=== PATIENT | male | born 1995 | race Caucasian/White ===

== ENCOUNTER 2024-06-25 15:51 | Emergency (ER) | payer BC, SELFPAY ==
--- NOTE | 2024-06-25 15:55 | ECG_ITS ---
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 Measurements Intervals Linch Rate: 115 P: 77 [place]: 118 QRS: 72 QRSD: 95 T: 80 QT: 309 QTc: 428 Interpretive Statements SINUS TACHYCARDIA WITH SHORT [place] INTERVAL POSSIBLE RIGHT ATRIAL ENLARGEMENT [0.25mV P-WAVE] INCOMPLETE RIGHT BUNDLE BRANCH BLOCK [90+ ms QRS DURATION, TERMINAL R IN V1/V2, 40+ ms S IN I/aVL/V4/V5/V6] NONSPECIFIC T-WAVE ABNORMALITY ABNORMAL RHYTHM ECG No previous ECG available for comparison Electronically Signed On 06-25-2024 22:31:20 CDT by Lyric Chaidez M.D. [email or web address]
[2024-06-25 15:58] VITALS: BP 139/92; PULSE 110; RESP 18; TEMP 36.7; O2SAT 99; BMI 23.1
--- NOTE | 2024-06-25 16:18 | ED.C_ITS ---
HPI - Psych 2 General: Chief Complaint: Psychiatric Symptoms Stated Complaint: SI Time Seen by Provider: 06/25/24 15:53 History of Present Illness: 28-year-old male presents the emergency department by EMS. EMS reports that family called due to intoxication and suicidal thoughts. Patient is slurring his words and has nystagmus on arrival. He admits to drinking heavily all week. He reports he drinks whiskey. EMS reports that family noted that the patient has a history of testicular cancer. He was told he was in remission of his testicular cancer. He had refrained from drinking alcohol during his treatment. Now that he is in remission, he decided to start drinking again. Evidently he used to abuse alcohol. He has scars up and down his wrists on both sides from self cutting. Patient reports I like the color red . He says he cuts with stress. He says he is suicidal every single day and has been for a very long time. He does not think he is any more suicidal today than any other day. He does have a girlfriend. He denies any medical problems other than anxiety, depression, self cutting, alcohol abuse, and the testicular cancer in remission. Patient tells me that he does not have any access to weapons. Patient is going to be placed on a hold for suicidal ideation with clinical intoxication. Associated symptoms: Deny delusions Related Data Previous Rx's Medication Instructions Recorded buspirone 10 mg tablet 10 mg PO BID PRN anxiety #30 tabs 06/25/24 hydroxyzine HCl 25 mg tablet 25 mg PO Q6H PRN anxiety #30 tabs 06/25/24 Review of Systems 2 Narrative: Review of systems is limited due to the patient's intoxication. However, he says he has no medical concerns. He does endorse being chronically suicidal. He denies HI. Physical Exam 2 Narrative: EXAM NARRATIVE: Slurred speech, nystagmus, delayed responses. Injected conjunctiva. Tachycardia. 2+ radial pulse. Dry mucous membranes. No respiratory distress. Normal work of breathing. He has some grass stains on his pant legs. Patient has healing scars on both of his wrists and forearms. 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 There are no acute lacerations. Const: COMMON NORMALS: well nourished HENMT: COMMON NORMALS: normocephalic, atraumatic and external ears normal H EAD & SCALP: normocephalic and atraumatic EXTERNAL EAR: Yes external ears normal MOUTH: no muffled voice Eye: COMMON NORMALS: conjunctivae normal and no scleral icterus C ONJUNCTIVA: Yes conjunctivae normal Neck/C-Spine: GENERAL: Yes normal visual inspection and Yes trachea midline Resp: COMMON NORMALS: normal respiratory effort, No use of accessory muscles and clear to auscultation bilaterally AUSCULTATION: clear to auscultation bilaterally Cardio: COMMON NORMALS: regular rhythm RHYTHM: regular rhythm Neuro: COMMON NORMALS: moves all extremities, no focal motor deficits and no sensory deficits noted Psych: APPEARANCE: Yes grossly normal ATTITUDE: Yes calm ACTIVITY/MOTOR BEHAVIOR: Yes psychomotor slowing SPEECH: Yes slow and Yes slurred MOOD & AFFECT: Yes apathetic and Yes Flat affect present THOUGHT PROCESS: I mpoverished thought process present THOUGHT CONTENT: Yes Suicidality present (Reports chronically feeling suicidal, today is no different than any other,), No Homicidality present, No delusions, No Hallucination(s) present, No Ideas of reference present (thought content), No Derealization present, No Depersonalization present, No rumination(s), No Compulsions present (thought content) and No Obsession(s) present ATTENTION/CONCENTRATION: Yes attention grossly intact MEMORY/COGNITION: Yes memory grossly impaired (Seems to have impaired memory for recent events) INSIGHT: Fair insight present (Psych) J UDGEMENT: questionable Course 2 ED course: Patient has been reassessed. He has no recollection of what happened earlier. He is awake, alert, no longer having any nystagmus and he is ambulatory throughout the room. He says that he suffers from anxiety and that usually why he drinks alcohol. In the past he has been managed with either hydroxyzine, BuSpar, gabapentin or combination of these. Patient reports he has no thoughts of hurting himself or anyone else. He does not remember having any suicidal thoughts. I can revoke his hold at this point. As long as the patient has a sober ride he may be discharged. Will go ahead and start him on BuSpar and hydroxyzine as needed for anxiety. Many give him a dose of clonazepam and gabapentin to help him come down off of his alcohol binge. Vital Signs: Vital signs: Vital Signs Temperature 98.1 F 06/25/24 15:58 Pulse Rate 110 H 06/25/24 15:58 Respiratory Rate 18 06/25/24 15:58 Blood Pressure 139/92 06/25/24 15:58 Pulse Oximetry 99 06/25/24 15:58 MDM - Psych Medical Decision Making The patient has clinical signs and symptoms of intoxication. He endorses chronic suicidal ideation on a daily basis. Because of his clinical intoxication, will place him on a temporary 96-hour hold. Once the patient is clinically sober, we can reevaluate his thought content and mood. We will perform a medical screening examination including labs and urine as well as EKG. Lab Data 06/25/24 16:20 06/25/24 16:20 Laboratory Results WBC 7.29 10^3/uL (3.29-11.43) 06/25/24 16:20 RBC 5.45 10^6/uL (3.85-5.65) 06/25/24 16:20 Hgb 15.60 g/dL (11.27-16.99) 06/25/24 16:20 Hct 46.5 % (37-53) 06/25/24 16:20 MCV 85.3 fl (82-101) 06/25/24 16:20 MCH 28.6 pg (27-33) 06/25/24 16:20 MCHC 33.5 g/dL (30-55) 06/25/24 16:20 RDW 12.9 % (12.1-15.1) 06/25/24 16:20 Plt Count 346 10^3/cmm (157-399) 06/25/24 16:20 MPV 9.7 fL (7.4-10.4) 06/25/24 16:20 Neut % (Auto) 67.4 % 06/25/24 16:20 Lymph % (Auto) 24.3 % 06/25/24 16:20 [place] % (Auto) 7.1 % 06/25/24 16:20 Eos % (Auto) 0.1 % 06/25/24 16:20 Baso % (Auto) 0.7 % 06/25/24 16:20 Neut # (Auto) 4.91 10^3/uL (1.8-7.7) 06/25/24 16:20 Lymph # (Auto) 1.8 10^3/uL (0.8-4.8) 06/25/24 16:20 [place] # (Auto) 0.5 10^3/uL (0.2-0.9) 06/25/24 16:20 Eos # (Auto) 0.0 10^3/uL (0.0-0.8) 06/25/24 16:20 Baso # (Auto) 0.1 10^3/uL (0.0-0.1) 06/25/24 16:20 Nucleated RBC % (auto) 0 % 06/25/24 16:20 Nucleated RBCs # 0.0 /100WBC 06/25/24 16:20 Sodium 145 mmol/L (136-145) 06/25/24 16:20 Potassium 3.9 mmol/L (3.5-5.1) 06/25/24 16:20 Chloride 103 mmol/L (98-107) 06/25/24 16:20 Carbon Dioxide 22 mmol/L (22-29) 06/25/24 16:20 Anion Gap 23.9 (5-19) H 06/25/24 16:20 BUN 7 mg/dL (6-20) 06/25/24 16:20 Creatinine 0.8 mg/dL (0.7-1.2) 06/25/24 16:20 GFR Calculation 116.0 mL/min (90-130) 06/25/24 16:20 Glucose 81 mg/dL (65-115) 06/25/24 16:20 Calculated Osmolality 297 mOsm/kg (285-295) H 06/25/24 16:20 Calcium 8.6 mg/dL (8.5-10.5) 06/25/24 16:20 Total Bilirubin 0.4 mg/dL (0.15-1.2) 06/25/24 16:20 AST 28 U/L (0-40) 06/25/24 16:20 ALT 15 U/L (0-41) 06/25/24 16:20 Alkaline Phosphatase 116 U/L (40-130) 06/25/24 16:20 Total Protein 7.0 g/dL (6.6-8.7) 06/25/24 16:20 Albumin 4.3 g/dL (3.5-5.2) 06/25/24 16:20 Globulin 2.7 g/dL (1.3-4.6) 06/25/24 16:20 TSH 0.40 uIU/mL (0.27-4.20) 06/25/24 16:20 Urine Color Yellow (Yellow) 06/25/24 18:05 Urine Appearance Clear (CLEAR) 06/25/24 18:05 Urine pH 6.0 (5-7) 06/25/24 18:05 Ur Specific [place] 1.007 (1.005-1.030) 06/25/24 18:05 Urine Protein Negative (Negative) 06/25/24 18:05 Urine Glucose (UA) Negative (Normal) 06/25/24 18:05 Urine Ketones Negative (Negative) 06/25/24 18:05 Urine Blood Negative (Negative) 06/25/24 18:05 Urine Nitrate Negative (Negative) 06/25/24 18:05 Urine Bilirubin Negative (Negative) 06/25/24 18:05 Urine Urobilinogen 1.0 mg/dL (Negative) 06/25/24 18:05 Ur Leukocyte Esterase Negative (Negative) 06/25/24 18:05 Urine RBC 0-2 /hpf (0-2) 06/25/24 18:05 Urine WBC 0-5 /hpf (0-5) 06/25/24 18:05 Ur Squamous Epith Cells 0-5 /hpf (0-5) 06/25/24 18:05 Amorphous Sediment Not Reportable 06/25/24 18:05 Urine Bacteria None seen /hpf (NONE) 06/25/24 18:05 Hyaline Casts 0-4 /lpf H 06/25/24 18:05 Salicylates < 0.3 mg/dL (3-10) L 06/25/24 16:20 Urine Opiates Screen Negative ng/mL (Negative) 06/25/24 18:05 Acetaminophen < 5.0 ug/mL (10-30) L 06/25/24 16:20 Ur Barbiturates Screen Negative ng/mL (Negative) 06/25/24 18:05 Ur Phencyclidine Scrn Negative ng/mL (Negative) 06/25/24 18:05 Ur Amphetamines Screen Negative ng/mL (Negative) 06/25/24 18:05 U Benzodiazepines Scrn Negative ng/mL (Negative) 06/25/24 18:05 Urine Cocaine Screen Negative ng/mL (Negative) 06/25/24 18:05 U Marijuana (THC) Screen Negative ng/mL (Negative) 06/25/24 18:05 Ethyl Alcohol 392 mg/dL (0-10) H* 06/25/24 16:20 No radiology studies performed this visit Discharge Plan Discharge Patient Disposition: Home Clinical Impression: Alcohol intoxication Qualifiers: Complication of substance-induced condition: with unspecified complication Q ualified Code(s): F10.929 - Alcohol use, unspecified with intoxication, unspecified Condition: Stable Prescriptions: New hydroxyzine HCl 25 mg tablet 25 mg PO Q6H PRN (Reason: anxiety) Qty: 30 0RF buspirone 10 mg tablet 10 mg PO BID PRN (Reason: anxiety) Qty: 30 0RF Discharge Orders: Discharge ED (Routine); Ordered 06/25/24 Ordered By: Leo Bañuelos Referrals: Eh Morelos, [Primary Care Provider] - 4-7 days (F/u alcohol abuse/anxiety) Patient Instructions: Abuse of Alcohol (ED), Suicide Prevention (ED), Suicidal Ideation Coding Level of Care Code ED [employer] Manager for Wilfredo Doherty
[2024-06-25 16:36] LABS: Basophils # 0.1 10^3/uL (0.0-0.1); Basophils % 0.7 %; Eosinophils % 0.1 %; Hematocrit 46.5 % (37-53); Lymphocytes # 1.8 10^3/uL (0.8-4.8); Lymphocytes % 24.3 %; Mean Corpuscular HGB Conc 33.5 g/dL (30-55); Mean Corpuscular Hemoglobin 28.6 pg (27-33); Mean Corpuscular Volume 85.3 fl (82-101); Mean Platelet Volume 9.7 fL (7.4-10.4); Monocytes # 0.5 10^3/uL (0.2-0.9); Monocytes % 7.1 %; Neutrophils # 4.91 10^3/uL (1.8-7.7); Neutrophils % 67.4 %; Nucleated Red Blood Cells % 0 %; Platelet Count 346 10^3/cmm (157-399); Red Blood Count 5.45 10^6/uL (3.85-5.65); Red Cell Distribution Width 12.9 % (12.1-15.1); White Blood Count 7.29 10^3/uL (3.29-11.43)
[2024-06-25 17:08] LABS: Acetaminophen < 5.0 ug/mL (10-30); Alanine Aminotransferase 15 U/L (0-41); Albumin Level 4.3 g/dL (3.5-5.2); Alkaline Phosphatase 116 U/L (40-130); Anion Gap 23.9 (5-19); Aspartate Amino Transferase 28 U/L (0-40); Blood Urea Nitrogen 7 mg/dL (6-20); Calcium 8.6 mg/dL (8.5-10.5); Carbon Dioxide 22 mmol/L (22-29); Chloride 103 mmol/L (98-107); Creatinine Clr Calc Pharmacy 156.3394; Globulin 2.7 g/dL (1.3-4.6); Glucose 81 mg/dL (65-115); Osmolality Calculated 297 mOsm/kg (285-295); Potassium 3.9 mmol/L (3.5-5.1); Salicylate < 0.3 mg/dL (3-10); Sodium 145 mmol/L (136-145); Total Bilirubin 0.4 mg/dL (0.15-1.2)
[2024-06-25 17:09] LABS: Alcohol Level 392 mg/dL (0-10)
--- NOTE | 2024-06-25 17:35 | PC.NURSE ---
96 hour hold rights read to patient. Patient verbalized understandings. Copy of rights given to patient.
[2024-06-25 18:20] LABS: Bilirubin Urine Negative (Negative); Blood Urine Negative (Negative); Glucose Urine UA Negative (Normal); Ketones Urine Negative (Negative); Leukocyte Esterase Urine Negative (Negative); Nitrate Urine Negative (Negative); Protein Urine Negative (Negative); Specific Gravity, Urine 1.007 (1.005-1.030); Urine Appearance Clear (CLEAR); Urine Color Yellow (Yellow)
[2024-06-25 18:23] LABS: Add Urine Microscopic? YES; Bacteria Urine None Seen /hpf; Hyaline Casts Urine 0-4 /lpf; RBC Urine 0-2 /hpf (0-2); Squamous Epithelial Cell Urine 0-5 /hpf (0-5); WBC Urine 0-5 /hpf (0-5)
[2024-06-25 18:24] LABS: Amphetamines Screen Urine Negative (Negative); Barbiturates Screen Urine Negative (Negative); Benzodiazepines Screen Urine Negative (Negative); Cocaine Screen Urine Negative (Negative); Opiate Screen Urine Negative (Negative); PCP Screen Urine Negative (Negative); THC Screen Urine Negative (Negative)
[2024-06-25] MEDS: CLONazepam 0.5 mg Tablet PO (19:43)
[2024-06-25] MEDS: gabapentin 100 mg Capsule 200 MG PO (19:43)
[2024-06-25 19:47] VITALS: BP 128/67; PULSE 80; O2SAT 99
== END 2024-06-25 19:49 | disposition home or self-care (01) ==
PROVIDERS: Emergency Provider Emergency Medicine; PCP Family Medicine
DX: F10.929 Alcohol use, unspecified with intoxication, unspecified (principal); Y90.8 Blood alcohol level of 240 mg/100 ml or more; Z85.47 Personal history of malignant neoplasm of testis
CPT/HCPCS: 80053; 80306; 80307; 81001; 84443; 85025; 93005; 99284

== ENCOUNTER 2024-08-24 22:56 | Inpatient (IN) | payer SELFPAY ==
[2024-08-24 23:04] VITALS: BP 150/93; PULSE 104; RESP 18; TEMP 36.8; O2SAT 98; BMI 25.0
--- NOTE | 2024-08-24 23:23 | PC.NURSE ---
pts belongings were inventoried by this nurse and security and placed in a locker at this time
--- NOTE | 2024-08-24 23:55 | W.ED.PSYCHS ---
HPI - Psych General: Chief Complaint: Psychiatric Symptoms Stated Complaint: SI Time Seen by Provider: 08/24/24 23:49 History of Present Illness: Presents to the ER with suicidal ideation. Plan on hanging himself tonight. He is brought in by his mother. He has been drinking. He did fall down and strike the right side of his face to be a superficial abrasions to that area but he says it does not hurt. Patient says he does not want help. Patient does admit to being cutter. He does see a psychiatrist at [facility] in [place] has not seen him since March. Related Data Home Medications Medication Instructions Recorded Confirmed acamprosate 333 mg tablet,delayed 333 mg PO BID 07/17/24 07/17/24 release fluoxetine 10 mg capsule 10 mg PO DAILY 07/17/24 07/17/24 gabapentin 800 mg tablet 800 mg PO TID 07/17/24 07/17/24 lamotrigine 150 mg tablet 150 mg PO BID 07/17/24 07/17/24 (Lamictal) olanzapine 5 mg tablet 5 mg PO DAILY 07/17/24 07/17/24 Allergies Allergy/AdvReac Type Severity Reaction Status Date / Time No Known Allergies Allergy Verified 08/24/24 23:09 Review of Systems General: Reports: 10 or more systems reviewed and unremarkable except in HPI and below PFSH ED PFSH: Social History Smoking and tobacco/nicotine status: unknown if used tobacco/nicotine Physical Exam Const: COMMON NORMALS: no acute distress, average body habitus, patient oriented x3, no limitations, healthy appearing, alert and well nourished HENMT: COMMON NORMALS: normocephalic, hearing grossly normal bilaterally, external ears normal, Normal external nose present and moist oral mucous membranes; head/scalp not atraumatic (Abrasion to right side of face) HEAD & SCALP: normocephalic; not atraumatic (Abrasion to right side of face) NOSE: Normal external nose present EXTERNAL EAR: Yes external ears normal Eye: COMMON NORMALS: Equal, round and reactive pupils present, EOMs intact bilaterally, conjunctivae normal and no scleral icterus CONJUNCTIVA: Yes conjunctivae normal PUPIL: Yes Equal, round and reactive pupils present Neck/C-Spine: COMMON NORMALS: full ROM, no lymphadenopathy, supple, no meningeal signs, no JVD and Thyroid normal THYROID: Thyroid normal Chest: COMMONS NORMALS: normal inspection of the chest and normal palpation of entire chest wall Resp: COMMON NORMALS: normal respiratory effort, No retractions, No use of accessory muscles and clear to auscultation bilaterally AUSCULTATION: clear to auscultation bilaterally Cardio: COMMON NORMALS: no JVD, regular rate, regular rhythm, S1 normal heart sound present, S2 normal heart sound present, No gallops present (Cardio), No clicks present (Cardio), No murmurs present (Cardio) and No rub (Cardio) RATE: regular rate RHYTHM: regular rhythm HEART SOUNDS: S1 normal heart sound present and S2 normal heart sound present GI: COMMON NORMALS: Normal to inspection, nondistended, normoactive bowel sounds present, Soft to palpation, non-tender, No hepatosplenomegaly present and no masses PALPATION: Yes Soft to palpation and Yes No hepatosplenomegaly present Neuro: COMMON NORMALS: patient oriented x3 SENSORIUM/ORIENTATION: Yes alert MENINGEAL SIGNS: Yes no meningeal signs Course Vital Signs: Vital signs: Vital Signs Temperature 98.3 F 08/24/24 23:04 Pulse Rate 104 H 08/24/24 23:04 Respiratory Rate 18 08/24/24 23:04 Blood Pressure 150/93 08/24/24 23:04 Pulse Oximetry 98 08/24/24 23:04 [facility] - Psych Medical Decision Making Patient resents to ER with suicidal ideation and plan. Patient was cleared medically with labs. Patient alcohol was 348 but he is alert oriented coherent and can hold conversation. Patient was placed on 96-hour hold. Dr. Rosenbaum was consulted who agreed to take the patient in the [facility] for further evaluation and treatment. Medical Records I reviewed the patient's medical records. Lab Data I reviewed the patient's lab results. 08/24/24 23:49 08/24/24 23:49 Laboratory Results WBC 6.27 10^3/uL (3.29-11.43) 08/24/24 23:49 RBC 4.82 10^6/uL (3.85-5.65) 08/24/24 23:49 Hgb 13.30 g/dL (11.27-16.99) 08/24/24 23:49 Hct 41.1 % (37-53) 08/24/24 23:49 MCV 85.3 fl (82-101) 08/24/24 23:49 MCH 27.6 pg (27-33) 08/24/24 23:49 MCHC 32.4 g/dL (30-55) 08/24/24 23:49 RDW 13.8 % (12.1-15.1) 08/24/24 23:49 Plt Count 362 10^3/cmm (157-399) 08/24/24 23:49 MPV 9.7 fL (7.4-10.4) 08/24/24 23:49 Neut % (Auto) 74.7 % 08/24/24 23:49 Lymph % (Auto) 16.9 % 08/24/24 23:49 [place] % (Auto) 6.4 % 08/24/24 23:49 Eos % (Auto) 0.6 % 08/24/24 23:49 Baso % (Auto) 1.1 % 08/24/24 23:49 Neut # (Auto) 4.68 10^3/uL (1.8-7.7) 08/24/24 23:49 Lymph # (Auto) 1.1 10^3/uL (0.8-4.8) 08/24/24 23:49 [place] # (Auto) 0.4 10^3/uL (0.2-0.9) 08/24/24 23:49 Eos # (Auto) 0.0 10^3/uL (0.0-0.8) 08/24/24 23:49 Baso # (Auto) 0.1 10^3/uL (0.0-0.1) 08/24/24 23:49 Nucleated RBC % (auto) 0 % 08/24/24 23:49 Nucleated RBCs # 0.0 /100WBC 08/24/24 23:49 Sodium 142 mmol/L (136-145) 08/24/24 23:49 Potassium 4.1 mmol/L (3.5-5.1) 08/24/24 23:49 Chloride 104 mmol/L (98-107) 08/24/24 23:49 Carbon Dioxide 22 mmol/L (22-29) 08/24/24 23:49 Anion Gap 20.1 (5-19) H 08/24/24 23:49 BUN 5 mg/dL (6-20) L 08/24/24 23:49 Creatinine 0.9 mg/dL (0.7-1.2) 08/24/24 23:49 GFR Calculation 100.5 mL/min (90-130) 08/24/24 23:49 Glucose 116 mg/dL (65-115) H 08/24/24 23:49 Calculated Osmolality 292 mOsm/kg (285-295) 08/24/24 23:49 Calcium 9.2 mg/dL (8.5-10.5) 08/24/24 23:49 Total Bilirubin 0.2 mg/dL (0.15-1.2) 08/24/24 23:49 AST 17 U/L (0-40) 08/24/24 23:49 ALT 11 U/L (0-41) 08/24/24 23:49 Alkaline Phosphatase 146 U/L (40-130) H 08/24/24 23:49 Total Protein 7.7 g/dL (6.6-8.7) 08/24/24 23:49 Albumin 4.6 g/dL (3.5-5.2) 08/24/24 23:49 Globulin 3.1 g/dL (1.3-4.6) 08/24/24 23:49 Salicylates < 0.3 mg/dL (3-10) L 08/24/24 23:49 Acetaminophen < 5.0 ug/mL (10-30) L 08/24/24 23:49 Ethyl Alcohol 348 mg/dL (0-10) H* 08/24/24 23:49 No radiology studies performed this visit Discharge Plan Discharge Patient Disposition: Admitted As Inpatient Clinical Impression: Suicidal ideation Alcohol intoxication Qualifiers: Complication of substance-induced condition: uncomplicated Qualified Code(s): F10.920 - Alcohol use, unspecified with intoxication, uncomplicated Condition: Stable Coding Level of Care Code ED [employer]ating Machine Operator for Wilfredo Doherty
[2024-08-24 23:58] LABS: Basophils # 0.1 10^3/uL (0.0-0.1); Basophils % 1.1 %; Eosinophils % 0.6 %; Hematocrit 41.1 % (37-53); Lymphocytes # 1.1 10^3/uL (0.8-4.8); Lymphocytes % 16.9 %; Mean Corpuscular HGB Conc 32.4 g/dL (30-55); Mean Corpuscular Hemoglobin 27.6 pg (27-33); Mean Corpuscular Volume 85.3 fl (82-101); Mean Platelet Volume 9.7 fL (7.4-10.4); Monocytes # 0.4 10^3/uL (0.2-0.9); Monocytes % 6.4 %; Neutrophils # 4.68 10^3/uL (1.8-7.7); Neutrophils % 74.7 %; Nucleated Red Blood Cells % 0 %; Platelet Count 362 10^3/cmm (157-399); Red Blood Count 4.82 10^6/uL (3.85-5.65); Red Cell Distribution Width 13.8 % (12.1-15.1); White Blood Count 6.27 10^3/uL (3.29-11.43)
[2024-08-25] VITALS (8 sets, daily range): BP systolic 113–149; BP diastolic 70–99; PULSE 71–107; RESP 16–20; TEMP 36.5–36.9; O2SAT 97–100
[2024-08-25 00:14] LABS: Alanine Aminotransferase 11 U/L (0-41); Albumin Level 4.6 g/dL (3.5-5.2); Alkaline Phosphatase 146 U/L (40-130); Anion Gap 20.1 (5-19); Aspartate Amino Transferase 17 U/L (0-40); Blood Urea Nitrogen 5 mg/dL (6-20); Calcium 9.2 mg/dL (8.5-10.5); Carbon Dioxide 22 mmol/L (22-29); Chloride 104 mmol/L (98-107); Creatinine Clr Calc Pharmacy 150.3482; Globulin 3.1 g/dL (1.3-4.6); Glomerular Filtration Rate 100.5 mL/min (90-130); Glucose 116 mg/dL (65-115); Osmolality Calculated 292 mOsm/kg (285-295); Potassium 4.1 mmol/L (3.5-5.1); Sodium 142 mmol/L (136-145); Total Bilirubin 0.2 mg/dL (0.15-1.2); Total Protein 7.7 g/dL (6.6-8.7)
[2024-08-25 00:16] LABS: Acetaminophen < 5.0 ug/mL (10-30); Alcohol Level 348 mg/dL (0-10); Salicylate < 0.3 mg/dL (3-10)
--- NOTE | 2024-08-25 01:31 | PC.NURSE ---
96 HH Pt served with copy of 96 HH by this RN and security. Pt is slurring words, swaying back and forth, appearing intoxicated. Pt is pleasant at this time. Oriented to name, time and place. Questions over 96 HH answered. Pt presents with multiple healed lacerations to right [place] and left wrist. Pt states that he placed the 5 ysabel into lacerations on his [place] approximately 1 month ago. Healed wounds show no signs of infection, ysabel in the raised scars at this point. 6 sutures in left wrist also present, lacerations are healed and scarred over. 5 ysabel removed from right [place] 6 sutures removed from left wrist
[2024-08-25 03:03] LABS: Alcohol Level 295 mg/dL (0-10)
[2024-08-25] MEDS: nicotine 4 mg lozenge MUCOUS MEM ×5 (06:27→20:54)
[2024-08-25 07:24] LABS: Bilirubin Urine Negative (Negative); Blood Urine Negative (Negative); Glucose Urine UA Negative (Normal); Ketones Urine Negative (Negative); Leukocyte Esterase Urine Negative (Negative); Nitrate Urine Negative (Negative); Protein Urine Negative (Negative); Specific Gravity, Urine 1.006 (1.005-1.030); Urine Appearance Clear (CLEAR); Urine Color Yellow (Yellow); Urobilinogen Urine 0.2 mg/dL (Negative); pH Urine 5.5 (5-7)
[2024-08-25 07:30] LABS: Add Urine Microscopic? YES; Bacteria Urine None Seen /hpf; Hyaline Casts Urine 0-4 /lpf; RBC Urine 0-2 /hpf (0-2); Squamous Epithelial Cell Urine 0-5 /hpf (0-5); WBC Urine 0-5 /hpf (0-5)
[2024-08-25 07:37] LABS: Amphetamines Screen Urine Negative (Negative); Barbiturates Screen Urine Negative (Negative); Benzodiazepines Screen Urine Negative (Negative); Cocaine Screen Urine Negative (Negative); Opiate Screen Urine Negative (Negative); PCP Screen Urine Negative (Negative); THC Screen Urine Positive (Negative)
[2024-08-25] MEDS: lamoTRIgine 100 mg Tablet 150 MG PO ×2 (08:14→20:53)
[2024-08-25] MEDS: thiamine 100 mg Tablet PO (08:14)
[2024-08-25] MEDS: gabapentin 400 mg Capsule 800 MG PO ×3 (08:14→20:54)
[2024-08-25] MEDS: multivitamin therapeutic Tablet 1 TAB PO (08:14)
[2024-08-25] MEDS: fluoxetine 10 mg Capsule PO (08:14)
[2024-08-25] MEDS: OLANZapine 5 mg TABLET PO ×2 (08:14→20:54)
[2024-08-25] MEDS: folic acid 1 mg Tablet PO (08:14)
[2024-08-25] MEDS: flu vacc pf 24-25 (6 mos+) SYRINGE 45 MCG IM (08:15)
--- NOTE | 2024-08-25 09:05 | P.NPUHP_ITS ---
Providers/Chief Complaint 2 Admitting Physician: Frantz Rosenbaum MD Chief Complaint: SI HPI NPU History of Present Illness Darell Devlin is a 29 year old male who presented to the emergency department with the following report: Chief Complaint: Psychiatric Symptoms Stated Complaint: SI Time Seen by Provider: 08/24/24 23:49 History of Present Illness: Presents to the ER with suicidal ideation. Plan on hanging himself tonight. He is brought in by his mother. He has been drinking. He did fall down and strike the right side of his face to be a superficial abrasions to that area but he says it does not hurt. Patient says he does not want help. Patient does admit to being cutter. He does see a psychiatrist at [facility] has not seen him since March. Chief complaint Suicidal ideation following alcohol relapse. History of the present complaint The patient, born on October 30, 1994, reports currently taking psychiatric medications including olanzapine (Zyprexa) and is in the process of weaning off gabapentin. They have been taking Prozac and Zyprexa for about six weeks and have been on lamotrigine for a longer period. The patient was admitted to the hospital due to drinking and having thoughts of self-harm. They express a desire to stop drinking, acknowledging a relapse after being sober for five to six months. The patient has a history of psychiatric hospitalizations, with this being their third admission. Previous admissions occurred when they were 21 years old and earlier in June 2023 at [facility]. The patient has been receiving outpatient care at [facility], attending appointments approximately once a month. They have a history of vaping since 2015 and report excessive alcohol consumption starting in 2015, which worsened in 2022. The last drink was consumed the night before the consultation. The patient occasionally uses marijuana and reported using cocaine about two months ago. 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 The patient has a history of legal issues related to possession but avoided correction time by cooperating as a confidential informant. The patient began experiencing depression and anxiety symptoms around 2013 or 2014 while in high school, which have progressively worsened. They report feelings of helplessness, hopelessness, worthlessness, low mood, and sleep problems. The patient describes having a passive wish, with thoughts of not caring if they do not wake up. They have experienced suicidal thoughts but have been too scared to act on them. The patient attempted suicide the night before the consultation by trying to hang themselves. They have a history of self-injurious behavior, starting in 2014, with the most recent incident occurring three days prior to the consultation. Anxiety symptoms include overwhelming worry and a sense of impending doom, even without specific triggers. The patient reports a family history of mental health issues, with both parents having struggled with alcoholism. The patient's mother has a history of depression and has been hospitalized for it. The patient's brother attempted suicide in 2019. 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 They also had a stroke in 2018, attributed to cocaine use and Xanax withdrawal. The patient identifies as homosexual and has been in a complicated relationship for six years. They have never been or had biological children. The patient attempted to join the [employer] but was discharged due to self-harm history. 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 Currently, they live with their mother and have several pets. The patient has spent nights in correction on three occasions but has not served time for any felony charges. Mental health history Diagnosed with depression and anxiety around [id number] during high school, with symptoms progressively worsening. History of passive wishes and suicidal thoughts without a plan, but attempted suicide on 08/24/2024 by attempting to hang self. History of self-injurious behavior (cutting) since 2014, with the most recent episode occurring three days prior to the encounter (08/22/2024). Reports feelings of helplessness, hopelessness, worthlessness, low mood, and sleep disturbances. Experiences anxiety with physical symptoms such as heart racing and feelings of doom, even without specific triggers. No history of paranoia or hallucinations. Admitted to a psychiatric hospital three times: at age 21 (2015), in June 2024 at [facility] in [place], and currently. Currently taking Prozac (20 mg), Zyprexa (5 mg), and lamotrigine, and weaning off gabapentin. Prozac and Zyprexa were initiated approximately six weeks ago (late June 2024). Previous outpatient psychiatric care at [facility] in [place], attending monthly appointments. Family history of depression (mother) and suicide attempt (brother in 2019). Social history Lives with mother and has recently moved back home after a relapse. Previously lived in [place]. Has five cats, four dogs, and a Chihuahua. Vapes since 2016 and has been drinking since 2015, with increased consumption in 2022. Last drink was the night before the encounter. Previously sober for five to six months before relapsing. Occasional cannabis use and used cocaine two months ago. Was addicted to methamphetamine in 9334-1562. No history of foster care or longterm living. 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, but was fired. Identifies as heterosexual. Longest relationship lasted six years, currently complicated. No biological children. Attempted to join the [employer] but was discharged due to self-harm history. Describes self as Voodoo. Meds NPU Home Medications Medication Instructions Recorded Confirmed Last Taken Type acamprosate 333 mg tablet,delayed 333 mg PO BID 07/17/24 08/25/24 Unknown History release fluoxetine 10 mg capsule 10 mg PO DAILY 07/17/24 08/25/24 Unknown History gabapentin 800 mg tablet 800 mg PO TID 07/17/24 08/25/24 Unknown History (Neurontin) lamotrigine 150 mg tablet 150 mg PO BID 07/17/24 08/25/24 Unknown History (Lamictal) olanzapine 5 mg tablet 5 mg PO DAILY 07/17/24 08/25/24 Unknown History Allergies Allergy/AdvReac Type Severity Reaction Status Date / Time No Known Allergies Allergy Verified 08/24/24 23:09 PFS NPU 2 PFSH: Social History Smoking and tobacco/nicotine status: unknown if used tobacco/nicotine Mental Status Exam 2 MSE Comments: This is a well-nourished well-developed white male in hospital scrubs with limited grooming and eye contact. No abnormal movements except for psychomotor retardation. Mostly cooperative with exam in moderate distress. Speech was decreased rate and volume. Mood described as down, affect congruent. Thought process linear/organized. Thought contact: patient denies suicidal or homicidal ideation, there were no delusions reported or noted. He denied auditory or visual hallucinations. Reports long-standing depression since , with worsening symptoms, including feelings of helplessness, hopelessness, worthlessness, and low mood. Significant anxiety with feelings of doom, dread, and heart racing, often feeling overwhelmed. Denied thoughts of violence or aggression against others, visual hallucinations, and paranoia. Reported suicidal ideation with a suicide attempt the previous night by attempting to hang self. History of passive wishes and self-injurious behavior, with the most recent self-harm episode occurring three days ago. Sleep disturbances noted, including sweating during sleep. Stressors include relapse into alcohol use, history of substance abuse, and ongoing mental health challenges. Mood described as low. Attention and concentration appeared intact and memory appeared unreliable but none were formally tested. Patient is alert and oriented times person and place. Insight, judgment and impulse control are all impaired. Vitals/I&O/Wt Last Vital Signs Temp 97.9 F 08/25/24 08:00 Pulse 81 08/25/24 08:00 Resp 18 08/25/24 08:00 BP 146/97 08/25/24 08:00 Pulse Ox 100 08/25/24 08:00 O2 Del Method Room Air 08/25/24 04:00 08/24/24 08/25/24 08/25/24 22:59 06:59 14:59 Intake Total 0 / 0 Balance 0 / 0 Weight last 48 hrs Weight 90.718 kg Data NPU 08/24/24 23:49 08/24/24 23:49 A&P Assessment and plan (1) Suicidal ideation: (2) Alcohol intoxication: Qualifiers: Complication of substance-induced condition: uncomplicated Qualified Code(s): F10.920 - Alcohol use, unspecified with intoxication, uncomplicated (3) PTSD (post-traumatic stress disorder): (4) Major depressive disorder, recurrent: (5) Alcohol use disorder: (6) Generalized anxiety disorder: Plan This is a 29-year-old white male unknown to [facility] from previous services. The patient presents with a history of major depressive disorder and generalized anxiety disorder, both of which have progressively worsened since their onset in . The patient reports a recent suicide attempt on August 24, 2024, involving an attempt to hang themselves, as well as ongoing self-injurious behavior, with the most recent episode occurring three days prior to the encounter. There is a history of substance use disorder, including methamphetamine addiction in 2661-4546, recent cocaine use two months ago, and alcohol relapse in late 2023 after a period of five to six months of sobriety. The patient also reports passive wishes, persistent feelings of hopelessness, and severe anxiety episodes characterized by physical symptoms such as a racing heart and a sense of impending doom. The patient has a history of cleft palate repair, testicular cancer with right testicle removal in June 2023, and a stroke in 2017 attributed to substance use. There is a family history of depression and addiction on both maternal and paternal sides, as well as a sibling with a suicide attempt in 2018. The patient?s current presentation is consistent with severe major depressive disorder, generalized anxiety disorder, and substance use disorder, with acute exacerbation of depressive symptoms and suicidal ideation. 1.? Encouraged individual, group and milieu therapy. 2. ?We will attempt to gather collateral information. 3. ?TO-15 minute checks on the unit. 4. ?Recommend sober living treatment at the highest level of care to which the patient is willing to commit. 5. Continue current medications. Except will increase Prozac to 30 mg p.o. daily and Zyprexa to 15 mg p.o. daily and possibly divided doses. Start propranolol (Inderal) 20 mg three times a day as needed. Involuntary Hold Information 2 96 Hour Hold: 96 Hour Involuntary Admission: Yes 96 Hour Hold Ending Date: 08/31/24 96 Hour Hold Ending Time: 00:25 Attestations NPU 2 Medical Necessity Statement*: Inpatient hospitalization is medically necessary and be clinically appropriate intervention at this time. We will monitor/initiate medications and make changes as indicated. Will be in the hospital for over 2 midnights. Likely length of stay 5 to 7 days. Coding Level of Care Code Acute Code for [facility] Fwd Diagnoses Suicidal ideation R45.851 Alcohol intoxication F10.920 Complication of substance-induced condition: uncomplicated PTSD (post-traumatic stress disorder) F43.10 Major depressive disorder, recurrent F33.9 Alcohol use disorder F10.90 Generalized anxiety disorder F41.1
[2024-08-25] MEDS: fluoxetine 20 mg Capsule PO (20:54)
[2024-08-25] MEDS: trazodone 50 mg Tablet PO (20:54)
[2024-08-25] MEDS: propranolol 20 mg Tablet PO (21:51)
[2024-08-26 04:00] VITALS: BP 135/71; PULSE 80; RESP 15; TEMP 36.6; O2SAT 98
[2024-08-26 08:00] VITALS: BP 126/71; PULSE 70; RESP 18; TEMP 36.5; O2SAT 98
[2024-08-26] MEDS: lamoTRIgine 100 mg Tablet 150 MG PO ×2 (08:23→21:12)
[2024-08-26] MEDS: thiamine 100 mg Tablet PO (08:23)
[2024-08-26] MEDS: gabapentin 400 mg Capsule 800 MG PO ×3 (08:23→21:11)
[2024-08-26] MEDS: multivitamin therapeutic Tablet 1 TAB PO (08:23)
[2024-08-26] MEDS: folic acid 1 mg Tablet PO (08:24)
[2024-08-26] MEDS: propranolol 20 mg Tablet PO ×3 (08:24→21:13)
[2024-08-26] MEDS: fluoxetine 10 mg Capsule 30 MG PO (08:24)
[2024-08-26] MEDS: OLANZapine 5 mg TABLET PO ×2 (08:24→21:13)
[2024-08-26] MEDS: nicotine 4 mg lozenge MUCOUS MEM ×3 (08:24→21:13)
[2024-08-26 12:00] VITALS: BP 112/75; PULSE 77; RESP 18; TEMP 36.6; O2SAT 98
[2024-08-26] MEDS: hyDROXYzine 25 mg Capsule 50 MG PO (14:36)
--- NOTE | 2024-08-26 14:36 | P.NPUPN_ITS ---
Subjective NPU 2 Subjective: Patient presented today reporting that he is doing okay. He denied any issues with the increase that has begun with his Prozac and Zyprexa. We discussed the fact that this is something that would need time to manifest. He endorsed being optimistic about being here though having anxiety. He was encouraged to use the as needed propranolol. He denied any side effects to the medication. Mental Status Exam 2 MSE Comments: This is a well-nourished well-developed white male in hospital scrubs with limited grooming and eye contact. No abnormal movements except for psychomotor retardation. Mostly cooperative with exam in moderate distress. Speech was decreased rate and volume. Mood described as down, affect congruent. Thought process linear/organized. Thought contact: patient denies suicidal or homicidal ideation, there were no delusions reported or noted. He denied auditory or visual hallucinations. Reports long-standing depression since 4236-2316, with worsening symptoms, including feelings of helplessness, hopelessness, worthlessness, and low mood. Significant anxiety with feelings of doom, dread, and heart racing, often feeling overwhelmed. Denied thoughts of violence or aggression against others, visual hallucinations, and paranoia. Reported suicidal ideation with a suicide attempt the previous night by attempting to hang self. History of passive wishes and self-injurious behavior, with the most recent self-harm episode occurring three days ago. Sleep disturbances noted, including sweating during sleep. Stressors include relapse into alcohol use, history of substance abuse, and ongoing mental health challenges. Mood described as low. Attention and concentration appeared intact and memory appeared unreliable but none were formally tested. Patient is alert and oriented times person and place. Insight, judgment and impulse control are all impaired. Vitals/I&O/Wt Last Vital Signs Temp 98 F 08/26/24 12:00 Pulse 77 08/26/24 12:00 Resp 18 08/26/24 12:00 BP 112/75 08/26/24 12:00 Pulse Ox 98 08/26/24 12:00 O2 Del Method Room Air 08/26/24 04:00 Weight last 48 hrs Weight 90.718 kg Data NPU 08/24/24 23:49 08/24/24 23:49 A&P Assessment and plan (1) Suicidal ideation: (2) Alcohol intoxication: Qualifiers: Complication of substance-induced condition: uncomplicated Qualified Code(s): F10.920 - Alcohol use, unspecified with intoxication, uncomplicated (3) PTSD (post-traumatic stress disorder): (4) Major depressive disorder, recurrent: (5) Alcohol use disorder: (6) Generalized anxiety disorder: Plan This is a 29-year-old white male unknown to [facility] from previous services. The patient presents with a history of major depressive disorder and generalized anxiety disorder, both of which have progressively worsened since their onset in 8387-7259. The patient reports a recent suicide attempt on August 24, 2024, involving an attempt to hang themselves, as well as ongoing self-injurious behavior, with the most recent episode occurring three days prior to the encounter. There is a history of substance use disorder, including methamphetamine addiction in 8857-4402, recent cocaine use two months ago, and alcohol relapse in late 2023 after a period of five to six months of sobriety. The patient also reports passive wishes, persistent feelings of hopelessness, and severe anxiety episodes characterized by physical symptoms such as a racing heart and a sense of impending doom. The patient has a history of cleft palate repair, testicular cancer with right testicle removal in June 2023, and a stroke in 2018 attributed to substance use. There is a family history of depression and addiction on both maternal and paternal sides, as well as a sibling with a suicide attempt in 2019. The patient?s current presentation is consistent with severe major depressive disorder, generalized anxiety disorder, and substance use disorder, with acute exacerbation of depressive symptoms and suicidal ideation. 1.? Encouraged individual, group and milieu therapy. 2. ?We will attempt to gather collateral information. 3. ?TO-15 minute checks on the unit. 4. ?Recommend sober living treatment at the highest level of care to which the patient is willing to commit. 5. Continue current medications. Except increased Prozac to 30 mg p.o. daily and Zyprexa to 5 mg p.o. twice daily with likely increased to 5 mg in the morning and 10 mg at night. Started propranolol (Inderal) 20 mg three times a day as needed. Involuntary Hold Information 2 96 Hour Hold: 96 Hour Involuntary Admission: Yes 96 Hour Hold Ending Date: 08/31/24 96 Hour Hold Ending Time: 00:25 Other Hold: Hold End Date: 08/31/24 Attestations NPU 2 Medical Necessity Statement*: Inpatient hospitalization is medically necessary and be clinically appropriate intervention at this time. We will monitor/initiate medications and make changes as indicated. Likely length of stay 4-6 days. Coding Level of Care Code Acute Code for g Fwd Diagnoses Suicidal ideation R45.851 Alcohol intoxication F10.920 Complication of substance-induced condition: uncomplicated PTSD (post-traumatic stress disorder) F43.10 Major depressive disorder, recurrent F33.9 Alcohol use disorder F10.90 Generalized anxiety disorder F41.1
[2024-08-26 15:53] VITALS: BP 117/70; PULSE 72; RESP 18; TEMP 36.3; O2SAT 99
[2024-08-26 20:00] VITALS: BP 134/88; PULSE 87; RESP 18; TEMP 37.1; O2SAT 100
[2024-08-26] MEDS: LORazepam 2 mg Tablet PO (21:11)
[2024-08-26] MEDS: trazodone 50 mg Tablet PO (21:13)
[2024-08-27] VITALS (7 sets, daily range): BP systolic 102–135; BP diastolic 60–87; PULSE 64–81; RESP 15–18; TEMP 36.3–36.9; O2SAT 97–100
[2024-08-27] MEDS: nicotine 4 mg lozenge MUCOUS MEM ×5 (03:04→21:08)
[2024-08-27] MEDS: folic acid 1 mg Tablet PO (09:14)
[2024-08-27] MEDS: OLANZapine 5 mg TABLET PO ×2 (09:14→21:07)
[2024-08-27] MEDS: lamoTRIgine 100 mg Tablet 150 MG PO ×2 (09:15→21:08)
[2024-08-27] MEDS: multivitamin therapeutic Tablet 1 TAB PO (09:15)
[2024-08-27] MEDS: gabapentin 400 mg Capsule 800 MG PO ×3 (09:15→21:06)
[2024-08-27] MEDS: fluoxetine 10 mg Capsule 30 MG PO (09:15)
[2024-08-27] MEDS: thiamine 100 mg Tablet PO (09:15)
[2024-08-27] MEDS: propranolol 20 mg Tablet PO ×3 (09:15→21:07)
--- NOTE | 2024-08-27 09:59 | P.NPUPN_ITS ---
Subjective NPU 2 Subjective: Patient presented today reporting that he is feeling okay in general. He reports he still having depression and anxiety and he is not sure that the propranolol is helping very much. We discussed the fact that in the past he has had benzodiazepines at times that have helped his situation overall. We discussed the fact that outside of some rescue doses occasionally here that we try to avoid benzodiazepines as long-term solutions for anxiety. There is no clinical evidence or research evidence of long-term efficacy utilized in a way that would be considered safe. Otherwise we discussed taking it a day at a time and not having unfair expectations. He denied any side effects to the medication. Mental Status Exam 2 MSE Comments: This is a well-nourished well-developed white male in hospital scrubs with limited grooming and eye contact. No abnormal movements except for psychomotor retardation. Mostly cooperative with exam in moderate distress. Speech was decreased rate and volume. Mood described as down, affect congruent. Thought process linear/organized. Thought contact: patient denies suicidal or homicidal ideation, there were no delusions reported or noted. He denied auditory or visual hallucinations. Reports long-standing depression since 6838-8113, with worsening symptoms, including feelings of helplessness, hopelessness, worthlessness, and low mood. Significant anxiety with feelings of doom, dread, and heart racing, often feeling overwhelmed. Denied thoughts of violence or aggression against others, visual hallucinations, and paranoia. Reported suicidal ideation with a suicide attempt the previous night by attempting to hang self. History of passive wishes and self-injurious behavior, with the most recent self-harm episode occurring three days ago. Sleep disturbances noted, including sweating during sleep. Stressors include relapse into alcohol use, history of substance abuse, and ongoing mental health challenges. Mood described as low. Attention and concentration appeared intact and memory appeared unreliable but none were formally tested. Patient is alert and oriented times person and place. Insight, judgment and impulse control are all impaired. Vitals/I&O/Wt Last Vital Signs Temp 97.4 F L 08/27/24 08:00 Pulse 64 08/27/24 08:00 Resp 18 08/27/24 08:00 BP 102/60 08/27/24 08:00 Pulse Ox 97 08/27/24 08:00 O2 Del Method Room Air 08/27/24 04:00 08/26/24 08/27/24 08/27/24 22:59 06:59 14:59 Intake Total 0 / 0 Balance 0 / 0 Data NPU 08/24/24 23:49 08/24/24 23:49 A&P Assessment and plan (1) Suicidal ideation: (2) Alcohol intoxication: Qualifiers: Complication of substance-induced condition: uncomplicated Qualified Code(s): F10.920 - Alcohol use, unspecified with intoxication, uncomplicated (3) PTSD (post-traumatic stress disorder): (4) Major depressive disorder, recurrent: (5) Alcohol use disorder: (6) Generalized anxiety disorder: Plan This is a 29-year-old white male unknown to [facility] from previous services. The patient presents with a history of major depressive disorder and generalized anxiety disorder, both of which have progressively worsened since their onset in 0851-4469. The patient reports a recent suicide attempt on August 24, 2024, involving an attempt to hang themselves, as well as ongoing self-injurious behavior, with the most recent episode occurring three days prior to the encounter. There is a history of substance use disorder, including methamphetamine addiction in 1090-7924, recent cocaine use two months ago, and alcohol relapse in late 2023 after a period of five to six months of sobriety. The patient also reports passive wishes, persistent feelings of hopelessness, and severe anxiety episodes characterized by physical symptoms such as a racing heart and a sense of impending doom. The patient has a history of cleft palate repair, testicular cancer with right testicle removal in June 2023, and a stroke in 2017 attributed to substance use. There is a family history of depression and addiction on both maternal and paternal sides, as well as a sibling with a suicide attempt in 2018. The patient?s current presentation is consistent with severe major depressive disorder, generalized anxiety disorder, and substance use disorder, with acute exacerbation of depressive symptoms and suicidal ideation. 1.? Encouraged individual, group and milieu therapy. 2. ?We will attempt to gather collateral information. 3. ?TO-15 minute checks on the unit. 4. ?Recommend sober living treatment at the highest level of care to which the patient is willing to commit. 5. Continue current medications. Except increased Prozac to 30 mg p.o. daily and Zyprexa to 5 mg p.o. twice daily with likely increased to 5 mg in the morning and 10 mg at night. Started propranolol (Inderal) 20 mg three times a day as needed. Involuntary Hold Information 2 96 Hour Hold: 96 Hour Involuntary Admission: Yes 96 Hour Hold Ending Date: 08/31/24 96 Hour Hold Ending Time: 00:25 Other Hold: Hold End Date: 08/31/24 Attestations NPU 2 Medical Necessity Statement*: Inpatient hospitalization is medically necessary and be clinically appropriate intervention at this time. We will monitor/initiate medications and make changes as indicated. Likely length of stay 3-5 days. Coding Level of Care Code Acute Code for g Fwd Diagnoses Suicidal ideation R45.851 Alcohol intoxication F10.920 Complication of substance-induced condition: uncomplicated PTSD (post-traumatic stress disorder) F43.10 Major depressive disorder, recurrent F33.9 Alcohol use disorder F10.90 Generalized anxiety disorder F41.1
[2024-08-27] MEDS: hyDROXYzine 25 mg Capsule 50 MG PO (21:06)
[2024-08-27] MEDS: trazodone 50 mg Tablet PO (21:07)
[2024-08-28] MEDS: hyDROXYzine 25 mg Capsule 50 MG PO ×2 (04:18→21:01)
[2024-08-28 06:00] VITALS: BP 112/66; PULSE 76; RESP 18; TEMP 36.4; O2SAT 99
[2024-08-28] MEDS: fluoxetine 10 mg Capsule 30 MG PO (08:06)
[2024-08-28] MEDS: OLANZapine 5 mg TABLET PO ×2 (08:06→21:01)
[2024-08-28] MEDS: thiamine 100 mg Tablet PO (08:06)
[2024-08-28] MEDS: gabapentin 400 mg Capsule 800 MG PO ×3 (08:06→21:01)
[2024-08-28] MEDS: multivitamin therapeutic Tablet 1 TAB PO (08:06)
[2024-08-28] MEDS: lamoTRIgine 100 mg Tablet 150 MG PO ×2 (08:06→21:01)
[2024-08-28] MEDS: folic acid 1 mg Tablet PO (08:06)
[2024-08-28] MEDS: nicotine 4 mg lozenge MUCOUS MEM ×4 (08:07→21:02)
--- NOTE | 2024-08-28 09:51 | P.NPUPN_ITS ---
Subjective NPU 2 Subjective: Patient presented today reporting that he is feeling alright. He reports he still having depression and anxiety, but slept better last night. Otherwise we discussed taking it a day at a time and not having unfair expectations. He was feeling more optimistic about treatment. We discussed Dr. Lyles coming tomorrow. He denied any side effects to the medication. Mental Status Exam 2 MSE Comments: This is a well-nourished well-developed white male in hospital scrubs with limited grooming and eye contact. No abnormal movements except for psychomotor retardation. Mostly cooperative with exam in moderate distress. Speech was decreased rate and volume. Mood described as down, affect congruent. Thought process linear/organized. Thought contact: patient denies suicidal or homicidal ideation, there were no delusions reported or noted. He denied auditory or visual hallucinations. Reports long-standing depression since 4451-6056, with worsening symptoms, including feelings of helplessness, hopelessness, worthlessness, and low mood. Significant anxiety with feelings of doom, dread, and heart racing, often feeling overwhelmed. Denied thoughts of violence or aggression against others, visual hallucinations, and paranoia. Reported suicidal ideation with a suicide attempt the previous night by attempting to hang self. History of passive wishes and self-injurious behavior, with the most recent self-harm episode occurring three days ago. Sleep disturbances noted, including sweating during sleep. Stressors include relapse into alcohol use, history of substance abuse, and ongoing mental health challenges. Mood described as low. Attention and concentration appeared intact and memory appeared unreliable but none were formally tested. Patient is alert and oriented times person and place. Insight, judgment and impulse control are all impaired. Vitals/I&O/Wt Last Vital Signs Temp 97.6 F 08/28/24 06:00 Pulse 76 08/28/24 06:00 Resp 18 08/28/24 06:00 BP 112/66 08/28/24 06:00 Pulse Ox 99 08/28/24 06:00 O2 Del Method Room Air 08/27/24 04:00 Data NPU 08/24/24 23:49 08/24/24 23:49 A&P Assessment and plan (1) Suicidal ideation: (2) Alcohol intoxication: Qualifiers: Complication of substance-induced condition: uncomplicated Qualified Code(s): F10.920 - Alcohol use, unspecified with intoxication, uncomplicated (3) PTSD (post-traumatic stress disorder): (4) Major depressive disorder, recurrent: (5) Alcohol use disorder: (6) Generalized anxiety disorder: Plan This is a 29-year-old white male unknown to [facility] from previous services. The patient presents with a history of major depressive disorder and generalized anxiety disorder, both of which have progressively worsened since their onset in 2087-5991. The patient reports a recent suicide attempt on August 24, 2024, involving an attempt to hang themselves, as well as ongoing self-injurious behavior, with the most recent episode occurring three days prior to the encounter. There is a history of substance use disorder, including methamphetamine addiction in 9856-7494, recent cocaine use two months ago, and alcohol relapse in late 2023 after a period of five to six months of sobriety. The patient also reports passive wishes, persistent feelings of hopelessness, and severe anxiety episodes characterized by physical symptoms such as a racing heart and a sense of impending doom. The patient has a history of cleft palate repair, testicular cancer with right testicle removal in June 2023, and a stroke in 2017 attributed to substance use. There is a family history of depression and addiction on both maternal and paternal sides, as well as a sibling with a suicide attempt in 2019. The patient?s current presentation is consistent with severe major depressive disorder, generalized anxiety disorder, and substance use disorder, with acute exacerbation of depressive symptoms and suicidal ideation. 1.? Encouraged individual, group and milieu therapy. 2. ?We will attempt to gather collateral information. 3. ?TO-15 minute checks on the unit. 4. ?Recommend sober living treatment at the highest level of care to which the patient is willing to commit. 5. Continue current medications. Except increased Prozac to 30 mg p.o. daily and Zyprexa to 5 mg p.o. twice daily with likely increased to 5 mg in the morning and 10 mg at night. Started propranolol (Inderal) 20 mg three times a day as needed. Involuntary Hold Information 2 96 Hour Hold: 96 Hour Involuntary Admission: Yes 96 Hour Hold Ending Date: 08/31/24 96 Hour Hold Ending Time: 00:25 Other Hold: Hold End Date: 08/31/24 Attestations NPU 2 Medical Necessity Statement*: Inpatient hospitalization is medically necessary and be clinically appropriate intervention at this time. We will monitor/initiate medications and make changes as indicated. Likely length of stay 3-5 days. Coding Level of Care Code Acute Code for Chg Fwd Diagnoses Suicidal ideation R45.851 Alcohol intoxication F10.920 Complication of substance-induced condition: uncomplicated PTSD (post-traumatic stress disorder) F43.10 Major depressive disorder, recurrent F33.9 Alcohol use disorder F10.90 Generalized anxiety disorder F41.1
[2024-08-28] MEDS: propranolol 20 mg Tablet PO ×2 (11:45→18:52)
[2024-08-28 14:00] VITALS: BP 105/68; PULSE 83; RESP 18; TEMP 36.6; O2SAT 98
[2024-08-28 19:42] VITALS: BP 127/90; PULSE 81; RESP 18; TEMP 36.7; O2SAT 100
[2024-08-28] MEDS: trazodone 50 mg Tablet PO (21:01)
[2024-08-29] MEDS: nicotine 4 mg lozenge MUCOUS MEM ×7 (00:18→20:10)
--- NOTE | 2024-08-29 04:33 | PC.NURSE ---
pt has been up all shift either in day room or walking the halls pt stated i cant sleep i dont feel bad just cant sleep.
[2024-08-29 06:15] VITALS: BP 112/65; PULSE 68; RESP 18; TEMP 36.4; O2SAT 99
[2024-08-29] MEDS: gabapentin 400 mg Capsule 800 MG PO ×3 (08:10→20:10)
[2024-08-29] MEDS: folic acid 1 mg Tablet PO (08:11)
[2024-08-29] MEDS: multivitamin therapeutic Tablet 1 TAB PO (08:11)
[2024-08-29] MEDS: OLANZapine 5 mg TABLET PO ×2 (08:11→20:10)
[2024-08-29] MEDS: fluoxetine 10 mg Capsule 30 MG PO (08:11)
[2024-08-29] MEDS: thiamine 100 mg Tablet PO (08:11)
[2024-08-29] MEDS: propranolol 20 mg Tablet PO ×3 (08:12→20:10)
[2024-08-29] MEDS: lamoTRIgine 100 mg Tablet 150 MG PO ×2 (08:12→20:10)
[2024-08-29 14:00] VITALS: BP 106/68; PULSE 75; RESP 14; TEMP 36.6; O2SAT 99
--- NOTE | 2024-08-29 14:22 | PC.NURSE ---
PRN INDERAL 20 MG GIVEN PO PER PT C/O STATED ANXIETY
--- NOTE | 2024-08-29 18:11 | P.NPUPN_ITS ---
Subjective NPU 2 Subjective: 29-year-old male with a history of alcoh ol dependence along with history of depression. Patient had reported significant problems with managing his anxiety. He had reported continued alcohol abuse in the past history of blackouts. He had reported no prior history of substance abuse inpatient treatment. He had reported no clear history of sandra but had reported having been placed on medicines for bipolar depression including Latuda without success. Patient had reported that he was awaiting Medicaid but would be agreeable to medications to target cravings for alcohol as he had reported only modest improvement with alcohol consumption with the use of Campral on a daily basis for several months. Mental Status Exam 2 MSE Comments: This is a well-nourished well-developed white male in hospital scrubs with limited grooming and eye contact. No abnormal movements except for psychomotor retardation. Mostly cooperative with exam in moderate distress. Speech was decreased in rate and volume. Mood described as anxious. His affect was mood congruent. Thought process linear/organized. Thought contact: patient denies suicidal or homicidal ideation, there were no delusions reported or noted. He denied auditory or visual hallucinations. Reports long-standing depression since 2445-4379, with worsening symptoms, including feelings of helplessness, hopelessness, worthlessness, and low mood. Significant anxiety with feelings of doom, dread, and heart racing, often feeling overwhelmed. Denied thoughts of violence or aggression against others, visual hallucinations, and paranoia. Reported suicidal ideation with a suicide attempt the previous night by attempting to hang self. History of passive wishes and self-injurious behavior, with the most recent self-harm episode occurring three days ago. Sleep disturbances noted, including sweating during sleep. Stressors include relapse into alcohol use, history of substance abuse, and ongoing mental health challenges. Attention and concentration appeared intact and memory appeared unreliable but none were formally tested. Patient is alert and oriented times person and place. Insight, judgment and impulse control are all impaired. Vitals/I&O/Wt Last Vital Signs Temp 97.8 F 08/29/24 14:00 Pulse 75 08/29/24 14:00 Resp 14 08/29/24 14:00 BP 106/68 08/29/24 14:00 Pulse Ox 99 08/29/24 14:00 O2 Del Method Room Air 08/29/24 14:00 08/29/24 08/29/24 08/29/24 06:59 14:59 22:59 Intake Total 0 / 0 0 / 0 Balance 0 / 0 0 / 0 Weight last 48 hrs Weight 78.698 kg Data NPU 08/24/24 23:49 08/24/24 23:49 A&P Assessment and plan (1) Suicidal ideation: (2) Alcohol intoxication: Qualifiers: Complication of substance-induced condition: uncomplicated Qualified Code(s): F10.920 - Alcohol use, unspecified with intoxication, uncomplicated (3) PTSD (post-traumatic stress disorder): (4) Major depressive disorder, recurrent: (5) Alcohol use disorder: (6) Generalized anxiety disorder: Plan This is a 29-year-old white male unknown to [facility] from previous services. The patient presents with a history of major depressive disorder and generalized anxiety disorder, both of which have progressively worsened since their onset in 7911-1574. The patient reports a recent suicide attempt on August 24, 2024, involving an attempt to hang themselves, as well as ongoing self-injurious behavior, with the most recent episode occurring three days prior to the encounter. There is a history of substance use disorder, including methamphetamine addiction in 2993-5746, recent cocaine use two months ago, and alcohol relapse in late 2023 after a period of five to six months of sobriety. The patient also reports passive wishes, persistent feelings of hopelessness, and severe anxiety episodes characterized by physical symptoms such as a racing heart and a sense of impending doom. The patient has a history of cleft palate repair, testicular cancer with right testicle removal in June 2023, and a stroke in 2017 attributed to substance use. There is a family history of depression and addiction on both maternal and paternal sides, as well as a sibling with a suicide attempt in 2019. The patient?s current presentation is consistent with severe major depressive disorder, generalized anxiety disorder, and substance use disorder, with acute exacerbation of depressive symptoms and suicidal ideation. 1.? Encouraged individual, group and milieu therapy. 2. ?We will attempt to gather collateral information. 3. ?TO-15 minute checks on the unit. 4. ?Recommend sober living treatment at the highest level of care to which the patient is willing to commit. 5. Continue propranolol 20mg tid, increase Prozac to 40 mg daily, continue Lamictal 150 mg twice a day, continue gabapentin 800 mg 3 times a day. Trial of naltrexone oral with plan for patient to began intramuscular monthly naltrexone on an outpatient basis. Involuntary Hold Information 2 96 Hour Hold: 96 Hour Involuntary Admission: Yes 96 Hour Hold Ending Date: 08/31/24 96 Hour Hold Ending Time: 00:25 Other Hold: Hold End Date: 08/31/24 Attestations NPU 2 Medical Necessity Statement*: Inpatient hospitalization is medically necessary and be clinically appropriate intervention at this time. We will monitor/initiate medications and make changes as indicated. Likely length of stay 3-5 days. Coding Level of Care Code Acute Code for Chg Fwd Diagnoses Suicidal ideation R45.851 Alcohol intoxication F10.920 Complication of substance-induced condition: uncomplicated PTSD (post-traumatic stress disorder) F43.10 Major depressive disorder, recurrent F33.9 Alcohol use disorder F10.90 Generalized anxiety disorder F41.1
[2024-08-29 19:57] VITALS: BP 124/79; PULSE 110; RESP 16; TEMP 36.7; O2SAT 96
[2024-08-29] MEDS: trazodone 50 mg Tablet PO (20:10)
[2024-08-29] MEDS: hyDROXYzine 25 mg Capsule 50 MG PO (20:10)
[2024-08-30] MEDS: nicotine 4 mg lozenge MUCOUS MEM ×5 (01:58→22:02)
[2024-08-30 06:00] VITALS: BP 105/70; PULSE 100; RESP 18; TEMP 36.6; O2SAT 99
[2024-08-30] MEDS: lamoTRIgine 100 mg Tablet 150 MG PO ×2 (08:32→21:04)
[2024-08-30] MEDS: multivitamin therapeutic Tablet 1 TAB PO (08:33)
[2024-08-30] MEDS: gabapentin 400 mg Capsule 800 MG PO ×3 (08:33→21:03)
[2024-08-30] MEDS: thiamine 100 mg Tablet PO (08:33)
[2024-08-30] MEDS: folic acid 1 mg Tablet PO (08:33)
[2024-08-30] MEDS: OLANZapine 5 mg TABLET PO (08:33)
[2024-08-30] MEDS: fluoxetine 10 mg Capsule 40 MG PO (08:33)
[2024-08-30] MEDS: naltrexone hcl 50 mg Tablet PO (08:33)
[2024-08-30] MEDS: propranolol 20 mg Tablet PO ×3 (08:33→21:04)
[2024-08-30 14:00] VITALS: BP 105/66; PULSE 89; RESP 18; TEMP 36.4; O2SAT 98
--- NOTE | 2024-08-30 17:24 | P.NPUPN_ITS ---
Subjective NPU 2 Subjective: 29-year-old male with a history of alcoh ol dependence along with history of depression. Patient acknowledged a significant history of self-injurious behavior. He had reported no side effects from his medication. He had stated that Seroquel had been helpful for anxiety and depression. He had endorsed some PTSD related symptoms as well. He continued to endorse having chronic problems with managing his anxiety. He had remained somewhat isolative on the milieu. Mental Status Exam 2 MSE Comments: This is a well-nourished well-developed white male in hospital scrubs with limited grooming and eye contact. No abnormal movements except for psychomotor retardation. He was cooperative with exam in moderate distress. Speech was decreased in rate and volume. Mood described as okay. His affect was mood incongruent and anxious. Thought process linear/organized. Thought contact: patient denies suicidal or homicidal ideation, there were no delusions reported or noted. He denied auditory or visual hallucinations. Reports long-standing depression since 2591-7603, with worsening symptoms, including feelings of helplessness, hopelessness, worthlessness, and low mood. Significant anxiety with feelings of doom, dread, and heart racing, often feeling overwhelmed. Denied thoughts of violence or aggression against others, visual hallucinations, and paranoia. He did not appear to be responding internal stimuli. There was no clear evidence of delusional thinking. His recent and remote memory appear grossly intact. His insight was limited. His judgment was poor. His impulse control remained guarded. Vitals/I&O/Wt Last Vital Signs Temp 97.6 F 08/30/24 14:00 Pulse 89 08/30/24 14:00 Resp 18 08/30/24 14:00 BP 105/66 08/30/24 14:00 Pulse Ox 98 08/30/24 14:00 O2 Del Method Room Air 08/30/24 06:00 Weight last 48 hrs Weight 78.698 kg Data NPU 08/24/24 23:49 08/24/24 23:49 A&P Assessment and plan (1) Suicidal ideation: (2) Alcohol intoxication: Qualifiers: Complication of substance-induced condition: uncomplicated Qualified Code(s): F10.920 - Alcohol use, unspecified with intoxication, uncomplicated (3) PTSD (post-traumatic stress disorder): (4) Major depressive disorder, recurrent: (5) Alcohol use disorder: (6) Generalized anxiety disorder: Plan This is a 29-year-old white male unknown to [facility] from previous services. The patient presents with a history of major depressive disorder and generalized anxiety disorder, both of which have progressively worsened since their onset in 3094-7090. The patient reports a recent suicide attempt on August 24, 2024, involving an attempt to hang themselves, as well as ongoing self-injurious behavior, with the most recent episode occurring three days prior to the encounter. There is a history of substance use disorder, including methamphetamine addiction in 1322-3492, recent cocaine use two months ago, and alcohol relapse in late 2023 after a period of five to six months of sobriety. The patient also reports passive wishes, persistent feelings of hopelessness, and severe anxiety episodes characterized by physical symptoms such as a racing heart and a sense of impending doom. The patient has a history of cleft palate repair, testicular cancer with right testicle removal in June 2023, and a stroke in 2017 attributed to substance use. There is a family history of depression and addiction on both maternal and paternal sides, as well as a sibling with a suicide attempt in 2018. The patient?s current presentation is consistent with severe major depressive disorder, generalized anxiety disorder, and substance use disorder, with acute exacerbation of depressive symptoms and suicidal ideation. 1.? Encouraged individual, group and milieu therapy. 2. ?We will attempt to gather collateral information. 3. ?TO-15 minute checks on the unit. 4. ?Recommend sober living treatment at the highest level of care to which the patient is willing to commit. 5. Continue propranolol 20mg tid, continue Prozac to 40 mg daily, continue Lamictal 150 mg twice a day, continue gabapentin 800 mg 3 times a day. D/C zypexa and begin seroquel 100mg at night. Involuntary Hold Information 2 96 Hour Hold: 96 Hour Involuntary Admission: Yes 96 Hour Hold Ending Date: 08/31/24 96 Hour Hold Ending Time: 00:25 Other Hold: Hold End Date: 08/31/24 Attestations NPU 2 Medical Necessity Statement*: Inpatient hospitalization is medically necessary and be clinically appropriate intervention at this time. We will monitor/initiate medications and make changes as indicated. The patient's likely length of stay is 3-5 days. Coding Level of Care Code Acute Code for g Fwd Diagnoses Suicidal ideation R45.851 Alcohol intoxication F10.920 Complication of substance-induced condition: uncomplicated PTSD (post-traumatic stress disorder) F43.10 Major depressive disorder, recurrent F33.9 Alcohol use disorder F10.90 Generalized anxiety disorder F41.1
[2024-08-30 19:42] VITALS: BP 131/79; PULSE 79; RESP 16; TEMP 36.7; O2SAT 99
[2024-08-30] MEDS: quetiapine 100 mg Tablet PO (21:04)
[2024-08-31] MEDS: nicotine 4 mg lozenge MUCOUS MEM ×3 (01:52→12:31)
[2024-08-31 06:00] VITALS: BP 112/73; PULSE 67; RESP 18; TEMP 36.6; O2SAT 98
[2024-08-31] MEDS: gabapentin 400 mg Capsule 800 MG PO ×2 (09:04→14:31)
[2024-08-31] MEDS: thiamine 100 mg Tablet PO (09:04)
[2024-08-31] MEDS: lamoTRIgine 100 mg Tablet 150 MG PO (09:04)
[2024-08-31] MEDS: multivitamin therapeutic Tablet 1 TAB PO (09:05)
[2024-08-31] MEDS: propranolol 20 mg Tablet PO ×2 (09:05→14:31)
[2024-08-31] MEDS: naltrexone hcl 50 mg Tablet PO (09:05)
[2024-08-31] MEDS: folic acid 1 mg Tablet PO (09:05)
[2024-08-31] MEDS: fluoxetine 10 mg Capsule 40 MG PO (09:05)
[2024-08-31 14:00] VITALS: BP 110/68; PULSE 90; RESP 18; TEMP 36.6; O2SAT 94
--- NOTE | 2024-08-31 14:07 | W.PM.NPUDCS ---
Diagnoses at Discharge Discharge Diagnosis (1) Suicidal ideation: Status: Acute (2) Alcohol intoxication: Status: Acute Qualifiers: Complication of substance-induced condition: uncomplicated Qualified Code(s): F10.920 - Alcohol use, unspecified with intoxication, uncomplicated (3) PTSD (post-traumatic stress disorder): Status: Acute (4) Major depressive disorder, recurrent: Status: Acute (5) Alcohol use disorder: Status: Acute (6) Generalized anxiety disorder: Status: Acute Reason for Visit Reason for Visit: SI Brief History: History of Present Illness Darell Devlin is a 29 year old male who presented to the emergency department with the following report: Chief Complaint: Psychiatric Symptoms Stated Complaint: SI Time Seen by Provider: 08/24/24 23:49 History of Present Illness: Presents to the ER with suicidal ideation. Plan on hanging himself tonight. He is brought in by his mother. He has been drinking. He did fall down and strike the right side of his face to be a superficial abrasions to that area but he says it does not hurt. Patient says he does not want help. Patient does admit to being cutter. He does see a psychiatrist at [facility] has not seen him since March. Chief complaint Suicidal ideation following alcohol relapse. History of the present complaint The patient, born on October 30, 1994, reports currently taking psychiatric medications including olanzapine (Zyprexa) and is in the process of weaning off gabapentin. They have been taking Prozac and Zyprexa for about six weeks and have been on lamotrigine for a longer period. The patient was admitted to the hospital due to drinking and having thoughts of self-harm. They express a desire to stop drinking, acknowledging a relapse after being sober for five to six months. The patient has a history of psychiatric hospitalizations, with this being their third admission. Previous admissions occurred when they were 21 years old and earlier in June 2023 at [facility]. The patient has been receiving outpatient care at [facility], attending appointments approximately once a month. They have a history of vaping since 2015 and report excessive alcohol consumption starting in 2015, which worsened in 2022. The last drink was consumed the night before the consultation. The patient occasionally uses marijuana and reported using cocaine about two months ago. 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 The patient has a history of legal issues related to possession but avoided nursing home time by cooperating as a confidential informant. The patient began experiencing depression and anxiety symptoms around 2013 or 2014 while in high school, which have progressively worsened. They report feelings of helplessness, hopelessness, worthlessness, low mood, and sleep problems. The patient describes having a passive wish, with thoughts of not caring if they do not wake up. They have experienced suicidal thoughts but have been too scared to act on them. The patient attempted suicide the night before the consultation by trying to hang themselves. They have a history of self-injurious behavior, starting in 2014, with the most recent incident occurring three days prior to the consultation. Anxiety symptoms include overwhelming worry and a sense of impending doom, even without specific triggers. The patient reports a family history of mental health issues, with both parents having struggled with alcoholism. The patient's mother has a history of depression and has been hospitalized for it. The patient's brother attempted suicide in 2018. 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 They also had a stroke in 2018, attributed to cocaine use and Xanax withdrawal. The patient identifies as homosexual and has been in a complicated relationship for six years. They have never been or had biological children. The patient attempted to join the [employer] but was discharged due to self-harm history. 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 Currently, they live with their mother and have several pets. The patient has spent nights in nursing home on three occasions but has not served time for any felony charges. Mental health history Diagnosed with depression and anxiety around [id number] during high school, with symptoms progressively worsening. History of passive wishes and suicidal thoughts without a plan, but attempted suicide on 08/24/2024 by attempting to hang self. History of self-injurious behavior (cutting) since 2014, with the most recent episode occurring three days prior to the encounter (08/22/2024). Reports feelings of helplessness, hopelessness, worthlessness, low mood, and sleep disturbances. Experiences anxiety with physical symptoms such as heart racing and feelings of doom, even without specific triggers. No history of paranoia or hallucinations. Admitted to a psychiatric hospital three times: at age 21 (2015), in June 2024 at [facility], and currently. Currently taking Prozac (20 mg), Zyprexa (5 mg), and lamotrigine, and weaning off gabapentin. Prozac and Zyprexa were initiated approximately six weeks ago (late June 2024). Previous outpatient psychiatric care at [facility], attending monthly appointments. Family history of depression (mother) and suicide attempt (brother in 2019). Social history Lives with mother and has recently moved back home after a relapse. Previously lived in [place]. Has five cats, four dogs, and a Chihuahua. Vapes since 2016 and has been drinking since 2015, with increased consumption in 2022. Last drink was the night before the encounter. Previously sober for five to six months before relapsing. Occasional cannabis use and used cocaine two months ago. Was addicted to methamphetamine in [id number]. No history of foster care or halfway living. Longest job held was as a iron assorter for three years at [employer], but was fired. Identifies as heterosexual. Longest relationship lasted six years, currently complicated. No biological children. Attempted to join the [employer] but was discharged due to self-harm history. Describes self as Jainism. Hospital Course Hospital Course During the hospitalization, the patient had routine laboratory studies which were within normal limits except for a few outliers.? Additionally, there was a general medical evaluation which was also within normal limits and revealed no new acute processes.? At the time of discharge, lethality was denied. Mood and anxiety were well managed.? The patient endorsed a plan to avoid all drugs of abuse and follow up with the aftercare recommendations of the treatment team.? The patient was evaluated and deemed to be absent credible lethality and had achieved the maximum benefit from an inpatient hospitalization, and so was discharged. ?The patient was started on Prozac and titrated up to a dose of 40 mg daily to target anxiety and depression. The patient's Lamictal was decreased from 300 mg a day to 200 mg a day. The patient was started on naltrexone oral to target alcohol cravings with the plan for the patient to begin Vivitrol on a monthly basis once the patient was given Medicaid. Zyprexa was discontinued and Seroquel was given in its place to target depression adjunctively. Patient was strongly urged to continue with outpatient psychotherapy. He had reported interest in helping with chronic self-injurious behavior and information regarding DBT was given. Involuntary Hold Information 96 Hour Hold: 96 Hour Involuntary Admission: Yes 96 Hour Hold Ending Date: 08/31/24 96 Hour Hold Ending Time: 00:25 Other Hold: Hold End Date: 08/31/24 Mental Status Exam MSE Comments: This is a well-nourished well-developed white male in hospital scrubs with limited grooming and eye contact. No abnormal movements except for psychomotor retardation. He was cooperative with exam in moderate distress. Speech was normal in rate and volume. Mood described as good. His affect was mood congruent and brighter. Thought process linear/organized. Thought contact: patient denies suicidal or homicidal ideation, there were no delusions reported or noted. He denied auditory or visual hallucinations. . He did not appear to be responding internal stimuli. There was no clear evidence of delusional thinking. His recent and remote memory appear grossly intact. His insight was improved. His judgment was fair. His impulse control was improved. Discharge Data Studies Completed and Pending: Laboratory Results WBC 6.27 10^3/uL (3.2 9-11.43) 08/24/24 23:49 RBC 4.82 10^6/uL (3.8 5-5.65) 08/24/24 23:49 Hgb 13.30 g/dL (11.27 -16.99) 08/24/24 23:49 Hct 41.1 % (37-53) 08/24/24 23:49 MCV 85.3 fl (82-101) 08/24/24 23:49 MCH 27.6 pg (27-33) 08/24/24 23:49 MCHC 32.4 g/dL (30-55) 08/24/24 23:49 RDW 13.8 % (12.1-15.1 ) 08/24/24 23:49 Plt Count 362 10^3/cmm (157 -399) 08/24/24 23:49 MPV 9.7 fL (7.4-10.4) 08/24/24 23:49 Neut % (Auto) 74.7 % 08/24/24 23:49 Lymph % (Auto) 16.9 % 08/24/24 23:49 [place] % (Auto) 6.4 % 08/24/24 23:49 Eos % (Auto) 0.6 % 08/24/24 23:49 Baso % (Auto) 1.1 % 08/24/24 23:49 Neut # (Auto) 4.68 10^3/uL (1.8 -7.7) 08/24/24 23:49 Lymph # (Auto) 1.1 10^3/uL (0.8- 4.8) 08/24/24 23:49 [place] # (Auto) 0.4 10^3/uL (0.2- 0.9) 08/24/24 23:49 Eos # (Auto) 0.0 10^3/uL (0.0- 0.8) 08/24/24 23:49 Baso # (Auto) 0.1 10^3/uL (0.0- 0.1) 08/24/24 23:49 Nucleated RBC % (a uto) 0 % 08/24/24 23:49 Nucleated RBCs # 0.0 /100WBC 08/24/24 23:49 Sodium 142 mmol/L (136-1 45) 08/24/24 23:49 Potassium 4.1 mmol/L (3.5-5 .1) 08/24/24 23:49 Chloride 104 mmol/L (98-10 7) 08/24/24 23:49 Carbon Dioxide 22 mmol/L (22-29) 08/24/24 23:49 Anion Gap 20.1 (5-19) H 08/24/24 23:49 BUN 5 mg/dL (6-20) L 08/24/24 23:49 Creatinine 0.9 mg/dL (0.7-1. 2) 08/24/24 23:49 GFR Calculation 100.5 mL/min (90- 130) 08/24/24 23:49 Glucose 116 mg/dL (65-115 ) H 08/24/24 23:49 Calculated Osmolal ity 292 mOsm/kg (285- 295) 08/24/24 23:49 Calcium 9.2 mg/dL (8.5-10 .5) 08/24/24 23:49 Total Bilirubin 0.2 mg/dL (0.15-1 .2) 08/24/24 23:49 AST 17 U/L (0-40) 08/24/24 23:49 ALT 11 U/L (0-41) 08/24/24 23:49 Alkaline Phosphata se 146 U/L (40-130) H 08/24/24 23:49 Total Protein 7.7 g/dL (6.6-8.7 ) 08/24/24 23:49 Albumin 4.6 g/dL (3.5-5.2 ) 08/24/24 23:49 Globulin 3.1 g/dL (1.3-4.6 ) 08/24/24 23:49 Urine Color Yellow (Yellow) 08/24/24 07:12 Urine Appearance Clear (CLEAR) 08/24/24 07:12 Urine pH 5.5 (5-7) 08/24/24 07:12 Ur Specific Gravit y 1.006 (1.005-1.0 30) 08/24/24 07:12 Urine Protein Negative (Negati ve) 08/24/24 07:12 Urine Glucose (UA) Negative (Normal ) 08/24/24 07:12 Urine Ketones Negative (Negati ve) 08/24/24 07:12 Urine Blood Negative (Negati ve) 08/24/24 07:12 Urine Nitrate Negative (Negati ve) 08/24/24 07:12 Urine Bilirubin Negative (Negati ve) 08/24/24 07:12 Urine Urobilinogen 0.2 mg/dL (Negati ve) 08/24/24 07:12 Ur Leukocyte Corinna ase Negative (Negati ve) 08/24/24 07:12 Urine RBC 0-2 /hpf (0-2) 08/24/24 07:12 Urine WBC 0-5 /hpf (0-5) 08/24/24 07:12 Ur Squamous Epith Cells 0-5 /hpf (0-5) 08/24/24 07:12 Amorphous Sediment Not Reportable 08/24/24 07:12 Urine Bacteria None seen /hpf (N ONE) 08/24/24 07:12 Hyaline Casts 0-4 /lpf H 08/24/24 07:12 Salicylates < 0.3 mg/dL (3-10 ) L 08/24/24 23:49 Urine Opiates Scre en Negative ng/mL (N egative) 08/24/24 07:12 Acetaminophen < 5.0 ug/mL (10-3 0) L 08/24/24 23:49 Ur Barbiturates Sc reen Negative ng/mL (N egative) 08/24/24 07:12 Ur Phencyclidine S crn Negative ng/mL (N egative) 08/24/24 07:12 Ur Amphetamines Sc reen Negative ng/mL (N egative) 08/24/24 07:12 U Benzodiazepines Scrn Negative ng/mL (N egative) 08/24/24 07:12 Urine Cocaine Scre en Negative ng/mL (N egative) 08/24/24 07:12 U Marijuana (THC) Screen Positive ng/mL (N egative) H 08/24/24 07:12 Ethyl Alcohol 295 mg/dL (0-10) H 08/25/24 02:12 Vitals: Last Vital Signs Temp 97.8 F 08/31/24 06:00 Pulse 67 08/31/24 06:00 Resp 18 08/31/24 06:00 BP 112/73 08/31/24 06:00 Pulse Ox 98 08/31/24 06:00 O2 Del Method Room Air 08/31/24 06:00 Discharge Plan Discharge Patient Disposition: Home Condition: Stable Prescriptions: New lamotrigine 100 mg Tablet 100 mg PO 0900,2100 30 Days Qty: 60 1RF fluoxetine 40 mg capsule 40 mg PO DAILY 30 Days Qty: 30 1RF folic acid 1 mg Tablet 1 mg PO DAILY 30 Days Qty: 30 1RF naltrexone 50 mg Tablet 50 mg PO DAILY 30 Days Qty: 30 1RF propranolol 20 mg Tablet 20 mg PO TID 30 Days Qty: 90 1RF quetiapine 150 mg tablet 150 mg PO BEDTIME 30 Days Qty: 30 1RF thiamine mononitrate (vit B1) [Vitamin B-1 (mononitrate)] 100 mg Tablet 100 mg PO DAILY 30 Days Qty: 30 1RF Continued gabapentin [Neurontin] 800 mg tablet 800 mg PO TID 30 Days Qty: 0 0RF Discontinued fluoxetine 10 mg capsule 10 mg PO DAILY olanzapine 5 mg tablet 5 mg PO DAILY lamotrigine [Lamictal] 150 mg tablet 150 mg PO BID acamprosate 333 mg tablet,delayed release (DR/EC) 333 mg PO BID Rx Instructions: administer with mid-day and evening meals Discharge Orders: Discharge Order (Routine); Ordered 08/31/24 Ordered By: Otf Lyles Referrals: Dominique Lanier, PAINTER ASSISTANT-PMHNP [Other] - 10/25/24 9:40 am [facility] [Other] (Therapist Pepe Ba for sliding scale cost) [facility] [Other] [facility] [Outside] - 09/09/24 12:30 pm (Initial appointment.) Discharge Diet: Usual diet Discharge Activity: Resume usual activity Patient Instructions: Fluoxetine (By mouth) (Fluoxetine HCl, Gaboxetine, Prozac, Prozac Weekly), Depression (DC), Help Prevent Suicide (DC), Opioid Safety Discharge Attestations NPU Time Spent in Discharge Care*: less than 30 min Coding Level of Care Code Acute Code for [facility] Fwd Diagnoses Suicidal ideation R45.851 Alcohol intoxication F10.920 Complication of substance-induced condition: uncomplicated PTSD (post-traumatic stress disorder) F43.10 Major depressive disorder, recurrent F33.9 Alcohol use disorder F10.90 Generalized anxiety disorder F41.1
[2024-08-31 14:13] VITALS: BP 110/68; PULSE 90; RESP 18; TEMP 36.6; O2SAT 98
== END 2024-08-31 15:28 | disposition home or self-care (01) | DRG 885 ==
LOC: ER 08-25 01:09 → NP 08-25 01:35
PROVIDERS: Admitting Provider Psychiatry & Neurology Psychiatry; Emergency Provider Emergency Medicine; Visit Provider Psychiatry & Neurology Psychiatry
DX: F33.9 Major depressive disorder, recurrent, unspecified (principal); R45.851 Suicidal ideations; F10.129 Alcohol abuse with intoxication, unspecified; Y90.8 Blood alcohol level of 240 mg/100 ml or more; S00.81XA Abrasion of other part of head, initial encounter; W18.30XA Fall on same level, unspecified, initial encounter; F17.290 Nicotine dependence, other tobacco product, uncomplicated; F43.10 Post-traumatic stress disorder, unspecified; F41.1 Generalized anxiety disorder; Z85.47 Personal history of malignant neoplasm of testis; Z90.79 Acquired absence of other genital organ(s); Z86.73 Personal history of transient ischemic attack (TIA), and cerebral infarction without residual deficits
CPT/HCPCS: 36415; 80053; 80306; 80307; 81001; 85025; 90471; 90686; 97150; 97165; 99285

== ENCOUNTER 2024-10-14 20:21 | Inpatient (IN) | payer SELFPAY ==
[2024-10-14 20:26] VITALS: BP 139/78; PULSE 82; RESP 18; TEMP 36.9; O2SAT 98; BMI 24.3
--- NOTE | 2024-10-14 20:27 | ECG_ITS ---
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 Measurements Intervals [place] Rate: 79 P: 65 MT: 141 QRS: 57 QRSD: 101 T: 44 QT: 379 QTc: 435 Interpretive Statements SINUS RHYTHM Compared to ECG 06/25/2024 16:22:27 Sinus tachycardia no longer present Short MT interval no longer present Incomplete right bundle-branch block no longer present T-wave abnormality no longer present Electronically Signed On 10-16-2024 13:20:30 DREDGE ENGINEER by Pernell Dan M.D. [id number]
--- NOTE | 2024-10-14 20:28 | ED.C_ITS ---
HPI - Psych 2 General: Chief Complaint: Psychiatric Symptoms Stated Complaint: ETOH, SI, Poss 96 Time Seen by Provider: 10/14/24 20:27 History of Present Illness: 29-year-old man with a history of depres chuyita, suicidal ideations, alcohol abuse who presents emergency room after a traffic stop or he was found to be intoxicated. Report of a blood alcohol level over 300. He does appear intoxicated but is able to walk and talk. Police report that he hit his head on the back of the car seat and had told them multiple times that he was suicidal. He has superficial cuts/self-mutilation's on his arms. He is currently denying that he said any of this, however he is intoxicated and the police have reported otherwise. Related Data Previous Rx's Medication Instructions Recorded fluoxetine 40 mg capsule 40 mg PO DAILY 30 days #30 caps 08/31/24 folic acid 1 mg tablet 1 mg PO DAILY 30 days #30 tabs 08/31/24 gabapentin 800 mg tablet 800 mg PO TID 30 days #0 tabs 08/31/24 (Neurontin) lamotrigine 100 mg tablet 100 mg PO 0900,2100 30 days #60 08/31/24 tabs naltrexone 50 mg tablet 50 mg PO DAILY 30 days #30 tabs 08/31/24 propranolol 20 mg tablet 20 mg PO TID 30 days #90 tabs 08/31/24 quetiapine 150 mg tablet 150 mg PO BEDTIME 30 days #30 tabs 08/31/24 thiamine mononitrate (vit B1) 100 100 mg PO DAILY 30 days #30 tabs 08/31/24 mg tablet (Vitamin B-1 (mononitrate)) Allergies Allergy/AdvReac Type Severity Reaction Status Date / Time No Known Allergies Allergy Verified 08/24/24 23:09 Review of Systems 2 Narrative: Constitutional symptoms: Negative except as documented in HPI. Skin symptoms: Negative except as documented in HPI. Eye symptoms: Negative except as documented in HPI. ENMT symptoms: Negative except as documented in HPI. Respiratory symptoms: Negative except as documented in HPI. Cardiovascular symptoms: Negative except as documented in HPI. Gastrointestinal symptoms: Negative except as documented in HPI. Genitourinary symptoms: Negative except as documented in HPI. Musculoskeletal symptoms: Negative except as documented in HPI. Neurologic symptoms: Negative except as documented in HPI. Psychiatric symptoms: Negative except as documented in HPI. Endocrine symptoms: Negative except as documented in HPI. PFSH ED 2 PFSH: Medical History (Updated 09/09/24 @ 15:38 by Loren Chan) Psychiatric care Social History Smoking and tobacco/nicotine status: unknown if used tobacco/nicotine Physical Exam 2 Narrative: EXAM NARRATIVE: General: Alert, no acute distress. Skin: Warm, dry. Head: Normocephalic, atraumatic. Neck: Supple, trachea midline. Eye: Extraocular movements are intact. Ears, nose, mouth and throat: mucosa moist. Cardiovascular: Regular, Normal peripheral perfusion. Respiratory: Lungs are clear to auscultation, respirations are non-labored, breath sounds are equal, Symmetrical chest wall expansion. Gastrointestinal: Soft, Nontender, Non distended Musculoskeletal: Normal ROM, no deformity. Neurological: Alert and oriented, No focal neurological deficit observed. Psychiatric: Patient appears intoxicated. Currently denies suicidal ideation. Course 2 Vital Signs: Vital signs: Vital Signs Temperature 98.4 F 10/14/24 20:26 Pulse Rate 97 10/15/24 07:00 Respiratory Rate 18 10/14/24 20:26 Blood Pressure 135/80 10/15/24 07:00 Pulse Oximetry 98 10/15/24 07:00 [facility] - Psych Medical Decision Making Patient care transitioned to Dr. Chong at shift change. Likely will need psychiatric admission but first we will have to sober up. There are no beds here. Patient still here today. Now is admitted to psychiatric floor. Medically cleared. Alcohol level is back down. Lab Data 10/14/24 21:09 10/14/24 21:09 Laboratory Results WBC 9.95 10^3/uL (3.29-11.43) 10/14/24 21:09 RBC 5.00 10^6/uL (3.85-5.65) 10/14/24 21:09 Hgb 13.40 g/dL (11.27-16.99) 10/14/24 21:09 Hct 41.3 % (37-53) 10/14/24 21:09 MCV 82.6 fl (82-101) 10/14/24 21:09 MCH 26.8 pg (27-33) L 10/14/24 21:09 MCHC 32.4 g/dL (30-55) 10/14/24 21:09 RDW 15.3 % (12.1-15.1) H 10/14/24 21:09 Plt Count 279 10^3/cmm (157-399) 10/14/24 21:09 MPV 9.4 fL (7.4-10.4) 10/14/24 21:09 Neut % (Auto) 78.6 % 10/14/24 21:09 Lymph % (Auto) 14.3 % 10/14/24 21:09 [place] % (Auto) 6.2 % 10/14/24 21:09 Eos % (Auto) 0.2 % 10/14/24 21:09 Baso % (Auto) 0.4 % 10/14/24 21:09 Neut # (Auto) 7.82 10^3/uL (1.8-7.7) H 10/14/24 21:09 Lymph # (Auto) 1.4 10^3/uL (0.8-4.8) 10/14/24 21:09 [place] # (Auto) 0.6 10^3/uL (0.2-0.9) 10/14/24 21:09 Eos # (Auto) 0.0 10^3/uL (0.0-0.8) 10/14/24 21:09 Baso # (Auto) 0.0 10^3/uL (0.0-0.1) 10/14/24 21:09 Nucleated RBC % (auto) 0 % 10/14/24 21:09 Nucleated RBCs # 0.0 /100WBC 10/14/24 21:09 Sodium 139 mmol/L (136-145) 10/14/24 21:09 Potassium 3.7 mmol/L (3.5-5.1) 10/14/24 21:09 Chloride 99 mmol/L (98-107) 10/14/24 21:09 Carbon Dioxide 22 mmol/L (22-29) 10/14/24 21:09 Anion Gap 21.7 (5-19) H 10/14/24 21:09 BUN 8 mg/dL (6-20) 10/14/24 21:09 Creatinine 0.9 mg/dL (0.7-1.2) 10/14/24 21:09 GFR Calculation 100.5 mL/min (90-130) 10/14/24 21:09 Glucose 171 mg/dL (65-115) H 10/14/24 21:09 Calculated Osmolality 290 mOsm/kg (285-295) 10/14/24 21:09 Calcium 8.4 mg/dL (8.5-10.5) L 10/14/24 21:09 Total Bilirubin 0.4 mg/dL (0.15-1.2) 10/14/24 21:09 AST 48 U/L (0-40) H 10/14/24 21:09 ALT 26 U/L (0-41) 10/14/24 21:09 Alkaline Phosphatase 142 U/L (40-130) H 10/14/24 21:09 Total Protein 6.8 g/dL (6.6-8.7) 10/14/24 21:09 Albumin 4.4 g/dL (3.5-5.2) 10/14/24 21: Globulin 2.4 g/dL (1.3-4.6) 10/14/24 21:09 TSH 0.19 uIU/mL (0.27-4.20) L 10/14/24 21:09 Urine Color Yellow (Yellow) 10/14/24 20:35 Urine Appearance Clear (CLEAR) 10/14/24 20: Urine pH 6.0 (5-7) 10/14/24 20:35 Ur Specific [place] 1.008 (1.005-1.030) 10/14/24 20:35 Urine Protein Trace (Negative) A 10/14/24 20:35 Urine Glucose (UA) Negative (Normal) 10/14/24 20:35 Urine Ketones Negative (Negative) 10/14/24 20:35 Urine Blood Negative (Negative) 10/14/24 20:35 Urine Nitrate Negative (Negative) 10/14/24 20:35 Urine Bilirubin Negative (Negative) 10/14/24 20:35 Urine Urobilinogen 1.0 mg/dL (Negative) 10/14/24 20:35 Ur Leukocyte Esterase Negative (Negative) 10/14/24 20:35 Urine RBC 0-2 /hpf (0-2) 10/14/24 20:35 Urine WBC 0-5 /hpf (0-5) 10/14/24 20:35 Ur Squamous Epith Cells 0-5 /hpf (0-5) 10/14/24 20:35 Amorphous Sediment Not Reportable 10/14/24 20:35 Urine Bacteria None seen /hpf (NONE) 10/14/24 20:35 Hyaline Casts 1.65 /lpf 10/14/24 20:35 Salicylates < 0.3 mg/dL (3-10) L 10/14/24 21:09 Urine Opiates Screen Negative ng/mL (Negative) 10/14/24 20:35 Acetaminophen < 5.0 ug/mL (10-30) L 10/14/24 21:09 Ur Barbiturates Screen Negative ng/mL (Negative) 10/14/24 20:35 Ur Phencyclidine Scrn Negative ng/mL (Negative) 10/14/24 20:35 Ur Amphetamines Screen Negative ng/mL (Negative) 10/14/24 20:35 U Benzodiazepines Scrn Negative ng/mL (Negative) 10/14/24 20:35 Urine Cocaine Screen Negative ng/mL (Negative) 10/14/24 20:35 U Marijuana (THC) Screen Negative ng/mL (Negative) 10/14/24 20:35 Ethyl Alcohol 131 mg/dL (0-10) H 10/15/24 05:25 No radiology studies performed this visit Discharge Plan Discharge Condition: Stable Prescriptions: No Action lamotrigine 100 mg Tablet 100 mg PO 0900,2100 30 Days Qty: 60 1RF fluoxetine 40 mg capsule 40 mg PO DAILY 30 Days Qty: 30 1RF folic acid 1 mg Tablet 1 mg PO DAILY 30 Days Qty: 30 1RF naltrexone 50 mg Tablet 50 mg PO DAILY 30 Days Qty: 30 1RF propranolol 20 mg Tablet 20 mg PO TID 30 Days Qty: 90 1RF quetiapine 150 mg tablet 150 mg PO BEDTIME 30 Days Qty: 30 1RF thiamine mononitrate (vit B1) [Vitamin B-1 (mononitrate)] 100 mg Tablet 100 mg PO DAILY 30 Days Qty: 30 1RF gabapentin [Neurontin] 800 mg tablet 800 mg PO TID 30 Days Qty: 0 0RF Coding Level of Care Code ED Airdrop Systems Technician for Chg Bessy
--- NOTE | 2024-10-14 20:42 | PC.NURSE ---
96 Hour Involuntary Hold Patient Rights have been reviewed with the patient and a copy of the same has been given to him. Wholesale Account Manager Porfirio and WP RUIZ were at chairside at the time of presentation of Rights.
[2024-10-14 20:49] LABS: Bilirubin Urine Negative (Negative); Blood Urine Negative (Negative); Glucose Urine UA Negative (Normal); Ketones Urine Negative (Negative); Leukocyte Esterase Urine Negative (Negative); Nitrate Urine Negative (Negative); Protein Urine Trace (Negative); Specific Gravity, Urine 1.008 (1.005-1.030); Urine Appearance Clear (CLEAR); Urine Color Yellow (Yellow)
[2024-10-14 20:54] LABS: Bacteria Urine None Seen /hpf; Hyaline Casts Urine 1.65 /lpf; RBC Urine 0-2 /hpf (0-2); Squamous Epithelial Cell Urine 0-5 /hpf (0-5); WBC Urine 0-5 /hpf (0-5)
[2024-10-14 20:57] LABS: Amphetamines Screen Urine Negative (Negative); Barbiturates Screen Urine Negative (Negative); Benzodiazepines Screen Urine Negative (Negative); Cocaine Screen Urine Negative (Negative); Opiate Screen Urine Negative (Negative); PCP Screen Urine Negative (Negative); THC Screen Urine Negative (Negative)
[2024-10-14 21:17] LABS: Basophils % 0.4 %; Eosinophils % 0.2 %; Hematocrit 41.3 % (37-53); Lymphocytes # 1.4 10^3/uL (0.8-4.8); Lymphocytes % 14.3 %; Mean Corpuscular HGB Conc 32.4 g/dL (30-55); Mean Corpuscular Hemoglobin 26.8 pg (27-33); Mean Corpuscular Volume 82.6 fl (82-101); Mean Platelet Volume 9.4 fL (7.4-10.4); Monocytes # 0.6 10^3/uL (0.2-0.9); Monocytes % 6.2 %; Neutrophils # 7.82 10^3/uL (1.8-7.7); Neutrophils % 78.6 %; Nucleated Red Blood Cells % 0 %; Platelet Count 279 10^3/cmm (157-399); Red Cell Distribution Width 15.3 % (12.1-15.1); White Blood Count 9.95 10^3/uL (3.29-11.43)
[2024-10-14 21:50] LABS: Alanine Aminotransferase 26 U/L (0-41); Albumin Level 4.4 g/dL (3.5-5.2); Alkaline Phosphatase 142 U/L (40-130); Anion Gap 21.7 (5-19); Aspartate Amino Transferase 48 U/L (0-40); Blood Urea Nitrogen 8 mg/dL (6-20); Calcium 8.4 mg/dL (8.5-10.5); Carbon Dioxide 22 mmol/L (22-29); Chloride 99 mmol/L (98-107); Creatinine Clr Calc Pharmacy 148.7809; Globulin 2.4 g/dL (1.3-4.6); Glomerular Filtration Rate 100.5 mL/min (90-130); Glucose 171 mg/dL (65-115); Osmolality Calculated 290 mOsm/kg (285-295); Potassium 3.7 mmol/L (3.5-5.1); Sodium 139 mmol/L (136-145); Thyroid Stimulating Hormone 0.19 uIU/mL (0.27-4.20); Total Bilirubin 0.4 mg/dL (0.15-1.2); Total Protein 6.8 g/dL (6.6-8.7)
[2024-10-14 21:51] LABS: Acetaminophen < 5.0 ug/mL (10-30); Alcohol Level 314 mg/dL (0-10); Salicylate < 0.3 mg/dL (3-10)
[2024-10-15 05:49] LABS: Alcohol Level 131 mg/dL (0-10)
[2024-10-15 07:00] VITALS: BP 135/80; PULSE 97; O2SAT 98
[2024-10-15 16:22] VITALS: BP 135/80; PULSE 97; O2SAT 98
[2024-10-15 16:30] VITALS: BP 151/75; PULSE 81; RESP 16; TEMP 36.9; O2SAT 99
[2024-10-15] MEDS: nicotine 2 mg Gum BUCCAL (17:21)
[2024-10-15] MEDS: folic acid 1 mg Tablet PO (17:21)
[2024-10-15] MEDS: multivitamin therapeutic Tablet 1 TAB PO (17:21)
[2024-10-15] MEDS: thiamine 100 mg Tablet PO (17:22)
[2024-10-15 21:29] VITALS: BP 127/81; PULSE 87; RESP 17; TEMP 36.7; O2SAT 99
[2024-10-16] VITALS (7 sets, daily range): BP systolic 102–136; BP diastolic 65–90; PULSE 75–98; RESP 16–18; TEMP 36.4–37.2; O2SAT 96–100
[2024-10-16] MEDS: hyDROXYzine 25 mg Capsule 50 MG PO ×2 (03:41→08:24)
[2024-10-16] MEDS: lamoTRIgine 100 mg Tablet PO ×2 (08:20→21:27)
[2024-10-16] MEDS: naltrexone hcl 50 mg Tablet PO (08:20)
[2024-10-16] MEDS: thiamine 100 mg Tablet PO (08:20)
[2024-10-16] MEDS: fluoxetine 20 mg Capsule 40 MG PO (08:20)
[2024-10-16] MEDS: propranolol 20 mg Tablet PO ×3 (08:20→21:27)
[2024-10-16] MEDS: folic acid 1 mg Tablet PO (08:20)
[2024-10-16] MEDS: gabapentin 400 mg Capsule 800 MG PO ×3 (08:20→21:26)
[2024-10-16] MEDS: multivitamin therapeutic Tablet 1 TAB PO (08:20)
[2024-10-16] MEDS: nicotine 4 mg lozenge MUCOUS MEM ×2 (14:23→19:50)
--- NOTE | 2024-10-16 15:35 | W.PM.NPUH&PS ---
Providers/Chief Complaint Admitting Physician: Frantz Rosenbaum MD Chief Complaint: ETOH, SI, Poss 96 HPI NPU History of Present Illness Darell Devlin is a 29 year old male who presented to the emergency department with the following report: Chief Complaint: Psychiatric Symptoms Stated Complaint: ETOH, SI, Poss 96 Time Seen by Provider: 10/14/24 20:27 History of Present Illness: 29-year-old man with a history of depression, suicidal ideations, alcohol abuse who presents emergency room after a traffic stop or he was found to be intoxicated. Report of a blood alcohol level over 300. He does appear intoxicated but is able to walk and talk. Police report that he hit his head on the back of the car seat and had told them multiple times that he was suicidal. He has superficial cuts/self-mutilation's on his arms. He is currently denying that he said any of this, however he is intoxicated and the police have reported otherwise. He was admitted to the neuropsychiatric unit for definitive treatment of those issues. He is known to the [facility] psychiatric community through inpatient psychiatric services. An excerpt of his discharge from August of last year is included below for context and the fact that there have been no substantive changes. He presents today with a BAL of 314 and a negative UDS reporting that when he left the hospital in August things went well for a few weeks and he was sober but then he started to drink again which started slow but then he reports that he is gotten to the poin that he was not drinking most days of the week. He reports that a couple nights ago before he came in here he was pulled over and given a DUI. He reports that during the situation/traffic stop he was resistant and ultimately went and got booked but they brought him here afterwards. He reports that he was just frustrated because he wanted to not have his mom have her car impounded and they would not let him call her to have her come pick her car up versus and pounding it. He reports that he does not recall doing or saying anything that would make them bring him here. However in the affidavit he reports that he did say that he wanted to kill himself after they let him go. He reports that he had been taking his medication before they ran out a few days ago and we discussed the risks, benefits and alternatives of restarting these medications/continuing them and he understood and agreed to proceed as is documented in this note. He reports that due to this he is already lost a job that he has been working hard to get. 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 Per his 08/31/2024 [facility] inpatient psychiatric discharge summary: Discharge Diagnosis (1) Suicidal ideation: Status: Acute (2) Alcohol intoxication: Status: Acute Qualifiers: Complication of substance-induced condition: uncomplicated Qualified Code(s): F10.920 - Alcohol use, unspecified with intoxication, uncomplicated (3) PTSD (post-traumatic stress disorder): Status: Acute (4) Major depressive disorder, recurrent: Status: Acute (5) Alcohol use disorder: Status: Acute (6) Generalized anxiety disorder: Status: Acute Reason for Visit Reason for Visit: SI Brief History: History of Present Illness Darell Devlin is a 29 year old male who presented to the emergency department with the following report: Chief Complaint: Psychiatric Symptoms Stated Complaint: SI Time Seen by Provider: 08/24/24 23:49 History of Present Illness: Presents to the ER with suicidal ideation. Plan on hanging himself tonight. He is brought in by his mother. He has been drinking. He did fall down and strike the right side of his face to be a superficial abrasions to that area but he says it does not hurt. Patient says he does not want help. Patient does admit to being cutter. He does see a psychiatrist at [facility] has not seen him since March. Chief complaint Suicidal ideation following alcohol relapse. History of the present complaint The patient, born on October 30, 1994, reports currently taking psychiatric medications including olanzapine (Zyprexa) and is in the process of weaning off gabapentin. They have been taking Prozac and Zyprexa for about six weeks and have been on lamotrigine for a longer period. The patient was admitted to the hospital due to drinking and having thoughts of self-harm. They express a desire to stop drinking, acknowledging a relapse after being sober for five to six months. The patient has a history of psychiatric hospitalizations, with this being their third admission. Previous admissions occurred when they were 21 years old and earlier in June 2023 at [facility]. The patient has been receiving outpatient care at [facility], attending appointments approximately once a month. They have a history of vaping since 2016 and report excessive alcohol consumption starting in 2015, which worsened in 2022. The last drink was consumed the night before the consultation. The patient occasionally uses marijuana and reported using cocaine about two months ago. 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 The patient has a history of legal issues related to possession but avoided longterm time by cooperating as a confidential informant. The patient began experiencing depression and anxiety symptoms around 2013 or 2014 while in high school, which have progressively worsened. They report feelings of helplessness, hopelessness, worthlessness, low mood, and sleep problems. The patient describes having a passive wish, with thoughts of not caring if they do not wake up. They have experienced suicidal thoughts but have been too scared to act on them. The patient attempted suicide the night before the consultation by trying to hang themselves. They have a history of self-injurious behavior, starting in 2014, with the most recent incident occurring three days prior to the consultation. Anxiety symptoms include overwhelming worry and a sense of impending doom, even without specific triggers. The patient reports a family history of mental health issues, with both parents having struggled with alcoholism. The patient's mother has a history of depression and has been hospitalized for it. The patient's brother attempted suicide in 2019. 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 They also had a stroke in 2018, attributed to cocaine use and Xanax withdrawal. The patient identifies as homosexual and has been in a complicated relationship for six years. They have never been or had biological children. The patient attempted to join the [employer] but was discharged due to self-harm history. 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 Currently, they live with their mother and have several pets. The patient has spent nights in longterm on three occasions but has not served time for any felony charges. Mental health history Diagnosed with depression and anxiety around 2098-4103 during high school, with symptoms progressively worsening. History of passive wishes and suicidal thoughts without a plan, but attempted suicide on 08/24/2024 by attempting to hang self. History of self-injurious behavior (cutting) since 2014, with the most recent episode occurring three days prior to the encounter (08/22/2024). Reports feelings of helplessness, hopelessness, worthlessness, low mood, and sleep disturbances. Experiences anxiety with physical symptoms such as heart racing and feelings of doom, even without specific triggers. No history of paranoia or hallucinations. Admitted to a psychiatric hospital three times: at age 21 (2015), in June 2024 at [facility] in [place], and currently. Currently taking Prozac (20 mg), Zyprexa (5 mg), and lamotrigine, and weaning off gabapentin. Prozac and Zyprexa were initiated approximately six weeks ago (late June 2024). Previous outpatient psychiatric care at [facility], attending monthly appointments. Family history of depression (mother) and suicide attempt (brother in 2019). Social history Lives with mother and has recently moved back home after a relapse. Previously lived in [place]. Has five cats, four dogs, and a Chihuahua. Vapes since 2016 and has been drinking since 2015, with increased consumption in 2022. Last drink was the night before the encounter. Previously sober for five to six months before relapsing. Occasional cannabis use and used cocaine two months ago. Was addicted to methamphetamine in 5272-4403. No history of foster care or halfway living. 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 Identifies as heterosexual. Longest relationship lasted six years, currently complicated. No biological children. Attempted to join the [employer] but was discharged due to self-harm history. Describes self as Christianity. Hospital Course During the hospitalization, the patient had routine laboratory studies which were within normal limits except for a few outliers. Additionally, there was a general medical evaluation which was also within normal limits and revealed no new acute processes. At the time of discharge, lethality was denied. Mood and anxiety were well managed. The patient endorsed a plan to avoid all drugs of abuse and follow up with the aftercare recommendations of the treatment team. The patient was evaluated and deemed to be absent credible lethality and had achieved the maximum benefit from an inpatient hospitalization, and so was discharged. The patient was started on Prozac and titrated up to a dose of 40 mg daily to target anxiety and depression. The patient's Lamictal was decreased from 300 mg a day to 200 mg a day. The patient was started on naltrexone oral to target alcohol cravings with the plan for the patient to begin Vivitrol on a monthly basis once the patient was given Medicaid. Zyprexa was discontinued and Seroquel was given in its place to target depression adjunctively. Patient was strongly urged to continue with outpatient psychotherapy. He had reported interest in helping with chronic self-injurious behavior and information regarding DBT was given. Meds NPU Home Medications Medication Instructions Recorded Confirmed Last Taken Type fluoxetine 40 mg capsule 40 mg PO DAILY 30 days #30 caps 08/31/24 10/15/24 Unknown Rx folic acid 1 mg tablet 1 mg PO DAILY 30 days #30 tabs 08/31/24 10/15/24 Unknown Rx gabapentin 800 mg tablet 800 mg PO TID 30 days #0 tabs 08/31/24 10/15/24 Unknown Rx (Neurontin) lamotrigine 100 mg tablet 100 mg PO 0900,2100 30 days #60 08/31/24 10/15/24 Unknown Rx tabs naltrexone 50 mg tablet 50 mg PO DAILY 30 days #30 tabs 08/31/24 10/15/24 Unknown Rx propranolol 20 mg tablet 20 mg PO TID 30 days #90 tabs 08/31/24 10/15/24 Unknown Rx quetiapine 150 mg tablet 150 mg PO BEDTIME 30 days #30 tabs 08/31/24 10/15/24 Unknown Rx thiamine mononitrate (vit B1) 100 100 mg PO DAILY 30 days #30 tabs 08/31/24 10/15/24 Unknown Rx mg tablet (Vitamin B-1 (mononitrate)) Allergies Allergy/AdvReac Type Severity Reaction Status Date / Time No Known Allergies Allergy Verified 08/24/24 23:09 [facility] NPU PFS: Medical History (Updated 10/16/24 @ 16:22 by Frantz Rosenbaum MD) Psychiatric care Social History Smoking and tobacco/nicotine status: unknown if used tobacco/nicotine Mental Status Exam MSE Comments: This is a well-nourished well-developed white male in hospital scrubs with limited grooming and eye contact. No abnormal movements except for psychomotor retardation. Mostly cooperative with exam in moderate distress. Speech was decreased rate and volume. Mood described as down, affect congruent. Thought process linear/organized. Thought contact: patient denies suicidal or homicidal ideation, there were no delusions reported or noted. He denied auditory or visual hallucinations. Reports long-standing depression since 4128-4187, but endorsed that has been better since he started the medication at last admission. Attention and concentration appeared intact and memory appeared unreliable but none were formally tested. Patient is alert and oriented times person and place. Insight, judgment and impulse control are all impaired. Vitals/I&O/Wt Last Vital Signs Temp 98.9 F 10/16/24 12:00 Pulse 82 10/16/24 12:00 Resp 18 10/16/24 12:00 BP 135/73 10/16/24 12:00 Pulse Ox 99 10/16/24 12:00 O2 Del Method Room Air 10/16/24 04:00 Weight last 48 hrs Weight 88.451 kg Data NPU 10/14/24 21:09 10/14/24 21:09 A&P Assessment and plan (1) Suicidal ideation: (2) Alcohol intoxication: Qualifiers: Complication of substance-induced condition: uncomplicated Qualified Code(s): F10.920 - Alcohol use, unspecified with intoxication, uncomplicated (3) PTSD (post-traumatic stress disorder): (4) Major depressive disorder, recurrent: (5) Alcohol use disorder: (6) Generalized anxiety disorder: (7) Adjustment disorder with mixed disturbance of emotions and conduct: Plan This is a 29-year-old white male only known to [facility] psychiatry from his past inpatient services in August of last year. At that time he presented with a history of major depressive disorder and generalized anxiety disorder, both of which have progressively worsened since their onset in . The patient reports a recent suicide attempt on August 24, 2024, involving an attempt to hang themselves, as well as ongoing self-injurious behavior. There is a history of substance use disorder, including methamphetamine addiction in 2920-3476, recent cocaine use months ago, and alcohol relapse in late 2023 after a period of five to six months of sobriety. The patient was pulled over for a DUI the other day which is why he reports he was being resistant because he wanted him to release his vehicle to his mother. The patient has a history of cleft palate repair, testicular cancer with right testicle removal in June 2023, and a stroke in 2018 attributed to substance use. There is a family history of depression and addiction on both maternal and paternal sides, as well as a sibling with a suicide attempt in 2019. The patient?s current presentation is consistent adjustment disorder as a response to getting the DUI. We will gain collateral information and identify whether he has credible risk. 1.? Encouraged individual, group and milieu therapy. 2. ?We will attempt to gather collateral information. 3. ?TO-15 minute checks on the unit. 4. ?Recommend sober living treatment at the highest level of care to which the patient is willing to commit. 5. We will restart current medications and monitor for any need for changes. 6. Start CIWA protocol. Involuntary Hold Information 96 Hour Hold: 96 Hour Involuntary Admission: Yes 96 Hour Hold Ending Date: 10/20/24 96 Hour Hold Ending Time: 20:30 Other Hold: Hold End Date: 10/20/24 Attestations NPU Medical Necessity Statement*: Inpatient hospitalization is medically necessary and the clinically appropriate intervention at this time. We will monitor/initiate medications and make changes as indicated. Will be in the hospital for over 2 midnights. Likely length of stay 3-5 days. Coding Level of Care Code Acute Code for [facility] Fwd Diagnoses Suicidal ideation R45.851 Alcohol intoxication F10.920 Complication of substance-induced condition: uncomplicated PTSD (post-traumatic stress disorder) F43.10 Major depressive disorder, recurrent F33.9 Alcohol use disorder F10.90 Generalized anxiety disorder F41.1 Adjustment disorder with mixed disturbance of emotions and conduct F43.25
[2024-10-16] MEDS: quetiapine 100 mg Tablet 150 MG PO (21:27)
[2024-10-17 03:50] VITALS: BP 111/72; PULSE 74; RESP 18; TEMP 36.6; O2SAT 100
[2024-10-17 06:00] VITALS: BMI 24.7
[2024-10-17 08:00] VITALS: BP 167/81; PULSE 70; RESP 16; TEMP 37.3; O2SAT 99
[2024-10-17] MEDS: folic acid 1 mg Tablet PO (08:42)
[2024-10-17] MEDS: propranolol 20 mg Tablet PO ×3 (08:42→21:53)
[2024-10-17] MEDS: gabapentin 400 mg Capsule 800 MG PO ×3 (08:42→21:53)
[2024-10-17] MEDS: lamoTRIgine 100 mg Tablet PO ×2 (08:42→21:54)
[2024-10-17] MEDS: fluoxetine 20 mg Capsule 40 MG PO (08:42)
[2024-10-17] MEDS: naltrexone hcl 50 mg Tablet PO (08:42)
[2024-10-17] MEDS: multivitamin therapeutic Tablet 1 TAB PO (08:42)
[2024-10-17] MEDS: nicotine 4 mg lozenge MUCOUS MEM ×2 (08:43→18:41)
[2024-10-17] MEDS: thiamine 100 mg Tablet PO (08:43)
--- NOTE | 2024-10-17 09:08 | P.NPUPN_ITS ---
Subjective NPU 2 Subjective: Patient presented today reporting that things are fine. We were discussing how he plans to move forward with his addiction treatment and he continues to seem somewhat ambivalent about active treatment. We discussed whether or not his employment was in fact terminated and he seemed to be less clear about that. We did discuss the fact that his job had no rights to his medical records and that he was within his rights to share as little as possible about being hospitalized. That he could talk to them about him following the direction of his inpatient team to ensure that he had improvement, wellness and did not have a repeat of these events. We did discuss however that the incident with the police is public record so lying to them would put him at risk if they were to find the information. Mental Status Exam 2 MSE Comments: This is a well-nourished well-developed white male in hospital scrubs with adequategrooming and eye contact. No abnormal movements. Mostly cooperative with exam in moderate distress. Speech was decreased rate and volume. Mood described as down, affect congruent. Thought process linear/organized. Thought contact: patient denies suicidal or homicidal ideation, there were no delusions reported or noted. He denied auditory or visual hallucinations. Reports long- standing depression since 2097-5177, but endorsed that has been better since he started the medication at last admission. Attention and concentration appeared intact and memory appeared more reliable but none were formally tested. Patient is alert and oriented times person and place. Insight, judgment and impulse control are all impaired. Vitals/I&O/Wt Last Vital Signs Temp 99.2 F 10/17/24 08:00 Pulse 70 10/17/24 08:00 Resp 16 10/17/24 08:00 BP 167/81 10/17/24 08:00 Pulse Ox 99 10/17/24 08:00 O2 Del Method Room Air 10/17/24 08:00 10/16/24 10/17/24 10/17/24 22:59 06:59 14:59 Intake Total 0 / 0 Balance 0 / 0 Weight last 48 hrs Weight 89.981 kg Data NPU 10/14/24 21:09 10/14/24 21:09 A&P Assessment and plan (1) Suicidal ideation: (2) Alcohol intoxication: Qualifiers: Complication of substance-induced condition: uncomplicated Qualified Code(s): F10.920 - Alcohol use, unspecified with intoxication, uncomplicated (3) PTSD (post-traumatic stress disorder): (4) Major depressive disorder, recurrent: (5) Alcohol use disorder: (6) Generalized anxiety disorder: (7) Adjustment disorder with mixed disturbance of emotions and conduct: Plan This is a 29-year-old white male only known to [facility] psychiatry from his past inpatient services in August of last year. At that time he presented with a history of major depressive disorder and generalized anxiety disorder, both of which have progressively worsened since their onset in 7967-3710. The patient reports a recent suicide attempt on August 24, 2024, involving an attempt to hang themselves, as well as ongoing self-injurious behavior. There is a history of substance use disorder, including methamphetamine addiction in 0523-1086, recent cocaine use months ago, and alcohol relapse in late 2023 after a period of five to six months of sobriety. The patient was pulled over for a DUI the other day which is why he reports he was being resistant because he wanted him to release his vehicle to his mother. The patient has a history of cleft palate repair, testicular cancer with right testicle removal in June 2023, and a stroke in 2018 attributed to substance use. There is a family history of depression and addiction on both maternal and paternal sides, as well as a sibling with a suicide attempt in 2019. The patient?s current presentation is consistent adjustment disorder as a response to getting the DUI. We will gain collateral information and identify whether he has credible risk. 1.? Encouraged individual, group and milieu therapy. 2. ?We will attempt to gather collateral information. 3. ?TO-15 minute checks on the unit. 4. ?Recommend sober living treatment at the highest level of care to which the patient is willing to commit. 5. We will restart current medications and monitor for any need for changes. 6. Start CIWA protocol. Involuntary Hold Information 2 96 Hour Hold: 96 Hour Involuntary Admission: Yes 96 Hour Hold Ending Date: 10/20/24 96 Hour Hold Ending Time: 20:30 Other Hold: Hold End Date: 10/20/24 Attestations NPU 2 Medical Necessity Statement*: Inpatient hospitalization is medically necessary and the clinically appropriate intervention at this time. We will monitor/initiate medications and make changes as indicated. Likely length of stay 2-4 days. Coding Level of Care Code Acute Code for [facility] Fwd Diagnoses Suicidal ideation R45.851 Alcohol intoxication F10.920 Complication of substance-induced condition: uncomplicated PTSD (post-traumatic stress disorder) F43.10 Major depressive disorder, recurrent F33.9 Alcohol use disorder F10.90 Generalized anxiety disorder F41.1 Adjustment disorder with mixed disturbance of emotions and conduct F43.25
[2024-10-17 11:42] VITALS: BP 129/76; PULSE 64; RESP 16; O2SAT 98
[2024-10-17 16:00] VITALS: BP 121/79; PULSE 73; RESP 16; O2SAT 100
[2024-10-17 20:00] VITALS: BP 138/90; PULSE 75; RESP 18; TEMP 36.8; O2SAT 97
[2024-10-17] MEDS: quetiapine 100 mg Tablet 150 MG PO (21:52)
[2024-10-18] VITALS: BP 150/66; PULSE 85; RESP 18; TEMP 36.6; O2SAT 99
[2024-10-18 04:00] VITALS: BP 106/67; PULSE 65; RESP 18; TEMP 36.7; O2SAT 99
[2024-10-18 08:00] VITALS: BP 127/87; PULSE 67; RESP 17; TEMP 36.6; O2SAT 100
[2024-10-18] MEDS: nicotine 4 mg lozenge MUCOUS MEM ×4 (08:10→21:07)
[2024-10-18] MEDS: propranolol 20 mg Tablet PO ×3 (08:10→21:07)
[2024-10-18] MEDS: multivitamin therapeutic Tablet 1 TAB PO (08:10)
[2024-10-18] MEDS: folic acid 1 mg Tablet PO (08:10)
[2024-10-18] MEDS: lamoTRIgine 100 mg Tablet PO ×2 (08:10→21:06)
[2024-10-18] MEDS: fluoxetine 20 mg Capsule 40 MG PO (08:10)
[2024-10-18] MEDS: gabapentin 400 mg Capsule 800 MG PO ×3 (08:10→21:05)
[2024-10-18] MEDS: thiamine 100 mg Tablet PO (08:10)
[2024-10-18] MEDS: hyDROXYzine 25 mg Capsule 50 MG PO (08:10)
[2024-10-18] MEDS: naltrexone hcl 50 mg Tablet PO (08:11)
--- NOTE | 2024-10-18 08:16 | PC.NURSE ---
CIWA DISCONTINUED DUE TO NOT SCORING SINCE 10/15/2024 AND LAST DOSE OF ATIVAN GIVEN ON 10/15/24. ORDERS DISCONTINUED FOR ALL CIWA PROTOCOL.
[2024-10-18 12:00] VITALS: RESP 17
[2024-10-18 14:00] VITALS: BP 120/56; PULSE 90; RESP 17; TEMP 37.6; O2SAT 98
--- NOTE | 2024-10-18 15:54 | P.NPUPN_ITS ---
Subjective NPU 2 Subjective: Patient presented today reporting that things are going okay. He endorsed a plan to do some outpatient services and try to get his job back. We discussed the Vivitrol injection which she was open to. We discussed concerns that he is not more willing to do more intense sober living treatment given this pattern that he has. He denied any side effects of medications. Mental Status Exam 2 MSE Comments: This is a well-nourished well-developed white male in hospital scrubs with adequate grooming and eye contact. No abnormal movements. Mostly cooperative with exam in mild distress. Speech was more normal rate and volume. Mood described as feeling better and possibly more optimistic, affect congruent. Thought process linear/organized. Thought contact: patient denies suicidal or homicidal ideation, there were no delusions reported or noted. He denied auditory or visual hallucinations. Reports long-standing depression since 2013- 2014, but endorsed that has been better since he started the medication at last admission. Attention and concentration appeared intact and memory appeared more reliable but none were formally tested. Patient is alert and oriented times person and place. Insight and judgment are limited and impulse control is impaired but improving. Vitals/I&O/Wt Last Vital Signs Temp 99.7 F H 10/18/24 14:00 Pulse 90 10/18/24 14:00 Resp 17 10/18/24 14:00 BP 120/56 10/18/24 14:00 Pulse Ox 98 10/18/24 14:00 O2 Del Method Room Air 10/18/24 14:00 Weight last 48 hrs Weight 89.981 kg Data NPU 10/14/24 21:09 10/14/24 21:09 A&P Assessment and plan (1) Suicidal ideation: (2) Alcohol intoxication: Qualifiers: Complication of substance-induced condition: uncomplicated Qualified Code(s): F10.920 - Alcohol use, unspecified with intoxication, uncomplicated (3) PTSD (post-traumatic stress disorder): (4) Major depressive disorder, recurrent: (5) Alcohol use disorder: (6) Generalized anxiety disorder: (7) Adjustment disorder with mixed disturbance of emotions and conduct: Plan This is a 29-year-old white male only known to [facility] psychiatry from his past inpatient services in August of last year. At that time he presented with a history of major depressive disorder and generalized anxiety disorder, both of which have progressively worsened since their onset in 5240-1795. The patient reports a recent suicide attempt on August 24, 2024, involving an attempt to hang themselves, as well as ongoing self-injurious behavior. There is a history of substance use disorder, including methamphetamine addiction in 8964-7690, recent cocaine use months ago, and alcohol relapse in late 2023 after a period of five to six months of sobriety. The patient was pulled over for a DUI the other day which is why he reports he was being resistant because he wanted him to release his vehicle to his mother. The patient has a history of cleft palate repair, testicular cancer with right testicle removal in June 2023, and a stroke in 2017 attributed to substance use. There is a family history of depression and addiction on both maternal and paternal sides, as well as a sibling with a suicide attempt in 2018. The patient?s current presentation is consistent adjustment disorder as a response to getting the DUI. We will gain collateral information and identify whether he has credible risk. 1.? Encouraged individual, group and milieu therapy. 2. ?We will attempt to gather collateral information. 3. ?TO-15 minute checks on the unit. 4. ?Recommend sober living treatment at the highest level of care to which the patient is willing to commit. 5. We started medication. Will look to see if he has access to Vivitrol prior to discharge. 6. Start CIWA protocol. Involuntary Hold Information 2 96 Hour Hold: 96 Hour Involuntary Admission: Yes 96 Hour Hold Ending Date: 10/20/24 96 Hour Hold Ending Time: 20:30 Other Hold: Hold End Date: 10/20/24 Attestations NPU 2 Medical Necessity Statement*: Inpatient hospitalization is medically necessary and the clinically appropriate intervention at this time. We will monitor/initiate medications and make changes as indicated. Likely length of stay 1-3 days. Coding Level of Care Code Acute Code for [facility] Fwd Diagnoses Suicidal ideation R45.851 Alcohol intoxication F10.920 Complication of substance-induced condition: uncomplicated PTSD (post-traumatic stress disorder) F43.10 Major depressive disorder, recurrent F33.9 Alcohol use disorder F10.90 Generalized anxiety disorder F41.1 Adjustment disorder with mixed disturbance of emotions and conduct F43.25
[2024-10-18] MEDS: quetiapine 100 mg Tablet 150 MG PO (21:06)
[2024-10-18] MEDS: trazodone 50 mg Tablet PO (21:06)
[2024-10-18 22:00] VITALS: BP 131/89; PULSE 89; RESP 18; TEMP 37.4; O2SAT 99
[2024-10-19 06:00] VITALS: BP 112/72; PULSE 83; RESP 16; TEMP 36.5; O2SAT 97
[2024-10-19] MEDS: lamoTRIgine 100 mg Tablet PO (08:32)
[2024-10-19] MEDS: fluoxetine 20 mg Capsule 40 MG PO (08:32)
[2024-10-19] MEDS: gabapentin 400 mg Capsule 800 MG PO (08:32)
[2024-10-19] MEDS: naltrexone hcl 50 mg Tablet PO (08:32)
[2024-10-19] MEDS: thiamine 100 mg Tablet PO (08:32)
[2024-10-19] MEDS: folic acid 1 mg Tablet PO (08:32)
[2024-10-19] MEDS: propranolol 20 mg Tablet PO (08:32)
[2024-10-19] MEDS: multivitamin therapeutic Tablet 1 TAB PO (08:32)
[2024-10-19] MEDS: nicotine 4 mg lozenge MUCOUS MEM ×2 (08:34→11:51)
--- NOTE | 2024-10-19 10:45 | W.PM.NPUDCS ---
Diagnoses at Discharge Discharge Diagnosis (1) Suicidal ideation: Status: Resolved (2) Alcohol intoxication: Status: Resolved Qualifiers: Complication of substance-induced condition: uncomplicated Qualified Code(s): F10.920 - Alcohol use, unspecified with intoxication, uncomplicated (3) PTSD (post-traumatic stress disorder): Status: Acute (4) Major depressive disorder, recurrent: Status: Acute (5) Alcohol use disorder: Status: Acute (6) Generalized anxiety disorder: Status: Acute (7) Adjustment disorder with mixed disturbance of emotions and conduct: Status: Acute Reason for Visit Reason for Visit: ETOH, SI, Poss 96 Brief History: History of Present Illness Darell Devlin is a 29 year old male who presented to the emergency department with the following report: Chief Complaint: Psychiatric Symptoms Stated Complaint: ETOH, SI, Poss 96 Time Seen by Provider: 10/14/24 20:27 History of Present Illness: 29-year-old man with a history of depression, suicidal ideations, alcohol abuse who presents emergency room after a traffic stop or he was found to be intoxicated. Report of a blood alcohol level over 300. He does appear intoxicated but is able to walk and talk. Police report that he hit his head on the back of the car seat and had told them multiple times that he was suicidal. He has superficial cuts/self-mutilation's on his arms. He is currently denying that he said any of this, however he is intoxicated and the police have reported otherwise. He was admitted to the neuropsychiatric unit for definitive treatment of those issues. He is known to the [facility] psychiatric community through inpatient psychiatric services. An excerpt of his discharge from August of last year is included below for context and the fact that there have been no substantive changes. He presents today with a BAL of 314 and a negative UDS reporting that when he left the hospital in August things went well for a few weeks and he was sober but then he started to drink again which started slow but then he reports that he is gotten to the poin that he was not drinking most days of the week. He reports that a couple nights ago before he came in here he was pulled over and given a DUI. He reports that during the situation/traffic stop he was resistant and ultimately went and got booked but they brought him here afterwards. He reports that he was just frustrated because he wanted to not have his mom have her car impounded and they would not let him call her to have her come pick her car up versus and pounding it. He reports that he does not recall doing or saying anything that would make them bring him here. However in the affidavit he reports that he did say that he wanted to kill himself after they let him go. He reports that he had been taking his medication before they ran out a few days ago and we discussed the risks, benefits and alternatives of restarting these medications/continuing them and he understood and agreed to proceed as is documented in this note. He reports that due to this he is already lost a job that he has been working hard to get. 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 Per his 08/31/2024 [facility] inpatient psychiatric discharge summary: Discharge Diagnosis (1) Suicidal ideation: Status: Acute (2) Alcohol intoxication: Status: Acute Qualifiers: Complication of substance-induced condition: uncomplicated Qualified Code(s): F10.920 - Alcohol use, unspecified with intoxication, uncomplicated (3) PTSD (post-traumatic stress disorder): Status: Acute (4) Major depressive disorder, recurrent: Status: Acute (5) Alcohol use disorder: Status: Acute (6) Generalized anxiety disorder: Status: Acute Reason for Visit Reason for Visit: SI Brief History: History of Present Illness Darell Devlin is a 29 year old male who presented to the emergency department with the following report: Chief Complaint: Psychiatric Symptoms Stated Complaint: SI Time Seen by Provider: 08/24/24 23:49 History of Present Illness: Presents to the ER with suicidal ideation. Plan on hanging himself tonight. He is brought in by his mother. He has been drinking. He did fall down and strike the right side of his face to be a superficial abrasions to that area but he says it does not hurt. Patient says he does not want help. Patient does admit to being cutter. He does see a psychiatrist at [facility] in [place] has not seen him since March. Chief complaint Suicidal ideation following alcohol relapse. History of the present complaint The patient, born on October 30, 1994, reports currently taking psychiatric medications including olanzapine (Zyprexa) and is in the process of weaning off gabapentin. They have been taking Prozac and Zyprexa for about six weeks and have been on lamotrigine for a longer period. The patient was admitted to the hospital due to drinking and having thoughts of self-harm. They express a desire to stop drinking, acknowledging a relapse after being sober for five to six months. The patient has a history of psychiatric hospitalizations, with this being their third admission. Previous admissions occurred when they were 21 years old and earlier in June 2023 at [facility]. The patient has been receiving outpatient care at [facility], attending appointments approximately once a month. They have a history of vaping since 2015 and report excessive alcohol consumption starting in 2015, which worsened in 2022. The last drink was consumed the night before the consultation. The patient occasionally uses marijuana and reported using cocaine about two months ago. 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 The patient has a history of legal issues related to possession but avoided alf time by cooperating as a confidential informant. The patient began experiencing depression and anxiety symptoms around 2013 or 2014 while in high school, which have progressively worsened. They report feelings of helplessness, hopelessness, worthlessness, low mood, and sleep problems. The patient describes having a passive wish, with thoughts of not caring if they do not wake up. They have experienced suicidal thoughts but have been too scared to act on them. The patient attempted suicide the night before the consultation by trying to hang themselves. They have a history of self-injurious behavior, starting in 2014, with the most recent incident occurring three days prior to the consultation. Anxiety symptoms include overwhelming worry and a sense of impending doom, even without specific triggers. The patient reports a family history of mental health issues, with both parents having struggled with alcoholism. The patient's mother has a history of depression and has been hospitalized for it. The patient's brother attempted suicide in 2019. 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 They also had a stroke in 2018, attributed to cocaine use and Xanax withdrawal. The patient identifies as homosexual and has been in a complicated relationship for six years. They have never been or had biological children. The patient attempted to join the [employer] but was discharged due to self-harm history. 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 Currently, they live with their mother and have several pets. The patient has spent nights in alf on three occasions but has not served time for any felony charges. Mental health history Diagnosed with depression and anxiety around 1236-2147 during high school, with symptoms progressively worsening. History of passive wishes and suicidal thoughts without a plan, but attempted suicide on 08/24/2024 by attempting to hang self. History of self-injurious behavior (cutting) since 2014, with the most recent episode occurring three days prior to the encounter (08/22/2024). Reports feelings of helplessness, hopelessness, worthlessness, low mood, and sleep disturbances. Experiences anxiety with physical symptoms such as heart racing and feelings of doom, even without specific triggers. No history of paranoia or hallucinations. Admitted to a psychiatric hospital three times: at age 21 (2015), in June 2024 at [facility] in [place], and currently. Currently taking Prozac (20 mg), Zyprexa (5 mg), and lamotrigine, and weaning off gabapentin. Prozac and Zyprexa were initiated approximately six weeks ago (late June 2024). Previous outpatient psychiatric care at [facility], attending monthly appointments. Family history of depression (mother) and suicide attempt (brother in 2019). Social history Lives with mother and has recently moved back home after a relapse. Previously lived in [place]. Has five cats, four dogs, and a Chihuahua. Vapes since 2016 and has been drinking since 2016, with increased consumption in 2022. Last drink was the night before the encounter. Previously sober for five to six months before relapsing. Occasional cannabis use and used cocaine two months ago. Was addicted to methamphetamine in 3422-3845. No history of foster care or care home living. 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 Identifies as heterosexual. Longest relationship lasted six years, currently complicated. No biological children. Attempted to join the [employer] but was discharged due to self-harm history. Describes self as Sabianism. Hospital Course Hospital Course During the hospitalization, the patient had routine laboratory studies which were within normal limits except for a few outliers. Additionally, there was a general medical evaluation which was also within normal limits and revealed no new acute processes. At the time of discharge, lethality was denied. Mood and anxiety were well managed. The patient endorsed a plan to avoid all drugs of abuse and follow up with the aftercare recommendations of the treatment team. The patient was evaluated and deemed to be absent credible lethality and had achieved the maximum benefit from an inpatient hospitalization, and so was discharged. The patient was started on Prozac and titrated up to a dose of 40 mg daily to target anxiety and depression. The patient's Lamictal was decreased from 300 mg a day to 200 mg a day. The patient was started on naltrexone oral to target alcohol cravings with the plan for the patient to begin Vivitrol on a monthly basis once the patient was given Medicaid. Zyprexa was discontinued and Seroquel was given in its place to target depression adjunctively. Patient was strongly urged to continue with outpatient psychotherapy. He had reported interest in helping with chronic self-injurious behavior and information regarding DBT was given. Involuntary Hold Information 96 Hour Hold: 96 Hour Involuntary Admission: Yes 96 Hour Hold Ending Date: 10/20/24 96 Hour Hold Ending Time: 20:30 Other Hold: Hold End Date: 10/20/24 Mental Status Exam MSE Comments: This is a well-nourished well-developed white male in hospital scrubs with adequate grooming and eye contact. No abnormal movements. Mostly cooperative with exam in mild distress. Speech was more normal rate and volume. Mood described as feeling better and possibly more optimistic, affect congruent. Thought process linear/organized. Thought contact: patient denies suicidal or homicidal ideation, there were no delusions reported or noted. He denied auditory or visual hallucinations. Reports long-standing depression since 1414-6911, but endorsed that has been better since he started the medication at last admission. Attention and concentration appeared intact and memory appeared more reliable but none were formally tested. Patient is alert and oriented times person and place. Insight and judgment are limited and impulse control is impaired but improving. Discharge Data Studies Completed and Pending: Laboratory Results WBC 9.95 10^3/uL (3.2 9-11.43) 10/14/24 21:09 RBC 5.00 10^6/uL (3.8 5-5.65) 10/14/24 21:09 Hgb 13.40 g/dL (11.27 -16.99) 10/14/24 21:09 Hct 41.3 % (37-53) 10/14/24 21:09 MCV 82.6 fl (82-101) 10/14/24 21:09 MCH 26.8 pg (27-33) L 10/14/24 21:09 MCHC 32.4 g/dL (30-55) 10/14/24 21:09 RDW 15.3 % (12.1-15.1 ) H 10/14/24 21:09 Plt Count 279 10^3/cmm (157 -399) 10/14/24 21:09 MPV 9.4 fL (7.4-10.4) 10/14/24 21:09 Neut % (Auto) 78.6 % 10/14/24 21:09 Lymph % (Auto) 14.3 % 10/14/24 21:09 Arthur % (Auto) 6.2 % 10/14/24 21:09 Eos % (Auto) 0.2 % 10/14/24 21:09 Baso % (Auto) 0.4 % 10/14/24 21:09 Neut # (Auto) 7.82 10^3/uL (1.8 -7.7) H 10/14/24 21:09 Lymph # (Auto) 1.4 10^3/uL (0.8- 4.8) 10/14/24 21:09 Arthur # (Auto) 0.6 10^3/uL (0.2- 0.9) 10/14/24 21:09 Eos # (Auto) 0.0 10^3/uL (0.0- 0.8) 10/14/24 21:09 Baso # (Auto) 0.0 10^3/uL (0.0- 0.1) 10/14/24 21:09 Nucleated RBC % (a uto) 0 % 10/14/24 21:09 Nucleated RBCs # 0.0 /100WBC 10/14/24 21:09 Sodium 139 mmol/L (136-1 45) 10/14/24 21:09 Potassium 3.7 mmol/L (3.5-5 .1) 10/14/24 21:09 Chloride 99 mmol/L (98-107 ) 10/14/24 21:09 Carbon Dioxide 22 mmol/L (22-29) 10/14/24 21:09 Anion Gap 21.7 (5-19) H 10/14/24 21:09 BUN 8 mg/dL (6-20) 10/14/24 21:09 Creatinine 0.9 mg/dL (0.7-1. 2) 10/14/24 21:09 GFR Calculation 100.5 mL/min (90- 130) 10/14/24 21:09 Glucose 171 mg/dL (65-115 ) H 10/14/24 21:09 Calculated Osmolal ity 290 mOsm/kg (285- 295) 10/14/24 21:09 Calcium 8.4 mg/dL (8.5-10 .5) L 10/14/24 21:09 Total Bilirubin 0.4 mg/dL (0.15-1 .2) 10/14/24 21:09 AST 48 U/L (0-40) H 10/14/24 21:09 ALT 26 U/L (0-41) 10/14/24 21:09 Alkaline Phosphata se 142 U/L (40-130) H 10/14/24 21:09 Total Protein 6.8 g/dL (6.6-8.7 ) 10/14/24 21:09 Albumin 4.4 g/dL (3.5-5.2 ) 10/14/24 21:09 Globulin 2.4 g/dL (1.3-4.6 ) 10/14/24 21:09 TSH 0.19 uIU/mL (0.27 -4.20) L 10/14/24 21:09 Urine Color Yellow (Yellow) 10/14/24 20:35 Urine Appearance Clear (CLEAR) 10/14/24 20:35 Urine pH 6.0 (5-7) 10/14/24 20:35 Ur Specific Gravit y 1.008 (1.005-1.0 30) 10/14/24 20:35 Urine Protein Trace (Negative) A 10/14/24 20:35 Urine Glucose (UA) Negative (Normal ) 10/14/24 20:35 Urine Ketones Negative (Negati ve) 10/14/24 20:35 Urine Blood Negative (Negati ve) 10/14/24 20:35 Urine Nitrate Negative (Negati ve) 10/14/24 20:35 Urine Bilirubin Negative (Negati ve) 10/14/24 20:35 Urine Urobilinogen 1.0 mg/dL (Negati ve) 10/14/24 20:35 Ur Leukocyte Corinna ase Negative (Negati ve) 10/14/24 20:35 Urine RBC 0-2 /hpf (0-2) 10/14/24 20:35 Urine WBC 0-5 /hpf (0-5) 10/14/24 20:35 Ur Squamous Epith Cells 0-5 /hpf (0-5) 10/14/24 20:35 Amorphous Sediment Not Reportable 10/14/24 20:35 Urine Bacteria None seen /hpf (N ONE) 10/14/24 20:35 Hyaline Casts 1.65 /lpf 10/14/24 20:35 Salicylates < 0.3 mg/dL (3-10 ) L 10/14/24 21:09 Urine Opiates Scre en Negative ng/mL (N egative) 10/14/24 20:35 Acetaminophen < 5.0 ug/mL (10-3 0) L 10/14/24 21:09 Ur Barbiturates Sc reen Negative ng/mL (N egative) 10/14/24 20:35 Ur Phencyclidine S crn Negative ng/mL (N egative) 10/14/24 20:35 Ur Amphetamines Sc reen Negative ng/mL (N egative) 10/14/24 20:35 U Benzodiazepines Scrn Negative ng/mL (N egative) 10/14/24 20:35 Urine Cocaine Scre en Negative ng/mL (N egative) 10/14/24 20:35 U Marijuana (THC) Screen Negative ng/mL (N egative) 10/14/24 20:35 Ethyl Alcohol 131 mg/dL (0-10) H 10/15/24 05:25 Vitals: Last Vital Signs Temp 97.7 F 10/19/24 06:00 Pulse 83 10/19/24 06:00 Resp 16 10/19/24 06:00 BP 112/72 10/19/24 06:00 Pulse Ox 97 10/19/24 06:00 O2 Del Method Room Air 10/19/24 06:00 Discharge Plan Discharge Patient Disposition: Home Condition: Stable Prescriptions: Continued fluoxetine 40 mg capsule 40 mg PO DAILY 30 Days Qty: 30 1RF naltrexone 50 mg Tablet 50 mg PO DAILY 30 Days Qty: 30 1RF gabapentin [Neurontin] 800 mg tablet 800 mg PO TID 30 Days Qty: 90 1RF folic acid 1 mg Tablet 1 mg PO DAILY 30 Days Qty: 30 1RF propranolol 20 mg Tablet 20 mg PO TID 30 Days Qty: 90 1RF lamotrigine 100 mg Tablet 100 mg PO 0900,2100 30 Days Qty: 60 1RF thiamine mononitrate (vit B1) [Vitamin B-1 (mononitrate)] 100 mg Tablet 100 mg PO DAILY 30 Days Qty: 30 1RF quetiapine 150 mg tablet 150 mg PO BEDTIME 30 Days Qty: 30 1RF Discharge Orders: Discharge Order (Routine); Ordered 10/19/24 Ordered By: Frantz Rosenbaum Referrals: [facility] [Outside] Discharge Diet: Regular Discharge Activity: Resume usual activity Patient Instructions: Opioid Safety Discharge Attestations NPU Time Spent in Discharge Care*: less than 30 min Specific Discharge Activities: Specific discharge activities: educating patient, discussing with watch caser/social workers/dc planners, documenting/other paperwork and evaluating patient/reviewing data Coding Level of Care Code Acute Code for [facility] Fwd Diagnoses Suicidal ideation R45.851 Alcohol intoxication F10.920 Complication of substance-induced condition: uncomplicated PTSD (post-traumatic stress disorder) F43.10 Major depressive disorder, recurrent F33.9 Alcohol use disorder F10.90 Generalized anxiety disorder F41.1 Adjustment disorder with mixed disturbance of emotions and conduct F43.25
[2024-10-19 11:05] VITALS: BP 112/72; PULSE 83; RESP 16; TEMP 36.5; O2SAT 97
== END 2024-10-19 14:32 | disposition home or self-care (01) | DRG 897 ==
LOC: ER 10-15 05:45 → NP 10-15 15:43
PROVIDERS: Admitting Provider Psychiatry & Neurology Psychiatry; Emergency Provider Emergency Medicine; Visit Provider Psychiatry & Neurology Psychiatry
DX: F10.129 Alcohol abuse with intoxication, unspecified (principal); F33.9 Major depressive disorder, recurrent, unspecified; R45.851 Suicidal ideations; Y90.8 Blood alcohol level of 240 mg/100 ml or more; F43.10 Post-traumatic stress disorder, unspecified; F41.1 Generalized anxiety disorder; F43.25 Adjustment disorder with mixed disturbance of emotions and conduct
CPT/HCPCS: 36415; 80053; 80306; 80307; 81001; 84443; 85025; 93005; 97150; 97165; 99285

== ENCOUNTER → 2024-11-10 10:39 | Outpatient (BNVA) | payer OTHER, SELFPAY | PROVIDERS: Visit Provider Nurse Practitioner Psychiatric/Mental Health | DX: F41.1 Generalized anxiety disorder (principal); F33.9 Major depressive disorder, recurrent, unspecified; Z79.899 Other long term (current) drug therapy | CPT/HCPCS: 80061; 83036 ==

== ENCOUNTER → 2024-11-29 16:00 | Outpatient (BNVA) | payer OTHER, SELFPAY ==
[2024-11-19 10:42] VITALS: BP 129/93; BMI 24.8
== END ==
PROVIDERS: Visit Provider Nurse Practitioner Psychiatric/Mental Health
DX: Z79.899 Other long term (current) drug therapy (principal)
CPT/HCPCS: 80053; 84443

== ENCOUNTER → 2024-11-30 15:05 | Outpatient (BNVA) | payer OTHER, SELFPAY ==
[2024-11-19 10:42] VITALS: BP 129/93; BMI 24.8
== END ==
PROVIDERS: Visit Provider Nurse Practitioner Psychiatric/Mental Health
DX: Z79.899 Other long term (current) drug therapy (principal)
CPT/HCPCS: 80307

== ENCOUNTER 2024-12-28 10:02 | Emergency (ER) | payer MEDICAID, SELFPAY ==
[2024-11-19 10:42] VITALS: BP 129/93; BMI 24.8
[2024-12-28 10:03] VITALS: BP 131/84; PULSE 102; RESP 20; TEMP 36.6; O2SAT 99; BMI 23.7
--- NOTE | 2024-12-28 10:13 | CT_ITS ---
WS: [id number] CT FACIAL BONES HISTORY: trauma TECHNIQUE: Images obtained from the supraorbital location through the mandible. Soft tissue and bone windows are reviewed. Coronal and sagittal reformats have also been submitted. DLP: 1973.[address] scans at [facility] use at least one of these dose optimization techniques: automated exposure control; mA and/or kV adjustment per patient size (includes targeted exams where dose is matched to clinical indication); or iterative reconstruction. COMPARISON: None available. No acute fractures are identified. Zygomatic arches and orbits are intact. No definite nasal bone fracture is identified. No displacement. No air-fluid levels within the sinus cavities. Mandibular condyles are normally positioned. Soft tissue contusion over the RIGHT lateral orbit. There is a large amount of soft tissue edema surrounding the nasal bones. No displaced fracture is identified. On the lateral projection there is very slight buckling of the anterior RIGHT nasal bone. Nasal septum is intact. Orbits and globes are intact. Upper cervical spine is negative. CT/CT facial bones wo con* [id number] IMPRESSION: 1. No zygomatic arch fracture. 2. Large amount of edema and contusion surrounding the nasal bones. 3. Although subtle there is very slight buckling of the anterior RIGHT nasal b one suspicious for fracture. No displaced fractures. 4. Soft tissue contusion lateral to the RIGHT orbit.
--- NOTE | 2024-12-28 10:13 | CT_ITS ---
WS: [id number] CT CERVICAL SPINE HISTORY: trauma TECHNIQUE: Contiguous 2.0 mm axial imaging performed through the entire cervical spine. Sagittal and coronal reformats also performed. All CT scans at [facility] use at least one of these dose optimization techniques: automated exposure control; mA and/or kV adjustment per patient size (includes targeted exams where dose is matched to clinical indication); or iterative reconstruction. DLP: 1973.33 mGy.cm COMPARISON: None available. Normal cervical alignment. Craniocervical junction, atlantodental interval and C1-C2 alignment is normal. There is small age-indeterminate avulsion fractures along the anterior superior and inferior endplates of C6. The remaining vertebral bodies are normal. No loss of height. Facet joints are normally aligned. C2-C3: Normal. C3-C4: Normal. C4-C5: Normal. C5-C6: Central disc protrusion. No significant stenosis. C6-C7: Minimal disc bulging and a central disc protrusion. C7-T1: Normal. Lung apices are clear. Negative thyroid. Small cervical chain lymph nodes. CT/CT cervical spin wo con* [id number] IMPRESSION: 1. Age-indeterminate corner avulsion fractures from the C6 vertebral body invo lving both the superior and inferior endplates. Due to the age of the patient c onsidered these may be from trauma. These do appear well-circumscribed and may be remote. If patient is having neck pain consider follow-up with orthopedics a nd MRI evaluation of the anterior longitudinal ligament. 2. Central disc protrusions at C5-6 and at C6-7.
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
[2024-12-28 11:52] VITALS: BP 95/58; PULSE 83; O2SAT 95
[2024-12-28 12:30] VITALS: BP 109/63; PULSE 73; O2SAT 97
[2024-12-28 13:00] VITALS: BP 108/79; PULSE 95; O2SAT 100
[2024-12-28 13:30] VITALS: BP 105/68; PULSE 75; O2SAT 100
[2024-12-28 13:43] VITALS: BP 114/88; PULSE 101; O2SAT 96
--- NOTE | 2024-12-30 13:18 | DCPLANNER ---
faxed referral packet to ent (liana)
== END 2024-12-28 13:43 | disposition home or self-care (01) ==
PROVIDERS: Emergency Provider Physician Assistant
DX: S12.501A Unspecified nondisplaced fracture of sixth cervical vertebra, initial encounter for closed fracture (principal); S02.2XXA Fracture of nasal bones, initial encounter for closed fracture; F10.920 Alcohol use, unspecified with intoxication, uncomplicated; Y04.2XXA Assault by strike against or bumped into by another person, initial encounter; S01.111A Laceration without foreign body of right eyelid and periocular area, initial encounter
CPT/HCPCS: 12011; 70450; 70486; 72125; 99284

== ENCOUNTER 2025-04-10 02:01 | Inpatient (IN) | payer MEDICAID, SELFPAY ==
--- OUTSIDE RECORDS SUMMARY | 2024-03-15 05:00 | XMS_ITS | Continuity of Care Document ---
Author Organization [facility] Address [address] [id number][place] [address] Phone Care Team Providers Care Welt Drawer Name Role Phone Coordinator, Care Unavailable Unavailable Allergies, Adverse Reactions, Alerts Substance Reaction Status Criticality No Known Allergies Active No Inform ation Medications Medication Instructions Dosage Effective Dates (start - stop) Status Comments Lamictal 100 mg tablet take 1.5 tablet by oral route at bedtime for two weeks then increase to 2 tablets at bed time - Active clonidine HCl 0.1 mg tablet take 1-2 tablet by oral route at bedtime as needed - Active gabapentin 400 mg capsule take 1 capsule by oral route 3 times every day. may take additional dose daily as needed for severe alcohol cravings. - Active Latuda 40 mg tablet take 1.5 tablet by oral route at dinner with food (at least 350 calories) - Active benztropine 0.5 mg tablet take 1 tablet by oral route 2 times every day 0.5 MG - Active amoxicillin 875 mg-potassium clavulanate 125 mg tablet take 1 tablet by oral route every 12 hours 1.00 tablet - Active cetirizine 10 mg tablet take 1 tablet by oral route every day 10 MG - Active Procedures Procedure Date Community Health Worker Patient Face To Face Finalize Template Workaround OFFICE/OUTPATIENT VISIT, EST SBIRT - AUDIT/DAST, 15-30 MIN 4 OFFICE/OUTPATIENT VISIT, EST Finalize Template Workaround OFFICE/OUTPATIENT VISIT, EST SBIRT - AUDIT/DAST, 15-30 MIN 4 Finalize Template Workaround OFFICE/OUTPATIENT VISIT, EST Community Health Worker Patient Face To Face SBIRT - AUDIT/DAST, 15-30 MIN 4 OFFICE/OUTPATIENT VISIT EST COMPLETE CBC W/AUTO DIFF WBC COMPREHEN METABOLIC PANEL LIPID PANEL ROUTINE VENIPUNCTURE URINALYSIS AUTO W/O SCOPE Community Health Worker Patient Face To Face SBIRT - AUDIT/DAST, 15-30 MIN 4 Finalize Template Workaround OFFICE/OUTPATIENT VISIT, EST SBIRT - AUDIT/DAST, 15-30 MIN 4 Finalize Template Workaround PSYCH DIAG EVAL W/MED SRVCS SBIRT - AUDIT/DAST, 15-30 MIN 4 X-RAY EXAM CHEST 2 VIEWS OFFICE/OUTPATIENT VISIT EST COMPLETE CBC W/AUTO DIFF WBC COMPREHEN METABOLIC PANEL ROUTINE VENIPUNCTURE SBIRT - AUDIT/DAST, 15-30 MIN 3 IMMUNIZATION ADMIN TDAP VACCINE >7 IM X-ray Fingers - PA, Oblique, and Lateral , 3 Views OFFICE/OUTPATIENT VISIT EST SBIRT - AUDIT/DAST, 15-30 MIN 3 Finalize Template Workaround OFFICE/OUTPATIENT VISIT, EST SBIRT - AUDIT/DAST, 15-30 MIN 3 SBIRT - AUDIT/DAST, 15-30 MIN 3 Finalize Template Workaround OFFICE/OUTPATIENT VISIT, EST NO CHARGE OFFICE/OUTPATIENT VISIT, EST SBIRT - AUDIT/DAST, 15-30 MIN 3 SBIRT - AUDIT/DAST, 15-30 MIN 3 Finalize Template Workaround SBIRT - AUDIT/DAST, 15-30 MIN 3 Finalize Template Workaround OFFICE/OUTPATIENT VISIT, EST OFFICE/OUTPATIENT VISIT, EST Community Health Worker Patient Face To Face SBIRT - AUDIT/DAST, 15-30 MIN 3 Finalize Template Workaround PSYCH DIAG EVAL W/MED SRVCS X-RAY EXAM OF HAND, min of 3 views b No Charge SBIRT - AUDIT/DAST, 15-30 MIN 3 X-RAY EXAM OF HAND, min of 3 views b OFFICE/OUTPATIENT VISIT EST Finalize Template Workaround Behavioral Health Consult URINALYSIS AUTO W/O SCOPE DRUG SCREEN OFFICE/OUTPATIENT VISIT EST Finalize Template Workaround Behavioral Health Consult OFFICE/OUTPATIENT VISIT EST COMPLETE CBC W/AUTO DIFF WBC COMPREHEN METABOLIC PANEL LIPID PANEL ROUTINE VENIPUNCTURE OFFICE/OUTPATIENT VISIT EST OFFICE/OUTPATIENT VISIT, EST OFFICE/OUTPATIENT VISIT, EST Finalize Template Workaround Behavioral Health Consult OFFICE/OUTPATIENT VISIT EST PSYTX PT&/FAMILY 30 MINUTES Finalize Template Workaround OFFICE/OUTPATIENT VISIT, EST (1371) NO CHARGE Patient Left / No Show Finalize Template Workaround PSYCH DIAG EVAL W/MED SRVCS (94) 2018 Finalize Template Workaround Behavioral Health Consult OFFICE/OUTPATIENT VISIT, NEW Finalize Template Workaround Behavioral Health Consult Community Health Worker Patient Face To Face PSYCH DIAGNOSTIC EVALUATION Advance Directives Directive Yes / No Effective Date File Name No Information Encounters Encounter Description Practice Location Reason(s) For Visit Diagnoses Date Provider Providers Copied on Encounter [facility], [id number], [address], [place] tel:[phone] Family Medicine F1 No Information 4 [facility]. [address], [place], [address], [place]. tel:[phone] Referring Provider: Shai chua, [address] [place], [address] . tel:[phone] [facility], [id number] 5066706LAIrving, [place], [address], [place] tel:[phone] Behavioral Medicine F2 Med management (chief complaint) Other alf (current) drug therapyGAD (generalized anxiety disorder)Hist ory of substance abuseMajor depressive disorder, recurrent, moderate 4 Martínez Stock. [address] [place], [address], [place]. tel:[phone] Referring Provider: Montrell Soliz, [address] [place], [address]. tel:[phone] OFFICE/OUTPA TIENT VISIT, EST [facility], [address] 7278461KX- [place], [place], [address], [place] tel:[phone] [facility] Sinus infection* (chief complaint) Upper respiratory infection 4 Jamin Cantu. [address], [place], [address], [place]. tel:[phone] Referring Provider: Pepe Neville, [address] [place], [address] . tel:[phone] [facility], [id number], [place], [address], [place] tel:[phone] Behavioral Medicine F2 Med management (chief complaint) Other alf (current) drug therapyBipola r 2 disorder, major depressive episodeGAD (generalized anxiety disorder) 4 Matrínez Stock. [address] [place], [address], [place]. tel:[phone] Referring Provider: Montrell Soliz, [address] [place], [address]. tel:[phone] [facility], [id number] 66740[address]HDBryan, [place], [address], [place] tel:[phone] Family Medicine F1 No Information 4 Salina Smith. [address], [place], [address], [place]. tel:[phone] SBIRT - AUDIT/DAST, 15-30 MIN [facility], [address]bd[address] [id number], [place], [address], [place] tel:[phone] Behavioral Medicine F2 Med management (chief complaint) Other termite exterminator helper (current) drug therapyBipola r 2 disorder, major depressive episodeGAD (generalized anxiety disorder) 4 Martínez Stock. [address] [place], [address], [place]. tel:[phone] Referring Provider: Montrell Soliz, [address] [place], [address]. tel:[phone] [facility], [address] Bwcic[address]O8 4694324TI- [place], [address], [place] tel:[phone] Family Medicine F1 Low Income Nov- 4 Coordinator Care. [address], [place], [address], [place]. tel:[phone] Referring Provider: Shai chua, [address] [place], [address] . tel:[phone] OFFICE/OUTPA TIENT VISIT EST [facility], [id number] 5205946BDBryan, [place], [address], [place] tel:[phone] Family Medicine F1 Discuss Test Results. (chief complaint) Neoplasm of testisChronic rhinitisLong term use of drugElevated liver enzymes Nov- 4 Salina Smith. [address], [place], [address], [place]. tel:[phone] Referring Provider: Sarah Downing, [address] [place], [address] . tel:[phone] [facility], [address] Ihzrq[address]D1 9147846QN- [place], [address], [place] tel:[phone] Family Medicine F1 No Information 4 Coordinator Care. [address], [place], [address], [place]. tel:[phone] Referring Provider: Shai chua, [address] [place], [address] . tel:[phone] SBIRT - AUDIT/DAST, 15-30 MIN [facility], [address] [id number] [id number]- [place], [address], [place] tel:[phone] Behavioral Medicine F2 Med management (chief complaint) Other alf (current) drug therapyBipola r 2 disorder, major depressive episodeGAD (generalized anxiety disorder) 4 Martínez Stock. [address] [place], [address], [place]. tel:[phone] Referring Provider: Montrell Soliz, [address] [place], [address]. tel:[phone] SBIRT - AUDIT/DAST, 15-30 MIN [facility], [address]krp[address]T3 5011819LE- [place], [place], [address], [place] tel:[phone] Behavioral Medicine F2 NEW PATIENT PSYCH EVAL (chief complaint) BRUCE (generalized anxiety disorder)Bipo lar 2 disorder, major depressive episodeOther alf (current) drug therapy 4 Martínez Stock. [address] [place], [address], [place]. tel:[phone] Referring Provider: Montrell Soliz, [address] [place], [address]. tel:[phone] OFFICE/OUTPA TIENT VISIT EST [facility], [id number], [place], [address], [place] tel:[phone] Family Medicine F1 Lung Concerns (chief complaint) Chronic coughShortnes s of breathTesticu lar massOther termite exterminator helper (current) drug therapyNeopla sm of testisTobacco use 4 Salina Smith. [address], [place], [address], [place]. tel:[phone] Referring Provider: Sarah Downing, [address] [place], [address] . tel:[phone] [facility], [address] Nyqlt718Y8 1707312NS- [place], [address], [place] tel:[phone] [facility] Behavioral Health Bipolar 2 disorder, major depressive episodeHistor y of methamphetami ne abuseGAD (generalized anxiety disorder) 3 Sp Baltazar. [address], [place], [address], [place]. tel:[phone] OFFICE/OUTPA TIENT VISIT EST [facility], [address] Odtwv347S6 7186039YZ- [place], [place], [address], [place] tel:[phone] Family Medicine F1 Testicular Concerns (chief complaint)D og bite (chief complaint) Animal biteLaceratio n of right middle finger without foreign body with damage to nail, initial encounterInju ry of right middle finger, initial encounterOthe r termite exterminator helper (current) drug therapyTestic ular mass 3 Salina Smith. [address], [place], [address], [place]. tel:[phone] Referring Provider: Sarah Downing, [address] [place], [address] . tel:[phone] SBIRT - AUDIT/DAST, 15-30 MIN [facility], [address] [id number] 1787140FT- [place], [place], [address], [place] tel:[phone] Behavioral Medicine F2 MDD (chief complaint)S UD (chief complaint)m ed management (chief complaint) Bipolar 2 disorder, major depressive episodeHistor y of methamphetami ne abuseGAD (generalized anxiety disorder) 3 Martínez Stock. [address] [place], [address], [place]. tel:[phone] Referring Provider: Montrell Soliz, [address] [place], [address]. tel:[phone] SBIRT - AUDIT/DAST, 15-30 MIN [facility], [address] Sugbt[address]F2 [id number]- [place], [place], [address], [place] tel:[phone] Behavioral Medicine F2 medication management (chief complaint) Bipolar 2 disorder, major depressive episodeGAD (generalized anxiety disorder)Othe r alf (current) drug therapyMajor depressv disorder, recurrent, severe w psych symptoms Nov-3 0 3 Martínez Stock. [address] [place], [address], [place]. tel:[phone] Referring Provider: Montrell Soliz, [address] [place], [address]. tel:[phone] [facility], [address]piwq885C5 2903907AXBryan, [place], [address], [place] tel:[phone] [facility] Integration Bipolar 2 disorder, major depressive episodeMajor depressive disorder, recurrent, moderateOther termite exterminator helper (current) drug therapyMajor depressv disorder, recurrent, severe w psych symptoms Nov-2 3 No Information SBIRT - AUDIT/DAST, 15-30 MIN [facility], [address] Vhhew[address]E4 3493821SCBryan, [place], [address], [place] tel:[phone] Behavioral Medicine F2 medication management (chief complaint) Bipolar 2 disorder, major depressive episodeMajor depressive disorder, recurrent, moderateOther alf (current) drug therapyMajor depressv disorder, recurrent, severe w psych symptoms Nov-2 3 Martínez Stock. [address] [place], [address], [place]. tel:[phone] Referring Provider: Montrell Soliz, [address] [place], [address]. tel:[phone] [facility], [address] Iwpou[address]18A1 8350507ZKBryan, [place], [address], [place] tel:[phone] [facility] Bipolar 2 disorder, major depressive episodeOther termite exterminator helper (current) drug therapyMajor depressv disorder, recurrent, severe w psych symptoms Fe- 3 No Information [facility], [address]ef[address]P4 [id number]- [place], [place], [address], [place] tel:[phone] Behavioral Medicine F2 No Information [address] [facility]. [address], [place], [address], [place]. tel:[phone] Referring Provider: Replaced By [facility], [address] [place], [address] . tel:[phone] SBIRT - AUDIT/DAST, 15-30 MIN [facility], [address] Pagkg531P6 0973779PY- [place], [place], [address], [place] tel:[phone] Behavioral Medicine F2 NEW PATIENT PSYCH EVAL (chief complaint) Bipolar 2 disorder, major depressive episodeOther alf (current) drug therapyMajor depressv disorder, recurrent, severe w psych symptoms 3 Martínez Stock. [address] [place], [address], [place]. tel:[phone] Referring Provider: Montrell Soliz, [address] [place], [address]. tel:[phone] [facility], [address] Fecpa819U5 [id number]- [place], [address], [place] tel:[phone] Behavioral [facility] Integration Other specified counseling b0 3 No Information [facility], [address] Egfdb045Y2 1308627VC- [place], [place], [address], [place] tel:[phone] Family Medicine F1 No Information b0 3 Earline Fraser. [address], [place], [address], [place]. tel:[phone] Referring Provider: Evelio Patten, [address] [place], [address] . tel:[phone] [facility], [address] Subnb898H1 1761329CO- [place], [place], [address], [place] tel:[phone] Family Medicine F1 No Information 3 Salina Smith. [address], [place], [address], [place]. tel:[phone] Referring Provider: Sarah Downing, [address] [place], [address] . tel:[phone] OFFICE/OUTPA TIENT VISIT EST [facility], [address]R4 4928093GHIrving, [place], [address], [place] tel:[phone] Adult Medicine LL Follow Up of depression (chief complaint)P ain/swellin g in right hand (chief complaint) Right hand painMajor depressive disorder, recurrent, moderate 3 Salina Smith. [address], [place], [address], [place]. tel:[phone] Referring Provider: Sarah Downing, [address] [place], [address] . tel:[phone] [facility], [address] Anmmd509J4 9292345IR- [place], [address], [place] tel:[phone] [facility] Integration Other specified counseling 2 No Information OFFICE/OUTPA TIENT VISIT EST [facility], [address]fblw173J5 3878515ZFIrving, [place], [address], [place] tel:[phone] Adult Medicine LL depression (chief complaint) Major depressive disorder, recurrent, moderate 2 Salina Smith. [address], [place], [address], [place]. tel:[phone] Referring Provider: Sarah Downing, [address] [place], [address] . tel:[phone] [facility], [address] Ztjmx817W1 8676231MWBryan, [place], [address], [place] tel:[phone] Behavior[facility] Integration Other specified counseling 2 Sheryl Fontenot. [address], [place], [address], [place]. tel:[phone] Referring Provider: Corie Saucedo, [address] [place], [address] . tel:[phone] [facility], [address]bawe[address]G7 2726709JDBryan, [place], [address], [place] tel:[phone] [facility] Integration Other specified counseling 2 No Information OFFICE/OUTPA TIENT VISIT EST [facility], [address] Akcfl[address]Y0 4568664VABryan, [place], [address], [place] tel:[phone] Adult Medicine LL establish care (chief complaint)d epression (chief complaint) History of methamphetami ne abuseHistory of substance abuseScreenin g for cardiovascula r conditionMajo r depressive disorder, recurrent, moderateEngag es in vapingEncounm psychiatric center er to establish care 2 Salina Smith. [address], [place], [address], [place]. tel:[phone] Referring Provider: Sarah Downing, [address] [place], [address] . tel:[phone] [facility], [address] Afhyw584K3 8761035JABryan, [place], [address], [place] tel:[phone] Behavior[facility] Integration Other specified counseling 2 Sp Baltazar. [address], [place], [address], [place]. tel:[phone] OFFICE/OUTPA TIENT VISIT EST [facility], [address] Unnqd[address]I5 04039[address]FBBryan, [place], [address], [place] tel:[phone] [facility] Fell off long board last night and scraped R leg (chief complaint) Multiple abrasions May- 2 Tone Baltazar. [address], [place], [address], [place]. tel:[phone] Referring Provider: Delaney Wayne, [address] [place], [address] . tel:[phone] [facility], [address] Moomz402B1 8295354HP- [place], [address], [place] tel:[phone] [facility] Integration Other specified counseling 2 No Information OFFICE/OUTPA TIENT VISIT, [facility], [address] Rslnd583X4 5374707LZIrving, [place], [address], [place] tel:[phone] Adult Medicine LL depression (chief complaint) Major depressive disorder, recurrent, moderate 2 No Information [facility], [address] Tcpqw433E4 2064820PS- [place], [place], [address], [place] tel:[phone] [facility] Integration Other specified counseling 2 No Information OFFICE/OUTPA TIENT VISIT, [facility], [address] Drywj125M4 5453240MZIrving, [place], [address], [place] tel:[phone] Adult Medicine LL depression (chief complaint) Major depressive disorder, recurrent, moderate 2 No Information [facility], [address] Bhhwq247C2 2133586ZBBryan, [place], [address], [place] tel:[phone] [facility] Integration Other specified counseling 0 Christie Lopez. [address], [place], [address], [place]. tel:[phone] Referring Provider: Jessica Soriano, [address] [place], [address] . tel:[phone] OFFICE/OUTPA TIENT VISIT EST [facility], [address] Xpqsc540Q2 8460930ZZ- [place], [place], [address], [place] tel:[phone] Family Medicine LL Anxiety (chief complaint)a ddiction (chief complaint)s eizure hx (chief complaint) BRUCE (generalized anxiety disorder)Mode rate episode of recurrent major depressive disorderHisto ry of seizure 0 No Information PSYTX PT&/FAMILY 30 MINUTES [facility], [address] Wcqbn360E3 2271703XC- [place], [place], [address], [place] tel:[phone] [facility] 9 No Information [facility], [address] Ggojw950E6 7087891HKIrving, [place], [address], [place] tel:[phone] [facility] opioid dependence (chief complaint)m eth use (chief complaint)m edication management (chief complaint) Aniceto James. [address], [place], [address], [place]. tel:[phone] Referring Provider: Erika Moreland [address] [place], [address] . tel:[phone] [facility], [address] Hgaac521B5 6702254HR- [place], [place], [address], [place] tel:[phone] [facility] No Information No Information [facility], [address] Tpyck543U3 2233410CSIrving, [place], [address], [place] tel:[phone] [facility] No Information 9 Aniceto James. [address], [place], [address], [place]. tel:[phone] Referring Provider: [place], [address] . tel:[phone] [facility], [address] Yiskp563Z0 2407524RVBryan, [place], [address], [place] tel:[phone] [facility] initial visit (chief complaint) Sep-2 9 Aniceto James. [address], [place], [address], [place]. tel:[phone] Referring Provider: Erika Moreland, [address] [place], [address] . tel:[phone] [facility], [address]rnsx665C5 5642353OSBryan, [place], [address], [place] tel:[phone] [facility] Other specified counseling Sep-2 No Information OFFICE/OUTPA TIENT VISIT, [facility], [address] Tpdxx[address]K9 4997885BBBryan, [place], [address], [place] tel:[phone] Family Medicine F1 est care (chief complaint)A nxiety (chief complaint)m edication management (chief complaint)B H referral (chief complaint) BRUCE (generalized anxiety disorder)Hx of intracranial hemorrhage Sep-2 No Information [facility], [address] Ostjy549C2 1798791NIBryan, [place], [address], [place] tel:[phone] Behavior[facility] Integration Other specified counseling Sep-1 9 Sp Baltazar. [address], [place], [address], [place]. tel:[phone] Referring Provider: Delaney Snowden, [address] [place], [address] . tel:[phone] [facility], [address]jawy540B0 1763827WABryan, [place], [address], [place] tel:[phone] Family Medicine F1 Other problem related to economic circumstanceL ack of adequate food [facility]. [address], [place], [address], [place]. tel:[phone] Referring Provider: Replaced By [facility], [address] [facility], [place], [address] . tel:[phone] [facility], [address] Bkbik324R9 7456887BJ- [place], [place], [address], [place] tel:[phone] [facility] No Information PSYCH DIAGNOSTIC EVALUATION [facility], [address] Eqzom355R1 1221293YB- [place], [place], [address], [place] tel:[phone] [facility] No Information As per patient privacy policy some of the clinical information may not be visible. Family History Family Member Type Diagnosis Age At Onset No Information Immunizations Vaccine Date Status Comments Tdap (7 yrs and older) administered [facility] e: New Immunization Record Payers Payer name Insurance type Covered alliance party ID Authoriza tion(s) No Information Social History Type Description Quantity Date Captured Comments Sex Male Smoking Status No Information Sexual Orientation Heterosexual Gender Identity Male Chief Complaint And Reason For Visit No Information Reason For Referral Reason For Referral No Information Plan Of Treatment Date Type Action Status Goal Dietary manageme nt education, guidance, and counseling ordered Goal Tobacco cessation counseling completed Goal Dietary manageme nt education, guidance, and counseling ordered Goal Tobacco cessation counseling completed Goal Tobacco cessation counseling completed Goal Tobacco cessation counseling completed Goal Tobacco cessation counseling completed Goal Tobacco cessation counseling completed Goal Dietary manageme nt education, guidance, and counseling completed Goal Dietary manageme nt education, guidance, and counseling completed Goal Dietary manageme nt education, guidance, and counseling completed Goal Tobacco cessation counseling completed Goal Dietary manageme nt education, guidance, and counseling completed Goal Tobacco cessation counseling completed Goal Tobacco cessation counseling completed Goal Tobacco cessation counseling completed Goal Tobacco cessation counseling completed Goal Dietary manageme nt education, guidance, and counseling ordered Goal Dietary manageme nt education, guidance, and counseling ordered Referral Ordered: Referrals: [facility]. Location: [facility]. Evaluate and treat ordered Referral Ordered: Referrals: Location: [facility] ordered Referral Ordered: Referrals: Referrals: Location: [facility] Location: [facility] ordered Future Order: Lab Order CBC With Differential/Platelet ([id number]), Sent on: Sent Future Order: Lab Order CMP ([id number]), Sen t on: Sent Future Order: Lab Order Lipid Pr ofile ([id number]), Sent on: Sent Future Order: Lab Order UA, Macr o ONLY ([id number]), Sent on: Sent History Of Present Illness Encounter Date Complaint History Of Prese nt Illness Med management Patient presents for regular follow up. pt is here for regular follow up, has been using latuda, feels less depressed more motivation at this time still dealing with depression, is having some anxiety feels restless at times, concerned it is a side effect of his medication but feels the medication has helped so much be is hesitant to decrease or stop latuda, would like to trial benztropine 0.5mg and trial an increase discussed he can take 1.5 tablet for 60mg dose total. pt agreed to this understands risks. pt is interested in increasing Lamictal therapy for anxiety and depression as well as some mood shifts that have improved since starting Lamictal. will increase slowly to 200mg total. discussed risk for Fermin Finn he verbalized understanding. has not been using alcohol since we last spoke no self harm naltrexone has helped. considered using acamprosate for alcohol use will stick with naltrexone for now. can increase gabapentin for anxiety and alcohol use. Mood has been depressed, anxious, fewer intrusive thoughts Denies suicidal/homicidal ideation. Denies auditory/visual hallucinations.Sleep has been good, well rested and no difficulty falling or staying asleep Denies any medication side effects. Sinus infection* The symptoms be jt 2 weeks ago. The client states the symptoms are acute and are of new onset. Pt has cough, sinus pressure, headaches, fatigue, nausea, loss appetite, and bad smell in his nose. FEVER- no COUGH- both non productive and productive. Green mucus.PSL-ETV-ybqwy nose and congestion. No sneezing. TINOCO- right side of head and pressure behind right eye. SORE THROAT- little bit, no increase pain while swallowingFATIGUE- moderate. MEDICATIONS TRIED- DayQuil and Nyquil EXPOSED TO ILLNESS-no Med management Patient presents for regular follow up. pt is here for regular follow up visit reports he has not been drinking but did relapse recently on opiates feels his depression is consistently bad". pt endorses he is still working his job at [employer] and likes what he does but feels little happiness with anything in his life at this time is not suicidal and has no plans for self harm. he endorses having a sinus infection at this time and does have ordor when speaking today i referred him to walk in care. i suggested we switch him to acamprosate from disulfiram as the glutamatergic activity may do more to support his mood and sustained alcohol and opiate abuse. he has significant cravings for alcohol and recently relapsed on opiates a few times . will increase gabapentin for anxiety and carvings. we are waiting for his Lamictal be become therapeutic before adjusting the dose. Mood has continued to be depressed and anxious Denies suicidal/homicidal ideation. Denies auditory/visual hallucinations.Sleep has been good, well rested and no difficulty falling or staying asleep Denies any medication side effects. Med management This note was cr eated using voice recognition software and may contain typographical errors inherent in voice recognition software documents. Please verify information with author of note if needed. Discuss Test Results. Mr. Devlin presents as a follow-up to discuss recent lab results. Recall patient's last labs performed on 10/03/23 revealed elevated LFTs. Patient reports that he was drinking close to a whole bottle of whiskey daily at the time that his last labs were drawn. Patient reports that he started Disulfiram treatment per Montrell Soliz NP. He reports that it has been two weeks since his last alcoholic drink. Med management This note was cr eated using voice recognition software and may contain typographical errors inherent in voice recognition software documents. Please verify information with author of note if needed. NEW PATIENT PSYCH EVAL Patient p resents for initial psychiatric evaluation.COMPLAINT: i need help Pt is a 28 year old heterosexual male here for new psych evaluation. he was a previous patient of mine however had a significant lapse in time since last seen and here to reestablish. pt verbalized that he has continued to redding significant depression endorses i just feel like ending it all sometimes i don't have a plan but i don't want to be here i thinking about what if i wasn't a lot of times . pt endorses continuing to struggle with feelings of depression and anxiety. he feels overwhelmed currently its like i just cant get this cloud off of me, it just hangs on . pt denied feeling much pleasure at this time, i am mostly down i mean i know i like my hobbies and stuff its just hard to enjoy them right now, i have a good girlfriend too but cant seem to feel anything much right now . pt had shown me his right arm which had multiple superficial cuts on it he reported the cutting made hm feel something its better than the nothing i was feeling . Pt verbalized he was having significant anxiety and trouble even showing up to work at one of his jobs, i just had hardly any energy, it is difficult for me to get out of bed, so i am just working at [employer] in [employer] now, its a good job i like it . pt is currently living in an apartment with his girlfriend endorses having good access to food and senior care at this time. he is somewhat disheveled today but making good eye contact he verbalized he sometimes will go a few days without taking a shower just don't have motivation to do it . pt advised me that he never has periods of time that he feels full of energy or has decreased need for sleep. i will just not feel as depressed those days so i may do laundry or dishes but not do anything super wild, seems to come and go in cycles though on my mood . his sleep is currently excessive and will still not feel as though he has enough, i can sleep for 12 hours no problem . pt advised me of a significant history of substance use that included alcohol, illicit substances, marajuana. he verbalized he is only using marajuana at this time. Mood: labile, depressed and anxious cycling Psychosis: (AH, VH) noneSleep: excessive Eating: only eating dinner right now due to decreased appetite + Psych inpatient/outpatient Hx: none, saw me last year + Past Dx/medications: bup, for opiate use, gabapentin for anxiety did well. Wellbutrin did well for depression buspirone for anxiety didn't help much Abilify helped a lot for mood. + TBI Hx: none MEDICAL HISTORY: left orchiectomy due to testicular cancer last year TRAUMA HISTORYThe patient was asked about any history of trauma, including Physical, Verbal, Sexual, Elder abuse/neglect, as well as, Immigration trauma.SUBSTANCE USE HISTORYThe following substances and behaviors were discussed: Illegal/Prescription/Iwci-qop-ebtgibc drugs, Gambling, Alcohol, and Tobacco/Vaping.Alcohol: history Cigarettes: deniesVaping: deniesIllicit: history THC: current user Opioid: history of use Gambling: deniesLEGAL HISTORY: none . SOCIAL HISTORYSocial Supports discussed: Judaism, Family/Friendships, Therapy, and Cultural/Ethnic/Community supports. girlfriend + //Single -_0__ # times __0__ # times + # Children: __0___+ service: Denies FAMILY HISTORYNo adoption history. Discussed family history of medical, mental health, and substance use.Mother: Denies Hx of substance abuse, psychiatric Hx or any major physical health issues.Father: Denies Hx of substance abuse, psychiatric Hx or any major physical health issues.Maternal grandmother: Denies Hx of substance abuse, psychiatric Hx or any major physical health issues.Maternal grandfather: Denies Hx of substance abuse, psychiatric Hx or any major physical health issues.Paternal grandmother: Denies Hx of substance abuse, psychiatric Hx or any major physical health issues.Paternal grandfather: Denies Hx of substance abuse, psychiatric Hx or any major physical health issues.Siblings: . . RISK ASSESSMENT+ Current suicidal/homicidal ideation/plan/attempt: has passive SI + Past suicide/homicide attempts: Denies past suicidal or homicidal attempts. FUNCTIONAL STRENGTHS+ Developmental history: Hit all developmental milestones. + Education: hs diploma some college + Employment: working at [employer] . . MENTAL STATUS EXAM:Patient is alert, cooperative, and oriented x3. Speech is regular rate and rhythm. Patient denies any current suicidal or homicidal ideation. Thought is linear and goal directed; no looseness of association or flight of ideas is noted. Patient denies thought insertion, thought broadcast, or ideas of reference. Patient denies hallucinations in all five senses. Intelligence is average per fund of knowledge and vocabulary. Judgment and insight are intact. Mood is depressive. Affect is congruent. Attention and concentration appear within normal limits. Immediate memory is intact; able to repeat three words. Recent memory is intact; able to recall those three words in five minutes. Remote memory is intact; able to recall last birthday. Language is intact; patient is able to name objects. Lung Concerns Mr. Devlin prespaty ts today with a chief complaint of chronic cough for the past 1.5 months. He reports that his cough has been productive with white saliva. Patient denies fevers and denies recent known illness. He reports that his cough has increased in intensity to the point that he vomits white saliva.Patient denies shortness of breath, wheezing, or chest pain. He does report dyspnea when laying flat. Patient reports that he is currently smoking 4 cigarettes daily. Dog bite Pt was bit by a dog 5 days ago on his right middle finger. Pt has not seen a DrSilvia for this. Pt states he changes the gauze every two days and it is always blood soaked. BBPatient presents to my office today with a chief complaint of dog to his right middle finger. Patient reports that he broke up a dog fight at which time he was bit on the right middle finger. Patient reports that it was his mother's dog who bit him. Patient's mother states that the dog is fully vaccinated. Testicular Concerns Pt has seen urology at [facility] and had surgery to remove right testicle. BBMr. Devlin presents to the office today as a follow-up for testicular mass. Patient reports that he has been followed by [facility] at which time he underwent removal of his right testicle on 06/18/23. Patient reports that he was diagnosed with testicular cancer and that he is still awaiting pathology of biopsies. Patient reports that he does have upcoming CT scans. MDD EVIN med management Patient presents for 1mo follow up. pt reports the Suboxone therapy is going well and he hasn't been using kratom since taking it. pt verbalized he has been really tired and feels it may be his hydroxyzine making him sleepy. pt is reporting increased depression, is feeling like the situation he is in currently with his girlfriend is not helping things. i discussed increasing his Wellbutrin to help with depression, motivation and focus. risks and benefits were discussed including sandra pt verbalized understanding. pt is with depressive affect today, has a slight attention deficit and is reporting i just dont feel super great . i encouraged pt to take hydroxyzine as needed and see if limiting usage helps decrease sedation pt verbalized understanding. pt is otherwise stable today Mood depressive suicidal/homicidal ideation denied auditory/visual hallucinations denied Sleep no issuesmedication side effects. medication management Patient pr esents for 1 week follow up. pt is here for one week follow up reports that the buprenorphine has helped him significantly. pt reports he has not experienced adverse effects or withdrawal issues. pt has noticed he has a kanker sore in his mouth and is concerned that maybe he is having a reaction to the tablet of buprenorphine. i suggested we trial Suboxone with film and make sure he rinses his mouth out after he uses the strip pt verbalized understanding. pt is reporting he has been cutting more, my legs are cut right now, they are staying superficial . pt reported that he and his girlfriend had an argument and it has been pretty stressful for him. i am not suicidal, just been stressed . i discussed coping mechanisms with him he verbalized understanding and agreed. i discussed increasing Abilify to 15mg, increasing gabapentin, starting Wellbutrin for depression, he agreed and vernalized he will reach out or go to the hospital if he is worse. Denies suicidal/homicidal ideation. Denies auditory/visual hallucinations.Sleep has been fairDenies any medication side effects. medication management Patient pr esents for 4 week follow up. pt reports that the Abilify has helped him significant with depression but seems as though it is weaning off. he is endorsing more feelings of depression and anxiety but also reports a lot of that may be due to his financial hardships and lack of insurance he currently has. pt reports he has been drinking fairly heavily several shots and cocktails a night. pt is endorsing he is also using kratom 20g a day, i advised him to stop using kratom and we can substitute his kratom for buprenorphine 8mg TID and then transition to Suboxone in 1 week he agreed to this and verbalized he has had Suboxone in the past and did well. Mood has been anxious and depressed. Denies suicidal/homicidal ideation. Denies auditory/visual hallucinations.Sleep has been good.Denies any medication side effects. NEW PATIENT PSYCH EVAL Patient p resents for initial psychiatric evaluation. my initial evaluation was deleted this is a shortened versionCOMPLAINT: [id number] year old male here for new psych evaluation for previous history of SI, EVIN, and severe depression . pt began using illicit substances once his dad passed from alcholism in 2019. drugs of choice was meth, heroin, and acid. pt reports he had an SI attempt several years ago when he OD'd on fentanyl. pt reports he has battled depression since age 18 and was raised in a dysfunctional home. he is still close with his mother and lives with his girlfriend of 5 years currently. reports he and his girlfriend used to use drugs together and since he is so depressed has struggled to find pleasure in things. he reports racing paranoid thoughts, typically only gets 3-4 hours of sleep and will cycle for days on the decreases sleep, increased energy, pt reprots he is not having any thoughts of SI but has been self harming with superficial cuts on his leg, i observed small superficial lacerations that are healing now. pt is wanting to feel things and therefore cuts. he is reporting severe anxiety and depression. he is endorsing some visual hallucinations. endorses he struggles in public settings and is struggling with task completion. pt mood cycles at least weekly between periods of elevated energy and task ortinted behaviors to svere depressive episodes where he can barely get out of bed. 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 verbal abuse SUBSTANCE USE HISTORYThe following substances and behaviors were discussed: Illegal/Prescription/Kqiu-yus-enxweth drugs, Gambling, Alcohol, and Tobacco/Vaping.extensive EVIN use of all illicit substances currently just uses alcohol and vapes Alcohol: deniesCigarettes: deniesVaping: deniesIllicit: deniesTHC: deniesOpioid: deniesGambling: deniesLEGAL HISTORY: 2x arrested drug and alcohol related . SOCIAL HISTORYSocial Supports discussed: Judaism, Family/Friendships, Therapy, and Cultural/Ethnic/Community supports. mom + //Single -___0_ # times __0__ # times + # Children: ___0__+ service: Denies FAMILY HISTORYNo adoption history. Discussed family history of medical, mental health, and substance use.Mother: Denies Hx of substance abuse, psychiatric Hx or any major physical health issues. alcholism anxiety depression Father: Denies Hx of substance abuse, psychiatric Hx or any major physical health issues. alchollism Maternal grandmother: Denies Hx of substance abuse, psychiatric Hx or any major physical health issues.Maternal grandfather: Denies Hx of substance abuse, psychiatric Hx or any major physical health issues.Paternal grandmother: Denies Hx of substance abuse, psychiatric Hx or any major physical health issues.Paternal grandfather: Denies Hx of substance abuse, psychiatric Hx or any major physical health issues.Siblings: 2. . RISK ASSESSMENT+ Current suicidal/homicidal ideation/plan/attempt: Denies any current suicidal or homicidal ideations, plan or attempts. + Past suicide/homicide attempts: past suicide attempt FUNCTIONAL STRENGTHS+ Developmental history: Hit all developmental milestones. + Education: some colelge + Employment:works at the [employer] in [place] [facility] . . MENTAL STATUS EXAM:Patient is alert, cooperative, and oriented x3. Speech is regular rate and rhythm. Patient denies any current suicidal or homicidal ideation. Thought is linear and goal directed; no looseness of association or flight of ideas is noted. Patient denies thought insertion, thought broadcast, or ideas of reference. Patient denies hallucinations in all five senses. Intelligence is average per fund of knowledge and vocabulary. Judgment and insight are intact. Mood is depressive withdrawn. Affect is congruent. Attention and concentration appear within normal limits. Immediate memory is intact; able to repeat three words. Recent memory is intact; able to recall those three words in five minutes. Remote memory is intact; able to recall last birthday. Language is intact; patient is able to name objects. Comments: Mr. Cabrera faustin is a 27 year old male who presents to the clinic today as a follow-up for depression. Recall patient was last seen in office for this complaint on 08/31/23 at which time I placed a referral to psychiatry. Recall patient reports history of chronic depression and anxiety. He reports that he was diagnosed with depression in 2017. He describes his symptoms as fatigued, anxiousness, fearful thoughts. Recall patient is currently taking Sertraline 150mg PO daily in addition to Hydroxyzine 50mg PO four times daily as needed for anxiety. Patient reports that he has not noticed any improvement in his depression symptoms on current Sertraline dose. He does report that his anxiety symptoms have improved with use of Hydroxyzine therapy and states that he is taking this as prescribed. Patient does have upcoming appointment scheduled with Montrell Soliz NP with psychiatry on 10/31/22. Recall patient reports history of self harm and reports episodes of cutting with last occurrence approximately 6-7 months ago. Patient denies current thoughts, intents, and/or plans of self-harm. Follow Up of depression The janine nt reports functioning as very difficult. The client does not present with anxious/fearful thoughts or fatigue. The client denies any headache, nausea and vomiting. Additional information: PHQ: 23. Patient denies SI plan/intention; reports just having SI thoughts. -km. Pain/swelling in right hand The symptoms began 2 days ago. Patient reports hitting right hand on fridge approx 2-3weeks ago, but did not have any symptoms until 2 days ago. Patient c/o pain when touched, swelling, redness, sensitive to heat, and warm to touch. -kmPatient also presents today with a chief complaint of right hand pain for the past 2-3 weeks. Patient reports that this pain occurred following an injury which occurred initially at work when patient states he hit his hand against a fridge. Patient reports that a few days following this injury, his hand experienced swelling and discomfort. Patient reports that he has taken OTC pain reliever for pain. He reports that he has able to move his fingers and denies loss of sensation to his right hand or fingers. depression The client repor ts functioning as somewhat difficult. The client does not present with anxious/fearful thoughts or fatigue. The client denies any headache, nausea and vomiting. Additional information: pt states needs hydroxyzine refill, doesn't feel much different with the Zoloft. PHQ 22, BRUCE 16 FRITZ. Comments: Arturo dash presents to the clinic today with a chief complaint of chronic depression. He reports that he was diagnosed with depression in 2017. He describes his symptoms as fatigued, anxiousness, fearful thoughts. Recall patient has been taking PO Zoloft 100mg PO daily which he reports has been beneficial in the past, however, he feels that this dose has been insufficient as of late with his worsening symptoms. Patient reports history of self harm and reports episodes of cutting with last occurrence approximately 6-7 months ago. Patient denies current thoughts, intents, and/or plans of self-harm.Patient states, I don't feel any difference' since last appointment on 09/10/22 at which time his Sertraline therapy was increased to 150mg PO one time daily. Comments: Arturo dash presents to the clinic today with a chief complaint of depression. He reports that he was diagnosed with depression in 2017. He describes his symptoms as fatigued, anxiousness, fearful thoughts Recall patient has been taking PO Zoloft 100mg PO daily which he reports has been beneficial in the past, however, he feels that this dose has been insufficient as of late with his worsening symptoms. Patient reports history of self harm and reports episodes of cutting with last occurrence approximately 6-7 months ago. Patient denies current thoughts, intents, and/or plans of self-harm. establish care Mr. Devlin is a [age] year old male who presents to the clinic today to establish care. He also presents to the clinic today with symptoms of worsening depression. Previous PCP: Dr. Eh Hilario Past Medical History: Depression, Anxiety Past Surgical History: Endoscopy Allergies: NKDAPrescription Medications: Zoloft, Hydroxyzine OTC Medications/Herbals: Tobacco Use/Vaping: Vaping daily. Marijuana Use: CBD Gummies and reports that he sometimes smokes marijuana. depression The client repor ts functioning as somewhat difficult. The client presents with depressed mood, difficulty falling asleep and excessive worry but denies anxious/fearful thoughts or fatigue. The client denies any headache, nausea and vomiting. Additional information: PHQ 17 BRUCE 16 pt is requesting a change in depression medication or an increase in dosage of current medication. FRITZ. Fell off long board last night and scraped R leg This 26 year old male presents with abrasions of the right lower extremity that occurred yesterday when had fell off of his skateboard and scraped the leg on the concrete. Is able to bear weight without pain and walk. Has cleansed the wounds and applied Neosporin and bandages. Last tetanus booster was about 5 years ago per patient. Denies hitting his head or any other injuries. Comments: Discus sed Medications -Counselling -Coping skills - depression The client prese nts with anxious/fearful thoughts, depressed mood, racing thoughts and restlessness but denies difficulty falling asleep, difficulty staying asleep or thoughts of or suicide. Additional information: Patient requesting an increase in sertraline dose. Feels it helps some but not enough. Coping- talking more openly with girlfriend. No exercise. When anxious - some breathing techniques, hydroxyzine helps. Not interested in counselling. depression (comments) Comments: Discussed Medications - hydroxyzine as needed for anxiety, this worked but needed once or twice per day. Has taken escitalopram in past - didn't think it worked, and Seroquel in past for sleep helped but did make him a bit groggy. Currently drinking alcohol to help sleep (2 shots at night sometime). Does stay asleep. Counselling - none. Has done in past and has helped but not interested currently. Coping skills - hard for patient to identify any, hangs out with girlfriend but does not discuss feelings, trying to develop some hobbies but feels overwhelmed at times and not know what to start, hard to get motivated. depression The client prese nts with anxious/fearful thoughts, depressed mood, difficulty concentrating, difficulty falling asleep, diminished interest or pleasure, excessive worry and racing thoughts but denies difficulty staying asleep or thoughts of or suicide. Additional information: Patient reports has been out of hydroxyzine for approx 6 months and would like to discuss antidepressants. -km Takes some Kratom to help wake up in the morning. addiction says has been st aying clean - says he kind of grew out of it - a lot happening, got a job, Father in Jul, dog . Has some cravings but the thought of it bores me"does not want to risk another overdosefinances were difficultweaned himself off - used Ritalin to taper down- now clean since Oct.Girlfriend is a good support.Not on buprenorphine anymore either.reminded pt can still get into substance clinic any time. Anxiety The patient pres ents with anxious/fearful thoughts, depressed mood, difficulty concentrating, difficulty falling asleep, racing thoughts, restlessness and thoughts of or suicide. The patient's risk factors include of a friend or loved one, family history of depression, family history of anxiety and history of depression. Additional information: need medication refill Hydroxyzine, pt states have been out of all medications for at least a week. Not sure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
[2024-11-19 10:42] VITALS: BP 129/93; BMI 24.8
[2025-04-10] VITALS (17 sets, daily range): BP systolic 92–160; BP diastolic 64–98; PULSE 11–129; RESP 12–18; TEMP 36.6–37.2; O2SAT 92–100; BMI 23.0
--- NOTE | 2025-04-10 02:13 | ECG_ITS ---
App[employer] Test Date: 2025-04-10 Pat Name: Darell Devlin Department: Room: Gender: Male Coordinator Of Genetic Services: : 1995 Requested By: Ronnie Hedrick Order Number: [id number] Pizarro MD: Dylan Rivera M.D. Measurements Intervals [place] Rate: 129 P: 68 MT: 139 QRS: 59 QRSD: 90 T: 47 QT: 290 QTc: 425 Interpretive Statements SINUS TACHYCARDIA POSSIBLE RIGHT VENTRICULAR CONDUCTION DELAY [RSR (QR) IN V1/V2] ABNORMAL RHYTHM ECG Compared to ECG 10/15/2024 09:39:04 Heart rate has increased Electronically Signed On 04-10-2025 15:47:07 CDT by Miguel [email or web address]
[2025-04-10] MEDS: water for injection-sterile 10 ML (02:22)
[2025-04-10] MEDS: LORazepam 1 MG/0.5 ML injection 2 MG IM (02:26)
--- OUTSIDE RECORDS SUMMARY | 2025-04-10 02:26 | XMS_ITS | Clinical Summary ---
Author Organization [facility] Address [address] Attn: Epic Prelude ADT BYRON REINOSO [address] Care Team Providers Care Account Development Executive Name Role Phone Eh Hilario MD Primary Care Provider [phone] Allergies No known active allergies Medications naltrexone microspheres (VIVITROL) 380 mg Suspension,Sust. Release Recon Inject 380 mg by intramuscular injection every 30 days. Active DULoxetine (CYMBALTA) 60 mg Capsule, Delayed Release(E.C.) Take 1 Capsule (60 mg) by mouth 2 times daily. 60 Capsule 02/24/20 25 Active gabapentin (NEURONTIN) 300 mg capsule Take 1 Capsule (300 mg) by mouth 3 times daily. 90 Capsule 02/24/20 25 Active QUEtiapine (SEROquel) 200 mg tablet Take 1 Tablet (200 mg) by mouth daily at bedtime. 30 Tablet 02/24/20 25 Active Neomycin-Bacitra betsey Zn-Polymyxin (NEOSPORIN) 3.5-400-5,000 xv-ntjo-hyea Ointment in Packet Apply to affected area daily. 02/25/20 25 Active multivitamin tx with iron and folic acid tablet 18-400 mg-mcg Tablet Take 1 Tablet by mouth daily. 02/25/20 25 Active busPIRone (BUSPAR) 10 mg tablet Take 2 Tablets (20 mg) by mouth 2 times daily. 120 Tablet 02/24/20 25 025 Active Problems Problem Noted Date Diagnosed Date Borderline personality disorder 02/19/2025 History of seizures 02/18/2025 Other specified anemias 02/18/2025 Elevated BP without diagnosis of hypertension Medical clearance for psychiatric admission 10/2024 Unspecified mood (affective) disorder 07/14/2024 Alcohol abuse 07/14/2024 Hepatic steatosis 11/28/2023 Bipolar II disorder, most recent episode major d epressive 07/14/2023 Multiple wounds 07/14/2023 Encounter for other general examination 07/14/20 23 Engages in vaping 07/14/2023 Hand pain 07/14/2023 History of drug abuse 07/14/2023 Laceration of right middle finger 07/14/2023 Other long term care social worker (current) drug therapy Tobacco user 07/14/2023 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 06/07/2018 06/24/2018 Encounters Date Type Department Care Team Description 04/05/2025 External Device Data STL ABSTRACTION Provider, Abstract 04/05/2025 External Device Data STL ABSTRACTION Provider, Abstract 03/08/2025 3:05 AM CDT - 03/08/2025 11:59 PM CDT Hospital Encounter [facility] Services [place] [address] [place] [address] Ambulance, [facility] Discharge Disposition: Short term [facility] 03/08/2025 External Device Data STL ABSTRACTION Provider, Abstract 03/06/2025 10:15 PM CDT - 03/06/2025 10:19 PM CDT Emergency [facility] Emergency Department [address] [place] [address] Discharge Disposition: Left without being seen 03/06/2025 12:15 AM CDT - 03/06/2025 11:59 PM CDT Hospital Encounter [facility] [address] [place] [address] Ambulance, [facility] Discharge Disposition: [facility] 03/06/2025 Travel 02/16/2025 11:25 PM CDT - 02/23/2025 10:14 AM CDT Hospital Encounter [facility] [address] [place] [address] Mei Cui MD Hinkle, MD Sunni Hastings, IgnaciaMD Kade Arce, MD Odilia Cordova, MD Perez Joseph, MD Paulette Ortiz, DO Elan Amanda Malik I, MD Kuich, Shaan Lewis MD Bipolar II disorder, most recent episode major depressive ([facility]) Discharge Disposition: Home or Self Care 02/16/2025 12:50 PM CDT - 02/16/2025 11:59 PM CDT Hospital Encounter [facility] [address] [place] [address] Ambulance, [facility] Discharge Disposition: [facility] 02/16/2025 Travel 02/03/2025 External Device Data STL ABSTRACTION Provider, Abstract 02/02/2025 External Device Data STL ABSTRACTION Provider, Abstract 01/22/2025 1:18 AM CDT - 01/22/2025 2:31 AM CDT Emergency [facility] Emergency Department [address] [place] [address] Bridger Rivas, Laceration of lower extremity, unspecified laterality, initial encounter (Primary Dx); ETOH abuse Discharge Disposition: Home or Self Care 01/18/2025 External Device Data STL ABSTRACTION Provider, Abstract 01/18/2025 External Device Data STL ABSTRACTION Provider, Abstract 01/18/2025 External Device Data STL ABSTRACTION Provider, Abstract 01/14/2025 2:09 AM CDT - 01/19/2025 3:48 PM CDT Hospital Encounter [facility] [address] [place] [address] April Mccullough MD Hinkle, Amy M, MD Catania, Sara R, DO [place]o, [place], MD Bipolar II disorder, most recent episode major depressive (CMS/HCC) Discharge Disposition: Home or Self Care 01/14/2025 Travel from Last 3 Months Immunizations Immunization Administration Dates Next Due (ADACEL/BOOSTRIX)(10 YR UP) TDAP VACCINE, 0.5ML, IM 01/14/2025,07/13/2024 Hepatitis B Vaccine, Unspeci fied Formulation 02/16/1997,1996,1996 Influenza Seasonal Unspecifi ed Formulation IM 06/01/2020 Family History Medical History Relation Name Comments Healthy Brother 1 Healthy Brother 2 Other Father syncope Anxiety Mother Relation Name Status Comments Brother 1 Alive Brother 2 Alive Father Alive Mother Alive Social History Tobacco Use Types Packs/Day Years Used Date Smoking Tobacco: Every Day Cigarettes 0.3 7 Smokeless Tobacco: Never Tobacco Cessation:Ready to Q uit: Not Asked; Counseling Given: Not Answered Alcohol Use Standard Drinks/Week Comments Yes 7 (1 standard drink = 0.6 oz pur e alcohol) Sex and Gender Information Value Date Recorded Sex Assigned at Not on file 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 Gender Identity Not on file Sexual Orientation Not on file Last Filed Vital Signs Vital Sign Reading Time Taken Comments Blood Pressure 113/75 03/06/2025 10:07 PM CDT Pulse 101 03/06/2025 10:07 PM CDT Temperature 36.7 C (98 F) 03/06/2025 10:07 PM CDT Respiratory Rate 18 03/06/2025 10:07 PM CDT Oxygen Saturation 99% 03/06/2025 10:07 PM CDT Inhaled Oxygen Concentration - - Weight 86.2 kg (190 lb) 03/06/2025 10:07 PM CDT Height 182.9 cm (6') 03/06/2025 10:07 PM CDT Body Mass Index 25.77 03/06/2025 10:07 PM CDT Plan of Treatment Health Maintenance Due Date Last Done Comments HPV VACCINES (1 - Male 3-dose series) 2011 Preventative Visit-Managed Medicaid 2015 COVID-19 Vaccine (3 - season) 05/16/202402/2021, 09/14/2020 INFLUENZA VACCINE (#1) 2025 06/01/2020 DTAP/TDAP/TD VACCINES (4 - T d or Tdap) 01/14/2035 01/14/2025, 07/13/2024, 06/23/2023 HEPATITIS B VACCINES Completed 02/16/1997, 1996, 1996 Medical Devices Implanted Type Area Access Rn Device Identifier Shelf Expiration Date Model / Serial / Lot Clip Endo Resolution 360 235cm [id number] - [id number] Implanted:Qty: 1 on 02/28/2020 by Odilon Chacon MD Clip N/A: Esophagus [employer] 10/09/2022 [id number] / / [id number] Clip Endo Resolution 360 235cm [id number] - [id number] Implanted:Qty: 1 on 02/28/2020 by Odilon Chacon MD Clip N/A: Esophagus [employer] 09/15/2022 [id number] / / [id number] Procedures Procedure Name Priority Date/Time Associated Diagnosis Comments HEMOGLOBIN AND HEMATOCRIT Routine 02/19/2025 4:06 PM CDT DRUG SCREEN, URINE Stat 02/17/2025 2 :55 AM CDT LACERATION REPAIR Routine 02/17/2025 12: 56 AM CDT ETHANOL LEVEL Stat 02/17/2025 12:11 AM CDT COMPREHENSIVE METABOLIC PANEL Stat 02/17/2025 12:11 AM CDT CBC WITH DIFFERENTIAL Stat 02/17/2025 12:11 AM CDT LACERATION REPAIR Routine 01/22/2025 1:3 8 AM CDT LACERATION REPAIR Routine 01/22/2025 1:3 3 AM CDT CBC WITH DIFFERENTIAL Routine 01/15/2025 4:19 AM CDT EXTRA TUBE (URINE JAFFE) Stat 01/14/2025 4:30 AM CDT DRUG SCREEN, URINE Stat 01/14/2025 4: 30 AM CDT URINALYSIS W/REFLEX MICROSCOPIC Stat 01/14/2025 4:30 AM CDT LACERATION REPAIR Routine 01/14/2025 3:0 7 AM CDT SALICYLATE LEVEL Stat 01/14/2025 2:40 AM CDT ACETAMINOPHEN LEVEL Stat 01/14/2025 2 :40 AM CDT ETHANOL LEVEL Stat 01/14/2025 2:40 AM CDT TSH REFLEXIVE Stat 01/14/2025 2:40 AM CDT C-REACTIVE PROTEIN Stat 01/14/2025 2: 40 AM CDT SEDIMENTATION RATE Stat 01/14/2025 2: 40 AM CDT COMPREHENSIVE METABOLIC PANEL Stat 01/14/2025 2:40 AM CDT CBC WITH DIFFERENTIAL Stat 01/14/2025 2:40 AM CDT from Last 3 Months Results * (ABNORMAL) HEMOGLOBIN AND HEMATOCRIT (02/19/2025 4:06 PM CDT) HEMOGLOBIN 12.1(L) 14.0 - 18.0 g/dL 02/19/2025 4:45 PM CDT [facility] HEMATOCRIT 38.9(L) 41.0 - 53.0 % 02/19/2025 4:45 PM CDT [facility] Blood Venipuncture / Unknown 02/19/2025 4:06 PM CDT 02/19/2025 4:31 PM CDT us Rosanne Wang NP HEMATOLOGY ORDERABLES Final Resu lt [facility] CLIA # [id number] [facility] [address] [place] [address] * (ABNORMAL) DRUG SCREEN, URINE (02/17/2025 2:55 AM CDT) Only the most recent of2 resultswithin the time period is included. [facility] AMPHETAMINE QUAL, URINE Negative Negative 02/17/2025 3:54 AM CDT [facility] BARBITURATE QUAL, URINE Negative Negative 02/17/2025 3:54 AM CDT [facility] BENZODIAZEPINE QUAL, URINE Negative Negative 02/17/2025 3:54 AM CDT [facility] COCAINE QUAL URINE Negative Negative 02/17/2025 3:54 AM CDT [facility] OPIATE QUAL, URINE Negative Negative 02/17/2025 3:54 AM CDT [facility] CANNABINOIDS QUAL, URINE Negative Negative 02/17/2025 3:54 AM CDT [facility] OXYCODONE QUAL, URINE Negative Negative 02/17/2025 3:54 AM CDT [facility] METHADONE QUAL, URINE Negative Negative 02/17/2025 3:54 AM CDT [facility] FENTANYL QUAL, URINE Negative Negative 02/17/2025 3:54 AM CDT [facility] CREATININE, URINE 28.5(L) 40.0 - 278.0 mg/dL 02/17/2025 3:54 AM T [facility] Comment:Reference Range vari es with fluid intake and diet. Urine URINE SPECIMEN OBTAINED BY CLEAN CATCH PROCEDURE / Unknown Collection / Unknown 02/17/2025 2:55 AM CDT 02/17/2025 3:02 AM CDT Narrative [facility] - 02/17/2025 3:54 AM CDT This test is a qualitative screen. The presumptive positive results should not be used for legal purposes. If confirmation of results is desired, the lab must be contacted without delay. Drug Ref. Range Screening Threshold Amphetamines Negative 500 ng/mL Barbiturates Negative 200 ng/mL Benzodiazepines Negative 100 ng/mL Cannabinoids Negative 50 ng/mL Cocaine Metabolite Negative 300 ng/mL Opiate Negative 300 ng/mL Oxycodone Negative 100 ng/mL Methadone Negative 300 ng/mL Fentanyl Negative 5 ng/mL us Mei Cui MD URINE ORDERABLES F inal Result [facility] # [id number] [address] [place] [address] * Laceration Repair (02/17/2025 12:56 AM CDT) Narrative Mei Cui MD - 02/17/2025 12:56 AM CDT Mei Cui MD 02/17/2025 4:13 AM Laceration Repair Date/Time: 02/17/2025 12:56 AM Performed by: Mei Cui MD Authorized by: Mei Cui MD Consent: Consent obtained: Verbal Consent given by: Patient Risks, benefits, and alternatives were discussed: yes Risks discussed: Need for additional repair, pain, infection, poor cosmetic result and poor wound healing Alternatives discussed: No treatment and delayed treatment Columbia protocol: Procedure explained and questions answered to patient or proxy's satisfaction: yes Relevant documents present and verified: yes Test results available: yes Imaging studies available: yes Required blood products, implants, devices, and special equipment available: yes Site/side marked: yes Immediately prior to procedure, a time out was called: yes Patient identity confirmed: Verbally with patient and arm band Anesthesia: Anesthesia method: Local infiltration Local anesthetic: Lidocaine 1% WITH epi Laceration details: Location: Shoulder/arm Shoulder/arm location: R lower arm Length (cm): 10 Depth (mm): 2 Pre-procedure details: Preparation: Patient was prepped and draped in usual sterile fashion Exploration: Limited defect created (wound extended): no Hemostasis achieved with: Epinephrine Wound exploration: wound explored through full range of motion and entire depth of wound visualized Wound extent: vascular damage Wound extent: no areolar tissue violation noted, no fascia violation noted, no foreign bodies/material noted, no muscle damage noted, no nerve damage noted, no tendon damage noted and no underlying fracture noted Contaminated: no Treatment: Area cleansed with: Saline Amount of cleaning: Standard Debridement: None Undermining: None Scar revision: no Skin repair: Repair method: Sutures Suture size: 4-0 Suture material: Nylon Suture technique: Simple interrupted Number of sutures: 30 Approximation: Approximation: Close Repair type: Repair type: Simple Post-procedure details: Dressing: Open (no dressing) Procedure completion: Tolerated well, no immediate complications Mei Cui MD PROCEDURE/MINOR WONG RGICAL ORDERABLES Final Result * (ABNORMAL) CBC WITH DIFFERENTIAL (02/17/2025 12:11 AM CDT) Only the most recent of3 resultswithin the time period is included. WBC 5.6 4.5 - 11.0 K/uL 02/17/2025 12:26 [facility] RBC 4.02(L) 4.60 - 6.20 M/uL 02/17/2025 12:26 AM [facility] HEMOGLOBIN 11.8(L) 14.0 - 18.0 g/dL 02/17/2025 12:26 AM [facility] HEMATOCRIT 37.1(L) 41.0 - 53.0 % 02/17/2025 12:26 AM [facility] MCV 92.3 84.0 - 103.0 fL 02/17/2025 12:26 AM [facility] MCH 29.4 27.0 - 34.0 pg 02/17/2025 12:26 AM [facility] MCHC 31.8 30.0 - 35.0 g/dL 02/17/2025 12:26 AM [facility] PLATELETS 442(H) 140 - 440 K/uL 02/17/2025 12:26 AM [facility] MPV 9.4 8.9 - 12.8 fL 02/17/2025 12:26 AM [facility] RDW 13.1 11.0 - 14.5 % 02/17/2025 12:26 AM [facility] RDW-STDEV 44.5 37.0 - 54.0 fL 02/17/2025 12:26 AM [facility] NEUTROPHILS 59 42 - 75 % 02/17/2025 12:26 AM [facility] LYMPHOCYTES 29 24 - 44 % 02/17/2025 12:26 AM [facility] MONOCYTES 10 2 - 10 % 02/17/2025 12:26 AM [facility] EOSINOPHILS 1 0 - 7 % 02/17/2025 12:26 AM [facility] BASOPHILS 1 0 - 1 % 02/17/2025 12:26 AM [facility] IMMATURE GRANULOCYTES 0 0 - 2 % 02/17/2025 12:26 AM [facility] NEUTROPHIL ABSOLUTE 3.31 2.00 - 8.00 K/uL 02/17/2025 12:26 AM [facility] LYMPHOCYTE ABSOLUTE 1.60 1.20 - 4.00 K/uL 02/17/2025 12:26 AM [facility] MONOCYTE ABSOLUTE 0.57 0.10 - 0.60 K/uL 02/17/2025 12:26 AM [facility] EOSINOPHIL ABSOLUTE 0.06 0.00 - 0.70 K/uL 02/17/2025 12:26 AM [facility] BASOPHILS ABSOLUTE 0.06 0.00 - 0.20 K/uL 02/17/2025 12:26 AM [facility] IMMATURE GRANULOCYTES ABSOLUTE 0.01 0.00 - 0.10 K/uL 02/17/2025 12:26 AM CDT [facility] SMEAR REVIEWED: NA - Not Applicable 02/17/2025 12:26 AM CDT [facility] Blood Venipuncture / Unknown 02/17/2025 12:11 AM CDT 02/17/2025 12:21 AM CDT us Mei Cui MD HEMATOLOGY ORDERAB LES Final Result Performing Organization Address [facility] Co de Phone Number [facility] CLIA # [id number] [address] [address] * (ABNORMAL) ETHANOL LEVEL (02/17/2025 12:11 AM CDT) Only the most recent of2 resultswithin the time period is included. ETHANOL 201.57(H) <10.10 mg/dL 02/17/2025 12:52 AM CDT [facility] ETHANOL % 0.20(H) <=0.01 %w/v 02/17/2025 12:52 AM CDT [facility] Blood Venipuncture / Unknown 02/17/2025 12:11 AM CDT 02/17/2025 12:21 AM CDT us Mei Cui MD CHEMISTRY ORDERABL ES Final Result Performing Organization Address [facility] Co de Phone Number [facility] CLIA # [id number] [address] [address] * (ABNORMAL) COMPREHENSIVE METABOLIC PANEL (02/17/2025 12:11 AM CDT) Only the most recent of2 resultswithin the time period is included. SODIUM 143 136 - 145 mmol/L 02/17/2025 12:52 AM CDT [facility] POTASSIUM 3.9 3.5 - 5.1 mmol/L 02/17/2025 12:52 AM [facility] CHLORIDE 109(H) 98 - 107 mmol/L 02/17/2025 12:52 AM [facility] CO2 22 22 - 29 mmol/L 02/17/2025 12:52 AM [facility] CALCIUM 8.6 8.6 - 10.0 mg/dL 02/17/2025 12:52 AM [facility] BUN 3(L) 6 - 20 mg/dL 02/17/2025 12:52 AM [facility] CREATININE 0.92 0.67 - 1.17 mg/dL 02/17/2025 12:52 AM [facility] GLUCOSE 93 74 - 99 mg/dL 02/17/2025 12:52 AM [facility] TOTAL PROTEIN 6.6 6.4 - 8.3 g/dL 02/17/2025 12:52 AM [facility] ALBUMIN 3.8 3.5 - 5.2 g/dL 02/17/2025 12:52 AM [facility] BILIRUBIN TOTAL 0.2 0.0 - 1.0 mg/dL 02/17/2025 12:52 AM [facility] ALKALINE PHOSPHATASE 130(H) 40 - 129 U/L 02/17/2025 12:52 AM [facility] AST 24 10 - 50 U/L 02/17/2025 12:52 AM [facility] ALT 18 <=50 U/L 02/17/2025 12:52 AM [facility] GFR >60 >=60 mL/min/1.7 3 sq meter 02/17/2025 12:52 AM [facility] Comment:eGFR calculated with 2020 CKD-EPI equation. Vegetarian diet, extremely high or low muscle mass, and may affect results. Cystatin C with Glomerular Filtration Rate is a suitable alternative for these patients. ANION GAP 12 9 - 20 mmol/L 02/17/2025 12:52 AM [facility] Blood Venipuncture / Unknown 02/17/2025 12:11 AM CDT 02/17/2025 12:21 AM CDT Mei Cui MD CHEMISTRY ORDERABL ES Final Result [facility] PATI # [id number] [facility] [address] [address] [place] [address] * Laceration Repair (01/22/2025 1:38 AM CDT) Narrative Bridger Rivas DO - 01/22/2025 1:38 AM CDT Bridger Rivas DO 01/22/2025 2:23 AM Laceration Repair Date/Time: 01/22/2025 1:38 AM Performed by: Bridger Rivas DO Authorized by: Bridger Rivas DO Consent: Consent obtained: Emergent situation [place] protocol: Patient identity confirmed: Verbally with patient, arm band and provided demographic data Anesthesia: Anesthesia method: None Laceration details: Location: Leg Leg location: L lower leg Length (cm): 16 Exploration: Hemostasis achieved with: Cautery Treatment: Area cleansed with: Povidone-iodine, chlorhexidine and saline Amount of cleaning: Standard Skin repair: Repair method: Rogers Number of ysabel: 19 Approximation: Approximation: Close Repair type: Repair type: Complex Post-procedure details: Dressing: Antibiotic ointment Procedure completion: Tolerated well, no immediate complications Bridger Camacho DO PROCEDURE/MIN OR SURGICAL ORDERABLES Final Result * Laceration Repair (01/22/2025 1:33 AM CDT) Narrative Bridger Rivas DO - 01/22/2025 1:33 AM CDT Bridger Rivas DO 01/22/2025 2:23 AM Laceration Repair Date/Time: 01/22/2025 1:33 AM Performed by: Bridger Rivas DO Authorized by: Bridger Rivas DO Consent: Consent obtained: Emergent situation [place] protocol: Patient identity confirmed: Verbally with patient, arm band and provided demographic data Anesthesia: Anesthesia method: None Laceration details: Location: Leg Leg location: R lower leg Length (cm): 15 Exploration: Hemostasis achieved with: Direct pressure Treatment: Area cleansed with: Chlorhexidine, povidone-iodine and saline Amount of cleaning: Standard Skin repair: Repair method: Rogers Number of ysabel: 17 Approximation: Approximation: Close Repair type: Repair type: Intermediate Post-procedure details: Dressing: Antibiotic ointment and non-adherent dressing Procedure completion: Tolerated well, no immediate complications Bridger Camacho DO PROCEDURE/MIN OR SURGICAL ORDERABLES Final Result * EXTRA TUBE (URINE JAFFE) (01/14/2025 4:30 AM CDT) Urine URINE SPECIMEN OBTAINED BY CLEAN CATCH PROCEDURE / Unknown Collection / Unknown 01/14/2025 4:30 AM CDT 01/14/2025 4:37 AM CDT us April Mccullough MD URINE ORDERABLES Final Result [facility] CLIA # [id number] [address] [place] [id number] * (ABNORMAL) URINALYSIS WITH REFLEX MICROSCOPIC (01/14/2025 4:30 AM CDT) COLOR UA Colorless(A ) Pale to Dark Yellow 01/14/2025 4:44 AM CDT [facility] CLARITY UA Clear Clear 01/14/2025 4:44 AM CDT [facility] SPECIFIC GRAVITY UA 1.006 1.003 - 1.035 01/14/2025 4:44 AM T [facility] PH UA 6.5 5.0 - 8.0 01/14/2025 4:44 AM T [facility] LEUKOCYTE ESTERASE UA Negative Negative 01/14/2025 4:44 AM T [facility] NITRITE UA Negative Negative 01/14/2025 4:44 AM CDT [facility] PROTEIN UA Negative Negative 01/14/2025 4:44 AM CDT [facility] GLUCOSE UA Negative Negative 01/14/2025 4:44 AM CDT [facility] KETONES UA Negative Negative 01/14/2025 4:44 AM CDT [facility] UROBILINOGEN UA <2.0 <2.0 mg/dL 4:44 AM CDT [facility] BILIRUBIN UA Negative Negative 01/14/2025 4:44 AM CDT [facility] BLOOD UA Negative Negative 01/14/2025 4:44 AM T [facility] Urine URINE SPECIMEN OBTAINED BY CLEAN CATCH PROCEDURE / Unknown Collection / Unknown 01/14/2025 4:30 AM CDT 01/14/2025 4:37 AM CDT April Mccullough MD URINE ORDERABLES Final Result [facility] CLIA # [id number] [address] [place] [address] * Laceration Repair (01/14/2025 3:07 AM CDT) Narrative April Mccullough MD - 01/14/2025 3:07 AM CDT April Mccullough MD 01/14/2025 4:44 AM Laceration Repair Date/Time: 01/14/2025 3:07 AM Performed by: April Mccullough MD Authorized by: April Mccullough MD Consent: Consent obtained: Verbal Consent given by: Patient [place] protocol: Patient identity confirmed: Verbally with patient Anesthesia: Anesthesia method: Local infiltration Local anesthetic: Lidocaine 1% WITH epi Laceration details: Location: Leg (right upper arm and right lower leg) Wound length (cm): 14 cm (total between the 3 lacerations) Treatment: Irrigation solution: Sterile saline Skin repair: Repair method: Sutures Suture size: 4-0 Suture material: Nylon Suture technique: Running Number of sutures: 3 Approximation: Approximation: Close Repair type: Repair type: Simple Post-procedure details: Dressing: Antibiotic ointment Procedure completion: Tolerated well, no immediate complications us April Mccullough MD PROCEDURE/MINOR SURGICAL ORDER ARGENIS Final Result * TSH REFLEXIVE (01/14/2025 2:40 AM CDT) TSH 0.87 0.27 - 4.20 uIU/mL 01/14/2025 3:23 AM CDT [facility] Blood Venipuncture / Unknown 01/14/2025 2:40 AM CDT 01/14/2025 2:45 AM CDT us April Mccullough MD CHEMISTRY ORDERABLES Final Res ult Performing Organization Address [facility] Co de Phone Number [facility] CLIA # [id number] [facility] [address] * SEDIMENTATION RATE (01/14/2025 2:40 AM CDT) [facility] ESR (SEDIMENTATION RATE) 10 0 - 10 mm/Hr 01/14/2025 3:16 AM CDT [facility] Blood Venipuncture / Unknown 01/14/2025 2:40 AM CDT 01/14/2025 2:46 AM CDT us April Mccullough MD HEMATOLOGY ORDERABLES Final Re sult Performing Organization Address [facility] [facility] Co de Phone Number [facility] CLIA # [id number] [address] [place] [address] * C-REACTIVE PROTEIN (01/14/2025 2:40 AM CDT) Pathologist [facility] CRP <3.0 0.0 - 5.0 mg/L 01/14/2025 3:18 AM CDT [facility] Blood Venipuncture / Unknown 01/14/2025 2:40 AM CDT 01/14/2025 2:46 AM CDT April Mccullough MD CHEMISTRY ORDERABLES Final Res ult Performing Organization Address [facility] de Phone Number [facility] CLIA # [id number] [address] [place] [address] * ACETAMINOPHEN LEVEL (01/14/2025 2:40 AM CDT) ACETAMINOPHEN LEVEL <5 0 - 30 ug/mL 01/14/2025 3:31 AM CDT [facility] Blood Venipuncture / Unknown 01/14/2025 2:40 AM CDT 01/14/2025 2:46 AM CDT Narrative [facility] - 01/14/2025 3:31 AM CDT Therapeutic Range: 10-30 ug/mL The following Acetaminophen levels are associated with possible toxicity: 4 hours after dose >200 ug/mL 8 hours after dose >100 ug/mL 12 hours after dose >50 ug/mL April Mccullough MD CHEMISTRY ORDERABLES Final Res ult Performing Organization Address [facility] de Phone Number [facility] CLIA # [id number] [address] [facility] [place] [address] * SALICYLATE LEVEL (01/14/2025 2:40 AM CDT) SALICYLATE LEVEL <0.3 0.0 - 10.0 mg/dL 01/14/2025 3:31 AM CDT [facility] Blood Venipuncture / Unknown 01/14/2025 2:40 AM CDT 01/14/2025 2:46 AM CDT Narrative [facility] - 01/14/2025 3:31 AM CDT Negative <3.0 mg/dL Therapeutic 3.0 - 10 mg/dL Toxicity >30 mg/dl Lethal >60 mg/dL us April Mccullough MD CHEMISTRY ORDERABLES Final Res ult [facility] CLIA # [id number] [id number] [place] [address] from Last 3 Months Insurance MEDICAID * Guarantor: GRIS DEVLIN Account Type Relation to Patient Date of Phone Billing Address Personal/Family [address] [place] [id number] RX [employer] (INTERNAL) [facility] Internal Plans MEDICAID Advance Directives For more information, please contact: [phone] * Full Code (Latest Code Status on File) Date Activated Date Inactivated Comments 02/18/2025 11:37 AM 02/23/2025 12:19 PM * Full Code Date Activated Date Inactivated Comments 01/14/2025 6:37 AM 01/19/2025 5:52 PM * Default Full Code - Needs Discussion Date Activated Date Inactivated Comments 07/14/2024 6:47 AM 07/15/2024 4:24 PM * Full Code Date Activated Date Inactivated Comments 07/04/2023 11:33 AM 07/04/2023 2:35 PM Care Teams Account Development Executive Relationship Specialty Start Date End Date Eh Hilario MD [address] [place] [address] PCP - General Family Practice 02/27/20
--- OUTSIDE RECORDS SUMMARY | 2025-04-10 02:27 | XMS_ITS | Clinical Summary ---
Author Organization [facility] Address [address] [place] [address] Phone Care Team Providers Care Crepe Sole Scourer Name Role Phone Eh Hilario MD Primary Care Provider Allergies No known active allergies Medications hydrOXYzine HCl (ATARAX) 25 mg tablet Take 1 Tablet (25 mg) by mouth every 6 hours as needed for Anxiety or Nausea/Emesis. 20 Tablet 9 Active Additional Information Patient taking differently: 50 mgOral EVERY 6 HOURS PRN, Anxiety, Nausea/Emesis, Reported on 02/28/2020 busPIRone (BUSPAR) 7.5 mg Tablet Take 7.5 mg by mouth 2 times daily. Active levETIRAcetam (Keppra) 500 mg tablet Take 1 Tablet (500 mg) by mouth 2 times daily. 120 Tablet 2 0 Active Iron Polysacch Winqtrf-R83-KB (FERREX 150 FORTE) 150-25-1 mg-mcg-mg Capsule Take 1 Capsule by mouth daily. 60 Capsule 1 0 Active thiamine mononitrate, vit B1, (THIAMINE) 100 mg tablet Take 1 Tablet (100 mg) by mouth daily. 60 Tablet 1 0 Active omeprazole (PriLOSEC) 40 mg Capsule, Delayed Release(E.C.) Take 1 capsule by mouth twice daily for 2 weeks then once daily. 60 Capsule 1 0 Active Active Problems Problem Noted Date Diagnosed Date GI bleed 02/28/2020 Adjustment disorder with depressed mood 03/17/20 19 Methamphetamine use disorder, severe 03/17/2019 Cocaine use disorder, moderate, dependence 03/17 Heroin use disorder, moderate 03/17/2019 Moderate benzodiazepine use disorder 03/17/2019 BRUCE (generalized anxiety disorder) 12/21/2018 History of cerebral hemorrha ge, in right inferior quardrant. 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 06/07/2018 06/24/2018 Family History Medical History Relation Name Comments Healthy Brother 1 Healthy Brother 2 Other Father syncope Anxiety Mother Relation Name Status Comments Brother 1 Alive Brother 2 Alive Father Alive Mother Alive Social History Tobacco Use Types Packs/Day Years Used Date Smoking Tobacco: Some Days Cigarettes Last attempted to quit: 05/08/2018 Smokeless Tobacco: Never Tobacco Cessation:Counseling Given: No Alcohol Use Standard Drinks/Week Comments Yes 7 (1 standard drink = 0.6 oz pur e alcohol) 1 drink per night Sex and Gender Information Value Date Recorded Sex Assigned at Not on file 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 Gender Identity Not on file Sexual Orientation Not on file Last Filed Vital Signs Vital Sign Reading Time Taken Comments Blood Pressure 129/57 03/07/2020 10:32 AM CDT Pulse 81 03/07/2020 10:32 AM CDT Temperature 36.3 C (97.4 F) 03/01/2020 8:10 AM CDT Respiratory Rate 16 03/01/2020 8:10 AM CDT Oxygen Saturation 100% 03/01/2020 8:10 AM CDT Inhaled Oxygen Concentration - - Weight 88 kg (194 lb) 03/07/2020 10:32 AM CDT Height 185.4 cm (6' 1 ) 03/07/2020 10:32 AM CDT Body Mass Index 25.6 03/07/2020 10:32 AM CDT Plan of Treatment Health Maintenance Due Date Last Done Comments HPV VACCINES (1 - Male 3-dose series) 2011 DTAP/TDAP/TD VACCINES (1 - Tdap) 2015 HEPATITIS B VACCINES (1 of 3 - 19+ 3-dose series) 06/15 INFLUENZA VACCINE (#1) 2025 Medical Devices Implanted Type Area [employer] Professor Device Identifier Shelf Expiration Date Model / Serial / Lot Clip Endo Resolution 360 235cm [id number] - [id number] Implanted:Qty: 1 on 02/28/2020 by Odilon Chacon MD at [facility] Clip N/A: Esophagus [employer] 10/09/2022 [id number] / / [id number] Clip Endo Resolution 360 235cm [id number] - [id number] Implanted:Qty: 1 on 02/28/2020 by Odilon Chacon MD at [facility] Clip N/A: Esophagus [employer] 09/15/2022 [id number] / / [id number] Insurance RX [employer] (INTERNAL) [facility] Internal Plans Advance Directives For more information, please contact: [phone] * Full Code (Latest Code Status on File) Date Activated Date Inactivated Comments 02/28/2020 3:20 AM 03/01/2020 1:16 PM * Full Code Date Activated Date Inactivated Comments 03/17/2019 7:22 AM 03/19/2019 3:21 PM * Full Code Date Activated Date Inactivated Comments 06/16/2018 10:29 PM 06/17/2018 2:18 PM * Full Code Date Activated Date Inactivated Comments 06/07/2018 9:34 PM 06/10/2018 1:11 AM Care Teams Crepe Sole Scourer Relationship Specialty Start Date End Date Eh Hilario MD [address] [place] [id number] PCP - General Family Practice 02/27/20
--- OUTSIDE RECORDS SUMMARY | 2025-04-10 02:27 | XMS_ITS | Encounter Summary ---
Author Organization [facility] Address [address] [place] [address] Care Team Providers Care Other Sales Support Worker Name Role Phone Eh Hilario MD Primary Care Provider [phone] Reason for Visit * Reason Onset Date Comments Medication Refill 10/17/2023 Encounter Details Date Type Department Care Team (Late st Contact Info) Description 10/17/2023 Telephone [facility] 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 DESIGN TEACHER documented in this encounter Plan of Treatment Not on file documented as of this encounter Visit Diagnoses Not on filedocumented in this encounter Care Teams Other Sales Support Worker Relationship Specialty Start Date End Date Eh Hilario MD [address] [place] [address] PCP - General Family Practice 02/27/20 documented as of this encounter
--- OUTSIDE RECORDS SUMMARY | 2025-04-10 02:27 | XMS_ITS | Encounter Summary ---
Author Organization [facility] Address [address] [place] [address] Care Team Providers Care Spa Technician Name Role Phone Eh Hilario MD Primary Care Provider [phone] Encounter Details Date Type Department Care Team (Late st Contact Info) Description 04/05/2025 External Device Data [place] ABSTRACTION Provider, Abstract NO ADDRESS ON FILE Social History Tobacco Use Types Packs/Day Years Used Date Smoking Tobacco: Every Day Cigarettes 0.3 7 Smokeless Tobacco: Never Alcohol Use Standard Drinks/Week Comments Yes 7 (1 standard drink = 0.6 oz pur e alcohol) Sex and Gender Information Value Date Recorded Sex Assigned at Not on file 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
--- OUTSIDE RECORDS SUMMARY | 2025-04-10 02:27 | XMS_ITS ---
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 Past Treatment and Therapy Plans No past plan information found. Lifetime Dose Tracking * Chemical Lifetime Dose Automatic Entry Manual Entr y Effective Dose 43.61 mSv 32.51 mSv 11.1 mSv Total DLP 5,485.64 DLP 1,939.64 DLP 3,546 DLP CTDIvol Max 264.82 mGy 23.92 mGy 240.9 mGy CTDIvol Min 128.69 mGy 19.69 mGy 109 mGy Resolved Problems Problem Noted Date Diagnosed Date Resolved Date Cerebral hemorrhage, acute - left occipital lobe. 06/07/2018 06/24/2018
--- OUTSIDE RECORDS SUMMARY | 2025-04-10 02:27 | XMS_ITS | Encounter Summary ---
Author Organization [facility] Address 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
--- NOTE | 2025-04-10 02:32 | XRR_ITS ---
PROCEDURE INFORMATION: Exam: XR Chest Exam date and time: 04/10/2025 2:33 AM Age: 29 years old Clinical indication: Vomiting while laying supine. TECHNIQUE: Imaging protocol: Radiologic exam of the chest. Views: 1 view. COMPARISON: CT cervical spin wo con* [id number] 12/28/2024 10:34 AM FINDINGS: Lungs: Unremarkable. No consolidation. Pleural spaces: Unremarkable. No pleural effusion. No pneumothorax. Heart/Mediastinum: Unremarkable. No cardiomegaly. Bones/joints: Unremarkable. XR/XR chest 1V portable [id number] IMPRESSION: No acute findings.
[2025-04-10 02:47] LABS: Hematocrit 37.9 % (37-53); Hemoglobin 12.30 g/dL (11.27-16.99); Mean Corpuscular HGB Conc 32.5 g/dL (30-55); Mean Corpuscular Hemoglobin 27.6 pg (27-33); Mean Corpuscular Volume 85.2 fl (82-101); Nucleated Red Blood Cells % 0 %; Platelet Count 377 10^3/cmm (157-399); Red Blood Count 4.45 10^6/uL (3.85-5.65); White Blood Count 7.04 10^3/uL (3.29-11.43)
[2025-04-10 03:12] LABS: Alanine Aminotransferase 14 U/L (0-41); Albumin Level 3.8 g/dL (3.5-5.2); Alkaline Phosphatase 148 U/L (40-130); Anion Gap 22.8 (5-19); Aspartate Amino Transferase 36 U/L (0-40); Blood Urea Nitrogen 4 mg/dL (6-20); Calcium 8.2 mg/dL (8.5-10.5); Carbon Dioxide 21 mmol/L (22-29); Chloride 101 mmol/L (98-107); Creatinine Clr Calc Pharmacy 150.5086; Globulin 2.9 g/dL (1.3-4.6); Glucose 90 mg/dL (65-115); Osmolality Calculated 288 mOsm/kg (285-295); Potassium 3.8 mmol/L (3.5-5.1); Sodium 141 mmol/L (136-145); Thyroid Stimulating Hormone 1.79 uIU/mL (0.27-4.20); Total Protein 6.7 g/dL (6.6-8.7)
[2025-04-10 03:14] LABS: Acetaminophen < 5.0 ug/mL (10-30); Alcohol Level 401 mg/dL (0-10); Salicylate < 0.3 mg/dL (3-10)
[2025-04-10 03:23] LABS: Respiratory Syncytial Virus Ce NEGATIVE (Negative); SARS-CoV-2 PCR NEGATIVE (Negative)
[2025-04-10] MEDS: thiamine 100 mg/mL 2mL SDV IVP (03:28)
[2025-04-10 04:21] LABS: Glucose Urine UA Negative (Normal); Nitrate Urine Negative (Negative); Specific Gravity, Urine 1.005 (1.005-1.030)
[2025-04-10 04:26] LABS: Add Urine Microscopic? YES
[2025-04-10 04:28] LABS: PCP Screen Urine Negative (Negative)
--- NOTE | 2025-04-10 04:36 | ED_ITS ---
Documented by User: Ronnie Keating DO 04/10/25 14:13 HPI - Wound/Laceration 2 General: Chief Complaint: Wound/Laceration Stated Complaint: SI ATTEMPT, BILATERAL WRIST LACS Time Seen by Provider: 04/10/25 02:21 History of Present Illness: 29-year-old male patient brought in by E MS. Reyna after an argument with significant other, he cut his own wrists bilaterally with a sharp object. He was combative on scene, and given intramuscular ketamine. No other history is available at this point, as the patient is mildly obtunded. Alcohol is obviously involved. The patient has had obvious suicidal attempts in the past. Related Data Home Medications ?Medication ?Instructions ?Recorded ?Confirmed quetiapine 200 mg tablet 200 mg PO BEDTIME 04/10/25 0 04/10/25 Previous Rx's ?Medication ?Instructions ?Recorded buspirone 10 mg tablet 20 mg (2 x 10 mg) PO BID #12 0 tabs 02/15/25 duloxetine 60 mg capsule,delayed 60 mg PO BID #60 caps 02/15/25 release gabapentin 800 mg tablet 800 mg PO TID 30 days #90 ta bs 02/15/25 naltrexone microspheres 380 mg 380 mg IM .q 30 days #1 ea 02/15/25 intramuscular suspension,extended release amoxicillin 875 mg-potassium 1 tab PO BID 10 days #20 tabs 04/04/25 clavulanate 125 mg tablet mupirocin 2 % topical ointment 1 applic topical BID #2 2 grams 04/04/25 (Centany) [id number] 3.5 1 drp ophthalmic (eye) Q8H #5 mL 04/04/25 mg/mL-10,000 unit/mL-0.1% eye drops (Maxitrol) Allergies Allergy/AdvReac Type Severity Reaction Status Date / Time No Known Allergies Allergy Verified 04/04/25 14:58 PFSH ED 2 PFSH: Medical History (Updated 04/10/25 @ 09:34 by Cyndi Phillip MD) History of methamphetamine abuse Alcohol use disorder Major depressive disorder, 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 Generalized anxiety disorder Major depressive disorder, recurrent PTSD (post-traumatic stress disorder) Tremors of nervous system Psychiatric care Surgical History History of repair of congenital cleft palate Social History Smoking and tobacco/nicotine status: current every day tobacco/nicotine user Quit status (tobacco/nicotine): not considering quitting Second hand smoke exposure: Yes Alcohol intake: current Alcohol intake frequency: few times a week Alcohol type: hard liquor Physical Exam 2 Const: GENERAL APPEARANCE: lethargic; not ill appearing NUTRITIONAL APPEARANCE: thin ORIENTATION/CONSCIOUSNESS: Yes lethargic HENMT: COMMON NORMALS: normocephalic and atraumatic HEAD & SCALP: normal to inspection, normocephalic and atraumatic Eye: COMMON NORMALS: Equal, round and reactive pupils present and EOMs intact bilaterally PUPIL: Yes Equal, round and reactive pupils present Chest: CHEST: Yes Symmetrical chest wall rise Resp: COMMON NORMALS: normal respiratory effort and clear to auscultation bilaterally AUSCULTATION: clear to auscultation bilaterally Cardio: COMMON NORMALS: regular rate and regular rhythm RATE: regular rate RHYTHM: regular rhythm GI: COMMON NORMALS: Normal to inspection, nondistended, normoactive bowel sounds present Extremity: NARRATIVE EXTREMITY EXAM: Right wrist shows multiple superficial lacerations. 1 laceration measuring 5 cm penetrates the volar flexor fascia. No tendon injury is noted. No arterial bleeding or active bleeding is noted. Examination of the left wrist reveals two superficial lacerations. No active bleeding present. No evidence of tendon or ligament injury. Neuro: SENSORIUM/ORIENTATION: Yes lethargic Skin: NARRATIVE SKIN EXAM: Multiple lacerations to the bilateral wrist as above. Procedures Laceration Laceration 1: Site: upper extremity Side (If applicable): right Size (cm): 7 Description: irregular Depth: simple, single layer Pre-repair: wound explored, irrigated extensively and deep structures intact Skin layer closed with: other ([place]) Number of sutures: 12 Technique: simple, interrupted Laceration 2: Side (If applicable): left Size (cm): 15 Description: irregular Depth: simple, single layer Pre-repair: wound explored, irrigated extensively and deep structures intact Skin layer closed with: other ([place]) Number of sutures: 16 Technique: simple, interrupted Course 2 Vital Signs: Vital signs: Vital Signs Temperature 98.0 F 04/10/25 11:20 Pulse Rate 108 H 04/10/25 11:20 Respiratory Rate 17 04/10/25 11:20 Blood Pressure 143/91 04/10/25 11:20 Pulse Oximetry 100 04/10/25 11:20 Oxygen Delivery Me thod Room Air 04/10/25 11:21 MDM - Wound/Laceration Medical Decision Making On the patient's arrival, bilateral tourniquets were in place given bleeding to the bilateral volar wrists. These were removed, without rebleeding. No arterial bleeding noted. No tendon injury noted. A total of 28 ysabel were placed in the bilateral wrist without complication. Reinspection of the wrist reveals no hematoma formation of the skin. He will be placed under 96-hour hold given his suicide attempt. His alcohol level is 401. He is positive for marijuana. His other laboratory is not remarkable. He is stable medically. As alcohol level decreases, we will attempt to place the patient. We had no beds available currently at our facility. Lab Data 04/10/25 02:45 04/10/25 02:45 Radiology Impressions Chest X-Ray 04/10/25 02:32 IMPRESSION: No acute findings. Laboratory Results WBC 7.04 10^3/uL (3.29-11.43) 04/10/25 02:45 RBC 4.45 10^6/uL (3.85-5.65) 04/10/25 02:45 Hgb 12.30 g/dL (11.27-16.99) 04/10/25 02:45 Hct 37.9 % (37-53) 04/10/25 02:45 MCV 85.2 fl (82-101) 04/10/25 02:45 MCH 27.6 pg (27-33) 04/10/25 02:45 MCHC 32.5 g/dL (30-55) 04/10/25 02:45 RDW 14.2 % (12.1-15.1) 04/10/25 02:45 Plt Count 377 10^3/cmm (157-399) 04/10/25 02:45 MPV 9.6 fL (7.4-10.4) 04/10/25 02:45 Neut % (Auto) 64.0 % 04/10/25 02:45 Lymph % (Auto) 22.0 % 04/10/25 02:45 [place] % (Auto) 9.5 % 04/10/25 02:45 Eos % (Auto) 3.3 % 04/10/25 02:45 Baso % (Auto) 1.1 % 04/10/25 02:45 Neut # (Auto) 4.50 10^3/uL (1.8-7.7) 04/10/25 02:45 Lymph # (Auto) 1.6 10^3/uL (0.8-4.8) 04/10/25 02:45 [place] # (Auto) 0.7 10^3/uL (0.2-0.9) 04/10/25 02:45 Eos # (Auto) 0.2 10^3/uL (0.0-0.8) 04/10/25 02:45 Baso # (Auto) 0.1 10^3/uL (0.0-0.1) 04/10/25 02:45 Nucleated RBC % (auto) 0 % 04/10/25 02:45 Nucleated RBCs # 0.0 /100WBC 04/10/25 02:45 Sodium 141 mmol/L (136-145) 04/10/25 02:45 Potassium 3.8 mmol/L (3.5-5.1) 04/10/25 02:45 Chloride 101 mmol/L (98-107) 04/10/25 02:45 Carbon Dioxide 21 mmol/L (22-29) L 04/10/25 02:45 Anion Gap 22.8 (5-19) H 04/10/25 02:45 BUN 4 mg/dL (6-20) L 04/10/25 02:45 Creatinine 0.8 mg/dL (0.7-1.2) 04/10/25 02:45 GFR Calculation 115.1 mL/min (90-130) 04/10/25 02:45 Glucose 90 mg/dL (65-115) 04/10/25 02:45 Calculated Osmolality 288 mOsm/kg (285-295) 04/10/25 02:45 Calcium 8.2 mg/dL (8.5-10.5) L 04/10/25 02:45 Total Bilirubin 0.3 mg/dL (0.15-1.2) 04/10/25 02:45 AST 36 U/L (0-40) 04/10/25 02:45 ALT 14 U/L (0-41) 04/10/25 02:45 Alkaline Phosphatase 148 U/L (40-130) H 04/10/25 02:45 Total Protein 6.7 g/dL (6.6-8.7) 04/10/25 02:45 Albumin 3.8 g/dL (3.5-5.2) 04/10/25 02:45 Globulin 2.9 g/dL (1.3-4.6) 04/10/25 02:45 TSH 1.79 uIU/mL (0.27-4.20) 04/10/25 02:45 Urine Color Yellow (Yellow) 04/10/25 02:40 Urine Appearance Clear (CLEAR) 04/10/25 02:40 Urine pH 5.5 (5-7) 04/10/25 02:40 Ur Specific [place] 1.005 (1.005-1.030) 04/10/25 02:40 Urine Protein Negative (Negative) 04/10/25 02:40 Urine Glucose (UA) Negative (Normal) 04/10/25 02:40 Urine Ketones Negative (Negative) 04/10/25 02:40 Urine Blood Negative (Negative) 04/10/25 02:40 Urine Nitrate Negative (Negative) 04/10/25 02:40 Urine Bilirubin Negative (Negative) 04/10/25 02:40 Urine Urobilinogen 0.2 mg/dL (Negative) 04/10/25 02:40 Ur Leukocyte Esterase Negative (Negative) 04/10/25 02:40 Urine RBC 0-2 /hpf (0-2) 04/10/25 02:40 Urine WBC 0-5 /hpf (0-5) 04/10/25 02:40 Ur Squamous Epith Cells 0-5 /hpf (0-5) 04/10/25 02:40 Amorphous Sediment Not Reportable 04/10/25 02:40 Urine Bacteria None seen /hpf (NONE) 04/10/25 02:40 Hyaline Casts 0-4 /lpf H 04/10/25 02:40 Salicylates < 0.3 mg/dL (3-10) L 04/10/25 02:45 Urine Opiates Screen Negative ng/mL (Negative) 04/10/25 02:40 Acetaminophen < 5.0 ug/mL (10-30) L 04/10/25 02:45 Ur Barbiturates Screen Negative ng/mL (Negative) 04/10/25 02:40 Ur Phencyclidine Scrn Negative ng/mL (Negative) 04/10/25 02:40 Ur Amphetamines Screen Negative ng/mL (Negative) 04/10/25 02:40 U Benzodiazepines Scrn Negative ng/mL (Negative) 04/10/25 02:40 Urine Cocaine Screen Negative ng/mL (Negative) 04/10/25 02:40 U Marijuana (THC) Screen Positive ng/mL (Negative) H 04/10/25 02:40 Ethyl Alcohol 280 mg/dL (0-10) H 04/10/25 08:15 Influenza A (PCR) Negative (Negative) 04/10/25 02:44 Influenza Type B (PCR) Negative (Negative) 04/10/25 02:44 RSV (PCR) Negative (Negative) 04/10/25 02:44 SARS-CoV-2 (PCR) Negative (Negative) 04/10/25 02:44 Discharge Plan Discharge Patient Disposition: Admitted As Inpatient Admit Provider: Frantz Rosenbaum Clinical Impression: Suicide attempt by cutting of wrist, Alcohol use disorder Condition: Stable Coding Level of Care Code ED Auditor/Quality for Chg Fwd Documented by User: Cyndi Phillip MD 04/10/25 09:34 HPI - Wound/Laceration 2 General: Chief Complaint: Wound/Laceration Stated Complaint: SI ATTEMPT, BILATERAL WRIST LACS Time Seen by Provider: 04/10/25 02:21 Related Data Home Medications ?Medication ?Instructions ?Recorded ?Confirmed quetiapine 200 mg tablet 200 mg PO BEDTIME 04/10/25 0 04/10/25 Previous Rx's ?Medication ?Instructions ?Recorded buspirone 10 mg tablet 20 mg (2 x 10 mg) PO BID #12 0 tabs 02/15/25 duloxetine 60 mg capsule,delayed 60 mg PO BID #60 caps 02/15/25 release gabapentin 800 mg tablet 800 mg PO TID 30 days #90 ta bs 02/15/25 naltrexone microspheres 380 mg 380 mg IM .q 30 days #1 ea 02/15/25 intramuscular suspension,extended release amoxicillin 875 mg-potassium 1 tab PO BID 10 days #20 tabs 04/04/25 clavulanate 125 mg tablet mupirocin 2 % topical ointment 1 applic topical BID #2 2 grams 04/04/25 (Centany) [id number] 3.5 1 drp ophthalmic (eye) Q8H #5 mL 04/04/25 mg/mL-10,000 unit/mL-0.1% eye drops (Maxitrol) Allergies Allergy/AdvReac Type Severity Reaction Status Date / Time No Known Allergies Allergy Verified 04/04/25 14:58 PFSH ED 2 PFSH: Medical History (Updated 04/10/25 @ 09:34 by Cyndi Phillip MD) History of methamphetamine abuse Alcohol use disorder Major depressive disorder, 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 Generalized anxiety disorder Major depressive disorder, recurrent PTSD (post-traumatic stress disorder) Tremors of nervous system Psychiatric care Surgical History History of repair of congenital cleft palate Social History Smoking and tobacco/nicotine status: current every day tobacco/nicotine user Quit status (tobacco/nicotine): not considering quitting Second hand smoke exposure: Yes Alcohol intake: current Alcohol intake frequency: few times a week Alcohol type: hard liquor Course 2 Vital Signs: Vital signs: Vital Signs Temperature 98.0 F 04/10/25 11:20 Pulse Rate 108 H 04/10/25 11:20 Respiratory Rate 17 04/10/25 11:20 Blood Pressure 143/91 04/10/25 11:20 Pulse Oximetry 100 04/10/25 11:20 Oxygen Delivery Me thod Room Air 04/10/25 11:21 MDM - Wound/Laceration Medical Decision Making On the patient's arrival, bilateral tourniquets were in place given bleeding to the bilateral volar wrists. These were removed, without rebleeding. No arterial bleeding noted. No tendon injury noted. A total of 28 ysabel were placed in the bilateral wrist without complication. Reinspection of the wrist reveals no hematoma formation of the skin. He will be placed under 96-hour hold given his suicide attempt. His alcohol level is 401. He is positive for marijuana. His other laboratory is not remarkable. He is stable medically. Have a bed available currently did speak to Dr. Rosenbaum will admit to our psych taylor. Lab Data 04/10/25 02:45 04/10/25 02:45 Radiology Impressions Chest X-Ray 04/10/25 02:32 IMPRESSION: No acute findings. Laboratory Results WBC 7.04 10^3/uL (3.29-11.43) 04/10/25 02:45 RBC 4.45 10^6/uL (3.85-5.65) 04/10/25 02:45 Hgb 12.30 g/dL (11.27-16.99) 04/10/25 02:45 Hct 37.9 % (37-53) 04/10/25 02:45 MCV 85.2 fl (82-101) 04/10/25 02:45 MCH 27.6 pg (27-33) 04/10/25 02:45 MCHC 32.5 g/dL (30-55) 04/10/25 02:45 RDW 14.2 % (12.1-15.1) 04/10/25 02:45 Plt Count 377 10^3/cmm (157-399) 04/10/25 02:45 MPV 9.6 fL (7.4-10.4) 04/10/25 02:45 Neut % (Auto) 64.0 % 04/10/25 02:45 Lymph % (Auto) 22.0 % 04/10/25 02:45 [place] % (Auto) 9.5 % 04/10/25 02:45 Eos % (Auto) 3.3 % 04/10/25 02:45 Baso % (Auto) 1.1 % 04/10/25 02:45 Neut # (Auto) 4.50 10^3/uL (1.8-7.7) 04/10/25 02:45 Lymph # (Auto) 1.6 10^3/uL (0.8-4.8) 04/10/25 02:45 [place] # (Auto) 0.7 10^3/uL (0.2-0.9) 04/10/25 02:45 Eos # (Auto) 0.2 10^3/uL (0.0-0.8) 04/10/25 02:45 Baso # (Auto) 0.1 10^3/uL (0.0-0.1) 04/10/25 02:45 Nucleated RBC % (auto) 0 % 04/10/25 02:45 Nucleated RBCs # 0.0 /100WBC 04/10/25 02:45 Sodium 141 mmol/L (136-145) 04/10/25 02:45 Potassium 3.8 mmol/L (3.5-5.1) 04/10/25 02:45 Chloride 101 mmol/L (98-107) 04/10/25 02:45 Carbon Dioxide 21 mmol/L (22-29) L 04/10/25 02:45 Anion Gap 22.8 (5-19) H 04/10/25 02:45 BUN 4 mg/dL (6-20) L 04/10/25 02:45 Creatinine 0.8 mg/dL (0.7-1.2) 04/10/25 02:45 GFR Calculation 115.1 mL/min (90-130) 04/10/25 02:45 Glucose 90 mg/dL (65-115) 04/10/25 02:45 Calculated Osmolality 288 mOsm/kg (285-295) 04/10/25 02:45 Calcium 8.2 mg/dL (8.5-10.5) L 04/10/25 02:45 Total Bilirubin 0.3 mg/dL (0.15-1.2) 04/10/25 02:45 AST 36 U/L (0-40) 04/10/25 02:45 ALT 14 U/L (0-41) 04/10/25 02:45 Alkaline Phosphatase 148 U/L (40-130) H 04/10/25 02:45 Total Protein 6.7 g/dL (6.6-8.7) 04/10/25 02:45 Albumin 3.8 g/dL (3.5-5.2) 04/10/25 02:45 Globulin 2.9 g/dL (1.3-4.6) 04/10/25 02:45 TSH 1.79 uIU/mL (0.27-4.20) 04/10/25 02:45 Urine Color Yellow (Yellow) 04/10/25 02:40 Urine Appearance Clear (CLEAR) 04/10/25 02:40 Urine pH 5.5 (5-7) 04/10/25 02:40 Ur Specific [place] 1.005 (1.005-1.030) 04/10/25 02:40 Urine Protein Negative (Negative) 04/10/25 02:40 Urine Glucose (UA) Negative (Normal) 04/10/25 02:40 Urine Ketones Negative (Negative) 04/10/25 02:40 Urine Blood Negative (Negative) 04/10/25 02:40 Urine Nitrate Negative (Negative) 04/10/25 02:40 Urine Bilirubin Negative (Negative) 04/10/25 02:40 Urine Urobilinogen 0.2 mg/dL (Negative) 04/10/25 02:40 Ur Leukocyte Esterase Negative (Negative) 04/10/25 02:40 Urine RBC 0-2 /hpf (0-2) 04/10/25 02:40 Urine WBC 0-5 /hpf (0-5) 04/10/25 02:40 Ur Squamous Epith Cells 0-5 /hpf (0-5) 04/10/25 02:40 Amorphous Sediment Not Reportable 04/10/25 02:40 Urine Bacteria None seen /hpf (NONE) 04/10/25 02:40 Hyaline Casts 0-4 /lpf H 04/10/25 02:40 Salicylates < 0.3 mg/dL (3-10) L 04/10/25 02:45 Urine Opiates Screen Negative ng/mL (Negative) 04/10/25 02:40 Acetaminophen < 5.0 ug/mL (10-30) L 04/10/25 02:45 Ur Barbiturates Screen Negative ng/mL (Negative) 04/10/25 02:40 Ur Phencyclidine Scrn Negative ng/mL (Negative) 04/10/25 02:40 Ur Amphetamines Screen Negative ng/mL (Negative) 04/10/25 02:40 U Benzodiazepines Scrn Negative ng/mL (Negative) 04/10/25 02:40 Urine Cocaine Screen Negative ng/mL (Negative) 04/10/25 02:40 U Marijuana (THC) Screen Positive ng/mL (Negative) H 04/10/25 02:40 Ethyl Alcohol 280 mg/dL (0-10) H 04/10/25 08:15 Influenza A (PCR) Negative (Negative) 04/10/25 02:44 Influenza Type B (PCR) Negative (Negative) 04/10/25 02:44 RSV (PCR) Negative (Negative) 04/10/25 02:44 SARS-CoV-2 (PCR) Negative (Negative) 04/10/25 02:44 No radiology studies performed this visit Discharge Plan Discharge Patient Disposition: Admitted As Inpatient Admit Provider: Frantz Rosenbaum Clinical Impression: Suicide attempt by cutting of wrist, Alcohol use disorder Condition: Stable Coding Level of Care Code ED Auditor/Quality for Wilfredo Doherty
--- NOTE | 2025-04-10 05:04 | PC.NURSE ---
96 Hour Involuntary Hold Patient Rights have been read to the patient and a copy of the same has been given to him. Beater Out Yoel Gallardo was present at bedside during the presentation of Rights.
[2025-04-10] MEDS: tetanus-dipt-pertussis 0.5 mL SDV IM (05:15)
[2025-04-10 08:35] LABS: Alcohol Level 280 mg/dL (0-10)
--- NOTE | 2025-04-10 08:56 | PC.PHAR ---
Unable to verify medications with patient (sedated) or pharmacy (closed on Sundays). Med rec completed with most current orders with last fill date and day supply.
--- NOTE | 2025-04-10 10:15 | PC.NURSE ---
PT BILAT WRIST DRESSINGS REMOVED AND REDRESSED PER VERBAL INSTRUCTION FROM DR. CLARK. PT TOLERATED DRESSING CHANGE WELL.
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
[2025-04-11] VITALS: BP 142/92; PULSE 116; RESP 18; TEMP 36.8; O2SAT 100
[2025-04-11 04:00] VITALS: BP 143/95; PULSE 110; RESP 18; TEMP 37.1; O2SAT 97
[2025-04-11 07:54] VITALS: BP 135/87; PULSE 92; RESP 18; TEMP 36.8; O2SAT 98
[2025-04-11] MEDS: multivitamin therapeutic Tablet 1 TAB PO (08:30)
[2025-04-11 12:00] VITALS: BP 128/83; PULSE 86; RESP 18; TEMP 36.6; O2SAT 98
[2025-04-11 15:41] VITALS: BP 142/91; PULSE 66; RESP 18; TEMP 36.6; O2SAT 98
--- NOTE | 2025-04-11 17:45 | W.PM.NPUH&PS ---
Providers/Chief Complaint Admitting Physician: Frantz Rosenbaum MD Chief Complaint: SI ATTEMPT, BILATERAL WRIST LACS HPI NPU History of Present Illness Darell Devlin is a 29 year old male with a history of alcohol dependence, borderline personality disorder and major depressive disorder who was admitted after being brought in by EMS having cut his wrists bilaterally with a sharp knife requiring several stitches. The patient in the emergency department had been increasingly agitated and had been given intramuscular ketamine. Patient on interview today reports that he had been more depressed over the past few weeks with complaints of anhedonia, low energy and, low motivation, increased tearfulness, and states that he had recently split up from his partner of 7 years and stated that he needed to see the blood as he reported that the presence of blood had alleviated some of his emotional distress. He has reported no history of psychosis. He denies any manic symptoms. He reports having difficulties with concentration and states that he was not feeling suicidal. Patient had a blood alcohol level of 401. He reports a history of significant consumption of alcohol and stated that he ran out of his naltrexone earlier last month but stated that it had been helpful for reducing his craving for alcohol. He reports daily alcohol use and reports a history of shakes and denied any history of delirium tremens. He denied any other drug use at this time. He reports having problems with maintaining control of his worry as he describes that he has been worrying excessively and states that his worry has been out of control. He had reported a recent change in Cymbalta to a maximum dose of 120 mg a few months ago without any improvement in mood. He had reported that he had been recently started on Seroquel but stated that 200 mg at night had been excessively sedating to him. The patient reported no recent treatment for any substance abuse. He had denied any illicit drug use but reports daily alcohol use. He had reported no significant changes since his last hospitalization 5 months ago. He reports no recent psychiatric hospitalizations since his last hospitalization in October 2024 here. He reports that he is currently now living in [facility] with his mother and his brother. Current medications: Gabapentin 800 mg 3 times a day, Cymbalta 120 mg a day, BuSpar 20 mg twice a day Augmentin 875/125 twice a day, Seroquel 100 mg at night Excerpt from Discharge Summary from 10/19/24 Discharge Diagnosis (1) Suicidal ideation: Status: Resolved (2) Alcohol intoxication: Status: Resolved Qualifiers: Complication of substance-induced condition: uncomplicated Qualified Code(s): F10.920 - Alcohol use, unspecified with intoxication, uncomplicated (3) PTSD (post-traumatic stress disorder): Status: Acute (4) Major depressive disorder, recurrent: Status: Acute (5) Alcohol use disorder: Status: Acute (6) Generalized anxiety disorder: Status: Acute (7) Adjustment disorder with mixed disturbance of emotions and conduct: Status: Acute Reason for Visit ETOH, SI, Poss 96 Brief History: History of Present Illness Darell Devlin is a 29 year old male who presented to the emergency department with the following report: Chief Complaint: Psychiatric Symptoms Stated Complaint: ETOH, SI, Poss 96 Time Seen by Provider: 10/14/24 20:27 History of Present Illness: 29-year-old man with a history of depression, suicidal ideations, alcohol abuse who presents emergency room after a traffic stop or he was found to be intoxicated. Report of a blood alcohol level over 300. He does appear intoxicated but is able to walk and talk. Police report that he hit his head on the back of the car seat and had told them multiple times that he was suicidal. He has superficial cuts/self-mutilation's on his arms. He is currently denying that he said any of this, however he is intoxicated and the police have reported otherwise. He was admitted to the neuropsychiatric unit for definitive treatment of those issues. He is known to the [facility] psychiatric community through inpatient psychiatric services. An excerpt of his discharge from August of last year is included below for context and the fact that there have been no substantive changes. He presents today with a BAL of 314 and a negative UDS reporting that when he left the hospital in August things went well for a few weeks and he was sober but then he started to drink again which started slow but then he reports that he is gotten to the poin that he was not drinking most days of the week. He reports that a couple nights ago before he came in here he was pulled over and given a DUI. He reports that during the situation/traffic stop he was resistant and ultimately went and got booked but they brought him here afterwards. He reports that he was just frustrated because he wanted to not have his mom have her car impounded and they would not let him call her to have her come pick her car up versus and pounding it. He reports that he does not recall doing or saying anything that would make them bring him here. However in the affidavit he reports that he did say that he wanted to kill himself after they let him go. He reports that he had been taking his medication before they ran out a few days ago and we discussed the risks, benefits and alternatives of restarting these medications/continuing them and he understood and agreed to proceed as is documented in this note. He reports that due to this he is already lost a job that he has been working hard to get. 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 Per his 08/31/2024 [facility] inpatient psychiatric discharge summary: Discharge Diagnosis (1) Suicidal ideation: Status: Acute (2) Alcohol intoxication: Status: Acute Qualifiers: Complication of substance-induced condition: uncomplicated Qualified Code(s): F10.920 - Alcohol use, unspecified with intoxication, uncomplicated (3) PTSD (post-traumatic stress disorder): Status: Acute (4) Major depressive disorder, recurrent: Status: Acute (5) Alcohol use disorder: Status: Acute (6) Generalized anxiety disorder: Status: Acute Reason for Visit Reason for Visit: SI Brief History: History of Present Illness Darell Devlin is a 29 year old male who presented to the emergency department with the following report: Chief Complaint: Psychiatric Symptoms Stated Complaint: SI Time Seen by Provider: 08/24/24 23:49 History of Present Illness: Presents to the ER with suicidal ideation. Plan on hanging himself tonight. He is brought in by his mother. He has been drinking. He did fall down and strike the right side of his face to be a superficial abrasions to that area but he says it does not hurt. Patient says he does not want help. Patient does admit to being cutter. He does see a psychiatrist at [facility] in [place] has not seen him since March. Chief complaint Suicidal ideation following alcohol relapse. History of the present complaint The patient, born on October 30, 1994, reports currently taking psychiatric medications including olanzapine (Zyprexa) and is in the process of weaning off gabapentin. They have been taking Prozac and Zyprexa for about six weeks and have been on lamotrigine for a longer period. The patient was admitted to the hospital due to drinking and having thoughts of self-harm. They express a desire to stop drinking, acknowledging a relapse after being sober for five to six months. The patient has a history of psychiatric hospitalizations, with this being their third admission. Previous admissions occurred when they were 21 years old and earlier in June 2023 at [facility]. The patient has been receiving outpatient care at [facility], attending appointments approximately once a month. They have a history of vaping since 2015 and report excessive alcohol consumption starting in 2015, which worsened in 2022. The last drink was consumed the night before the consultation. The patient occasionally uses marijuana and reported using cocaine about two months ago. 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 The patient has a history of legal issues related to possession but avoided correction time by cooperating as a confidential informant. The patient began experiencing depression and anxiety symptoms around 2013 or 2014 while in high school, which have progressively worsened. They report feelings of helplessness, hopelessness, worthlessness, low mood, and sleep problems. The patient describes having a passive wish, with thoughts of not caring if they do not wake up. They have experienced suicidal thoughts but have been too scared to act on them. The patient attempted suicide the night before the consultation by trying to hang themselves. They have a history of self-injurious behavior, starting in 2014, with the most recent incident occurring three days prior to the consultation. Anxiety symptoms include overwhelming worry and a sense of impending doom, even without specific triggers. The patient reports a family history of mental health issues, with both parents having struggled with alcoholism. The patient's mother has a history of depression and has been hospitalized for it. The patient's brother attempted suicide in 2019. 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 They also had a stroke in 2018, attributed to cocaine use and Xanax withdrawal. The patient identifies as homosexual and has been in a complicated relationship for six years. They have never been or had biological children. The patient attempted to join the [employer] but was discharged due to self-harm history. 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 Currently, they live with their mother and have several pets. The patient has spent nights in correction on three occasions but has not served time for any felony charges. Mental health history Diagnosed with depression and anxiety around [id number] during high school, with symptoms progressively worsening. History of passive wishes and suicidal thoughts without a plan, but attempted suicide on 08/24/2024 by attempting to hang self. History of self-injurious behavior (cutting) since 2014, with the most recent episode occurring three days prior to the encounter (08/22/2024). Reports feelings of helplessness, hopelessness, worthlessness, low mood, and sleep disturbances. Experiences anxiety with physical symptoms such as heart racing and feelings of doom, even without specific triggers. No history of paranoia or hallucinations. Admitted to a psychiatric hospital three times: at age 21 (2015), in June 2024 at [facility] in [place], and currently. Currently taking Prozac (20 mg), Zyprexa (5 mg), and lamotrigine, and weaning off gabapentin. Prozac and Zyprexa were initiated approximately six weeks ago (late June 2024). Previous outpatient psychiatric care at [facility], attending monthly appointments. Family history of depression (mother) and suicide attempt (brother in 2019). Social history Lives with mother and has recently moved back home after a relapse. Previously lived in [place]. Has five cats, four dogs, and a Chihuahua. Vapes since 2016 and has been drinking since 2015, with increased consumption in 2022. Last drink was the night before the encounter. Previously sober for five to six months before relapsing. Occasional cannabis use and used cocaine two months ago. Was addicted to methamphetamine in [id number]. No history of foster care or senior care living. 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 Identifies as heterosexual. Longest relationship lasted six years, currently complicated. No biological children. Attempted to join the [employer] but was discharged due to self-harm history. Describes self as [place]. Hospital Course Hospital Course He slowly acclimated to the individual, group and milieu therapies provided. He presented with significant issues related to the fact that he had a DUI the other day and made comments to police that they found concerning. Once here he identified that this was drunk frustration that they would not let him just get his mom car instead of him pounding it and costing her additional money. We restarted his medication and tried to work with him to get over his ambivalence about active treatment as he continues to feel he has less of a problem than appears to be. Fact that he was intoxicated and on his way to work soon when he was pulled over he did not ever seem to appreciate the significance of that behavior. He worked with the social work team to get outpatient appointments and other resources. He had significant improvement during the stay and he was able to contract for safety outside the hospital prior to discharge. During the hospitalization, patient had routine laboratory studies which were within normal limits except for few outliers. Additionally there was a general medical evaluation which was also within normal limits and revealed no new acute processes. Discharge Summary: At the time of discharge, he denied symptoms of psychosis or lethality. Mood and anxiety were well managed. Patient endorsed a plan to avoid all drugs of abuse and follow-up with the aftercare recommendations of the treatment team. Patient was evaluated and deemed to be absent credible lethality, and had achieved significant benefit from an inpatient hospitalization, so was discharged Meds NPU Home Medications ?Medication ?Instructions ?Recorded ?Confirmed ?Last Taken ?Type buspirone 10 mg tablet 20 mg (2 x 10 mg) PO BID #120 tabs 02/15/25 04/10/25 Unknown Rx duloxetine 60 mg capsule,delayed 60 mg PO BID #60 caps 02/15/25 04/10/25 Unknown Rx release gabapentin 800 mg tablet 800 mg PO TID 30 days #90 tabs 02/15/25 04/10/25 Unknown Rx naltrexone microspheres 380 mg 380 mg IM .q 30 days #1 ea 02/15/25 04/10/25 Unknown Rx intramuscular suspension,extended release amoxicillin 875 mg-potassium 1 tab PO BID 10 days #20 tabs 04/04/25 04/10/25 Unknown Rx clavulanate 125 mg tablet mupirocin 2 % topical ointment 1 applic topical BID #22 grams 04/04/25 04/10/25 Unknown Rx (Centany) fexzapmn-hnnxtxmeq-vsnsbwmy 3.5 1 drp ophthalmic (eye) Q8H #5 mL 04/04/25 04/10/25 Unknown Rx mg/mL-10,000 unit/mL-0.1% eye drops (Maxitrol) quetiapine 200 mg tablet 200 mg PO BEDTIME 04/10/25 04/10/25 Unknown History Allergies Allergy/AdvReac Type Severity Reaction Status Date / Time No Known Allergies Allergy Verified 04/04/25 14:58 PFSH NPU PFSH: Medical History (Updated 04/10/25 @ 09:34 by Cyndi Phillip MD) History of methamphetamine abuse Alcohol use disorder Major depressive disorder, 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 Generalized anxiety disorder Major depressive disorder, recurrent PTSD (post-traumatic stress disorder) Tremors of nervous system Psychiatric care Surgical History History of repair of congenital cleft palate Social History Smoking and tobacco/nicotine status: current every day tobacco/nicotine user Quit status (tobacco/nicotine): not considering quitting Second hand smoke exposure: Yes Alcohol intake: current Alcohol intake frequency: few times a week Alcohol type: hard liquor Mental Status Exam MSE Comments: Patient was friendly and cooperative on interview. He had blond hair and several areas on his arms that appeared to be healed cuts with 2 sutured cuts on his wrists on each hand that appeared quite large and irregular. There was significant psychomotor retardation. He was tearful at times on interview. His speech was normal in regards to rate, rhythm, and prosody. His mood was described as depressed. His affect was restricted and mood-congruent. His thought process was linear, logical, and goal-directed. His thought content revealed no suicidal or homicidal ideation. He had endorsed having thoughts of cutting. He did not appear to be responding internal stimuli. There was no evidence of delusional thinking. He was alert and oriented to person place time and situation. His recent and remote memory were grossly intact. His insight was limited. His judgment was poor. His impulse control appeared poor. Vitals/I&O/Wt Last Vital Signs Temp 97.9 F 04/11/25 15:41 Pulse 66 04/11/25 15:41 Resp 18 04/11/25 15:41 BP 142/91 04/11/25 15:41 Pulse Ox 98 04/11/25 15:41 O2 Del Method Room Air 04/11/25 04:00 Weight last 48 hrs Weight 77.111 kg Data NPU 04/10/25 02:45 04/10/25 02:45 A&P Assessment and plan 1. Suicidal ideation: 2. Alcohol intoxication: 3. Major depressive disorder, recurrent: 4. PTSD (post-traumatic stress disorder): 5. Alcohol use disorder: 6. Generalized anxiety disorder: Plan: This is a 29-year-old white male with multiple inpatient psychiatric hospitalizations now admitted after significant self injury requiring stitches in both arms reporting continued depression and anxiety. 1.? Encouraged individual, group and milieu therapy. 2. ?We will attempt to gather collateral information. 3. ?TO-15 minute checks on the unit. 4. ?Recommend sober living treatment at the highest level of care to which the patient is willing to commit. 5. Restart outpatient medications with increase in seroquel to 150mg daily. Restart vivitrol injection. 6. Start CIWA protocol. PDMP PDMP Reviewed: Not Reviewed Involuntary Hold Information Hold Status: Legal Status: 96 Hour Hold Date/Time Hold Expires: 04/15/2025 @ 0001 96 Hour Hold: 96 Hour Involuntary Admission: Yes Other Hold: Hold End Date: 10/20/24 Attestations NPU Medical Necessity Statement*: Inpatient hospitalization is medically necessary and the clinically appropriate intervention at this time. We will monitor/initiate medications and make changes as indicated. Will be in the hospital for over 2 midnights. Likely length of stay 5-7 days. Coding Level of Care Code Acute Code for [facility] Fwd Diagnoses Suicidal ideation R45.851 Alcohol intoxication F10.920 Complication of substance-induced condition: uncomplicated Major depressive disorder, recurrent F33.9 PTSD (post-traumatic stress disorder) F43.10 Alcohol use disorder F10.90 Generalized anxiety disorder F41.1
[2025-04-11] MEDS: quetiapine XR (24HR) 50 mg Tablet 150 MG PO (19:01)
[2025-04-11 19:15] VITALS: BP 146/80; PULSE 100; RESP 18; TEMP 36.8; O2SAT 98
[2025-04-12] VITALS: RESP 16
[2025-04-12 04:00] VITALS: BP 124/74; PULSE 90; RESP 16; O2SAT 98
[2025-04-12 07:45] VITALS: BP 120/75; PULSE 86; RESP 18; TEMP 36.6; O2SAT 98
[2025-04-12] MEDS: multivitamin therapeutic Tablet 1 TAB PO (08:59)
[2025-04-12 12:00] VITALS: BP 132/76; PULSE 87; RESP 18; TEMP 36.8; O2SAT 98
--- NOTE | 2025-04-12 15:08 | P.NPUPN_ITS ---
Subjective NPU 2 Subjective: 29-year-old male with depression, anxiet y, and alcohol abuse admitted with significant self injury. He continued to endorse depressed mood. He had reported no significant benefit from the buspirone. He had stated that he had felt that his naltrexone injection had helped with reducing consumption and overall use of alcohol. He had reported continued struggles with managing his anxiety and depression. He reported no side effects from the switch to Seroquel extended release yesterday. He had denied any feelings of hopelessness. He had reported some motivation to try to leave here so that he could pack up and move back home as he needed to pickler helper his previous furniture at his old apartment in [place] by Friday. He had remained somewhat isolative on the milieu but was able to attend therapy. He had minimized any PTSD symptoms reporting no triggers for his urge to cut as he had reported that he did not have daily thoughts of cutting but appeared to have them particularly during times where he was consuming an excess amount of alcohol. Mental Status Exam 2 MSE Comments: Patient was friendly and cooperative on interview. He had blond hair and several areas on his arms that appeared to be healed cuts with 2 sutured cuts on his wrists on each hand that appeared quite large and irregular. There was significant psychomotor retardation. He was less tearful on interview. His speech was normal in regards to rate, rhythm, and prosody. His mood was described as depressed. His affect was flat. His thought process was linear, logical, and goal-directed. His thought content revealed no suicidal or homicidal ideation. He denied having thoughts of cutting. He did not appear to be responding internal stimuli. There was no evidence of delusional thinking. He was alert and oriented to person, place, time, and situation. His recent and remote memory were grossly intact. His insight was limited. His judgment was poor. His impulse control appeared poor. Vitals/I&O/Wt Last Vital Signs Temp 98.2 F 04/12/25 12:00 Pulse 87 04/12/25 12:00 Resp 18 04/12/25 12:00 BP 132/76 04/12/25 12:00 Pulse Ox 98 04/12/25 12:00 O2 Del Method Room Air 04/12/25 04:00 Data NPU 04/10/25 02:45 04/10/25 02:45 A&P Assessment and plan 1. Suicidal ideation: 2. Alcohol intoxication: 3. Major depressive disorder, recurrent: 4. PTSD (post-traumatic stress disorder): 5. Alcohol use disorder: 6. Generalized anxiety disorder: Plan: This is a 29-year-old white male with multiple inpatient psychiatric hospitalizations now admitted after significant self injury requiring stitches in both arms reporting continued depression and anxiety. 1.? Encouraged individual, group and milieu therapy. 2. ?We will attempt to gather collateral information. 3. ?TO-15 minute checks on the unit. 4. ?Recommend sober living treatment at the highest level of care to which the patient is willing to commit. 5. Continue Cymbalta 120mg daily and continue Seroquel xr 150mg at 7PM. Ordered vivitrol injection to be hopefully given tommorow. 6. Continue CIWA protocol. PDMP PDMP Reviewed: Not Reviewed Involuntary Hold Information 2 Hold Status: Legal Status: 96 Hour Hold Date/Time Hold Expires: 04/15/2025 @ 0001 96 Hour Hold: 96 Hour Involuntary Admission: Yes Other Hold: Hold End Date: 10/20/24 Attestations NPU 2 Medical Necessity Statement*: Inpatient hospitalization is medically necessary and the clinically appropriate intervention at this time. We will monitor/initiate medications and make changes as indicated. THe patient's likely length of stay 3-4 days. Coding Level of Care Code Acute Code for [facility] Fwd Diagnoses Suicidal ideation R45.851 Alcohol intoxication F10.920 Complication of substance-induced condition: uncomplicated Major depressive disorder, recurrent F33.9 PTSD (post-traumatic stress disorder) F43.10 Alcohol use disorder F10.90 Generalized anxiety disorder F41.1
--- NOTE | 2025-04-12 15:41 | PC.NURSE ---
Per Dr. Lyles's verbal orders, Vivitrol 380mg IM was ordered for pt.
[2025-04-12 16:00] VITALS: BP 125/90; PULSE 117; RESP 18; TEMP 36.9; O2SAT 99
[2025-04-12] MEDS: VIVITROL 380 MG 380 EACH IM (17:39)
--- NOTE | 2025-04-12 18:47 | PC.NURSE ---
Administered Vivitrol 380mg to the right buttocks, pt tolerated well.
[2025-04-12 20:00] VITALS: BP 135/85; PULSE 101; RESP 18; TEMP 36.9; O2SAT 100
--- NOTE | 2025-04-12 20:08 | PC.NURSE ---
pt meds pt requested to take all of his meds in the 2100 hour
[2025-04-12] MEDS: quetiapine XR (24HR) 50 mg Tablet 150 MG PO (21:30)
[2025-04-12] MEDS: eucerin cream 113 gm Jar 1 APPLIC TOPICAL (21:50)
--- NOTE | 2025-04-13 06:16 | PC.NURSE ---
pt eczema pt has known eczema on arms and neck at this time. cream ordered, given per NOV and placed in med room.
[2025-04-13 06:19] VITALS: BP 106/65; PULSE 85; RESP 18; TEMP 36.5; O2SAT 97
[2025-04-13 08:00] VITALS: BP 124/74; PULSE 88; RESP 16; TEMP 37.1; O2SAT 98
[2025-04-13] MEDS: multivitamin therapeutic Tablet 1 TAB PO (09:39)
[2025-04-13 12:00] VITALS: BP 135/74; PULSE 74; RESP 16; TEMP 37; O2SAT 98
--- NOTE | 2025-04-13 14:09 | W.PM.NPUDCS ---
Diagnoses at Discharge Discharge Diagnosis 1. Suicidal ideation: 2. Alcohol intoxication: 3. Major depressive disorder, recurrent: 4. PTSD (post-traumatic stress disorder): 5. Alcohol use disorder: 6. Generalized anxiety disorder: Reason for Visit Reason for Visit: SI ATTEMPT, BILATERAL WRIST LACS Brief History: History of Present Illness Darell Devlin is a 29 year old male with a history of alcohol dependence, borderline personality disorder and major depressive disorder who was admitted after being brought in by EMS having cut his wrists bilaterally with a sharp knife requiring several stitches. The patient in the emergency department had been increasingly agitated and had been given intramuscular ketamine. Patient on interview today reports that he had been more depressed over the past few weeks with complaints of anhedonia, low energy and, low motivation, increased tearfulness, and states that he had recently split up from his partner of 7 years and stated that he needed to see the blood as he reported that the presence of blood had alleviated some of his emotional distress. He has reported no history of psychosis. He denies any manic symptoms. He reports having difficulties with concentration and states that he was not feeling suicidal. Patient had a blood alcohol level of 401. He reports a history of significant consumption of alcohol and stated that he ran out of his naltrexone earlier last month but stated that it had been helpful for reducing his craving for alcohol. He reports daily alcohol use and reports a history of shakes and denied any history of delirium tremens. He denied any other drug use at this time. He reports having problems with maintaining control of his worry as he describes that he has been worrying excessively and states that his worry has been out of control. He had reported a recent change in Cymbalta to a maximum dose of 120 mg a few months ago without any improvement in mood. He had reported that he had been recently started on Seroquel but stated that 200 mg at night had been excessively sedating to him. The patient reported no recent treatment for any substance abuse. He had denied any illicit drug use but reports daily alcohol use. He had reported no significant changes since his last hospitalization 5 months ago. He reports no recent psychiatric hospitalizations since his last hospitalization in October 2024 here. He reports that he is currently now living in [facility] with his mother and his brother. Current medications: Gabapentin 800 mg 3 times a day, Cymbalta 120 mg a day, BuSpar 20 mg twice a day Augmentin 875/125 twice a day, Seroquel 100 mg at night Excerpt from Discharge Summary from 10/19/24 Discharge Diagnosis (1) Suicidal ideation: Status: Resolved (2) Alcohol intoxication: Status: Resolved Qualifiers: Complication of substance-induced condition: uncomplicated Qualified Code(s): F10.920 - Alcohol use, unspecified with intoxication, uncomplicated (3) PTSD (post-traumatic stress disorder): Status: Acute (4) Major depressive disorder, recurrent: Status: Acute (5) Alcohol use disorder: Status: Acute (6) Generalized anxiety disorder: Status: Acute (7) Adjustment disorder with mixed disturbance of emotions and conduct: Status: Acute Reason for Visit ETOH, SI, Poss 96 Brief History: History of Present Illness Darell Devlin is a 29 year old male who presented to the emergency department with the following report: Chief Complaint: Psychiatric Symptoms Stated Complaint: ETOH, SI, Poss 96 Time Seen by Provider: 10/14/24 20:27 History of Present Illness: 29-year-old man with a history of depression, suicidal ideations, alcohol abuse who presents emergency room after a traffic stop or he was found to be intoxicated. Report of a blood alcohol level over 300. He does appear intoxicated but is able to walk and talk. Police report that he hit his head on the back of the car seat and had told them multiple times that he was suicidal. He has superficial cuts/self-mutilation's on his arms. He is currently denying that he said any of this, however he is intoxicated and the police have reported otherwise. He was admitted to the neuropsychiatric unit for definitive treatment of those issues. He is known to the [facility] psychiatric community through inpatient psychiatric services. An excerpt of his discharge from August of last year is included below for context and the fact that there have been no substantive changes. He presents today with a BAL of 314 and a negative UDS reporting that when he left the hospital in August things went well for a few weeks and he was sober but then he started to drink again which started slow but then he reports that he is gotten to the poin that he was not drinking most days of the week. He reports that a couple nights ago before he came in here he was pulled over and given a DUI. He reports that during the situation/traffic stop he was resistant and ultimately went and got booked but they brought him here afterwards. He reports that he was just frustrated because he wanted to not have his mom have her car impounded and they would not let him call her to have her come pick her car up versus and pounding it. He reports that he does not recall doing or saying anything that would make them bring him here. However in the affidavit he reports that he did say that he wanted to kill himself after they let him go. He reports that he had been taking his medication before they ran out a few days ago and we discussed the risks, benefits and alternatives of restarting these medications/continuing them and he understood and agreed to proceed as is documented in this note. He reports that due to this he is already lost a job that he has been working hard to get. 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 Per his 08/31/2024 [facility] inpatient psychiatric discharge summary: Discharge Diagnosis (1) Suicidal ideation: Status: Acute (2) Alcohol intoxication: Status: Acute Qualifiers: Complication of substance-induced condition: uncomplicated Qualified Code(s): F10.920 - Alcohol use, unspecified with intoxication, uncomplicated (3) PTSD (post-traumatic stress disorder): Status: Acute (4) Major depressive disorder, recurrent: Status: Acute (5) Alcohol use disorder: Status: Acute (6) Generalized anxiety disorder: Status: Acute Reason for Visit Reason for Visit: SI Brief History: History of Present Illness Darell Devlin is a 29 year old male who presented to the emergency department with the following report: Chief Complaint: Psychiatric Symptoms Stated Complaint: SI Time Seen by Provider: 08/24/24 23:49 History of Present Illness: Presents to the ER with suicidal ideation. Plan on hanging himself tonight. He is brought in by his mother. He has been drinking. He did fall down and strike the right side of his face to be a superficial abrasions to that area but he says it does not hurt. Patient says he does not want help. Patient does admit to being cutter. He does see a psychiatrist at [facility] in [place] has not seen him since March. Chief complaint Suicidal ideation following alcohol relapse. History of the present complaint The patient, born on October 30, 1994, reports currently taking psychiatric medications including olanzapine (Zyprexa) and is in the process of weaning off gabapentin. They have been taking Prozac and Zyprexa for about six weeks and have been on lamotrigine for a longer period. The patient was admitted to the hospital due to drinking and having thoughts of self-harm. They express a desire to stop drinking, acknowledging a relapse after being sober for five to six months. The patient has a history of psychiatric hospitalizations, with this being their third admission. Previous admissions occurred when they were 21 years old and earlier in June 2023 at [facility]. The patient has been receiving outpatient care at [facility], attending appointments approximately once a month. They have a history of vaping since 2015 and report excessive alcohol consumption starting in 2015, which worsened in 2022. The last drink was consumed the night before the consultation. The patient occasionally uses marijuana and reported using cocaine about two months ago. 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 The patient has a history of legal issues related to possession but avoided long-term time by cooperating as a confidential informant. The patient began experiencing depression and anxiety symptoms around 2013 or 2014 while in high school, which have progressively worsened. They report feelings of helplessness, hopelessness, worthlessness, low mood, and sleep problems. The patient describes having a passive wish, with thoughts of not caring if they do not wake up. They have experienced suicidal thoughts but have been too scared to act on them. The patient attempted suicide the night before the consultation by trying to hang themselves. They have a history of self-injurious behavior, starting in 2014, with the most recent incident occurring three days prior to the consultation. Anxiety symptoms include overwhelming worry and a sense of impending doom, even without specific triggers. The patient reports a family history of mental health issues, with both parents having struggled with alcoholism. The patient's mother has a history of depression and has been hospitalized for it. The patient's brother attempted suicide in 2018. 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 They also had a stroke in 2018, attributed to cocaine use and Xanax withdrawal. The patient identifies as homosexual and has been in a complicated relationship for six years. They have never been or had biological children. The patient attempted to join the [facility] but was discharged due to self-harm history. 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 Currently, they live with their mother and have several pets. The patient has spent nights in long-term on three occasions but has not served time for any felony charges. Mental health history Diagnosed with depression and anxiety around [id number] during high school, with symptoms progressively worsening. History of passive wishes and suicidal thoughts without a plan, but attempted suicide on 08/24/2024 by attempting to hang self. History of self-injurious behavior (cutting) since 2014, with the most recent episode occurring three days prior to the encounter (08/22/2024). Reports feelings of helplessness, hopelessness, worthlessness, low mood, and sleep disturbances. Experiences anxiety with physical symptoms such as heart racing and feelings of doom, even without specific triggers. No history of paranoia or hallucinations. Admitted to a psychiatric hospital three times: at age 21 (2015), in June 2024 at [facility] in [place], and currently. Currently taking Prozac (20 mg), Zyprexa (5 mg), and lamotrigine, and weaning off gabapentin. Prozac and Zyprexa were initiated approximately six weeks ago (late June 2024). Previous outpatient psychiatric care at [facility], attending monthly appointments. Family history of depression (mother) and suicide attempt (brother in 2019). Social history Lives with mother and has recently moved back home after a relapse. Previously lived in [place]. Has five cats, four dogs, and a Chihuahua. Vapes since 2016 and has been drinking since 2015, with increased consumption in 2022. Last drink was the night before the encounter. Previously sober for five to six months before relapsing. Occasional cannabis use and used cocaine two months ago. Was addicted to methamphetamine in [id number]. No history of foster care or jail living. 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 Identifies as heterosexual. Longest relationship lasted six years, currently complicated. No biological children. Attempted to join the [facility] but was discharged due to self-harm history. Describes self as Mu-Ism. Hospital Course Hospital Course He slowly acclimated to the individual, group and milieu therapies provided. He presented with significant issues related to the fact that he had a DUI the other day and made comments to police that they found concerning. Once here he identified that this was drunk frustration that they would not let him just get his mom car instead of him pounding it and costing her additional money. We restarted his medication and tried to work with him to get over his ambivalence about active treatment as he continues to feel he has less of a problem than appears to be. Fact that he was intoxicated and on his way to work soon when he was pulled over he did not ever seem to appreciate the significance of that behavior. He worked with the social work team to get outpatient appointments and other resources. He had significant improvement during the stay and he was able to contract for safety outside the hospital prior to discharge. During the hospitalization, patient had routine laboratory studies which were within normal limits except for few outliers. Additionally there was a general medical evaluation which was also within normal limits and revealed no new acute processes. Discharge Summary: At the time of discharge, he denied symptoms of psychosis or lethality. Mood and anxiety were well managed. Patient endorsed a plan to avoid all drugs of abuse and follow-up with the aftercare recommendations of the treatment team. Patient was evaluated and deemed to be absent credible lethality, and had achieved significant benefit from an inpatient hospitalization, so was discharged Hospital Course Hospital Course The patient had reported limited improvement in regards to anxiety on buspirone and this medication was not restarted during his hospital stay and discontinued. Otherwise, the patient was restarted on his medications on an outpatient basis. Seroquel was replaced by Seroquel XR at 150 mg at 7 PM to aid for treating depression. He reported no excess sedation on this dosing. Furthermore the patient was given naltrexone intramuscularly to aid with continuous daily alcohol use with a plan for the patient to resume this medication on a monthly basis on an outpatient basis within 28 days. During the hospitalization, the patient had routine laboratory studies which were within normal limits except for a few outliers.? Additionally, there was a general medical evaluation which was also within normal limits and revealed no new acute processes.? At the time of discharge, lethality was denied and psychosis was resolving.? Mood and anxiety were well managed.? The patient endorsed a plan to avoid all drugs of abuse and follow up with the aftercare recommendations of the treatment team.? The patient was evaluated and deemed to be absent credible lethality and had achieved the maximum benefit from an inpatient hospitalization, and so was discharged. ?He had planned to move back to [place] where he would resume outpatient services through the [facility] at [place]. Involuntary Hold Information Hold Status: Legal Status: 96 Hour Hold Date/Time Hold Expires: 04/15/2025 @ 0001 96 Hour Hold: 96 Hour Involuntary Admission: Yes Other Hold: Hold End Date: 10/20/24 Mental Status Exam MSE Comments: Patient was friendly and cooperative on interview. He had blond hair and several areas on his arms that appeared to be healed cuts with 2 sutured cuts on his wrists on each hand that appeared quite large and irregular. There was significant psychomotor retardation. His speech was normal in regards to rate, rhythm, and prosody. His mood was described as better. His affect was less restricted. His thought process was linear, logical, and goal-directed. His thought content revealed no suicidal or homicidal ideation. He denied having thoughts of cutting. He did not appear to be responding internal stimuli. There was no evidence of delusional thinking. He was alert and oriented to person, place, time, and situation. His recent and remote memory were grossly intact. His insight was limited. His judgment was fair. His impulse control appeared fair. Discharge Data Studies Completed and Pending: Completed Studies During Hospitalization Category Date Time Status XR chest 1V laine ble [id number] Stat Exams 04/10/25 02:32 Completed Radiology Impressions Chest X-Ray 04/10/25 02:32 IMPRESSION: No acute findings. Laboratory Results WBC 7.04 10^3/uL (3.2 9-11.43) 04/10/25 02:45 RBC 4.45 10^6/uL (3.8 5-5.65) 04/10/25 02:45 Hgb 12.30 g/dL (11.27 -16.99) 04/10/25 02:45 Hct 37.9 % (37-53) 04/10/25 02:45 MCV 85.2 fl (82-101) 04/10/25 02:45 MCH 27.6 pg (27-33) 04/10/25 02:45 MCHC 32.5 g/dL (30-55) 04/10/25 02:45 RDW 14.2 % (12.1-15.1 ) 04/10/25 02:45 Plt Count 377 10^3/cmm (157 -399) 04/10/25 02:45 MPV 9.6 fL (7.4-10.4) 04/10/25 02:45 Neut % (Auto) 64.0 % 04/10/25 02:45 Lymph % (Auto) 22.0 % 04/10/25 02:45 Dyer % (Auto) 9.5 % 04/10/25 02:45 Eos % (Auto) 3.3 % 04/10/25 02:45 Baso % (Auto) 1.1 % 04/10/25 02:45 Neut # (Auto) 4.50 10^3/uL (1.8 -7.7) 04/10/25 02:45 Lymph # (Auto) 1.6 10^3/uL (0.8- 4.8) 04/10/25 02:45 Dyer # (Auto) 0.7 10^3/uL (0.2- 0.9) 04/10/25 02:45 Eos # (Auto) 0.2 10^3/uL (0.0- 0.8) 04/10/25 02:45 Baso # (Auto) 0.1 10^3/uL (0.0- 0.1) 04/10/25 02:45 Nucleated RBC % (a uto) 0 % 04/10/25 02:45 Nucleated RBCs # 0.0 /100WBC 04/10/25 02:45 Sodium 141 mmol/L (136-1 45) 04/10/25 02:45 Potassium 3.8 mmol/L (3.5-5 .1) 04/10/25 02:45 Chloride 101 mmol/L (98-10 7) 04/10/25 02:45 Carbon Dioxide 21 mmol/L (22-29) L 04/10/25 02:45 Anion Gap 22.8 (5-19) H 04/10/25 02:45 BUN 4 mg/dL (6-20) L 04/10/25 02:45 Creatinine 0.8 mg/dL (0.7-1. 2) 04/10/25 02:45 GFR Calculation 115.1 mL/min (90- 130) 04/10/25 02:45 Glucose 90 mg/dL (65-115) 04/10/25 02:45 Calculated Osmolal ity 288 mOsm/kg (285- 295) 04/10/25 02:45 Calcium 8.2 mg/dL (8.5-10 .5) L 04/10/25 02:45 Total Bilirubin 0.3 mg/dL (0.15-1 .2) 04/10/25 02:45 AST 36 U/L (0-40) 04/10/25 02:45 ALT 14 U/L (0-41) 04/10/25 02:45 Alkaline Phosphata se 148 U/L (40-130) H 04/10/25 02:45 Total Protein 6.7 g/dL (6.6-8.7 ) 04/10/25 02:45 Albumin 3.8 g/dL (3.5-5.2 ) 04/10/25 02:45 Globulin 2.9 g/dL (1.3-4.6 ) 04/10/25 02:45 TSH 1.79 uIU/mL (0.27 -4.20) 04/10/25 02:45 Urine Color Yellow (Yellow) 04/10/25 02:40 Urine Appearance Clear (CLEAR) 04/10/25 02:40 Urine pH 5.5 (5-7) 04/10/25 02:40 Ur Specific Gravit y 1.005 (1.005-1.0 30) 04/10/25 02:40 Urine Protein Negative (Negati ve) 04/10/25 02:40 Urine Glucose (UA) Negative (Normal ) 04/10/25 02:40 Urine Ketones Negative (Negati ve) 04/10/25 02:40 Urine Blood Negative (Negati ve) 04/10/25 02:40 Urine Nitrate Negative (Negati ve) 04/10/25 02:40 Urine Bilirubin Negative (Negati ve) 04/10/25 02:40 Urine Urobilinogen 0.2 mg/dL (Negati ve) 04/10/25 02:40 Ur Leukocyte Corinna ase Negative (Negati ve) 04/10/25 02:40 Urine RBC 0-2 /hpf (0-2) 04/10/25 02:40 Urine WBC 0-5 /hpf (0-5) 04/10/25 02:40 Ur Squamous Epith Cells 0-5 /hpf (0-5) 04/10/25 02:40 Amorphous Sediment Not Reportable 04/10/25 02:40 Urine Bacteria None seen /hpf (N ONE) 04/10/25 02:40 Hyaline Casts 0-4 /lpf H 04/10/25 02:40 Salicylates < 0.3 mg/dL (3-10 ) L 04/10/25 02:45 Urine Opiates Scre en Negative ng/mL (N egative) 04/10/25 02:40 Acetaminophen < 5.0 ug/mL (10-3 0) L 04/10/25 02:45 Ur Barbiturates Sc reen Negative ng/mL (N egative) 04/10/25 02:40 Ur Phencyclidine S crn Negative ng/mL (N egative) 04/10/25 02:40 Ur Amphetamines Sc reen Negative ng/mL (N egative) 04/10/25 02:40 U Benzodiazepines Scrn Negative ng/mL (N egative) 04/10/25 02:40 Urine Cocaine Scre en Negative ng/mL (N egative) 04/10/25 02:40 U Marijuana (THC) Screen Positive ng/mL (N egative) H 04/10/25 02:40 Ethyl Alcohol 280 mg/dL (0-10) H 04/10/25 08:15 Influenza A (PCR) Negative (Negati ve) 04/10/25 02:44 Influenza Type B ( PCR) Negative (Negati ve) 04/10/25 02:44 RSV (PCR) Negative (Negati ve) 04/10/25 02:44 SARS-CoV-2 (PCR) Negative (Negati ve) 04/10/25 02:44 Vitals: Last Vital Signs Temp 98.6 F 04/13/25 12:00 Pulse 74 04/13/25 12:00 Resp 16 04/13/25 12:00 BP 135/74 04/13/25 12:00 Pulse Ox 98 04/13/25 12:00 O2 Del Method Room Air 04/13/25 12:00 Discharge Plan Discharge Patient Disposition: Home Condition: Stable Prescriptions: New quetiapine 150 mg tablet extended release 24 hr 150 mg PO 1900 30 Days Qty: 30 1RF folic acid 1 mg Tablet 1 mg PO DAILY 30 Days Qty: 30 1RF thiamine mononitrate (vit B1) [Vitamin B-1 (mononitrate)] 100 mg Tablet 100 mg PO DAILY 30 Days Qty: 30 1RF Continued gabapentin 800 mg tablet 800 mg PO TID 30 Days Qty: 90 0RF Rx Instructions: Take on tablet morning, afternoon, and evening neomycin-polymyxin B-dexameth [Maxitrol] 3.5mg/mL-10,000 unit/mL-0.1 % drops,suspension 1 drp ophthalmic (eye) Q8H Qty: 5 0RF mupirocin [Centany] 2 % ointment 1 applic topical BID Qty: 22 0RF amoxicillin-pot clavulanate 875-125 mg tablet 1 tab PO BID 10 Days Qty: 20 0RF Changed duloxetine 60 mg capsule,delayed release(DR/EC) 120 mg PO DAILY 30 Days Qty: 60 1RF naltrexone microspheres 380 mg suspension,extended rel recon 380 mg IM .once every 28 days Qty: 1 2RF Rx Instructions: One injection IM every 30 days, administered at the Crisis [facility], next dose due 05/10/25 Discontinued buspirone 10 mg tablet 20 mg PO BID Qty: 120 0RF quetiapine 200 mg tablet 200 mg PO BEDTIME Discharge Order = DC NOW: Discharge Order (Routine); Ordered 04/13/25 Ordered By: Otf Lyles Referrals: Ofe Marie APRN [Nurse Practitioner, Nurse Practitioner Psych/MH] Janelle Pool LPC [Therapist, Psychology] Discharge Diet: Usual diet Discharge Activity: Resume usual activity Patient Instructions: Opioid Safety, Patient Portal & [facility] Instructions Discharge Attestations NPU Time Spent in Discharge Care*: less than 30 min Specific Discharge Activities: Specific discharge activities: educating patient, discussing with skilled nursing case manager/social workers/dc planners and documenting/other paperwork Coding Level of Care Code Acute Code for [employer] Fwd Diagnoses Suicidal ideation R45.851 Alcohol intoxication F10.920 Complication of substance-induced condition: uncomplicated Major depressive disorder, recurrent F33.9 PTSD (post-traumatic stress disorder) F43.10 Alcohol use disorder F10.90 Generalized anxiety disorder F41.1
[2025-04-13 14:35] VITALS: BP 135/74; PULSE 74; RESP 16; TEMP 37; O2SAT 98
== END 2025-04-13 15:45 | disposition home or self-care (01) | DRG 982 ==
LOC: ER 09:13 → NP 10:12
PROVIDERS: Emergency Medicine; Admitting Provider Psychiatry & Neurology Psychiatry; Emergency Provider Emergency Medicine; Visit Provider Psychiatry & Neurology Psychiatry
DX: F10.229 Alcohol dependence with intoxication, unspecified (principal); F33.9 Major depressive disorder, recurrent, unspecified; R45.851 Suicidal ideations; Y90.8 Blood alcohol level of 240 mg/100 ml or more; F43.10 Post-traumatic stress disorder, unspecified; F41.1 Generalized anxiety disorder; F60.3 Borderline personality disorder; S61.522A Laceration with foreign body of left wrist, initial encounter; S61.521A Laceration with foreign body of right wrist, initial encounter; X78.9XXA Intentional self-harm by unspecified sharp object, initial encounter; F43.20 Adjustment disorder, unspecified; F15.10 Other stimulant abuse, uncomplicated
CPT/HCPCS: 71045; 80053; 80306; 80307; 81001; 84443; 85025; 87637; 90471; 90715; 93005; 96372; 97150; 97165; 99285; J2060; J3411; J3486; J7030; J9999

== ENCOUNTER 2025-04-29 06:16 | Inpatient (IN) | payer MEDICAID, SELFPAY ==
[2024-11-19 10:42] VITALS: BP 129/93; BMI 24.8
[2025-04-29] VITALS (64 sets, daily range): BP systolic 87–132; BP diastolic 53–98; PULSE 98–150; RESP 14–33; TEMP 34.4–39.1; O2SAT 92–100; BMI 25.7; BMI 26.1
--- OUTSIDE RECORDS SUMMARY | 2025-04-29 06:21 | XMS_ITS | Clinical Summary ---
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 Gender Identity Not on file Sexual Orientation [...] (#1) 2025 Medical Devices Implanted Type Area Lead Front End Developer Device Identifier Shelf Expiration Date Model / Serial / Lot Clip Endo Resolution 360 235cm [id number] - [id number] Implanted:Qty: 1 on 02/28/2020 by Odilon Chacon MD at [facility] Clip N/A: Esophagus [employer] 10/09/2022 [id number] / / [id number] Clip Endo Resolution 360 235cm [id number] - [id number] Implanted:Qty: 1 on 02/28/2020 by Odilon Chacon MD at [facility] Clip N/A: Esophagus [employer] 09/15/2022 [id number] / / [id number] Insurance RX [employer] PLANS (INTERNAL) [facility] Internal Plans Advance Directives For more information, please contact: [phone] * Full Code (Latest Code Status on File) Date Activated Date Inactivated Comments 02/28/2020 3:20 AM 03/01/2020 1:16 PM * Full Code Date Activated Date Inactivated Comments 03/17/2019 7:22 AM 03/19/2019 3:21 PM * Full Code Date Activated Date Inactivated Comments 06/16/2018 10:29 PM 06/17/2018 2:18 PM * Full Code Date Activated Date Inactivated Comments 06/07/2018 9:34 PM 06/10/2018 1:11 AM Care Teams Chipper Relationship Specialty Start Date End Date Eh Hilario MD [address] [place] [id number] PCP - General Family Practice 02/27/20
--- OUTSIDE RECORDS SUMMARY | 2025-04-29 06:21 | XMS_ITS | Encounter Summary ---
Author Organization [facility] Address [address] [place] [address] Care Team Providers Care Foot Specialist Name Role Phone Eh Hilario MD Primary Care Provider [phone] Reason for Visit * Reason Onset Date Comments Medication Refill 10/17/2023 Encounter Details Date Type Department Care Team (Late st Contact Info) Description 10/17/2023 Telephone [facility] 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 AL CAREGIVER documented in this encounter Plan of Treatment Not on file documented as of this encounter Visit Diagnoses Not on filedocumented in this encounter Care Teams Foot Specialist Relationship Specialty Start Date End Date Eh Hilario MD [address] [place] [address] PCP - General Family Practice 02/27/20 documented as of this encounter
--- OUTSIDE RECORDS SUMMARY | 2025-04-29 06:21 | XMS_ITS | Clinical Summary ---
Author Organization [facility] Address [address] Attn: Epic Prelude ADT [place] [address] Care Team Providers Care Supervisor Stitching Department Name Role Phone Eh Hilario MD Primary Care Provider [phone] Allergies No known active allergies Medications naltrexone [...] 25 Active Neomycin-Bacitra betsey Zn-Polymyxin (NEOSPORIN) 3.5-400-5,000 yo-wdwa-bfoc Ointment in Packet Apply to affected area daily. 02/25/20 25 Active multivitamin tx with iron and folic acid tablet 18-400 mg-mcg Tablet Take 1 Tablet by mouth daily. 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 use disorder, moderate 03/17/2019 Cocaine use disorder, moderate, dependence 03/17 BRUEC (generalized anxiety disorder) 12/21/2018 History of cerebral [...] - 03/08/2025 11:59 PM CDT Hospital Encounter [facility] [place] [address] [place] [phone] Ambulance, [facility] Discharge Disposition: [facility] 03/08/2025 External Device Data STL ABSTRACTION Provider, Abstract 03/06/2025 10:15 PM CDT - 03/06/2025 10:19 PM CDT Emergency [facility] Emergency Department [address] [place] [phone] Discharge Disposition: Left without being seen 03/06/2025 12:15 AM CDT - 03/06/2025 11:59 PM CDT Hospital Encounter [facility] [address] [place] [address] Ambulance, [facility] Discharge Disposition: [facility] 03/06/2025 Travel 02/16/2025 11:25 PM CDT - 02/23/2025 10:14 AM CDT Hospital Encounter [facility] In[facility] [address] [place] [address] Mei Cui MD Hinkle, MD Sunni Hastings, MD Kade Martin, Shaan Montana, MD Hartley, MD Perez Joseph, MD Paulette Ortiz, Melissa Moise, DO Ansari, Sebas Evangelista, MD Melo, Shaan Lewis MD Bipolar II disorder, most recent episode major depressive (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 Gender Identity Not on file Sexual [...] Done Comments HPV VACCINES (1 - Male 3-dos e series) 2011 COVID-19 Vaccine (3 - 2023-2 5 season) 2024 03/20/2021, 09/14/2020 INFLUENZA VACCINE (#1) 2025 06/01/2020 DTAP/TDAP/TD VACCINES (4 - T d or Tdap) 01/14/2035 01/14/2025, 07/13/2024, 06/23/2023 HEPATITIS B VACCINES Completed 02/16/1997, 1996, 1996 Medical Devices Implanted Type Area Analytics Intern Device Identifier Shelf Expiration Date Model / Serial / Lot Clip Endo Resolution 360 235cm [id number] - [id number] Implanted:Qty: 1 on 02/28/2020 by Odilon Chacon MD Clip N/A: Esophagus [employer] 10/09/2022 [id number] / / [id number] Clip Endo Resolution 360 235cm [id number] - [id number] Implanted:Qty: 1 on 02/28/2020 by Odilon Chacon MD Clip N/A: Esophagus [employer] 09/15/2022 [id number] / / [id number] Procedures Procedure Name Priority Date/Time Associated Diagnosis Comments HEMOGLOBIN AND HEMATOCRIT Routine 02/19/2025 4:06 PM CDT DRUG SCREEN, URINE Stat 02/17/2025 2: 55 AM CDT LACERATION REPAIR Routine 02/17/2025 12: 56 AM CDT ETHANOL LEVEL Stat 02/17/2025 12:11 AM CDT COMPREHENSIVE METABOLIC PANEL Stat 02/17/2025 12:11 AM CDT CBC WITH DIFFERENTIAL Stat 02/17/2025 12:11 AM CDT from Last 3 Months Results * (ABNORMAL) HEMOGLOBIN AND HEMATOCRIT (02/19/2025 4:06 PM CDT) Pathologist [facility] HEMOGLOBIN 12.1(L) 14.0 - 18.0 g/dL 02/19/2025 4:45 PM CDT [facility] HEMATOCRIT 38.9(L) 41.0 - 53.0 % 02/19/2025 4:45 PM CDT [facility] Blood Venipuncture / Unknown 02/19/2025 4:06 PM CDT 02/19/2025 4:31 PM CDT us Rosanne Wang NP HEMATOLOGY ORDERABLES Final Resu lt [facility] CLIA # [id number] [address] [place] [address] [place] [address] * (ABNORMAL) DRUG SCREEN, URINE (02/17/2025 2:55 AM CDT) AMPHETAMINE QUAL, URINE Negative Negative 02/17/2025 3:54 AM CDT [facility] BARBITURATE QUAL, URINE Negative Negative 02/17/2025 3:54 AM T [facility] BENZODIAZEPINE QUAL, URINE Negative Negative 02/17/2025 3:54 AM [facility] COCAINE QUAL URINE Negative Negative 02/17/2025 3:54 AM T [facility] OPIATE QUAL, URINE Negative Negative 02/17/2025 3:54 AM [facility] CANNABINOIDS QUAL, URINE Negative Negative 02/17/2025 3:54 AM T [facility] OXYCODONE QUAL, URINE Negative Negative 02/17/2025 3:54 AM [facility] METHADONE QUAL, URINE Negative Negative 02/17/2025 3:54 AM T [facility] FENTANYL QUAL, URINE Negative Negative 02/17/2025 3:54 AM [facility] CREATININE, URINE 28.5(L) 40.0 - 278.0 mg/dL 02/17/2025 3:54 AM [facility] Comment:Reference Range vari es with fluid intake and diet. Urine URINE SPECIMEN OBTAINED BY CLEAN CATCH PROCEDURE / Unknown Collection / Unknown 02/17/2025 2:55 AM T 02/17/2025 3:02 AM T Narrative [facility] - 02/17/2025 3:54 AM T This test is a qualitative screen. The [...] Cui MD URINE ORDERABLES F inal Result [facility] CLIA # [id number] [facility] [address] [place] [address] * Laceration Repair (02/17/2025 12:56 AM CDT) [...] Alternatives discussed: No treatment and delayed treatment [place] protocol: Procedure explained and questions answered to [...] (ABNORMAL) CBC WITH DIFFERENTIAL (02/17/2025 12:11 AM CD) [facility] WBC 5.6 4.5 - 11.0 K/uL 02/17/2025 12:26 AM [facility] RBC 4.02(L) 4.60 - 6.20 M/uL 02/17/2025 12:26 AM [facility] HEMOGLOBIN 11.8(L) 14.0 - 18.0 g/dL 02/17/2025 12:26 AM [facility] HEMATOCRIT 37.1(L) 41.0 - 53.0 % 02/17/2025 12:26 AM [facility] MCV 92.3 84.0 - 103.0 fL 02/17/2025 12:26 AM [facility] MCH 29.4 27.0 - 34.0 pg 02/17/2025 12:26 AM [facility] MCHC 31.8 30.0 - 35.0 g/dL 02/17/2025 12:26 AM [facility] PLATELETS 442(H) 140 - 440 K/uL 02/17/2025 12:26 AM [facility] MPV 9.4 8.9 - 12.8 fL 02/17/2025 12:26 AM [facility] RDW 13.1 11.0 - 14.5 % 02/17/2025 12:26 AM [facility] RDW-STDEV 44.5 37.0 - 54.0 fL 02/17/2025 12:26 AM [facility] NEUTROPHILS 59 42 - 75 % 02/17/2025 12:26 AM [facility] LYMPHOCYTES 29 24 - 44 % 02/17/2025 12:26 AM [facility] MONOCYTES 10 2 - 10 % 02/17/2025 12:26 AM [facility] EOSINOPHILS 1 0 - 7 % 02/17/2025 12:26 AM [facility] BASOPHILS 1 0 - 1 % 02/17/2025 12:26 AM CDT [facility] IMMATURE GRANULOCYTES 0 0 - 2 % 02/17/2025 12:26 AM T [facility] NEUTROPHIL ABSOLUTE 3.31 2.00 - 8.00 K/uL 02/17/2025 12:26 AM CDT [facility] LYMPHOCYTE ABSOLUTE 1.60 1.20 - 4.00 K/uL 02/17/2025 12:26 AM CDT [facility] MONOCYTE ABSOLUTE 0.57 0.10 - 0.60 K/uL 02/17/2025 12:26 AM CDT [facility] EOSINOPHIL ABSOLUTE 0.06 0.00 - 0.70 K/uL 02/17/2025 12:26 AM T [facility] BASOPHILS ABSOLUTE 0.06 0.00 - 0.20 K/uL 02/17/2025 12:26 AM [facility] IMMATURE GRANULOCYTES ABSOLUTE 0.01 0.00 - 0.10 K/uL 02/17/2025 12:26 AM [facility] SMEAR REVIEWED: NA - Not Applicable 02/17/2025 12:26 AM [facility] Blood Venipuncture / Unknown 02/17/2025 12:11 AM CDT 02/17/2025 12:21 AM CDT us Mei Cui MD HEMATOLOGY ORDERAB LES Final Result [facility] CLIA # [id number] [address] [place] [address] [place] [address] * (ABNORMAL) ETHANOL LEVEL (02/17/2025 12:11 AM CDT) ETHANOL 201.57(H) <10.10 mg/dL 02/17/2025 12:52 AM CDT [facility] ETHANOL % 0.20(H) <=0.01 %w/v 02/17/2025 12:52 AM CDT [facility] Blood Venipuncture / Unknown 02/17/2025 12:11 AM CDT 02/17/2025 12:21 AM CDT Mei Cui MD CHEMISTRY ORDERABL ES Final Result [facility] CLIA # [id number] [address] [address] [place] [address] * (ABNORMAL) COMPREHENSIVE METABOLIC PANEL (02/17/2025 12:11 AM CDT) SODIUM 143 136 - 145 mmol/L 02/17/2025 12:52 AM CDT [facility] POTASSIUM 3.9 3.5 - 5.1 mmol/L 02/17/2025 12:52 AM T [facility] CHLORIDE 109(H) 98 - 107 mmol/L 02/17/2025 12:52 AM T [facility] CO2 22 22 - 29 mmol/L 02/17/2025 12:52 AM T [facility] CALCIUM 8.6 8.6 - 10.0 mg/dL 02/17/2025 12:52 AM T [facility] BUN 3(L) 6 - 20 mg/dL 02/17/2025 12:52 AM T [facility] CREATININE 0.92 0.67 - 1.17 mg/dL 02/17/2025 12:52 AM T [facility] GLUCOSE 93 74 - 99 mg/dL 02/17/2025 12:52 AM T [facility] TOTAL PROTEIN 6.6 6.4 - 8.3 g/dL 02/17/2025 12:52 AM T [facility] ALBUMIN 3.8 3.5 - 5.2 g/dL 02/17/2025 12:52 AM T [facility] BILIRUBIN TOTAL 0.2 0.0 - 1.0 mg/dL 02/17/2025 12:52 AM T [facility] ALKALINE PHOSPHATASE 130(H) 40 - 129 U/L 02/17/2025 12:52 AM T [facility] AST 24 10 - 50 U/L 02/17/2025 12:52 AM CDT [facility] ALT 18 <=50 U/L 02/17/2025 12:52 AM T [facility] GFR >60 >=60 mL/min/1.7 3 sq meter 02/17/2025 12:52 AM T [facility] Comment:eGFR calculated with 2020 CKD-EPI equation. Vegetarian diet, extremely high or low muscle mass, and may affect results. Cystatin C with Glomerular Filtration Rate is a suitable alternative for these patients. ANION GAP 12 9 - 20 mmol/L 02/17/2025 12:52 AM T [facility] Blood Venipuncture / Unknown 02/17/2025 12:11 AM CDT 02/17/2025 12:21 AM CDT Mei Cui MD CHEMISTRY ORDERABL ES Final Result [facility] CLIA # [id number] [facility] [id number] from Last 3 Months Insurance [facility] [facility] MEDICAID * Guarantor: GRIS DEVLIN Account Type Relation to Patient Date of Phone Billing Address Personal/Family [address] [place] [id number] RX [employer] PLANS (INTERNAL) [facility] Internal Plans [facility] [employer] MEDICAID Advance Directives For more information, please contact: [phone] * Full Code (Latest Code Status on [...] 11:33 AM 07/04/2023 2:35 PM Care Teams Supervisor Stitching Department Relationship Specialty Start Date End Date Eh Hilario MD [address] [place] [address] PCP - General Family Practice 02/27/20
--- OUTSIDE RECORDS SUMMARY | 2025-04-29 06:21 | XMS_ITS ---
Author Organization [facility] Address [address] [facility] Attn: Epic Prelude ADT [place] [address] Care Team Providers Care Boat Tender Name Role Phone Eh Hilario MD Primary Care Provider [phone] Active Problems Problem Noted Date Diagnosed Date [...] Laceration of right middle finger 07/14/2023 Other nursing home (current) drug therapy 3 Tobacco user 07/14/2023 [...]
--- NOTE | 2025-04-29 06:24 | CTR_ITS ---
PROCEDURE INFORMATION: Exam: CT Head Without Contrast Exam date and time: 04/29/2025 7:22 AM Age: 29 years old Clinical indication: Altered mental status/memory loss and coma or unconsciousness; Confusion or disorientation; Additional info: Obtunded new onset seizures TECHNIQUE: Imaging protocol: Computed tomography of the head without contrast. Radiation optimization: All CT scans at this facility use at least one of these dose optimization techniques: automated exposure control; mA and/or kV adjustment per patient size (includes targeted exams where dose is matched to clinical indication); or iterative reconstruction. COMPARISON: CT head wo con* [id number] 12/28/2024 10:34 AM RADIATION DOSE METRICS: Total DLP (mGy-cm): 1015.68 FINDINGS: Brain: There is no evidence of acute parenchymal hemorrhage, extra-axial collection, or acute infarction. There is no mass effect, midline shift, or downward herniation. Cerebral ventricles: No ventriculomegaly. Paranasal sinuses: There is partial opacification of the paranasal sinuses. The patient is intubated. Mastoid air cells: Visualized mastoid air cells are well aerated. Bones: Unremarkable. No acute fracture. Soft tissues: Unremarkable. CT/CT head wo con* [id number] IMPRESSION: No acute intracranial abnormality.
--- NOTE | 2025-04-29 06:24 | XRR_ITS ---
PROCEDURE INFORMATION: Exam: XR Chest Exam date and time: 04/29/2025 6:28 AM Age: 29 years old Clinical indication: Device placement; Ett placement (vent status); Additional info: Dyspnea/cough TECHNIQUE: Imaging protocol: Radiologic exam of the chest. Views: 1 view. COMPARISON: CR (CHEST, ) 04/10/2025 2:33 AM FINDINGS: Tubes, catheters and devices: The patient is intubated. The endotracheal tube tip is seen 4.2 cm above the silvina. There is an enteric tube projecting into the stomach. Lungs: Unremarkable. No consolidation. Pleural spaces: Unremarkable. No pleural effusion. No pneumothorax. Heart/Mediastinum: Unremarkable. No cardiomegaly. Bones/joints: Unremarkable. XR/XR chest 1V portable [id number] IMPRESSION: No acute findings.
--- NOTE | 2025-04-29 06:32 | ED_ITS ---
HPI - General Adult 2 General: Chief complaint: Overdose Stated complaint: possible od Time Seen by Provider: 04/29/25 06:24 History of Present Illness: 29-year-old male arrives via EMS in [facility] re respiratory distress with hypoxia. They were unable to oxygenate in the field. Patient was found down had 1 witnessed seizure and route. He has a history of multiple previous suicide attempts he still has ysabel in his left wrist from previous suicide attempt 2- 1/2 weeks ago. Patient is unable to give any history. EMS was called by family members in the home who found the patient down early this morning. There is no report of the last time when he was seen awake and verbal at baseline. He was given Narcan x 2 and route with no response. On arrival he has sonorous respirations with audible wheezes no verbal responses. EMS reports witnessing seizure in room. Patient has extensive psych history. He has no known seizure history. He is known to use alcohol excessively. Related Data Previous Rx's ?Medication ?Instructions ?Recorded gabapentin 800 mg tablet 800 mg PO TID 30 days #90 ta bs 02/15/25 mupirocin 2 % topical ointment 1 applic topical BID #2 2 grams 04/04/25 (Centany) rxmdjazm-pmrzcvcqa-pmteneup 3.5 1 drp ophthalmic (eye) Q8H #5 mL 04/04/25 mg/mL-10,000 unit/mL-0.1% eye drops (Maxitrol) amoxicillin 875 mg-potassium 1 tab PO BID 10 days #20 tabs 04/13/25 clavulanate 125 mg tablet duloxetine 60 mg capsule,delayed 120 mg (2 x 60 mg) PO DAILY 30 04/13/25 release days #60 caps folic acid 1 mg tablet 1 mg PO DAILY 30 days #30 ta bs 04/13/25 naltrexone microspheres 380 mg 380 mg IM .once every 2 8 days #1 ea 04/13/25 intramuscular suspension,extended release quetiapine 150 mg tablet,extended 150 mg PO 1900 30 da ys #30 tabs 04/13/25 release 24 hr thiamine mononitrate (vit B1) 100 100 mg PO DAILY 30 d ays #30 tabs 04/13/25 mg tablet (Vitamin B-1 (mononitrate)) Allergies Allergy/AdvReac Type Severity Reaction Status Date / Time No Known Allergies Allergy Verified 04/04/25 14:58 Review of Systems 2 General: Reports: ROS unobtainable due to medical condition and ROS unobtainable due to mental status PFSH ED 2 PFSH: Medical History History of methamphetamine abuse Alcohol use disorder Major depressive disorder, 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 Generalized anxiety disorder Major depressive disorder, recurrent PTSD (post-traumatic stress disorder) Tremors of nervous system Psychiatric care Surgical History History of repair of congenital cleft palate Social History Smoking and tobacco/nicotine status: current every day tobacco/nicotine user Quit status (tobacco/nicotine): not considering quitting Second hand smoke exposure: Yes Alcohol intake: current Alcohol intake frequency: few times a week Alcohol type: hard liquor Physical Exam 2 Const: ORIENTATION/CONSCIOUSNESS: Yes patient obtunded HENMT: COMMON NORMALS: normocephalic, atraumatic and hearing grossly normal bilaterally HEAD & SCALP: normocephalic and atraumatic Resp: EFFORT & INSPECTION: Yes abnormal respiratory pattern, Yes respiratory distress, Yes decreased respiratory effort, Yes grunting, Yes stridor, Yes uses accessory muscles and Yes audible wheezes AUSCULTATION: rhonchi Cardio: COMMON NORMALS: regular rate, regular rhythm and No murmurs present (Cardio) RATE: regular rate and tachycardic RHYTHM: regular rhythm GI: COMMON NORMALS: Soft to palpation and No hepatosplenomegaly present A USCULTATION: Yes normoactive bowel sounds PALPATION: Yes Soft to palpation, No Tenderness to palpation present (GI), No Guarding due to palpation present (GI) and Yes No hepatosplenomegaly present Extremity: COMMON NORMALS: normal to inspection, capillary refill normal, no clubbing, cyanosis or edema, no calf tenderness and no pedal edema Skin: COMMON NORMALS: no rashes or lesions noted GENERAL SKIN EXAM: no rashes or lesions noted Procedures Intubation sedative: Etomidate paralytic: Vecuronium Laryngoscope: fiber optic video scope ET Tube Size: 8 ET Tube Uncuffed: No Tube Secured Depth (cm): 22 Tube Placement Confirmation: visualized tube passing through cords, equal breath sounds bilaterally, no breath sounds over epigastrium and confirmation by capnometry Patient Tolerated Procedure: well Intubation Complications: none Course 2 Vital Signs: Vital signs: Vital Signs Temperature 98.3 F 05/09/25 14:00 Pulse Rate 99 05/09/25 14:00 Respiratory Rate 17 05/09/25 14:00 Blood Pressure 118/82 05/09/25 14:00 Pulse Oximetry 100 05/09/25 14:00 Oxygen Delivery Me thod Room Air 05/08/25 19:56 Oxygen Flow Rate 2 05/02/25 08:20 Fraction of Inspir ed Oxygen 21 05/01/25 13:05 MDM - General Adult Medical Decision Making Acute respiratory failure with suspected overdose. Patient intubated shortly after arrival at the time of intubation there was vomitus around the cords. No difficulty with intubation. Patient placed on sedation will admit cover with antibiotics for concern for aspiration pneumonia. Medical Records I reviewed the patient's medical records. Lab Data I reviewed the patient's lab results. 05/04/25 07:35 05/04/25 07:35 Radiology Impressions Chest X-Ray 04/29/25 06:24 IMPRESSION: No acute findings. Head CT 04/29/25 06:24 IMPRESSION: No acute intracranial abnormality. KUB X-Ray 04/29/25 07:43 Impression: Oral gastric tube probably ends in the fundus of the stomach. Laboratory Results WBC 15.38 10^3/uL (3.29-11.43) H 04/29/25 06:49 RBC 4.04 10^6/uL (3.85-5.65) 04/29/25 06:49 Hgb 11.10 g/dL (11.27-16.99) L 04/29/25 06:49 Hct 35.5 % (37-53) L 04/29/25 06:49 MCV 87.9 fl (82-101) 04/29/25 06:49 MCH 27.5 pg (27-33) 04/29/25 06:49 MCHC 31.3 g/dL (30-55) 04/29/25 06:49 RDW 15.8 % (12.1-15.1) H 04/29/25 06:49 Plt Count 365 10^3/cmm (157-399) 04/29/25 06:49 MPV 9.6 fL (7.4-10.4) 04/29/25 06:49 Neut % (Auto) 88.9 % 04/29/25 06:49 Lymph % (Auto) 6.1 % 04/29/25 06:49 [place] % (Auto) 4.4 % 04/29/25 06:49 Eos % (Auto) 0.0 % 04/29/25 06:49 Baso % (Auto) 0.3 % 04/29/25 06:49 Neut # (Auto) 13.66 10^3/uL (1.8-7.7) H 04/29/25 06:49 Lymph # (Auto) 0.9 10^3/uL (0.8-4.8) 04/29/25 06:49 [place] # (Auto) 0.7 10^3/uL (0.2-0.9) 04/29/25 06:49 Eos # (Auto) 0.0 10^3/uL (0.0-0.8) 04/29/25 06:49 Baso # (Auto) 0.1 10^3/uL (0.0-0.1) 04/29/25 06:49 Nucleated RBC % (auto) 0 % 04/29/25 06:49 Nucleated RBCs # 0.0 /100WBC 04/29/25 06:49 Specimen Type Arterial 04/29/25 07:59 Sample Site Brachial, right 04/29/25 07:59 ABG pH 7.30 (7.35-7.45) L 04/29/25 07:59 ABG pCO2 27.9 mmHg (35-45) L 04/29/25 07:59 ABG pO2 90.4 mmHg (80.0-100.0) 04/29/25 07:59 ABG PO2/FiO2 Ratio 150 04/29/25 07:59 ABG HCO3 13.7 mmol/L (22-26) L 04/29/25 07:59 ABG O2 Saturation 98.0 04/29/25 06:29 ABG Base Excess -11.4 mmol/L (-2.0-2.0) L 04/29/25 07:59 [place] Test Pos 04/29/25 07:59 A-a O2 Gradient 71.4 mmHg (5-10) H 04/29/25 06:29 Hematocrit 29.2 % (42-52) L 04/29/25 07:59 Hgb O2 Saturation 97.0 % (95-100) 04/29/25 06:29 Carboxyhemoglobin 0.8 %THgb (0.4-20.1) 04/29/25 06:29 Methemoglobin 0.2 % (0.4-1.5) L 04/29/25 06:29 Total Hemoglobin 10.1 g/dL (14-18) L 04/29/25 06:29 Sodium 151.0 mmol/L (131-143) H 04/29/25 06:29 Potassium 2.9 mmol/L (3.5-5.0) L 04/29/25 06:29 Glucose 139.0 mg/dL (70-115) H 04/29/25 06:29 Ionized Calcium 1.0 mmol/L (1.1-1.4) L 04/29/25 06:29 O2 Delivery Device Vent 04/29/25 07:59 FiO2 60.0 % 04/29/25 07:59 Tidal Volume 0.55 04/29/25 07:59 PEEP 10.0 cmH20 04/29/25 07:59 Chemist Food ID Cak 04/29/25 07:59 Sodium 145 mmol/L (136-145) 04/29/25 06:49 Potassium 3.5 mmol/L (3.5-5.1) 04/29/25 06:49 Chloride 107 mmol/L (98-107) 04/29/25 06:49 Carbon Dioxide 14 mmol/L (22-29) L 04/29/25 06:49 Anion Gap 27.5 (5-19) H 04/29/25 06:49 BUN 10 mg/dL (6-20) 04/29/25 06:49 Creatinine 1.5 mg/dL (0.7-1.2) H 04/29/25 06:49 GFR Calculation 55.7 mL/min (90-130) L 04/29/25 06:49 Glucose 158 mg/dL (65-115) H 04/29/25 06:49 Calculated Osmolality 302 mOsm/kg (285-295) H 04/29/25 06:49 Lactic Acid 8.3 mmol/L (0.5-2.2) H* 04/29/25 07:16 Calcium 8.1 mg/dL (8.5-10.5) L 04/29/25 06:49 Magnesium 1.6 mg/dL (1.7-2.3) L 04/29/25 06:49 Total Bilirubin 0.3 mg/dL (0.15-1.2) 04/29/25 06:49 AST 27 U/L (0-40) 04/29/25 06:49 ALT 14 U/L (0-41) 04/29/25 06:49 Alkaline Phosphatase 137 U/L (40-130) H 04/29/25 06:49 Creatine Kinase 200 U/L (39-308) 04/29/25 06:49 Troponin T Baseline 7 ng/L (0-15) 04/29/25 06:49 Total Protein 5.9 g/dL (6.6-8.7) L 04/29/25 06:49 Albumin 3.6 g/dL (3.5-5.2) 04/29/25 06:49 Globulin 2.3 g/dL (1.3-4.6) 04/29/25 06:49 Lipase 20 U/L (13-60) 04/29/25 06:49 TSH 0.57 uIU/mL (0.27-4.20) 04/29/25 08:05 Urine Color Yellow (Yellow) 04/29/25 06:20 Urine Appearance Clear (CLEAR) 04/29/25 06:20 Urine pH 5.5 (5-7) 04/29/25 06:20 Ur Specific [place] 1.008 (1.005-1.030) 04/29/25 06:20 Urine Protein Negative (Negative) 04/29/25 06:20 Urine Glucose (UA) Negative (Normal) 04/29/25 06:20 Urine Ketones Negative (Negative) 04/29/25 06:20 Urine Blood Negative (Negative) 04/29/25 06:20 Urine Nitrate Negative (Negative) 04/29/25 06:20 Urine Bilirubin Negative (Negative) 04/29/25 06:20 Urine Urobilinogen 0.2 mg/dL (Negative) 04/29/25 06:20 Ur Leukocyte Esterase Negative (Negative) 04/29/25 06:20 Amorphous Sediment Not Reportable 04/29/25 06:20 Salicylates < 0.3 mg/dL (3-10) L 04/29/25 06:49 Urine Opiates Screen Negative ng/mL (Negative) 04/29/25 06:20 Acetaminophen < 5.0 ug/mL (10-30) L 04/29/25 06:49 Ur Barbiturates Screen Negative ng/mL (Negative) 04/29/25 06:20 Ur Phencyclidine Scrn Negative ng/mL (Negative) 04/29/25 06:20 Ur Amphetamines Screen Negative ng/mL (Negative) 04/29/25 06:20 U Benzodiazepines Scrn Negative ng/mL (Negative) 04/29/25 06:20 Urine Cocaine Screen Negative ng/mL (Negative) 04/29/25 06:20 U Marijuana (THC) Screen Negative ng/mL (Negative) 04/29/25 06:20 Ethyl Alcohol 265 mg/dL (0-10) H 04/29/25 06:49 Influenza A (PCR) Negative (Negative) 04/29/25 07:16 Influenza Type B (PCR) Negative (Negative) 04/29/25 07:16 RSV (PCR) Negative (Negative) 04/29/25 07:16 SARS-CoV-2 (PCR) Negative (Negative) 04/29/25 07:16 All radiology interpretation(s) finalized by discharge Discharge Plan Discharge Patient Disposition: Admitted As Inpatient Admit Provider: Gilles Ferreira Clinical Impression: Hypoxic respiratory failure, Acute encephalopathy, Aspiration pneumonia Condition: Stable Coding Level of Care Code ED Rn Support Services for Wilfredo Doherty
[2025-04-29] MEDS: midazolam hcl 100 MG/100 ML BAG IV (06:38)
[2025-04-29 06:40] LABS: ABG PCO2 30.5 mmHg (35-45); ABG PH Result 7.27 (7.35-7.45); Alveolar-Arterial Oxygen Gradi 71.4 mmHg (5-10); Arterial Blood Gas Hematocrit 30.9 % (42-52); Blood Gas Operator Identificat SAM; Blood Gas Sample Site Brachial, right; Blood Gas Sample Type Arterial; Carboxyhemoglobin 0.8 %THgb (0.4-20.1); Glucose Level-ABG 139.0 mg/dL (70-115); HCO3 ABG 13.9 mmol/L (22-26); Ionized Calcium Level - ABG 1.0 mmol/L (1.1-1.4); Methemoglobin 0.2 % (0.4-1.5); Oxygen Saturation ABG 98.0; PEEP 12.0 cmH20; PO2 ABG 123.0 mmHg (80.0-100.0); PO2 FiO2 Ratio Arterial Blood 123; Potassium Level - ABG 2.9 mmol/L (3.5-5.0); Sodium Level - ABG 151.0 mmol/L (131-143)
[2025-04-29] MEDS: fentaNYL 1,000 MCG/100 ML BAG 2.5 MCG IV (06:48)
[2025-04-29] MEDS: cefTRIAXone 1,000 mg SDV 1000 MG IVP (06:52)
--- NOTE | 2025-04-29 06:52 | ECG_ITS ---
[employer] Test Date: 2025-04-29 Pat Name: Darell Devlin Department: Room: Gender: Male Director Of Acquisitions: : 1995 Requested By: Marco Rosenbaum Order Number: [id number] Pizarro MD: Dylan Rivera M.D. Measurements Intervals [place] Rate: 135 P: 0 OR: 0 QRS: 78 QRSD: 94 T: 92 QT: 333 QTc: 499 Interpretive Statements ATRIAL FLUTTER/TACHYCARDIA WITH RAPID VENTRICULAR RESPONSE INCOMPLETE RIGHT BUNDLE BRANCH BLOCK [90+ ms QRS DURATION, TERMINAL R IN V1/V2, 40+ ms S IN I/aVL/V4/V5/V6] ST depression, consider ischemia ABNORMAL RHYTHM ECG Compared to ECG 04/10/2025 02:13:02 ST depression is new Sinus tachycardia no longer present Electronically Signed On 04-29-2025 14:11:43 CDT by Dylan Rivera M.D. [email or web address]
[2025-04-29 06:55] LABS: Hematocrit 35.5 % (37-53); Hemoglobin 11.10 g/dL (11.27-16.99); Mean Corpuscular HGB Conc 31.3 g/dL (30-55); Mean Corpuscular Hemoglobin 27.5 pg (27-33); Mean Corpuscular Volume 87.9 fl (82-101); Nucleated Red Blood Cells % 0 %; Platelet Count 365 10^3/cmm (157-399); Red Blood Count 4.04 10^6/uL (3.85-5.65); White Blood Count 15.38 10^3/uL (3.29-11.43)
--- NOTE | 2025-04-29 06:55 | PC.NURSE ---
RSI RECORDED BY SILK WASHING MACHINE OPERATOR JUAN PAUL AND DOCUMENTED BY JUAN HARO: 0621- 20 ETOMIDATE 0621- 10 VECURONIUM 0622- INTUBATED 24 @TEETH, SZ 8 0623- VITALS 95/51, 149 PULSE, 92% O2
[2025-04-29] MEDS: levETIRAcetam 1,500 MG/100 ML PREMIX 400 MG IV (06:56)
[2025-04-29 07:03] LABS: Add Urine Microscopic? NO
[2025-04-29 07:07] LABS: Glucose Urine UA Negative (Normal); Nitrate Urine Negative (Negative); Specific Gravity, Urine 1.008 (1.005-1.030)
[2025-04-29 07:12] LABS: Troponin(5th) Baseline 7 ng/L (0-15)
[2025-04-29 07:13] LABS: PCP Screen Urine Negative (Negative)
[2025-04-29 07:24] LABS: Charge for UA Resulting for Rev
[2025-04-29 07:24] LABS: Alanine Aminotransferase 14 U/L (0-41); Albumin Level 3.6 g/dL (3.5-5.2); Alcohol Level 265 mg/dL (0-10); Alkaline Phosphatase 137 U/L (40-130); Anion Gap 27.5 (5-19); Aspartate Amino Transferase 27 U/L (0-40); Blood Urea Nitrogen 10 mg/dL (6-20); Calcium 8.1 mg/dL (8.5-10.5); Carbon Dioxide 14 mmol/L (22-29); Chloride 107 mmol/L (98-107); Creatinine Clr Calc Pharmacy 84.0344; Globulin 2.3 g/dL (1.3-4.6); Glucose 158 mg/dL (65-115); Lipase 20 U/L (13-60); Magnesium 1.6 mg/dL (1.7-2.3); Osmolality Calculated 302 mOsm/kg (285-295); Potassium 3.5 mmol/L (3.5-5.1); Sodium 145 mmol/L (136-145); Total Protein 5.9 g/dL (6.6-8.7)
[2025-04-29 07:26] LABS: Acetaminophen < 5.0 ug/mL (10-30); Salicylate < 0.3 mg/dL (3-10)
--- NOTE | 2025-04-29 07:43 | XR_ITS ---
WS: [id number] KUB, AP view of the thorax and upper abdomen, 04/29/2025 Clinical Data: OG placement Comparison: None. Findings: The oral gastric tube appears to be within the esophagus and it ends in the fundus of the stomach. XR/XR KUB portable [id number] Impression: Oral gastric tube probably ends in the fundus of the stomach.
[2025-04-29 07:59] LABS: Lactic Sepsis W/Reflex 8.3 mmol/L (0.5-2.2)
[2025-04-29 08:03] LABS: ABG PCO2 27.9 mmHg (35-45); ABG PH Result 7.30 (7.35-7.45); Arterial Blood Gas Hematocrit 29.2 % (42-52); Blood Gas Allen Test Pos; Blood Gas Operator Identificat CAK; Blood Gas Sample Site Brachial, right; Blood Gas Sample Type Arterial; Blood Gas Tidal Volume 0.55; HCO3 ABG 13.7 mmol/L (22-26); PEEP 10.0 cmH20; PO2 ABG 90.4 mmHg (80.0-100.0); PO2 FiO2 Ratio Arterial Blood 150
[2025-04-29 08:16] LABS: Reflex Lactate Order REFLEX LACTIC ORDERD
[2025-04-29 08:19] LABS: Respiratory Syncytial Virus Ce NEGATIVE (Negative); SARS-CoV-2 PCR NEGATIVE (Negative)
--- NOTE | 2025-04-29 08:25 | ECG_ITS ---
[employer] Test Date: 2025-04-29 Pat Name: Darell Devlin Department: Room: Gender: Male Civil Structural Designer: : 1995 Requested By: Marco Rosenbaum Order Number: [id number] Pizarro MD: Dylan Rivera M.D. Measurements Intervals [place] Rate: 130 P: 0 DE: 0 QRS: 73 QRSD: 98 T: 81 QT: 334 QTc: 492 Interpretive Statements SINUS TACHYCARIA VERSUS ATRIAL FLUTTER/TACHYCARDIA WITH RAPID VENTRICULAR RESPONSE INCOMPLETE RIGHT BUNDLE BRANCH BLOCK [90+ ms QRS DURATION, TERMINAL R IN V1/V2, 40+ ms S IN I/aVL/V4/V5/V6] ABNORMAL ECG Compared to ECG 04/29/2025 06:52:12 ST DEPRESSION HAS DECREASED Electronically Signed On 04-29-2025 14:44:13 CDT by Dylan Rivera M.D. [email or web address]
[2025-04-29 09:19] LABS: Ammonia 26 umol/L (16-60)
[2025-04-29 09:26] LABS: Troponin 5 2HR 8.15 ng/L (0-15); Troponin 5 2HR Delta 1.15 ABS# (0-10)
--- NOTE | 2025-04-29 09:45 | PC.NURSE ---
Pt arrives to ICU from Ed. Pt intubated and sedated. Fentayl gtt at 200mcg/hr and Versed at 6mg/hr infusing without difficulty. O G and restraints in palce. Chatterjee patent and draining dark yellow urine. Rectal thermometer place. Pt remains hyp thermic at 94.3, biar hugger blanket applied.
--- NOTE | 2025-04-29 10:05 | P.HP_ITS ---
Providers/Chief Complaint 2 Admitting Physician: Gilles Ferreira Chief Complaint: possible od History of Present Illness Darell Devlin is a 29 year old male gentleman with a history of major depressive disorder, generalized anxiety disorder, post-traumatic stress disorder, alcohol use disorder, prior methamphetamine use disorder, and prior suicidal ideation/attempt who was found by family this morning confused and vomiting. Emergency Medical Services (EMS) noted oxygen saturations in the 70 % and sinus tachycardia; naloxone was given en route without improvement. A witnessed generalized seizure occurred before hospital arrival. In the emergency department he was intubated for airway protection; vomitus was seen in the oropharynx, raising concern for aspiration. Family reports chronic alcohol use without clear recent reduction, continued vaping, and no stated recent suicidal intent. The patient was described as increasingly withdrawn and depressed since Friday after recent interpersonal stressors. Review of Systems 2 General: Reports: ROS unobtainable due to endotracheal tube, ROS unobtainable due to medical condition and ROS unobtainable due to mental status Medications/Allergies Home Medications ?Medication ?Instructions ?Recorded ?Confirmed ?Last Taken ?Type gabapentin 800 mg tablet 800 mg PO TID 30 days #90 ta bs 02/15/25 04/29/25 Unknown Rx mupirocin 2 % topical ointment 1 applic topical BID #2 2 grams 04/04/25 04/29/25 Unknown Rx (Centany) scudvstz-enmisxmzn-lenofudv 3.5 1 drp ophthalmic (eye) Q8H #5 mL 04/04/25 04/29/25 Unknown Rx mg/mL-10,000 unit/mL-0.1% eye drops (Maxitrol) amoxicillin 875 mg-potassium 1 tab PO BID 10 days #20 tabs 04/13/25 04/29/25 Unknown Rx clavulanate 125 mg tablet duloxetine 60 mg capsule,delayed 120 mg (2 x 60 mg) PO DAILY 30 04/13/25 04/29/25 Unknown Rx release days #60 caps folic acid 1 mg tablet 1 mg PO DAILY 30 days #30 ta bs 04/13/25 04/29/25 Unknown Rx naltrexone microspheres 380 mg 380 mg IM .once every 2 8 days #1 ea 04/13/25 04/29/25 Unknown Rx intramuscular suspension,extended release quetiapine 150 mg tablet,extended 150 mg PO 1900 30 da ys #30 tabs 04/13/25 04/29/25 Unknown Rx release 24 hr thiamine mononitrate (vit B1) 100 100 mg PO DAILY 30 d ays #30 tabs 04/13/25 04/29/25 Unknown Rx mg tablet (Vitamin B-1 (mononitrate)) Allergies Allergy/AdvReac Type Severity Reaction Status Date / Time No Known Allergies Allergy Verified 04/04/25 14:58 PFSH Acute 2 PFSH: Medical History History of methamphetamine abuse Alcohol use disorder Major depressive disorder, 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 Generalized anxiety disorder Major depressive disorder, recurrent PTSD (post-traumatic stress disorder) Tremors of nervous system Psychiatric care Surgical History History of repair of congenital cleft palate Social History Smoking and tobacco/nicotine status: current every day tobacco/nicotine user Quit status (tobacco/nicotine): not considering quitting Second hand smoke exposure: Yes Alcohol intake: current Alcohol intake frequency: few times a week Alcohol type: hard liquor Vitals/I&O/Wt Last Vital Signs Temp 94.9 F L 04/29/25 06:42 Pulse 128 H 04/29/25 09:32 Resp 33 H 04/29/25 09:54 BP 120/66 04/29/25 09:32 Pulse Ox 93 04/29/25 09:54 O2 Del Method Mechanical Ventilation 04/29/25 09:22 FiO2 50 04/29/25 09:54 04/28/25 04/29/25 04/29/25 22:59 06:59 14:59 Intake Total 0.283 / 0.283 2974.700 / 2974.700 Balance 0.283 / 0.283 2974.700 / 2974.700 Weight last 48 hrs Weight 86.183 kg Physical Exam 2 Narrative: Accompanied by his mother and aunt Const: ORIENTATION/CONSCIOUSNESS: Yes patient obtunded and Yes Other orientation findings (Sedated) HENMT: COMMON NORMALS: oropharynx normal Eye: OTHER: Pupils equal, 2 mm Neck/C-Spine: COMMON NORMALS: no JVD Resp: COMMON NORMALS: normal respiratory effort and clear to auscultation bilaterally AUSCULTATION: clear to auscultation bilaterally Cardio: COMMON NORMALS: no JVD, regular rhythm, S1 normal heart sound present, S2 normal heart sound present and No murmurs present (Cardio) RHYTHM: regular rhythm HEART SOUNDS: S1 normal heart sound present and S2 normal heart sound present GI: COMMON NORMALS: Normal to inspection, nondistended, normoactive bowel sounds present, Soft to palpation and non-tender PALPATION: Yes Soft to palpation Extremity: COMMON NORMALS: no joint enlargement and no pedal edema N ARRATIVE EXTREMITY EXAM: Multiple cut sandoval/scars over upper extremities, left shoulder OTHER: [place] over healing wounds/scars from several weeks ago over bilateral wrists Quick SOFA Score: Respiratory Rate: 33 Blood Pressure: 120/66 [place] Coma Scale: 7 qSOFA Score: 2 If qSOFA score 2 or greater, continue: PaO2/FiO2 Ratio (mmHg): 150 Blood Pressure Mean: 80 Bilirubin (mg/dl): 0.3 Platelets (x10?/ml): 365 C reatinine (mg/dl): 1.5 SOFA Score: 7 Evaluation: Current stage of sepsis: sepsis Sepsis stage criteria used: [facility] Sep-1 and Sepsis-3 Crystalloid fluids: 30 mL/kg crystalloid fluids ordered and initiated within 3 hours Blood cultures ordered: Yes Possible source: pulmonary Focused Exam: Vital signs: Temp Pulse Resp BP Pulse Ox O2 Del Method FiO2 04/29/25 10:04 141 H 04/29/25 10:04 Mechanical Ventila tion 04/29/25 09:54 33 H 93 50 04/29/25 09:32 128 H 16 120/66 94 04/29/25 09:22 126 H 24 H 116/63 94 Mechanical Ventila tion 04/29/25 08:55 126 H 24 H 120/67 97 Mechanical Ventila tion 04/29/25 08:17 24 H 50 04/29/25 07:45 124 H 24 H 108/58 97 Mechanical Ventila tion 04/29/25 06:42 94.9 F L 134 H 24 H 124/66 98 Mechanical Ventila tion 04/29/25 06:40 24 H 100 Respiratory exam: CTA bilaterally Capillary refill: < 3 Seconds Skin exam: no mottling Date exam was performed: 04/29/25 Time exam was performed: 11:04 2 Sepsis Screen No Definite Risk Today, 09:22 Respiratory Rate, (12 - 18) 33 breaths/min H Today, 09:54 Blood Pressure 120/66 mmHg Today, 09:32 [place] Coma Scale Score 7 Today, 10:04 Quick SOFA Score 2 Today, 10:37 SOFA Score: 2 ABG PO2/FiO2 Ratio 150 Today, 07:59 [place] Coma Scale Score 7 Today, 10:04 Blood Pressure Mean 80 mmHg Today, 09:22 Total Bilirubin, (0.15-1.2) 0.3 mg/dL Today, 06:49 Platelet Count, (157-399) 365 10^3/cmm Today, 06:49 Creatinine, (0.7-1.2) 1.5 mg/dL H Today, 06:49 SOFA Score 7 Today, 10:37 Data 04/29/25 06:49 04/29/25 06:49 Micro: Microbiology 04/29/25 07:16 Blood Culture - Preliminary Blood SPECIMEN COLLECTED 04/29/25 07:16 Blood Culture - Preliminary Blood SPECIMEN COLLECTED A&P Assessment and plan 1. Hypoxic respiratory failure: Hypoxic respiratory failure secondary to suspected aspiration pneumonia : Required intubation after profound hypoxia; vomitus seen around vocal cords suggests aspiration; chest imaging noted material consistent with aspiration. With noted tachycardia with new atrial flutter with tachypnea 33 with leukocytosis 15.38 with noted having vomited when he was found, some vomitus in the mouth and around vocal cord during intubation. Reviewed vitals, CBC, ABG x 2, CMP, ammonia, lactic acid, troponin, CK, lipase, EKG, UA, UDS, nasal influenza, RSV, COVID, head CT, chest x-ray, KUB, ED provider note, discussed with ED provider. - Admit to intensive care unit (ICU) - Maintain mechanical ventilation with gradual FiO2 reduction (already down from 100 % to 50 %) - Administer ceftriaxone and azithromycin empirically for possible aspiration pneumonia - Continue oxygen monitoring and reassess pulmonary status in the morning - Pulmonary toilet 2. Seizure: First documented seizure witnessed by EMS; etiology unclear (possible alcohol- related). Per history obtained from his mother he has had seizures in the past. He sneaks alcohol, so she does not always have a great idea of how much he is drinking, but she does check his room and try to get rid of any alcohol she finds. EtOH level found elevated, but she is not sure if she thinks he may have been cutting down recently. Possible withdrawal. - - Administered single dose of levetiracetam (Keppra) in emergency department - Phenobarbital supported alcohol withdrawal therapy - Ongoing neurologic monitoring while intubated 3. Alcohol intoxication: Serum ethanol 265 mg/dL; chronic heavy use reported by family; unclear withdrawal risk. - Supportive care and observation for withdrawal - Family education regarding alcohol use concerns Possible alcohol withdrawal with seizure. Mother reports prior seizures in the past. Will give phenobarbital therapy for withdrawal. Folic acid, timing, multivitamin. 4. Alcohol use disorder: Mother thinks he may have been cutting down but is not sure. Will benefit from rehabilitation options once able to receive them. 5. Atrial flutter: Atrial flutter (supraventricular tachycardia) : Heart rate in 130s with EKG showing possible atrial flutter or atrial tachycardia; thought related to physiologic stress and alcohol. Will start metoprolol 25 mg twice daily. Give aspirin. Replace magnesium. Obtain echocardiogram once heart rate improves. - Encourage alcohol cessation and avoidance. - Continuous cardiac monitoring in ICU - Reassess rhythm as overall condition improves 6. Acute encephalopathy: Acute metabolic encephalopathy with respiratory failure, lactic acidosis, as well as intoxication from alcohol, possible withdrawal, seizure, possible postictal state. No active seizure-like activity at this time. It is unknown how long he had been down overnight. Continue ventilator support. Seizure precautions. Start thiamine, folic acid, multivitamin. Monitor for withdrawal. Reassess mental status with weaning sedation in the morning. 7. Major depressive disorder, recurrent: Major depressive disorder, generalized anxiety disorder, post-traumatic stress disorder, and history of self-harm : Long-standing psychiatric illness with prior cutting behavior; recent interpersonal stress; no current stated suicidal intent per family. Mother noted had been more withdrawn and acting depressed after on and off interactions and fights with an ex-girlfriend earlier in the week. - Request inpatient psychiatric consultation once he is able to communicate because of history of self-harm and ongoing depressive symptoms Plan: Possible severe sepsis with tachypnea, tachycardia, leukocytosis, lactic acidosis 8.3->7.5, possibly pulmonary source after aspiration with aspiration pneumonia suspected, blood cultures collected, received ceftriaxone azithromycin, 30 mL/kg fluid resuscitation. Continue antibiotic. Follow-up cultures. Sputum cultures are requested. - Hypothermia: Rewarm, continue Lois bear Requested to confirm home medications PDMP PDMP Reviewed: Not Reviewed Attestations 2 Medical Necessity Statement*: Admission 40 minutes anticipated for assessment management of acute respiratory failure, acute encephalopathy, alcohol intoxication, possible withdrawal, with seizure, new atrial flutter, additional comorbidities as above. Coding Level of Care Code Critical Care >/= 30 minutes Critical care time (in minutes): 35 The high probability of a clinically significant, sudden or life threatening deterioration, as referenced in this documentation, required my full and direct attention, intervention and personal management. The critical care time shown is in addition to time spent performing any reported separately billable procedures and includes the following: [x] Data and vital sign review and interpretation [x ] Patient assessment, examination and intervention [x] Medication orders and management [x] Patient/Family updates as able [x] Care Coordination and Documentation. Diagnoses Hypoxic respiratory failure J96.91 Seizure R56.9 Alcohol intoxication F10.929 Alcohol use disorder F10.90 Atrial flutter I48.92 Acute encephalopathy G93.40 Major depressive disorder, recurrent F33.9
--- NOTE | 2025-04-29 10:16 | PC.NURSE ---
Addendum entered by Nesha Nguyen RN 04/29/25 10:18: Unable to assess active thoughts or pans at this time Original Note: Suicide assessment: Partially completed based on pt's recent history. Triggered Shiva. consult. Dr Ferreira notified via secure messaging.
[2025-04-29 10:26] LABS: Lactic Acid level (Lactate) 7.5 mmol/L (0.5-2.2)
[2025-04-29] MEDS: magnesium sulfate premix 2 GM/50 ML PIGGYBACK IV (10:41)
[2025-04-29] MEDS: pantoprazole 40 mg SDV IVP (10:41)
[2025-04-29] MEDS: multivitamin therapeutic Tablet 1 TAB PO (11:32)
[2025-04-29] MEDS: PHENobarbital 130 mg/mL SDV 1 mL 350 MG IVP (11:33)
[2025-04-29] MEDS: thiamine 100 mg/mL 2mL SDV IM (11:36)
--- NOTE | 2025-04-29 12:05 | PC.NURSE ---
Lois bear, [place], stopped Temp 99.7 rectal.
--- NOTE | 2025-04-29 12:06 | PC.NURSE ---
CIWA: scoring not accurate as pt sedated and intubated.
[2025-04-29] MEDS: fentaNYL 1,000 MCG/100 ML BAG 20 MCG IV ×3 (12:11→21:18)
--- NOTE | 2025-04-29 12:25 | ECG_ITS ---
[facility] Test Date: 2025-04-29 Pat Name: Darell Devlin Department: Room: [facility] Gender: Male Evaluator: : 1995 Requested By: Marco Rosenbaum Order Number: [id number] Moira MD: Dylan Rivera M.D. Measurements Intervals [place] Rate: 147 P: 70 AK: 115 QRS: 77 QRSD: 88 T: 69 QT: 322 QTc: 504 Interpretive Statements SINUS TACHYCARDIA WITH SHORT AK INTERVAL TRACING ARTIFACT MAY INTERFERE WITH INTERPRETATION POSSIBLE RIGHT VENTRICULAR CONDUCTION DELAY [RSR (QR) IN V1/V2] NONSPECIFIC ST-WAVE ABNORMALITY INTERPRETATION BASED ON A DEFAULT AGE OF 40 YEARS Compared to ECG 04/29/2025 08:30:46 POSSIBLE FLUTTER P WAVES NO LONGER VISIBLE Electronically Signed On 04-29-2025 14:35:58 CDT by Dylan Rivera M.D. [id number]
[2025-04-29 12:59] LABS: Troponin 5 6HR 14.13 ng/L (0-15); Troponin 5 6HR Delta 7.13 ng/L (0-12)
[2025-04-29] MEDS: PHENobarbital 130 mg/mL SDV 1 mL 60 MG IVP ×2 (14:17→17:19)
--- NOTE | 2025-04-29 15:11 | PC.NURSE ---
Temp remains 102.4 Rectal after Acetaminophen admin. Ice applied bilat axilla.
[2025-04-29 16:00] LABS: Blood Gas Allen Test Pos; Blood Gas Operator Identificat CAK; Blood Gas Sample Type Arterial; Blood Gas Tidal Volume 0.55; PEEP 10.0 cmH20
--- NOTE | 2025-04-29 16:00 | PC.NURSE ---
CIWA: Again assessment not accurate due to intubation and sedation
[2025-04-29 16:40] LABS: ABG PCO2 26.5 mmHg (35-45); ABG PH Result 7.51 (7.35-7.45); Arterial Blood Gas Hematocrit 26.0 % (42-52); Blood Gas Sample Site Radial, left; HCO3 ABG 20.9 mmol/L (22-26); PO2 ABG 101.0 mmHg (80.0-100.0); PO2 FiO2 Ratio Arterial Blood 336
[2025-04-29 18:23] LABS: Thyroid Stimulating Hormone 0.57 uIU/mL (0.27-4.20)
--- NOTE | 2025-04-29 19:16 | PC.NURSE ---
Shift summary: Pt remains sedated and intubated. Tube tamer changed out by RT with bite block now. Fentanyl and Versed gtt still infusing for sedation, no changes in rate. NS and LR started. HIs lactic acid remained high at 7.5, Magnesium IVPB admin. He was started on ETOH meds, phenobarbital series admin. CIWAs remain inaccurate due to tube and sedation. He was hypothermic when he first arrived to ICU, genesis hugger applied. Genesis hugger stopped when temp at 99 F. Then temp continued to rise this afternoon, the highest 102.4F. Acetaminophen did not seem to reduce it much so ice applied bilat axilla. temp then started reducing. It is now 100.1. [place] removed bilat wrists as ordered. areas well-approximated. His urine has a pink tinge now due to pink sediment. His output was 750ml this shift. Restraints remain in place. During repositioning he will jerk his arms upwards. Mother has been attentive and remained at bedside. Heart rate has improved throughout shift. It was in 140's upon arrival now 100-110.
[2025-04-29] MEDS: midazolam hcl 100 MG/100 ML BAG 6 MG IV (21:59)
[2025-04-30] VITALS (70 sets, daily range): BP systolic 128–175; BP diastolic 85–122; PULSE 58–105; RESP 16–19; TEMP 37.1–38.1; O2SAT 97–100
[2025-04-30] MEDS: LORazepam 1 MG/0.5 ML injection 2 MG IVP ×3 (01:53→16:51)
--- NOTE | 2025-04-30 01:55 | PC.NURSE ---
Restless/Agitation: Pt became agitated, evidence by pulling at restraints and trashing in bed. Notified Dr. Nash @[id number] that pt is on max doses of Versed and Fentanyl per protocol. Also notified Dr. Nash that I was unable to get an accurate CIWA d/t the patient being intubated. New order to proceed with 2mg CIWA protocol Ativan at to start a Precedex drip.
[2025-04-30] MEDS: dexmedeTOMIDine 0.9 % NaCL 400 MCG/100 ML PREMIX IV (02:13)
[2025-04-30] MEDS: fentaNYL 1,000 MCG/100 ML BAG 20 MCG IV ×3 (02:20→12:11)
[2025-04-30] MEDS: cefTRIAXone 1,000 mg SDV 1000 MG IVP (05:05)
[2025-04-30 05:06] LABS: Hematocrit 26.8 % (37-53); Hemoglobin 8.50 g/dL (11.27-16.99); Mean Corpuscular HGB Conc 31.7 g/dL (30-55); Mean Corpuscular Hemoglobin 28.2 pg (27-33); Mean Corpuscular Volume 89.0 fl (82-101); Nucleated Red Blood Cells % 0 %; Platelet Count 248 10^3/cmm (157-399); Red Blood Count 3.01 10^6/uL (3.85-5.65); White Blood Count 15.27 10^3/uL (3.29-11.43)
[2025-04-30 05:29] LABS: Alanine Aminotransferase 15 U/L (0-41); Albumin Level 2.6 g/dL (3.5-5.2); Alkaline Phosphatase 79 U/L (40-130); Anion Gap 13.9 (5-19); Aspartate Amino Transferase 49 U/L (0-40); Blood Urea Nitrogen 11 mg/dL (6-20); Calcium 6.9 mg/dL (8.5-10.5); Carbon Dioxide 21 mmol/L (22-29); Chloride 114 mmol/L (98-107); Creatinine Clr Calc Pharmacy 145.7728; Globulin 2.0 g/dL (1.3-4.6); Glucose 97 mg/dL (65-115); Magnesium 1.7 mg/dL (1.7-2.3); Osmolality Calculated 299 mOsm/kg (285-295); Potassium 3.9 mmol/L (3.5-5.1); Sodium 145 mmol/L (136-145); Total Protein 4.6 g/dL (6.6-8.7)
[2025-04-30] MEDS: dexmedeTOMIDine 0.9 % NaCL 400 MCG/100 ML PREMIX 20.48 MCG IV ×4 (08:19→23:44)
[2025-04-30] MEDS: multivitamin therapeutic Tablet 1 TAB PO (09:38)
[2025-04-30] MEDS: pantoprazole 40 mg SDV IVP (09:38)
--- NOTE | 2025-04-30 12:03 | P.PN_ITS ---
Subjective 2 Subjective: intubated, sedated. Vitals/I&O/Wt Last Vital Signs Temp 99.0 F 04/30/25 10:00 Pulse 63 04/30/25 10:45 Resp 18 04/30/25 11:52 BP 155/116 04/30/25 10:45 Pulse Ox 98 04/30/25 11:52 O2 Del Method Mechanical Ventilation 04/30/25 10:00 FiO2 30 04/30/25 11:52 04/29/25 04/30/25 04/30/25 22:59 06:59 14:59 Intake Total 2123.267 / 5213.717 1823.010 / 7036.727 701.753 / 701.753 Output Total 750 / 750 450 / 1200 Balance 1373.267 / 4463.717 1373.010 / 5836.727 701.753 / 701.753 Weight last 48 hrs Weight 94.302 kg Weight 91 kg Weight 86.183 kg Physical Exam 2 Const: COMMON NORMALS: no acute distress and average body habitus HENMT: COMMON NORMALS: normocephalic and atraumatic HEAD & SCALP: n ormocephalic and atraumatic Eye: COMMON NORMALS: Equal, round and reactive pupils present and EOMs intact bilaterally PUPIL: Yes Equal, round and reactive pupils present Neck/C-Spine: COMMON NORMALS: supple and no JVD Resp: COMMON NORMALS: clear to auscultation bilaterally AUSCULTATION: clear to auscultation bilaterally OTHER: ET tube present Cardio: COMMON NORMALS: no JVD, regular rate, regular rhythm, No gallops present (Cardio), No clicks present (Cardio) and No rub (Cardio) RATE: r egular rate RHYTHM: regular rhythm GI: COMMON NORMALS: Soft to palpation, non-tender, No hepatosplenomegaly present and no masses PALPATION: Yes Soft to palpation and Yes No hepatosplenomegaly present Extremity: COMMON NORMALS: normal to inspection and full ROM Skin: OTHER: multiple self made tattoos on legs, prior cuts on arms and legs, healing recent cuts on wrists, ysabel removed. Data 04/30/25 04:14 04/30/25 04:14 Micro: Microbiology 04/29/25 07:16 Blood Culture - Preliminary Blood NEGATIVE TO DATE 04/29/25 07:16 Blood Culture - Preliminary Blood NEGATIVE TO DATE A&P Assessment and plan 1. Seizure: 2. Suicide attempt by cutting of wrist: 3. Alcohol intoxication: 4. Acute encephalopathy: Plan: 29 year old male presenting with polysubstance abuse and SI. Acute Hypoxic respiratory failure: - secondary to suspected aspiration pneumonia : Required intubation after profound hypoxia; vomitus seen around vocal cords suggests aspiration; - chest imaging noted material consistent with aspiration. - Admit to intensive care unit (ICU) - Maintain mechanical ventilation with gradual FiO2 reduction (already down from 100 % to 50 %) - Administer ceftriaxone and azithromycin empirically for possible aspiration pneumonia - Continue oxygen monitoring and reassess pulmonary status in the morning - Pulmonary toilet Seizure: First documented seizure witnessed by EMS; etiology unclear (possible alcohol- related). - Per history obtained from his mother he has had seizures in the past. He sneaks alcohol, so she does not always have a great idea of how much he is drinking, but she does check his room and try to get rid of any alcohol she finds. EtOH level found elevated, but she is not sure if she thinks he may have been cutting down recently. - Administered single dose of levetiracetam (Keppra) in emergency department - Phenobarbital now stopped - Ongoing neurologic monitoring while intubated 3. Alcohol intoxication: Serum ethanol 265 mg/dL; chronic heavy use reported by family; unclear withdrawal risk. - Supportive care and observation for withdrawal - Family education regarding alcohol use concerns - CIWA, ativan available - start scheduled Librium taper, can reduce dose slowly daily - Folic acid, timing, multivitamin. 4. Alcohol use disorder: Mother thinks he may have been cutting down but is not sure. Will benefit from rehabilitation options once able to receive them. Supraventricular tachycardia - can cont. metoprolol 25 mg twice daily. Give aspirin. Replace magnesium. Obtain echocardiogram once heart rate improves. - Encourage alcohol cessation and avoidance. - Continuous cardiac monitoring in ICU - Reassess rhythm as overall condition improves 6. Acute encephalopathy: Acute metabolic encephalopathy with respiratory failure, lactic acidosis, as well as intoxication from alcohol, possible withdrawal, seizure, possible postictal state. No active seizure-like activity at this time. It is unknown how long he had been down overnight. Continue ventilator support. Seizure precautions. Start thiamine, folic acid, multivitamin. Monitor for withdrawal. Reassess mental status with weaning sedation after he is extubated 7. Major depressive disorder, recurrent: Major depressive disorder, generalized anxiety disorder, post-traumatic stress disorder, and history of self-harm : Long-standing psychiatric illness with prior cutting behavior; recent interpersonal stress; no current stated suicidal intent per family. Mother noted had been more withdrawn and acting depressed after on and off interactions and fights with an ex-girlfriend earlier in the week. - Request inpatient psychiatric consultation once he is able to communicate because of history of self-harm and ongoing depressive symptoms Possible severe sepsis with tachypnea, tachycardia, leukocytosis, lactic acidosis 8.3->7.5, possibly pulmonary source after aspiration with aspiration pneumonia suspected, blood cultures collected, received ceftriaxone azithromycin, 30 mL/kg fluid resuscitation. Continue antibiotic. Follow-up cultures. Sputum cultures are requested. - Hypothermia: Rewarm, continue Lois hugger Hypertension - likely from above issues, especially withdrawal Disposition - ICU care while intubated. - restart home medications per tube. PDMP PDMP Reviewed: Not Reviewed Attestations 2 Medical Necessity Statement*: Ongoing inpatient care for withdrawal, seizures, respiratory failure, PNA Time Spent in Patient Care: 16 - 35 minutes (>than 50% of time sp ent in counselling and/or direct pt care on unit) . Coding Level of Care Code Acute Code for [facility] Diagnoses Seizure R56.9 Suicide attempt by cutting of wrist X78.9XXA Alcohol intoxication F10.929 Acute encephalopathy G93.40
[2025-04-30] MEDS: midazolam hcl 100 MG/100 ML BAG 6 MG IV (13:04)
[2025-04-30 14:05] LABS: ABG PCO2 28.0 mmHg (35-45); ABG PH Result 7.47 (7.35-7.45); Alveolar-Arterial Oxygen Gradi 12.8 mmHg (5-10); Arterial Blood Gas Hematocrit 31.5 % (42-52); Blood Gas Allen Test Pos; Blood Gas Operator Identificat GD; Blood Gas Sample Site Radial, left; Blood Gas Sample Type Arterial; Carboxyhemoglobin 1.0 %THgb (0.4-20.1); Glucose Level-ABG 104.0 mg/dL (70-115); HCO3 ABG 20.4 mmol/L (22-26); Ionized Calcium Level - ABG 1.1 mmol/L (1.1-1.4); Methemoglobin 0.1 % (0.4-1.5); Oxygen Saturation ABG 97.2; PO2 ABG 79.8 mmHg (80.0-100.0); PO2 FiO2 Ratio Arterial Blood 266; Potassium Level - ABG 3.8 mmol/L (3.5-5.0); Sodium Level - ABG 144.0 mmol/L (131-143)
[2025-04-30 14:06] LABS: Blood Gas Tidal Volume 0.55; PEEP 8.0 cmH20
[2025-04-30] MEDS: PHENobarbital 130 mg/mL SDV 1 mL 60 MG IVP (23:01)
[2025-05-01] VITALS (100 sets, daily range): BP systolic 112–171; BP diastolic 74–121; PULSE 65–105; RESP 11–20; TEMP 37.4–38.1; O2SAT 88–100
[2025-05-01] MEDS: magnesium sulfate premix 2 GM/50 ML PIGGYBACK IV (01:13)
[2025-05-01] MEDS: PHENobarbital 130 mg/mL SDV 1 mL 60 MG IVP ×3 (01:13→03:36)
[2025-05-01] MEDS: D5-NS 0.45% + KCL 20 mEq 20 MEQ/1,000 ML BAG 100 MEQ IV ×3 (01:14→22:11)
[2025-05-01] MEDS: hyDRALAzine 20 mg/mL INJ 1 mL 10 MG IVP (01:16)
[2025-05-01] MEDS: dexmedeTOMIDine 0.9 % NaCL 400 MCG/100 ML PREMIX 20.48 MCG IV ×2 (03:39→08:08)
[2025-05-01] MEDS: midazolam hcl 100 MG/100 ML BAG 6 MG IV (05:22)
[2025-05-01] MEDS: cefTRIAXone 1,000 mg SDV 1000 MG IVP (05:22)
[2025-05-01 06:13] LABS: Hematocrit 34.3 % (37-53); Hemoglobin 10.70 g/dL (11.27-16.99); Mean Corpuscular HGB Conc 31.2 g/dL (30-55); Mean Corpuscular Hemoglobin 27.4 pg (27-33); Mean Corpuscular Volume 87.9 fl (82-101); Nucleated Red Blood Cells % 0 %; Platelet Count 210 10^3/cmm (157-399); Red Blood Count 3.90 10^6/uL (3.85-5.65); White Blood Count 20.94 10^3/uL (3.29-11.43)
[2025-05-01 06:22] LABS: Alanine Aminotransferase 51 U/L (0-41); Albumin Level 2.9 g/dL (3.5-5.2); Alkaline Phosphatase 178 U/L (40-130); Anion Gap 15.2 (5-19); Aspartate Amino Transferase 226 U/L (0-40); Blood Urea Nitrogen 10 mg/dL (6-20); Calcium 7.8 mg/dL (8.5-10.5); Carbon Dioxide 20 mmol/L (22-29); Chloride 111 mmol/L (98-107); Creatinine Clr Calc Pharmacy 191.4222; Globulin 2.5 g/dL (1.3-4.6); Glucose 113 mg/dL (65-115); Osmolality Calculated 294 mOsm/kg (285-295); Potassium 4.2 mmol/L (3.5-5.1); Sodium 142 mmol/L (136-145); Total Protein 5.4 g/dL (6.6-8.7)
[2025-05-01 06:40] LABS: Anion Gap 16.1 (5-19); Blood Urea Nitrogen 10 mg/dL (6-20); Calcium 7.7 mg/dL (8.5-10.5); Carbon Dioxide 19 mmol/L (22-29); Chloride 111 mmol/L (98-107); Creatinine Clr Calc Pharmacy 191.4222; Glucose 102 mg/dL (65-115); Magnesium 2.1 mg/dL (1.7-2.3); Osmolality Calculated 293 mOsm/kg (285-295); Potassium 4.1 mmol/L (3.5-5.1); Sodium 142 mmol/L (136-145)
[2025-05-01] MEDS: multivitamin therapeutic Tablet 1 TAB PO (09:52)
[2025-05-01] MEDS: pantoprazole 40 mg SDV IVP (09:54)
--- NOTE | 2025-05-01 13:38 | PC.NURSE ---
Dr. Aiken telephoned for extubation order, order received. Approximately 1315, Patient extubated with this RN, RT and NT at bedside. Restraints removed. Patient extubeted to room air. Dr. Aiken notified that patient is now off vent.
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
[2025-05-01] MEDS: dexmedeTOMIDine 0.9 % NaCL 400 MCG/100 ML PREMIX 9.1 MCG IV (13:54)
--- NOTE | 2025-05-01 14:20 | PC.NURSE ---
96 hr rights reviewed with pt @1400 with assistance of Leo Bundy All education reviewed with pt at this time. Pt verbalized understanding to hold parameters. Pt copy was left with pt @bedside. Pt resting in bed with mother at beside with him. Education given to mother that now [address], visiting hours would be from 3-4pm each day. No further needs. 1:1 within view
--- NOTE | 2025-05-01 15:58 | PC.NURSE ---
See 1:1 paperwork for Q15 minute checks.
--- NOTE | 2025-05-01 18:09 | PC.NURSE ---
Patient pointing in various places in room mumbling, rambling, sometimes stating that he sees faces. Patient leaned over the bed rail twice and was redirected that he is in the hospital. Patient continues hallucinating at this time. Temperature is currently at 100.3 on monitor, rectal.
[2025-05-02] VITALS (88 sets, daily range): BP systolic 105–158; BP diastolic 67–129; PULSE 82–139; RESP 16–34; TEMP 37.2–38.8; O2SAT 84–97
--- NOTE | 2025-05-02 02:11 | PC.NURSE ---
Dr. Nash gave telephone order to stop D5 0.45% NS 20 meq potassium. Continue IV maintenance NS 0.9% @ 75 ml/hr. Advance diet as tolerated.
[2025-05-02 04:40] LABS: Hematocrit 32.6 % (37-53); Hemoglobin 10.30 g/dL (11.27-16.99); Mean Corpuscular HGB Conc 31.6 g/dL (30-55); Mean Corpuscular Hemoglobin 27.0 pg (27-33); Mean Corpuscular Volume 85.3 fl (82-101); Nucleated Red Blood Cells % 0 %; Platelet Count 219 10^3/cmm (157-399); Red Blood Count 3.82 10^6/uL (3.85-5.65); White Blood Count 13.63 10^3/uL (3.29-11.43)
[2025-05-02] MEDS: dexmedeTOMIDine 0.9 % NaCL 400 MCG/100 ML PREMIX 6.83 MCG IV (04:44)
[2025-05-02 04:59] LABS: Alanine Aminotransferase 46 U/L (0-41); Albumin Level 2.9 g/dL (3.5-5.2); Alkaline Phosphatase 103 U/L (40-130); Anion Gap 10.4 (5-19); Aspartate Amino Transferase 94 U/L (0-40); Blood Urea Nitrogen 5 mg/dL (6-20); Calcium 7.8 mg/dL (8.5-10.5); Carbon Dioxide 23 mmol/L (22-29); Chloride 105 mmol/L (98-107); Creatinine Clr Calc Pharmacy 191.4222; Globulin 2.7 g/dL (1.3-4.6); Glucose 81 mg/dL (65-115); Osmolality Calculated 276 mOsm/kg (285-295); Potassium 3.4 mmol/L (3.5-5.1); Sodium 135 mmol/L (136-145); Total Protein 5.6 g/dL (6.6-8.7)
[2025-05-02] MEDS: cefTRIAXone 1,000 mg SDV 1000 MG IVP (05:54)
[2025-05-02] MEDS: multivitamin therapeutic Tablet 1 TAB PO (08:11)
[2025-05-02] MEDS: pantoprazole 40 mg SDV IVP (09:27)
--- NOTE | 2025-05-02 10:37 | PC.NURSE ---
1:1 observation taken over by this nurse at 0700
--- NOTE | 2025-05-02 13:08 | W.PM.NPUH&PS ---
Providers/Chief Complaint Admitting Physician: Gilles Ferreira Chief Complaint: possible od HPI NPU History of Present Illness Darell Devlin is a 29 year old male who presented to the emergency department with the following report: Chief complaint: Overdose Stated complaint: possible od Time Seen by Provider: 04/29/25 06:24 History of Present Illness: 29-year-old male arrives via EMS in severe respiratory distress with hypoxia. They were unable to oxygenate in the field. Patient was found down had 1 witnessed seizure and route. He has a history of multiple previous suicide attempts he still has ysabel in his left wrist from previous suicide attempt 2-1/2 weeks ago. Patient is unable to give any history. EMS was called by family members in the home who found the patient down early this morning. There is no report of the last time when he was seen awake and verbal at baseline. He was given Narcan x 2 and route with no response. On arrival he has sonorous respirations with audible wheezes no verbal responses. EMS reports witnessing seizure in room. Patient has extensive psych history. He has no known seizure history. He is known to use alcohol excessively. He was admitted to the ICU for definitive treatment of those issues. After some time intubated he was extubated yesterday and a psychiatric consult was requested. Patient is known to [facility] psychiatry through inpatient and outpatient services. He has had 3 inpatient psychiatric hospitalizations prior to this ICU admission with the last 1 ending 19 days ago. An excerpt of that discharge summary is included below for context and the fact that there have been no substantive changes. He presents reporting that he had a significant conflict with his girlfriend which led to help with drinking and ultimately behaving in a self-destructive and self-injurious way. He endorses that his brother found him elevated they called the EMS. He reports that he does not want to and did not want to then just identified that it is part of his self-injurious patterns and suggested that he might be able to go home and just see his psychiatrist on Friday and his therapist on . We discussed with his history of suicide attempt and need for psychiatric care and evaluation of the neuropsychiatric unit was necessary prior to his discharge. We discussed that he would be able to be transferred over once he was medically cleared. He denied any needed desire for his medication to be changed and we discussed the risks, benefits and alternatives about reaching out to his outpatient team and getting their take on his situation as we try to make a decision about length of stay etc. and he understood and agreed to proceed as is documented in this note. Per his 04/13/2025 [facility] inpatient psychiatric discharge summary: Discharge Diagnosis 1. Suicidal ideation: 2. Alcohol intoxication: 3. Major depressive disorder, recurrent: 4. PTSD (post-traumatic stress disorder): 5. Alcohol use disorder: 6. Generalized anxiety disorder: Reason for Visit Reason for Visit: SI ATTEMPT, BILATERAL WRIST LACS Brief History: History of Present Illness Darell Devlin is a 29 year old male with a history of alcohol dependence, borderline personality disorder and major depressive disorder who was admitted after being brought in by EMS having cut his wrists bilaterally with a sharp knife requiring several stitches. The patient in the emergency department had been increasingly agitated and had been given intramuscular ketamine. Patient on interview today reports that he had been more depressed over the past few weeks with complaints of anhedonia, low energy and, low motivation, increased tearfulness, and states that he had recently split up from his partner of 7 years and stated that he needed to see the blood as he reported that the presence of blood had alleviated some of his emotional distress. He has reported no history of psychosis. He denies any manic symptoms. He reports having difficulties with concentration and states that he was not feeling suicidal. Patient had a blood alcohol level of 401. He reports a history of significant consumption of alcohol and stated that he ran out of his naltrexone earlier last month but stated that it had been helpful for reducing his craving for alcohol. He reports daily alcohol use and reports a history of shakes and denied any history of delirium tremens. He denied any other drug use at this time. He reports having problems with maintaining control of his worry as he describes that he has been worrying excessively and states that his worry has been out of control. He had reported a recent change in Cymbalta to a maximum dose of 120 mg a few months ago without any improvement in mood. He had reported that he had been recently started on Seroquel but stated that 200 mg at night had been excessively sedating to him. The patient reported no recent treatment for any substance abuse. He had denied any illicit drug use but reports daily alcohol use. He had reported no significant changes since his last hospitalization 5 months ago. He reports no recent psychiatric hospitalizations since his last hospitalization in October 2024 here. He reports that he is currently now living in [place] with his mother and his brother. Current medications: Gabapentin 800 mg 3 times a day, Cymbalta 120 mg a day, BuSpar 20 mg twice a day Augmentin 875/125 twice a day, Seroquel 100 mg at night Excerpt from Discharge Summary from 10/19/24 Discharge Diagnosis (1) Suicidal ideation: Status: Resolved (2) Alcohol intoxication: Status: Resolved Qualifiers: Complication of substance-induced condition: uncomplicated Qualified Code(s): F10.920 - Alcohol use, unspecified with intoxication, uncomplicated (3) PTSD (post-traumatic stress disorder): Status: Acute (4) Major depressive disorder, recurrent: Status: Acute (5) Alcohol use disorder: Status: Acute (6) Generalized anxiety disorder: Status: Acute (7) Adjustment disorder with mixed disturbance of emotions and conduct: Status: Acute Reason for Visit ETOH, SI, Poss 96 Brief History: History of Present Illness Darell Devlin is a 29 year old male who presented to the emergency department with the following report: Chief Complaint: Psychiatric Symptoms Stated Complaint: ETOH, SI, Poss 96 Time Seen by Provider: 10/14/24 20:27 History of Present Illness: 29-year-old man with a history of depression, suicidal ideations, alcohol abuse who presents emergency room after a traffic stop or he was found to be intoxicated. Report of a blood alcohol level over 300. He does appear intoxicated but is able to walk and talk. Police report that he hit his head on the back of the car seat and had told them multiple times that he was suicidal. He has superficial cuts/self-mutilation's on his arms. He is currently denying that he said any of this, however he is intoxicated and the police have reported otherwise. He was admitted to the neuropsychiatric unit for definitive treatment of those issues. He is known to the [facility] psychiatric community through inpatient psychiatric services. An excerpt of his discharge from August of last year is included below for context and the fact that there have been no substantive changes. He presents today with a BAL of 314 and a negative UDS reporting that when he left the hospital in August things went well for a few weeks and he was sober but then he started to drink again which started slow but then he reports that he is gotten to the poin that he was not drinking most days of the week. He reports that a couple nights ago before he came in here he was pulled over and given a DUI. He reports that during the situation/traffic stop he was resistant and ultimately went and got booked but they brought him here afterwards. He reports that he was just frustrated because he wanted to not have his mom have her car impounded and they would not let him call her to have her come pick her car up versus and pounding it. He reports that he does not recall doing or saying anything that would make them bring him here. However in the affidavit he reports that he did say that he wanted to kill himself after they let him go. He reports that he had been taking his medication before they ran out a few days ago and we discussed the risks, benefits and alternatives of restarting these medications/continuing them and he understood and agreed to proceed as is documented in this note. He reports that due to this he is already lost a job that he has been working hard to get. 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 Per his 08/31/2024 [facility] inpatient psychiatric discharge summary: Discharge Diagnosis (1) Suicidal ideation: Status: Acute (2) Alcohol intoxication: Status: Acute Qualifiers: Complication of substance-induced condition: uncomplicated Qualified Code(s): F10.920 - Alcohol use, unspecified with intoxication, uncomplicated (3) PTSD (post-traumatic stress disorder): Status: Acute (4) Major depressive disorder, recurrent: Status: Acute (5) Alcohol use disorder: Status: Acute (6) Generalized anxiety disorder: Status: Acute Reason for Visit Reason for Visit: SI Brief History: History of Present Illness Darell Devlin is a 29 year old male who presented to the emergency department with the following report: Chief Complaint: Psychiatric Symptoms Stated Complaint: SI Time Seen by Provider: 08/24/24 23:49 History of Present Illness: Presents to the ER with suicidal ideation. Plan on hanging himself tonight. He is brought in by his mother. He has been drinking. He did fall down and strike the right side of his face to be a superficial abrasions to that area but he says it does not hurt. Patient says he does not want help. Patient does admit to being cutter. He does see a psychiatrist at [facility] has not seen him since March. Chief complaint Suicidal ideation following alcohol relapse. History of the present complaint The patient, born on October 30, 1994, reports currently taking psychiatric medications including olanzapine (Zyprexa) and is in the process of weaning off gabapentin. They have been taking Prozac and Zyprexa for about six weeks and have been on lamotrigine for a longer period. The patient was admitted to the hospital due to drinking and having thoughts of self-harm. They express a desire to stop drinking, acknowledging a relapse after being sober for five to six months. The patient has a history of psychiatric hospitalizations, with this being their third admission. Previous admissions occurred when they were 21 years old and earlier in June 2023 at [facility]. The patient has been receiving outpatient care at [facility], attending appointments approximately once a month. They have a history of vaping since 2015 and report excessive alcohol consumption starting in 2015, which worsened in 2022. The last drink was consumed the night before the consultation. The patient occasionally uses marijuana and reported using cocaine about two months ago. 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 The patient has a history of legal issues related to possession but avoided care home time by cooperating as a confidential informant. The patient began experiencing depression and anxiety symptoms around 2013 or 2014 while in high school, which have progressively worsened. They report feelings of helplessness, hopelessness, worthlessness, low mood, and sleep problems. The patient describes having a passive wish, with thoughts of not caring if they do not wake up. They have experienced suicidal thoughts but have been too scared to act on them. The patient attempted suicide the night before the consultation by trying to hang themselves. They have a history of self-injurious behavior, starting in 2014, with the most recent incident occurring three days prior to the consultation. Anxiety symptoms include overwhelming worry and a sense of impending doom, even without specific triggers. The patient reports a family history of mental health issues, with both parents having struggled with alcoholism. The patient's mother has a history of depression and has been hospitalized for it. The patient's brother attempted suicide in 2018. 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 They also had a stroke in 2018, attributed to cocaine use and Xanax withdrawal. The patient identifies as homosexual and has been in a complicated relationship for six years. They have never been or had biological children. The patient attempted to join the [employer] but was discharged due to self-harm history. 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 Currently, they live with their mother and have several pets. The patient has spent nights in care home on three occasions but has not served time for any felony charges. Mental health history Diagnosed with depression and anxiety around [id number] during high school, with symptoms progressively worsening. History of passive wishes and suicidal thoughts without a plan, but attempted suicide on 08/24/2024 by attempting to hang self. History of self-injurious behavior (cutting) since 2014, with the most recent episode occurring three days prior to the encounter (08/22/2024). Reports feelings of helplessness, hopelessness, worthlessness, low mood, and sleep disturbances. Experiences anxiety with physical symptoms such as heart racing and feelings of doom, even without specific triggers. No history of paranoia or hallucinations. Admitted to a psychiatric hospital three times: at age 21 (2015), in June 2024 at [facility] in [place], and currently. Currently taking Prozac (20 mg), Zyprexa (5 mg), and lamotrigine, and weaning off gabapentin. Prozac and Zyprexa were initiated approximately six weeks ago (late June 2024). Previous outpatient psychiatric care at [facility], attending monthly appointments. Family history of depression (mother) and suicide attempt (brother in 2019). Social history Lives with mother and has recently moved back home after a relapse. Previously lived in [place]. Has five cats, four dogs, and a Chihuahua. Vapes since 2015 and has been drinking since 2015, with increased consumption in 2022. Last drink was the night before the encounter. Previously sober for five to six months before relapsing. Occasional cannabis use and used cocaine two months ago. Was addicted to methamphetamine in [id number]. No history of foster care or fdc living. 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 Identifies as heterosexual. Longest relationship lasted six years, currently complicated. No biological children. Attempted to join the [employer] but was discharged due to self-harm history. Describes self as Yazidism. Hospital Course Hospital Course He slowly acclimated to the individual, group and milieu therapies provided. He presented with significant issues related to the fact that he had a DUI the other day and made comments to police that they found concerning. Once here he identified that this was drunk frustration that they would not let him just get his mom car instead of him pounding it and costing her additional money. We restarted his medication and tried to work with him to get over his ambivalence about active treatment as he continues to feel he has less of a problem than appears to be. Fact that he was intoxicated and on his way to work soon when he was pulled over he did not ever seem to appreciate the significance of that behavior. He worked with the social work team to get outpatient appointments and other resources. He had significant improvement during the stay and he was able to contract for safety outside the hospital prior to discharge. During the hospitalization, patient had routine laboratory studies which were within normal limits except for few outliers. Additionally there was a general medical evaluation which was also within normal limits and revealed no new acute processes. Discharge Summary: At the time of discharge, he denied symptoms of psychosis or lethality. Mood and anxiety were well managed. Patient endorsed a plan to avoid all drugs of abuse and follow-up with the aftercare recommendations of the treatment team. Patient was evaluated and deemed to be absent credible lethality, and had achieved significant benefit from an inpatient hospitalization, so was discharged Hospital Course The patient had reported limited improvement in regards to anxiety on buspirone and this medication was not restarted during his hospital stay and discontinued. Otherwise, the patient was restarted on his medications on an outpatient basis. Seroquel was replaced by Seroquel XR at 150 mg at 7 PM to aid for treating depression. He reported no excess sedation on this dosing. Furthermore the patient was given naltrexone intramuscularly to aid with continuous daily alcohol use with a plan for the patient to resume this medication on a monthly basis on an outpatient basis within 28 days. During the hospitalization, the patient had routine laboratory studies which were within normal limits except for a few outliers. Additionally, there was a general medical evaluation which was also within normal limits and revealed no new acute processes. At the time of discharge, lethality was denied and psychosis was resolving. Mood and anxiety were well managed. The patient endorsed a plan to avoid all drugs of abuse and follow up with the aftercare recommendations of the treatment team. The patient was evaluated and deemed to be absent credible lethality and had achieved the maximum benefit from an inpatient hospitalization, and so was discharged. He had planned to move back to [place] where he would resume outpatient services through the [facility] at [place]. Meds NPU Home Medications ?Medication ?Instructions ?Recorded ?Confirmed ?Last Taken ?Type gabapentin 800 mg tablet 800 mg PO TID 30 days #90 tabs 02/15/25 04/29/25 Unknown Rx mupirocin 2 % topical ointment 1 applic topical BID #22 grams 04/04/25 04/29/25 Unknown Rx (Centany) [id number] 3.5 1 drp ophthalmic (eye) Q8H #5 mL 04/04/25 04/29/25 Unknown Rx mg/mL-10,000 unit/mL-0.1% eye drops (Maxitrol) amoxicillin 875 mg-potassium 1 tab PO BID 10 days #20 tabs 04/13/25 04/29/25 Unknown Rx clavulanate 125 mg tablet duloxetine 60 mg capsule,delayed 120 mg (2 x 60 mg) PO DAILY 30 04/13/25 04/29/25 Unknown Rx release days #60 caps folic acid 1 mg tablet 1 mg PO DAILY 30 days #30 tabs 04/13/25 04/29/25 Unknown Rx naltrexone microspheres 380 mg 380 mg IM .once every 28 days #1 ea 04/13/25 04/29/25 Unknown Rx intramuscular suspension,extended release quetiapine 150 mg tablet,extended 150 mg PO 1900 30 days #30 tabs 04/13/25 04/29/25 Unknown Rx release 24 hr thiamine mononitrate (vit B1) 100 100 mg PO DAILY 30 days #30 tabs 04/13/25 04/29/25 Unknown Rx mg tablet (Vitamin B-1 (mononitrate)) Allergies Allergy/AdvReac Type Severity Reaction Status Date / Time No Known Allergies Allergy Verified 04/04/25 14:58 PFSH NPU PFSH: Medical History (Updated 04/29/25 @ 10:18 by Gilles Ferreira MD) History of methamphetamine abuse Alcohol use disorder Major depressive disorder, 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 Generalized anxiety disorder Major depressive disorder, recurrent PTSD (post-traumatic stress disorder) Tremors of nervous system Psychiatric care Surgical History History of repair of congenital cleft palate Social History Smoking and tobacco/nicotine status: current every day tobacco/nicotine user Quit status (tobacco/nicotine): not considering quitting Second hand smoke exposure: Yes Alcohol intake: current Alcohol intake frequency: few times a week Alcohol type: hard liquor Mental Status Exam MSE Comments: This is a well-nourished well-developed white male in hospital scrubs with limited grooming and eye contact. No abnormal movements except for psychomotor retardation. Mostly cooperative with exam in moderate distress. Speech was decreased rate and volume. Mood described as better than when I came, affect slightly anxious. Thought process linear/organized. Thought contact: patient denies suicidal or homicidal ideation, there were no delusions reported or noted. He denied auditory or visual hallucinations. Reports long-standing depression since [id number], but endorsed that has been better since he started the medication at last admission. Attention and concentration appeared intact and memory appeared unreliable but none were formally tested. Patient is alert and oriented times person and place. Insight, judgment and impulse control are all impaired. Vitals/I&O/Wt Last Vital Signs Temp 100.7 F H 05/02/25 12:00 Pulse 117 H 05/02/25 12:00 Resp 25 H 05/02/25 12:00 BP 122/85 05/02/25 12:00 Pulse Ox 95 05/02/25 12:00 O2 Del Method Nasal Cannula 05/02/25 08:20 O2 Flow Rate 2 05/02/25 08:20 FiO2 21 05/01/25 13:05 05/01/25 05/02/25 05/02/25 22:59 06:59 14:59 Intake Total 1127.104 / 3342.758 2763.010 / 6105.768 1250 / 1250 Output Total 350 / 1025 4350 / 5375 2500 / 2500 Balance 777.104 / 2317.758 -1586.990 / 730.768 -1250 / -1250 Weight last 48 hrs Weight 98 kg Weight 95.5 kg Data NPU 05/02/25 04:17 05/02/25 04:17 Micro: Microbiology 04/29/25 14:10 Gram Stain - Final Sputum - Endotracheal Tube Aspirate Sputum Culture - Final Microbiology 04/29/25 14:10 Sputum - Endotracheal Tube Aspirate Gram Stain - Final 04/29/25 14:10 Sputum - Endotracheal Tube Aspirate Sputum Culture - Final A&P Assessment and plan 1. Suicidal ideation: 2. Alcohol intoxication: 3. PTSD (post-traumatic stress disorder): 4. Major depressive disorder, recurrent: 5. Alcohol use disorder: 6. Generalized anxiety disorder: 7. Adjustment disorder with mixed disturbance of emotions and conduct: Plan: This is a 29-year-old white male only known to [facility] psychiatry from 3 past inpatient services since August of last year. He has a history of major depressive disorder and generalized anxiety disorder, both of which have progressively worsened since their onset in [id number]. He had a attempt on August 24, 2024, involving an attempt to hang himself, as well as ongoing self-injurious behavior. There is a history of substance use disorder, including methamphetamine addiction in [id number], recent cocaine use, and alcohol relapse in late 2023 after a period of five to six months of sobriety with continued alcohol use. The patient was pulled over for a DUI prior to his October admission the patient has a history of cleft palate repair, testicular cancer with right testicle removal in June 2023, and a stroke in 2018 attributed to substance use. There is a family history of depression and addiction on both maternal and paternal sides, as well as a sibling with a suicide attempt in 2019. Who presents now after being found with altered mental status and a blood alcohol of 265 but no other substances and his drug screen. 1.? Transfer to neuropsychiatric unit when medically stable. 2. ?We will attempt to gather collateral information. 3. ?TO-15 minute checks on the unit. 4. ?Recommend sober living treatment at the highest level of care to which the patient is willing to commit. 5. We will restart current medications and monitor for any need for changes. 6. Continue CIWA protocol. 7. Encouraged individual, group and milieu therapy. PDMP PDMP Reviewed: Not Reviewed Involuntary Hold Information 96 Hour Hold: 96 Hour Involuntary Admission: Yes Other Hold: Hold End Date: 10/20/24 Attestations NPU Medical Necessity Statement*: Inpatient hospitalization is medically necessary and the clinically appropriate intervention at this time. We will monitor/initiate medications and make changes as indicated. Will be in the hospital for over 2 midnights. Likely length of stay 5-7 days. 

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
--- NOTE | 2025-05-02 23:55 | PC.NURSE ---
Chatterjee catheter removed at 2350. 3400 mls output.
[2025-05-03] VITALS (33 sets, daily range): BP systolic 113–149; BP diastolic 77–119; PULSE 97–128; RESP 16–37; TEMP 37–38.1; O2SAT 91–98
[2025-05-03 03:32] LABS: Hematocrit 33.6 % (37-53); Hemoglobin 10.70 g/dL (11.27-16.99); Mean Corpuscular HGB Conc 31.8 g/dL (30-55); Mean Corpuscular Hemoglobin 26.8 pg (27-33); Mean Corpuscular Volume 84.2 fl (82-101); Nucleated Red Blood Cells % 0 %; Platelet Count 235 10^3/cmm (157-399); Red Blood Count 3.99 10^6/uL (3.85-5.65); White Blood Count 8.66 10^3/uL (3.29-11.43)
[2025-05-03 03:56] LABS: Alanine Aminotransferase 44 U/L (0-41); Albumin Level 2.7 g/dL (3.5-5.2); Alkaline Phosphatase 100 U/L (40-130); Anion Gap 11.6 (5-19); Aspartate Amino Transferase 66 U/L (0-40); Blood Urea Nitrogen 4 mg/dL (6-20); Calcium 7.9 mg/dL (8.5-10.5); Carbon Dioxide 24 mmol/L (22-29); Chloride 107 mmol/L (98-107); Creatinine Clr Calc Pharmacy 193.6444; Globulin 2.7 g/dL (1.3-4.6); Glucose 106 mg/dL (65-115); Osmolality Calculated 285 mOsm/kg (285-295); Potassium 3.6 mmol/L (3.5-5.1); Sodium 139 mmol/L (136-145); Total Protein 5.4 g/dL (6.6-8.7)
[2025-05-03] MEDS: cefTRIAXone 1,000 mg SDV 1000 MG IVP (05:37)
[2025-05-03] MEDS: multivitamin therapeutic Tablet 1 TAB PO (08:01)
[2025-05-03] MEDS: pantoprazole 40 mg SDV IVP (09:18)
[2025-05-03 10:23] LABS: Lactate (Lactic Acid level) 2.0 mmol/L (0.5-2.2)
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
--- NOTE | 2025-05-03 14:53 | PC.NURSE ---
verbal order per dr shen to not renew librium taper once order needs renewal.
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
--- NOTE | 2025-05-03 19:33 | P.NPUPN_ITS ---
Subjective NPU 2 Subjective: Patient presented today reporting he is doing okay. He was worried about getting through his therapist appointment tomorrow but his therapist appointment is not till and he had lost the day. We discussed working with his outpatient team to see how they felt about where things were and if they were wanting him to hurry out to talk to them about issues that could be at least explored here on the inpatient unit given his suicide attempt. He denied any side effects to his medication. Mental Status Exam 2 MSE Comments: This is a well-nourished well-developed white male in hospital scrubs with limited grooming and eye contact. No abnormal movements except for psychomotor retardation. Mostly cooperative with exam in moderate distress. Speech was decreased rate and volume. Mood described as better than when I came, affect slightly anxious. Thought process linear/organized. Thought contact: patient denies suicidal or homicidal ideation, there were no delusions reported or noted. He denied auditory or visual hallucinations. Reports long-standing depression since [id number], but endorsed that has been better since he started the medication at last admission. Attention and concentration appeared intact and memory appeared unreliable but none were formally tested. Patient is alert and oriented times person and place. Insight, judgment and impulse control are all impaired. Vitals/I&O/Wt Last Vital Signs Temp 98.8 F 05/03/25 19:57 Pulse 120 H 05/03/25 14:00 Resp 19 H 05/03/25 14:00 BP 134/85 05/03/25 14:00 Pulse Ox 93 05/03/25 14:00 O2 Del Method Room Air 05/03/25 14:00 O2 Flow Rate 2 05/02/25 08:20 FiO2 21 05/01/25 13:05 Weight last 48 hrs Weight 96 kg Data NPU 05/03/25 03:04 05/03/25 03:04 Micro: Microbiology 05/02/25 15:19 Blood Culture - Preliminary Blood NEGATIVE TO DATE 05/02/25 04:17 Blood Culture - Preliminary Blood NEGATIVE TO DATE Microbiology 05/02/25 15:19 Blood Blood Culture - Preliminary NEGATIVE TO DATE 05/02/25 04:17 Blood Blood Culture - Preliminary NEGATIVE TO DATE A&P Assessment and plan 1. Suicidal ideation: 2. Alcohol intoxication: 3. PTSD (post-traumatic stress disorder): 4. Major depressive disorder, recurrent: 5. Alcohol use disorder: 6. Generalized anxiety disorder: 7. Adjustment disorder with mixed disturbance of emotions and conduct: Plan: This is a 29-year-old white male only known to [facility] psychiatry from 3 past inpatient services since August of last year. He has a history of major depressive disorder and generalized anxiety disorder, both of which have progressively worsened since their onset in [id number]. He had a attempt on August 24, 2024, involving an attempt to hang himself, as well as ongoing self-injurious behavior. There is a history of substance use disorder, including methamphetamine addiction in [id number], recent cocaine use, and alcohol relapse in late 2023 after a period of five to six months of sobriety with continued alcohol use. The patient was pulled over for a DUI prior to his October admission the patient has a history of cleft palate repair, testicular cancer with right testicle removal in June 2023, and a stroke in 2017 attributed to substance use. There is a family history of depression and addiction on both maternal and paternal sides, as well as a sibling with a suicide attempt in 2018. Who presents now after being found with altered mental status and a blood alcohol of 265 but no other substances and his drug screen. 1.? Transfer to neuropsychiatric unit. 2. ?We will attempt to gather collateral information. 3. ?TO-15 minute checks on the unit. 4. ?Recommend sober living treatment at the highest level of care to which the patient is willing to commit. 5. We will restart current medications and monitor for any need for changes. 6. Continue CIWA protocol. 7. Encourage individual, group and milieu therapy. PDMP PDMP Reviewed: Not Reviewed Involuntary Hold Information 2 96 Hour Hold: 96 Hour Involuntary Admission: Yes Other Hold: Hold End Date: 10/20/24 Attestations NPU 2 Medical Necessity Statement*: Inpatient hospitalization is medically necessary and the clinically appropriate intervention at this time. We will monitor/initiate medications and make changes as indicated. Likely length of stay 3-5 days. Coding Level of Care Code Acute Code for g Fwd Diagnoses Suicidal ideation R45.851 Alcohol intoxication F10.920 Complication of substance-induced condition: uncomplicated PTSD (post-traumatic stress disorder) F43.10 Major depressive disorder, recurrent F33.9 Alcohol use disorder F10.90 Generalized anxiety disorder F41.1 Adjustment disorder with mixed disturbance of emotions and conduct F43.25
--- NOTE | 2025-05-04 02:03 | PC.NURSE ---
pt privilege pt would like shaving privileges
[2025-05-04 05:10] VITALS: BP 153/100; PULSE 108; RESP 18; TEMP 37.3; O2SAT 92
--- NOTE | 2025-05-04 05:22 | PC.NURSE ---
SLEEP PATIENT WAS AWAKE TILL AFTER MIDNIGHT CONVERSING WITH HIS ROOMMATE. BOTH FINALLY WENT TO SLEEP SHORTLY AFTER.
[2025-05-04 07:52] LABS: Hematocrit 34.9 % (37-53); Hemoglobin 10.90 g/dL (11.27-16.99); Mean Corpuscular HGB Conc 31.2 g/dL (30-55); Mean Corpuscular Hemoglobin 27.5 pg (27-33); Mean Corpuscular Volume 88.1 fl (82-101); Nucleated Red Blood Cells % 0 %; Platelet Count 283 10^3/cmm (157-399); Red Blood Count 3.96 10^6/uL (3.85-5.65); White Blood Count 8.17 10^3/uL (3.29-11.43)
[2025-05-04 08:11] LABS: Alanine Aminotransferase 40 U/L (0-41); Albumin Level 3.0 g/dL (3.5-5.2); Alkaline Phosphatase 105 U/L (40-130); Anion Gap 14.0 (5-19); Aspartate Amino Transferase 36 U/L (0-40); Blood Urea Nitrogen 3 mg/dL (6-20); Calcium 8.4 mg/dL (8.5-10.5); Carbon Dioxide 23 mmol/L (22-29); Chloride 108 mmol/L (98-107); Creatinine Clr Calc Pharmacy 191.8667; Globulin 3.0 g/dL (1.3-4.6); Glucose 100 mg/dL (65-115); Osmolality Calculated 289 mOsm/kg (285-295); Potassium 4.0 mmol/L (3.5-5.1); Sodium 141 mmol/L (136-145); Total Protein 6.0 g/dL (6.6-8.7)
[2025-05-04] MEDS: multivitamin therapeutic Tablet 1 TAB PO (08:24)
--- NOTE | 2025-05-04 13:29 | P.NPUPN_ITS ---
Subjective NPU 2 Subjective: Patient presented today reporting that he feels better and continued to lobby for discharge. He made the argument that what he did was not a suicide attempt but just a mistake in judgment and that he has no intention of dying. His appointment with his therapist tomorrow is reportedly in the morning/late morning. And he argued that his situation would be that if he does not go to the appointment he will be able to see her for a while. I have an appointment with [facility] in the morning and we discussed to be talking to them directly about what they thought was best and how soon he can get a new appointment. He denied any side effects of his medication. Mental Status Exam 2 MSE Comments: This is a well-nourished well-developed white male in hospital scrubs with limited grooming and eye contact. No abnormal movements except for psychomotor retardation. Mostly cooperative with exam in moderate distress. Speech was decreased rate and volume. Mood described as better, affect slightly anxious. Thought process linear/organized. Thought contact: patient denies suicidal or homicidal ideation, there were no delusions reported or noted. He denied auditory or visual hallucinations. Reports long-standing depression since 2013- 2014, but endorsed that has been better since he started the medication at last admission. Attention and concentration appeared intact and memory appeared unreliable but none were formally tested. Patient is alert and oriented times person and place. Insight, judgment and impulse control are all impaired. Vitals/I&O/Wt Last Vital Signs Temp 99.2 F 05/04/25 05:10 Pulse 108 H 05/04/25 05:10 Resp 18 05/04/25 05:10 BP 153/100 05/04/25 05:10 Pulse Ox 92 05/04/25 05:10 O2 Del Method Room Air 05/04/25 05:10 O2 Flow Rate 2 05/02/25 08:20 FiO2 21 05/01/25 13:05 05/03/25 05/04/25 05/04/25 22:59 06:59 14:59 Intake Total 1518.408 / 3789.658 Output Total 3950 / 3950 3400 / 3400 Balance -2431.592 / -160.342 -3400 / -3400 Weight last 48 hrs Weight 96 kg Data NPU 05/04/25 07:35 05/04/25 07:35 Micro: Microbiology 04/29/25 07:16 Blood Culture - Final Blood NO GROWTH AFTER 5 DAYS 04/29/25 07:16 Blood Culture - Final Blood NO GROWTH AFTER 5 DAYS 05/02/25 15:19 Blood Culture - Preliminary Blood NEGATIVE TO DATE 05/02/25 04:17 Blood Culture - Preliminary Blood NEGATIVE TO DATE Microbiology 04/29/25 07:16 Blood Blood Culture - Final NO GROWTH AFTER 5 DAYS 04/29/25 07:16 Blood Blood Culture - Final NO GROWTH AFTER 5 DAYS 05/02/25 15:19 Blood Blood Culture - Preliminary NEGATIVE TO DATE 05/02/25 04:17 Blood Blood Culture - Preliminary NEGATIVE TO DATE A&P Assessment and plan 1. Suicidal ideation: 2. Alcohol intoxication: 3. PTSD (post-traumatic stress disorder): 4. Major depressive disorder, recurrent: 5. Alcohol use disorder: 6. Generalized anxiety disorder: 7. Adjustment disorder with mixed disturbance of emotions and conduct: Plan: This is a 29-year-old white male only known to [facility] psychiatry from 3 past inpatient services since August of last year. He has a history of major depressive disorder and generalized anxiety disorder, both of which have progressively worsened since their onset in 9844-6619. He had a attempt on August 24, 2024, involving an attempt to hang himself, as well as ongoing self-injurious behavior. There is a history of substance use disorder, including methamphetamine addiction in 2030-8349, recent cocaine use, and alcohol relapse in late 2023 after a period of five to six months of sobriety with continued alcohol use. The patient was pulled over for a DUI prior to his October admission the patient has a history of cleft palate repair, testicular cancer with right testicle removal in June 2023, and a stroke in 2017 attributed to substance use. There is a family history of depression and addiction on both maternal and paternal sides, as well as a sibling with a suicide attempt in 2019. Who presents now after being found with altered mental status and a blood alcohol of 265 but no other substances and his drug screen. 1.? Transfer to neuropsychiatric unit. 2. ?We will attempt to gather collateral information. 3. ?TO-15 minute checks on the unit. 4. ?Recommend sober living treatment at the highest level of care to which the patient is willing to commit. 5. We will restart current medications and monitor for any need for changes. 6. Continue CIWA protocol. 7. Encourage individual, group and milieu therapy. 8. Patient lobbying for discharge. Reported he wanted to go to his therapy appointment tomorrow. I have an appointment at [facility] in the morning and acknowledged that I would talk to his therapist and make a decision about discharging him in the morning. PDMP PDMP Reviewed: Not Reviewed Involuntary Hold Information 2 96 Hour Hold: 96 Hour Involuntary Admission: Yes Other Hold: Hold End Date: 10/20/24 Attestations NPU 2 Medical Necessity Statement*: Inpatient hospitalization is medically necessary and the clinically appropriate intervention at this time. We will monitor/initiate medications and make changes as indicated. Likely length of stay 1-4 days. Coding Level of Care Code Acute Code for [facility] Fwd Diagnoses Suicidal ideation R45.851 Alcohol intoxication F10.920 Complication of substance-induced condition: uncomplicated PTSD (post-traumatic stress disorder) F43.10 Major depressive disorder, recurrent F33.9 Alcohol use disorder F10.90 Generalized anxiety disorder F41.1 Adjustment disorder with mixed disturbance of emotions and conduct F43.25
[2025-05-04 14:00] VITALS: BP 139/93; PULSE 102; RESP 17; TEMP 37; O2SAT 95
--- NOTE | 2025-05-04 14:30 | USCV_ITS ---
Darell Devlin Age: 29 Gender: M : 1995 Exam Date: 05/04/2025 18:44 Ordering Phys: Shanelle Elias MD Technologist: DARA [place] [facility] [place]: supraventricular tachycardia, substance abuse, recent overdose, Neuropsych patient. BP: 139 / 93 HR: 92 Rhythm: Sinus Technical Quality: Adequate MEASUREMENTS (Male / Female) Normal Values 2D ECHO LV Diastolic Diameter PLAX 4.2 cm 4.2 - 5.9 / 3.9 - 5.3 cm IVS Diastolic Thickness 1.4 cm 0.6 - 1.0 / 0.6 - 0.9 cm IVS Systolic Thickness 1.8 cm LVPW Diastolic Thickness 1.3 cm 0.6 - 1.0 / 0.6 - 0.9 cm LVPW Systolic Thickness 1.9 cm LVOT Diameter 2.1 cm LV Ejection Fraction 2D Teich 60.8 % LV Ejection Fraction MOD 4C 48.5 % LV Ejection Fraction MOD 2C 58.3 % LV Ejection Fraction 2C AL 59.8 % LA Diameter 3.8 cm Aorta at Sinotubular Diameter 3.0 cm IVC Diameter 0.8 cm M-MODE LA Ao Ratio MM 1.2 AV Cusp Separation MM 2.2 cm DOPPLER AV Peak Velocity 122.0 cm/s LVOT Peak Velocity 100.0 cm/s AV Area Cont Eq vti 2.8 cm squared AV Area Cont Eq pk 2.7 cm squared MV Peak Velocity 89.0 cm/s MV Area PHT 5.4 cm squared Mitral E to A Ratio 1.4 TV Peak Velocity 204.5 cm/s TR Peak Velocity 232.0 cm/s TR Peak Gradient 21.5 mmHg TV Peak E Velocity 63.0 cm/s PV Peak Velocity 94.0 cm/s FINDINGS Left Ventricle Normal left ventricular size, systolic function and wall thickness, with no regional wall motion abnormalities. Left ventricular ejection fraction is estimated at 60 %. Normal diastolic function. Right Ventricle The right ventricle is normal in size and function. Right Atrium The right atrium is normal in size. Left Atrium The left atrium is normal in size. Mitral Valve Thickened mitral valve. No mitral valve stenosis. Mild mitral valve regurgitation. Aortic Valve Structurally normal aortic valve without significant sclerosis or stenosis. There is no aortic regurgitation. Tricuspid Valve Structurally normal tricuspid valve without significant stenosis or regurgitation. Pulmonary artery systolic pressure is normal. Pulmonic Valve Structurally normal pulmonic valve without significant stenosis. There is no pulmonic regurgitation. Pericardium Normal pericardium without effusion. Aorta Normal ascending aorta dimension. IVC The inferior vena cava appears normal. CONCLUSIONS Normal left ventricular size, systolic function and wall thickness, with no regional wall motion abnormalities. Left ventricular ejection fraction is estimated at 60 %. Normal diastolic function. There is no pericardial effusion. No significant valve abnormalities. Right atrial pressure is around 5 mm of mercury. Henok Carlson MD (Electronically Signed) Final Date: 05 May 2025 11:15 S
[2025-05-04 19:33] VITALS: BP 142/91; PULSE 115; RESP 19; TEMP 36.8; O2SAT 98
[2025-05-05 06:00] VITALS: RESP 16
[2025-05-05] MEDS: multivitamin therapeutic Tablet 1 TAB PO (08:29)
[2025-05-05 13:53] VITALS: BP 124/86; PULSE 93; RESP 16; TEMP 37.2; O2SAT 98
--- NOTE | 2025-05-05 15:32 | P.NPUPN_ITS ---
Subjective NPU 2 Subjective: Patient presented today reporting that things are going okay but he was frustrated about the idea that he would not be discharging. We had a lengthy discussion about the need for active engagement in his sober living with inpatient rehab given his continued use leading to more self-injurious behavior and suicide attempts. We discussed that we had the opportunity to talk to his outpatient team and they were not supportive of the idea of him discharging and talking over the issues with him because they have been trying to challenge him on those issues without success on an outpatient basis. He reported that the relationship with his dog would make it impossible for him to leave the dog while he was doing inpatient work. We discussed the importance of him exploring that position and looking at the critical need for inpatient rehab. He denied any side effects of the medication. Mental Status Exam 2 MSE Comments: This is a well-nourished well-developed white male in hospital scrubs with limited grooming and eye contact. No abnormal movements except for psychomotor retardation. Mostly cooperative with exam in moderate distress. Speech was decreased rate and volume. Mood described anxious about wanting to discharge, affect slightly anxious. Thought process linear/organized. Thought contact: patient denies suicidal or homicidal ideation, there were no delusions reported or noted. He denied auditory or visual hallucinations. Reports long-standing depression since 6874-9325, but endorsed that has been better since he started the medication at last admission. Attention and concentration appeared intact and memory appeared unreliable but none were formally tested. Patient is alert and oriented times person and place. Insight, judgment and impulse control are all impaired. Vitals/I&O/Wt Last Vital Signs Temp 98.9 F 05/05/25 13:53 Pulse 93 05/05/25 13:53 Resp 16 05/05/25 13:53 BP 124/86 05/05/25 13:53 Pulse Ox 98 05/05/25 13:53 O2 Del Method Room Air 05/05/25 13:53 O2 Flow Rate 2 05/02/25 08:20 FiO2 21 05/01/25 13:05 Data NPU 05/04/25 07:35 05/04/25 07:35 A&P Assessment and plan 1. Suicidal ideation: 2. Alcohol intoxication: 3. PTSD (post-traumatic stress disorder): 4. Major depressive disorder, recurrent: 5. Alcohol use disorder: 6. Generalized anxiety disorder: 7. Adjustment disorder with mixed disturbance of emotions and conduct: Plan: This is a 29-year-old white male only known to [facility] psychiatry from 3 past inpatient services since August of last year. He has a history of major depressive disorder and generalized anxiety disorder, both of which have progressively worsened since their onset in 5317-1985. He had a attempt on August 24, 2024, involving an attempt to hang himself, as well as ongoing self-injurious behavior. There is a history of substance use disorder, including methamphetamine addiction in 6696-9681, recent cocaine use, and alcohol relapse in late 2023 after a period of five to six months of sobriety with continued alcohol use. The patient was pulled over for a DUI prior to his October admission the patient has a history of cleft palate repair, testicular cancer with right testicle removal in June 2023, and a stroke in 2017 attributed to substance use. There is a family history of depression and addiction on both maternal and paternal sides, as well as a sibling with a suicide attempt in 2019. Who presents now after being found with altered mental status and a blood alcohol of 265 but no other substances and his drug screen. 1.? Transfer to neuropsychiatric unit. 2. ?We will attempt to gather collateral information. 3. ?TO-15 minute checks on the unit. 4. ?Recommend sober living treatment at the highest level of care to which the patient is willing to commit. Outpatient team very supportive but agree with inpatient team that inpatient rehab would be the best recommendation. 5. We will restart current medications and monitor for any need for changes. 6. Continue CIWA protocol. 7. Encourage individual, group and milieu therapy. 8. Patient lobbying for discharge now reporting a desire for possible outpatient rehab reporting his dog cannot be left. PDMP PDMP Reviewed: Not Reviewed Involuntary Hold Information 2 96 Hour Hold: 96 Hour Involuntary Admission: Yes Other Hold: Hold End Date: 10/20/24 Attestations NPU 2 Medical Necessity Statement*: Inpatient hospitalization is medically necessary and the clinically appropriate intervention at this time. We will monitor/initiate medications and make changes as indicated. Likely length of stay 3-5 days. Coding Level of Care Code Acute Code for [facility] Fwd Diagnoses Suicidal ideation R45.851 Alcohol intoxication F10.920 Complication of substance-induced condition: uncomplicated PTSD (post-traumatic stress disorder) F43.10 Major depressive disorder, recurrent F33.9 Alcohol use disorder F10.90 Generalized anxiety disorder F41.1 Adjustment disorder with mixed disturbance of emotions and conduct F43.25
[2025-05-05 20:15] VITALS: BP 138/90; PULSE 98; RESP 19; TEMP 36.8; O2SAT 98
[2025-05-06 06:00] VITALS: BP 132/76; PULSE 98; RESP 17; TEMP 36.6; O2SAT 94
[2025-05-06 08:12] VITALS: BP 147/92; PULSE 104; RESP 18
[2025-05-06] MEDS: multivitamin therapeutic Tablet 1 TAB PO (08:16)
--- NOTE | 2025-05-06 13:45 | P.NPUPN_ITS ---
Subjective NPU 2 Subjective: Patient presented today reporting that he is unsure what he wants to do in regards to his treatment. However he is saying that he will not go to rehab. We discussed the importance of him focusing on what is going to take to get him sober enough that he does not have these hospitalizations or have moments where while intoxicated he does dangerous things. He continues to be frustrated about his 21-day hold paperwork being filed but denied any side effects to his medication Mental Status Exam 2 MSE Comments: This is a well-nourished well-developed white male in hospital scrubs with limited grooming and eye contact. No abnormal movements except for psychomotor retardation. Mostly cooperative with exam in moderate distress. Speech was decreased rate and volume. Mood described anxious about wanting to discharge, affect slightly anxious. Thought process linear/organized. Thought contact: patient denies suicidal or homicidal ideation, there were no delusions reported or noted. He denied auditory or visual hallucinations. Reports long-standing depression since 1197-3676, but endorsed that has been better since he started the medication at last admission. Attention and concentration appeared intact and memory appeared unreliable but none were formally tested. Patient is alert and oriented times person and place. Insight, judgment and impulse control are all impaired. Vitals/I&O/Wt Last Vital Signs Temp 97.9 F 05/06/25 06:00 Pulse 104 H 05/06/25 08:12 Resp 18 05/06/25 08:12 BP 147/92 05/06/25 08:12 Pulse Ox 94 05/06/25 06:00 O2 Del Method Room Air 05/06/25 08:12 O2 Flow Rate 2 05/02/25 08:20 FiO2 21 05/01/25 13:05 Data NPU 05/04/25 07:35 05/04/25 07:35 A&P Assessment and plan 1. Suicidal ideation: 2. Alcohol intoxication: 3. PTSD (post-traumatic stress disorder): 4. Major depressive disorder, recurrent: 5. Alcohol use disorder: 6. Generalized anxiety disorder: 7. Adjustment disorder with mixed disturbance of emotions and conduct: Plan: This is a 29-year-old white male only known to [facility] psychiatry from 3 past inpatient services since August of last year. He has a history of major depressive disorder and generalized anxiety disorder, both of which have progressively worsened since their onset in 9128-7590. He had a attempt on August 24, 2024, involving an attempt to hang himself, as well as ongoing self-injurious behavior. There is a history of substance use disorder, including methamphetamine addiction in 5144-0931, recent cocaine use, and alcohol relapse in late 2023 after a period of five to six months of sobriety with continued alcohol use. The patient was pulled over for a DUI prior to his October admission the patient has a history of cleft palate repair, testicular cancer with right testicle removal in June 2023, and a stroke in 2017 attributed to substance use. There is a family history of depression and addiction on both maternal and paternal sides, as well as a sibling with a suicide attempt in 2019. Who presents now after being found with altered mental status and a blood alcohol of 265 but no other substances and his drug screen. 1.? Transfer to neuropsychiatric unit. 2. ?We will attempt to gather collateral information. 3. ?TO-15 minute checks on the unit. 4. ?Recommend sober living treatment at the highest level of care to which the patient is willing to commit. Outpatient team very supportive but agree with inpatient team that inpatient rehab would be the best recommendation. 5. We will restart current medications and monitor for any need for changes. 6. Continue CIWA protocol. 7. Encourage individual, group and milieu therapy. 8. Patient lobbying for discharge now reporting a desire for possible outpatient rehab reporting his dog cannot be left. PDMP PDMP Reviewed: Not Reviewed Involuntary Hold Information 2 96 Hour Hold: 96 Hour Involuntary Admission: Yes Other Hold: Hold End Date: 10/20/24 Attestations NPU 2 Medical Necessity Statement*: Inpatient hospitalization is medically necessary and the clinically appropriate intervention at this time. We will monitor/initiate medications and make changes as indicated. Likely length of stay 2-4 days. Coding Level of Care Code Acute Code for [facility] Fwd Diagnoses Suicidal ideation R45.851 Alcohol intoxication F10.920 Complication of substance-induced condition: uncomplicated PTSD (post-traumatic stress disorder) F43.10 Major depressive disorder, recurrent F33.9 Alcohol use disorder F10.90 Generalized anxiety disorder F41.1 Adjustment disorder with mixed disturbance of emotions and conduct F43.25
[2025-05-06 14:00] VITALS: BP 129/91; PULSE 100; RESP 16; TEMP 37.2; O2SAT 97
--- NOTE | 2025-05-06 15:30 | PC.NURSE ---
Written information marli on [employer] and [facility].
[2025-05-06 20:09] VITALS: BP 122/80; PULSE 105; RESP 18; TEMP 37.1; O2SAT 98
[2025-05-07 06:00] VITALS: BP 114/72; PULSE 84; RESP 18; TEMP 36.4; O2SAT 96
[2025-05-07] MEDS: multivitamin therapeutic Tablet 1 TAB PO (08:09)
[2025-05-07 14:00] VITALS: BP 116/71; PULSE 74; RESP 16; TEMP 36.5; O2SAT 95
--- NOTE | 2025-05-07 17:19 | P.NPUPN_ITS ---
Subjective NPU 2 Subjective: Patient presented today reporting that he is feeling fairly good about the situation. He continues to deny a desire to engage in rehab he was asking about the ICTD program at [facility]. We continue to discussed that the recommendation would be for him to go to inpatient rehab but he reports a desire to work. We discussed the fact that if he is capable of working and going to that program that would be great but the problem is that he will immediately be able to resume active use if he does not go to an inpatient rehab and if he is still using then no programming will be effective. He denied any side effects to his medication. Mental Status Exam 2 MSE Comments: This is a well-nourished well-developed white male in hospital scrubs with limited grooming and eye contact. No abnormal movements except for psychomotor retardation. Mostly cooperative with exam in mild to moderate distress. Speech was decreased rate and volume. Mood described anxious about wanting to discharge, affect slightly anxious. Thought process linear/organized. Thought contact: patient denies suicidal or homicidal ideation, there were no delusions reported or noted. He denied auditory or visual hallucinations. Reports long- standing depression since 9091-8170, but endorsed that has been better since he started the medication at last admission. Attention and concentration appeared intact and memory appeared unreliable but none were formally tested. Patient is alert and oriented times person and place. Insight, judgment and impulse control are all impaired. Vitals/I&O/Wt Last Vital Signs Temp 97.7 F 05/07/25 14:00 Pulse 74 05/07/25 14:00 Resp 16 05/07/25 14:00 BP 116/71 05/07/25 14:00 Pulse Ox 95 05/07/25 14:00 O2 Del Method Room Air 05/07/25 14:00 O2 Flow Rate 2 05/02/25 08:20 FiO2 21 05/01/25 13:05 Data NPU 05/04/25 07:35 05/04/25 07:35 Micro: Microbiology 05/02/25 15:19 Blood Culture - Final Blood NO GROWTH AFTER 5 DAYS 05/02/25 04:17 Blood Culture - Final Blood NO GROWTH AFTER 5 DAYS Microbiology 05/02/25 15:19 Blood Blood Culture - Final NO GROWTH AFTER 5 DAYS 05/02/25 04:17 Blood Blood Culture - Final NO GROWTH AFTER 5 DAYS A&P Assessment and plan 1. Suicidal ideation: 2. Alcohol intoxication: 3. PTSD (post-traumatic stress disorder): 4. Major depressive disorder, recurrent: 5. Alcohol use disorder: 6. Generalized anxiety disorder: 7. Adjustment disorder with mixed disturbance of emotions and conduct: Plan: This is a 29-year-old white male only known to [facility] psychiatry from 3 past inpatient services since August of last year. He has a history of major depressive disorder and generalized anxiety disorder, both of which have progressively worsened since their onset in 6942-5359. He had a attempt on August 24, 2024, involving an attempt to hang himself, as well as ongoing self-injurious behavior. There is a history of substance use disorder, including methamphetamine addiction in 0288-5719, recent cocaine use, and alcohol relapse in late 2023 after a period of five to six months of sobriety with continued alcohol use. The patient was pulled over for a DUI prior to his October admission the patient has a history of cleft palate repair, testicular cancer with right testicle removal in June 2023, and a stroke in 2018 attributed to substance use. There is a family history of depression and addiction on both maternal and paternal sides, as well as a sibling with a suicide attempt in 2019. Who presents now after being found with altered mental status and a blood alcohol of 265 but no other substances and his drug screen. 1.? Transfer to neuropsychiatric unit. 2. ?We will attempt to gather collateral information. 3. ?TO-15 minute checks on the unit. 4. ?Recommend sober living treatment at the highest level of care to which the patient is willing to commit. Outpatient team very supportive but agree with inpatient team that inpatient rehab would be the best recommendation. 5. We will restart current medications and monitor for any need for changes. 6. Continue CIWA protocol. 7. Encourage individual, group and milieu therapy. 8. Patient lobbying for discharge now reporting a desire for possible outpatient rehab reporting his dog cannot be left. PDMP PDMP Reviewed: Not Reviewed Involuntary Hold Information 2 96 Hour Hold: 96 Hour Involuntary Admission: Yes Other Hold: Hold End Date: 10/20/24 Attestations NPU 2 Medical Necessity Statement*: Inpatient hospitalization is medically necessary and the clinically appropriate intervention at this time. We will monitor/initiate medications and make changes as indicated. Likely length of stay 2-4 days. Coding Level of Care Code Acute Code for [facility] Fwd Diagnoses Suicidal ideation R45.851 Alcohol intoxication F10.920 Complication of substance-induced condition: uncomplicated PTSD (post-traumatic stress disorder) F43.10 Major depressive disorder, recurrent F33.9 Alcohol use disorder F10.90 Generalized anxiety disorder F41.1 Adjustment disorder with mixed disturbance of emotions and conduct F43.25
[2025-05-07 20:00] VITALS: BP 109/66; PULSE 92; RESP 18; O2SAT 96
[2025-05-08 06:00] VITALS: BP 102/68; PULSE 76; RESP 18; O2SAT 96; BMI 26.4
[2025-05-08 08:30] VITALS: BP 116/70
[2025-05-08] MEDS: multivitamin therapeutic Tablet 1 TAB PO (08:32)
[2025-05-08] MEDS: lidocaine 2% viscous 15 ML, diphenhydrAMINE oral liq 37.5 MG, aluminum-mag hydrox-simet... MUCOUS MEM (13:16)
[2025-05-08 14:00] VITALS: BP 128/83; PULSE 78; RESP 16; TEMP 37.2; O2SAT 98
--- NOTE | 2025-05-08 17:23 | P.NPUPN_ITS ---
Subjective NPU 2 Subjective: Patient presented today reporting that he is doing fine. He continues to be focused on having some kind of outpatient process that does not require inpatient so that he can work but we had a long discussion about how that all a moot point if he cannot maintain his sobriety. That his sobriety is the [employer] and this whole thing. He continues to lobby for having an opportunity to do it this way and we discussed that Dr. Lyles would be here tomorrow to make these decisions. Mental Status Exam 2 MSE Comments: This is a well-nourished well-developed white male in hospital scrubs with limited grooming and eye contact. No abnormal movements except for psychomotor retardation. Mostly cooperative with exam in mild to moderate distress. Speech was decreased rate and volume. Mood described anxious about wanting to discharge, affect slightly anxious. Thought process linear/organized. Thought contact: patient denies suicidal or homicidal ideation, there were no delusions reported or noted. He denied auditory or visual hallucinations. Reports long- standing depression since [id number], but endorsed that has been better since he started the medication at last admission. Attention and concentration appeared intact and memory appeared unreliable but none were formally tested. Patient is alert and oriented times person and place. Insight, judgment and impulse control are all impaired. Vitals/I&O/Wt Last Vital Signs Temp 98.9 F 05/08/25 14:00 Pulse 78 05/08/25 14:00 Resp 16 05/08/25 14:00 BP 128/83 05/08/25 14:00 Pulse Ox 98 05/08/25 14:00 O2 Del Method Room Air 05/08/25 14:00 O2 Flow Rate 2 05/02/25 08:20 FiO2 21 05/01/25 13:05 Weight last 48 hrs Weight 90.832 kg Data NPU 05/04/25 07:35 05/04/25 07:35 Micro: Microbiology 05/02/25 15:19 Blood Culture - Final Blood NO GROWTH AFTER 5 DAYS 05/02/25 04:17 Blood Culture - Final Blood NO GROWTH AFTER 5 DAYS Microbiology 05/02/25 15:19 Blood Blood Culture - Final NO GROWTH AFTER 5 DAYS 05/02/25 04:17 Blood Blood Culture - Final NO GROWTH AFTER 5 DAYS A&P Assessment and plan 1. Suicidal ideation: 2. Alcohol intoxication: 3. PTSD (post-traumatic stress disorder): 4. Major depressive disorder, recurrent: 5. Alcohol use disorder: 6. Generalized anxiety disorder: 7. Adjustment disorder with mixed disturbance of emotions and conduct: Plan: This is a 29-year-old white male only known to [facility] psychiatry from 3 past inpatient services since August of last year. He has a history of major depressive disorder and generalized anxiety disorder, both of which have progressively worsened since their onset in 9132-0924. He had a attempt on August 24, 2024, involving an attempt to hang himself, as well as ongoing self-injurious behavior. There is a history of substance use disorder, including methamphetamine addiction in 0716-5546, recent cocaine use, and alcohol relapse in late 2023 after a period of five to six months of sobriety with continued alcohol use. The patient was pulled over for a DUI prior to his October admission the patient has a history of cleft palate repair, testicular cancer with right testicle removal in June 2023, and a stroke in 2017 attributed to substance use. There is a family history of depression and addiction on both maternal and paternal sides, as well as a sibling with a suicide attempt in 2018. Who presents now after being found with altered mental status and a blood alcohol of 265 but no other substances and his drug screen. 1.? Transfer to neuropsychiatric unit. 2. ?We will attempt to gather collateral information. 3. ?TO-15 minute checks on the unit. 4. ?Recommend sober living treatment at the highest level of care to which the patient is willing to commit. Outpatient team very supportive but agree with inpatient team that inpatient rehab would be the best recommendation. 5. We will restart current medications and monitor for any need for changes. 6. Discontinue CIWA protocol. 7. Encourage individual, group and milieu therapy. 8. Patient lobbying for discharge now reporting a desire for possible outpatient rehab. He reports that he needs and wants to work and so going inpatient is a problem. PDMP PDMP Reviewed: Not Reviewed Involuntary Hold Information 2 96 Hour Hold: 96 Hour Involuntary Admission: Yes Other Hold: Hold End Date: 10/20/24 Attestations NPU 2 Medical Necessity Statement*: Inpatient hospitalization is medically necessary and the clinically appropriate intervention at this time. We will monitor/initiate medications and make changes as indicated. Likely length of stay 1-3 days. Coding Level of Care Code Acute Code for Chg Fwd Diagnoses Suicidal ideation R45.851 Alcohol intoxication F10.920 Complication of substance-induced condition: uncomplicated PTSD (post-traumatic stress disorder) F43.10 Major depressive disorder, recurrent F33.9 Alcohol use disorder F10.90 Generalized anxiety disorder F41.1 Adjustment disorder with mixed disturbance of emotions and conduct F43.25
[2025-05-08 19:56] VITALS: BP 110/74; PULSE 100; RESP 19; TEMP 37; O2SAT 100
[2025-05-09] MEDS: multivitamin therapeutic Tablet 1 TAB PO (08:59)
[2025-05-09 14:00] VITALS: BP 118/82; PULSE 99; RESP 17; TEMP 36.8; O2SAT 100
--- NOTE | 2025-05-09 15:02 | W.PM.NPUPNS ---
Subjective NPU Subjective: 29-year-old male with borderline personality disorder, dysthymia, anxiety, and alcohol dependence who presented after a significant overdose requiring ICU admission. He had continued to minimize the significance of his overdose stating that he had made a mistake. The patient had a blood alcohol level of 265. He had reported that he had been compliant with intramuscular Vivitrol but reported continued alcohol use despite adverse consequences. He had also reported acknowledged that his mood had appeared to fluctuate and worsen under the influence of alcohol. He had remained ambivalent about any inpatient substance abuse treatment at this time. He had reported feeling anxious and received Ativan 1 mg today after he had been upset that he would not be able to leave today. The patient had endorsed having an argument with his girlfriend that had led to him becoming exceedingly violent towards her. He had reported that he had lost control. Mental Status Exam MSE Comments: This is a well-nourished well-developed white male in hospital scrubs with limited grooming and eye contact. No abnormal movements except for psychomotor retardation. He was superficially cooperative with exam in mild to moderate distress. Speech was decreased in rate and normal in volume. Mood described anxious about wanting to discharge, His affect was anxious. Thought process was linear and organized. Thought contact: patient denies suicidal or homicidal ideation, there were no delusions reported or noted. He denied auditory or visual hallucinations. He reports a long standing history of depression for over 10 years. Attention and concentration appeared intact and memory appeared unreliable but none were formally tested. Patient is alert and oriented times person and place. Insight, judgment and impulse control are all impaired. Vitals/I&O/Wt Last Vital Signs Temp 98.3 F 05/09/25 14:00 Pulse 99 05/09/25 14:00 Resp 17 05/09/25 14:00 BP 118/82 05/09/25 14:00 Pulse Ox 100 05/09/25 14:00 O2 Del Method Room Air 05/08/25 19:56 O2 Flow Rate 2 05/02/25 08:20 FiO2 21 05/01/25 13:05 Weight last 48 hrs Weight 90.832 kg Data NPU 05/04/25 07:35 05/04/25 07:35 A&P Assessment and plan 1. Major depressive disorder, recurrent: 2. Suicidal ideation: 3. PTSD (post-traumatic stress disorder): 4. Alcohol use disorder: 5. Generalized anxiety disorder: Plan: This is a 29-year-old white male only known to [facility] psychiatry from 3 past inpatient services since August of last year. He has a history of major depressive disorder and generalized anxiety disorder, both of which have progressively worsened since their onset in 7360-6263. He had a attempt on August 24, 2024, involving an attempt to hang himself, as well as ongoing self-injurious behavior. There is a history of substance use disorder, including methamphetamine addiction in 0627-7603, recent cocaine use, and alcohol relapse in late 2023 after a period of five to six months of sobriety with continued alcohol use. The patient was pulled over for a DUI prior to his October admission the patient has a history of cleft palate repair, testicular cancer with right testicle removal in June 2023, and a stroke in 2017 attributed to substance use. There is a family history of depression and addiction on both maternal and paternal sides, as well as a sibling with a suicide attempt in 2019. Who presents now after being found with altered mental status and a blood alcohol of 265 but no other substances and his drug screen. 1.? Transfer to neuropsychiatric unit. 2. ?We will attempt to gather collateral information. 3. ?TO-15 minute checks on the unit. 4. ?Recommend sober living treatment at the highest level of care to which the patient is willing to commit. Outpatient team very supportive but agree with inpatient team that inpatient rehab would be the best recommendation. 5. We will restart current medications and monitor for any need for changes. 6. Discontinue CIWA protocol. 7. Encourage individual, group and milieu therapy. 8. Inpatient substance abuse treatment strongly encouraged given potentially lethal means this patient has attempted to harm self. He has extremely poor impulse control particularly under influence of alcohol. 9. Patient has hearing for 21 day in 1-2 days. PDMP PDMP Reviewed: Not Reviewed Involuntary Hold Information 96 Hour Hold: 96 Hour Involuntary Admission: Yes Other Hold: Hold End Date: 10/20/24 Attestations U Medical Necessity Statement*: Inpatient hospitalization is medically necessary and the clinically appropriate intervention at this time. We will monitor/initiate medications and make changes as indicated. Likely length of stay 5-7 days. Coding Level of Care Code Acute Code for [facility] Fwd Diagnoses Major depressive disorder, recurrent F33.9 Suicidal ideation R45.851 PTSD (post-traumatic stress disorder) F43.10 Alcohol use disorder F10.90 Generalized anxiety disorder F41.1
--- NOTE | 2025-05-09 15:08 | PC.NURSE ---
Dr. Lyles gave this nurse a verbal order for a one time dose of Ativan for severe anxiety.
[2025-05-09 19:57] VITALS: BP 99/59; PULSE 98; RESP 17; TEMP 36.4; O2SAT 99
[2025-05-10 06:00] VITALS: BP 91/52; PULSE 70; RESP 16; TEMP 36.7; O2SAT 94
[2025-05-10] MEDS: multivitamin therapeutic Tablet 1 TAB PO (09:14)
[2025-05-10 14:00] VITALS: BP 112/71; PULSE 95; RESP 16; TEMP 36.7; O2SAT 100
--- NOTE | 2025-05-10 15:11 | PC.NURSE ---
Off unit for [address]
--- NOTE | 2025-05-10 16:03 | PC.NURSE ---
Pt back from court - on unit.
--- NOTE | 2025-05-10 18:39 | P.NPUPN_ITS ---
Subjective NPU 2 Subjective: 29-year-old male with borderline persona lity disorder, dysthymia, anxiety, and alcohol dependence who presented after a significant overdose requiring ICU admission. The patient had minimized any suicidal ideation at this time. He had endorsed a history of binge drinking. He had reported that his moods became worse during periods where he had consumed alcohol. He had admitted to having consumed a significant amount of alcohol on the day of his overdose. He reports that he wished to consider having a job as it had decreased the amount of time that he had spent drinking in general. He had reported no other illicit drug use currently. He reports that he would be interested in the more intensive outpatient program for managing alcohol abuse. The patient was pleasant and cooperative on the milieu. He was able to attend groups. He had reported that his plan was to continue to live in [place] with family. Mental Status Exam 2 MSE Comments: This is a well-nourished well-developed white male in hospital scrubs with limited grooming and eye contact. There were multiple tattoes on arms and neck. No abnormal movements except for psychomotor retardation. He was superficially cooperative with exam in mild to moderate distress. Speech was normal in rate and normal in volume. Mood described anxious about wanting to discharge, His affect was anxious. Thought process was linear and organized. Thought contact: patient denies suicidal or homicidal ideation, there were no delusions reported or noted. He denied auditory or visual hallucinations. Attention and concentration appeared intact and memory appeared unreliable but none were formally tested. Patient is alert and oriented times person, and place. Insight, judgment and impulse control are all impaired. Vitals/I&O/Wt Last Vital Signs Temp 98.1 F 05/10/25 14:00 Pulse 95 05/10/25 14:00 Resp 16 05/10/25 14:00 BP 112/71 05/10/25 14:00 Pulse Ox 100 05/10/25 14:00 O2 Del Method Room Air 05/10/25 14:00 O2 Flow Rate 2 05/02/25 08:20 FiO2 21 05/01/25 13:05 Data NPU 05/04/25 07:35 05/04/25 07:35 A&P Assessment and plan 1. Major depressive disorder, recurrent: 2. Suicidal ideation: 3. PTSD (post-traumatic stress disorder): 4. Alcohol use disorder: 5. Generalized anxiety disorder: Plan: This is a 29-year-old white male only known to [facility] psychiatry from 3 past inpatient services since August of last year. He has a history of major depressive disorder and generalized anxiety disorder, both of which have progressively worsened since their onset in 3254-5747. He had a attempt on August 24, 2024, involving an attempt to hang himself, as well as ongoing self-injurious behavior. There is a history of substance use disorder, including methamphetamine addiction in 0927-2457, recent cocaine use, and alcohol relapse in late 2023 after a period of five to six months of sobriety with continued alcohol use. The patient was pulled over for a DUI prior to his October admission the patient has a history of cleft palate repair, testicular cancer with right testicle removal in June 2023, and a stroke in 2017 attributed to substance use. There is a family history of depression and addiction on both maternal and paternal sides, as well as a sibling with a suicide attempt in 2018. Who presents now after being found with altered mental status and a blood alcohol of 265 but no other substances and his drug screen. 1.? Transfer to neuropsychiatric unit. 2. ?We will attempt to gather collateral information. 3. ?TO-15 minute checks on the unit. 4. ?Recommend sober living treatment at the highest level of care to which the patient is willing to commit. Outpatient team very supportive but agree with inpatient team that inpatient rehab would be the best recommendation. 5. We will restart current medications and monitor for any need for changes. 6. Discontinue CIWA protocol. 7. Encourage individual, group and milieu therapy. 8. Inpatient substance abuse treatment strongly encouraged given potentially lethal means this patient has attempted to harm self. He has extremely poor impulse control particularly under influence of alcohol. 9. Patient now here on day hold, we will seek more intensive services focused on dual diagnosis treatment as patient refusing inpatient substance abuse treatment. PDMP PDMP Reviewed: Not Reviewed Involuntary Hold Information 2 Hold Status: Legal Status: Hold Date/Time Hold Expires: 05/31/2025 96 Hour Hold: 96 Hour Involuntary Admission: Yes Other Hold: Hold End Date: 10/20/24 Attestations NPU 2 Medical Necessity Statement*: Inpatient hospitalization is medically necessary and the clinically appropriate intervention at this time. We will monitor/initiate medications and make changes as indicated. Likely length of stay 2-3 days. Coding Level of Care Code Acute Code for Chg Fwd Diagnoses Major depressive disorder, recurrent F33.9 Suicidal ideation R45.851 PTSD (post-traumatic stress disorder) F43.10 Alcohol use disorder F10.90 Generalized anxiety disorder F41.1
[2025-05-10 19:43] VITALS: BP 103/68; PULSE 97; RESP 16; TEMP 36.6; O2SAT 99
[2025-05-11 05:56] VITALS: BP 79/44; PULSE 82; RESP 16; TEMP 36.6; O2SAT 95
[2025-05-11] MEDS: multivitamin therapeutic Tablet 1 TAB PO (09:44)
[2025-05-11 14:00] VITALS: BP 113/65; PULSE 91; RESP 16; TEMP 37.2; O2SAT 96
[2025-05-11 15:11] VITALS: BP 113/65; PULSE 91; RESP 16; TEMP 37.2; O2SAT 96
--- NOTE | 2025-05-11 15:18 | P.NPUDS_ITS ---
Diagnoses at Discharge Discharge Diagnosis 1. Major depressive disorder, recurrent: 2. Suicidal ideation: 3. PTSD (post-traumatic stress disorder): 4. Alcohol use disorder: 5. Generalized anxiety disorder: Reason for Visit Reason for Visit: possible od Brief History: History of Present Illness Darell Devlin is a 29 year old male who presented to the emergency department with the following report: Chief complaint: Overdose Stated complaint: possible od Time Seen by Provider: 04/29/25 06:24 History of Present Illness: 29-year-old male [place] [facility] [place] with hypoxia. They were unable to oxygenate in the field. Patient was found down had 1 witnessed seizure and route. He has a history of multiple previous suicide attempts he still has ysabel in his left wrist from previous suicide attempt 2- 1/2 weeks ago. Patient is unable to give any history. EMS was called by family members in the home who found the patient down early this morning. There is no report of the last time when he was seen awake and verbal at baseline. He was given Narcan x 2 and route with no response. On arrival he has sonorous respirations with audible wheezes no verbal responses. EMS reports witnessing seizure in room. Patient has extensive psych history. He has no known seizure history. He is known to use alcohol excessively. He was admitted to the ICU for definitive treatment of those issues. After some time intubated he was extubated yesterday and a psychiatric consult was requested. Patient is known to [facility] psychiatry through inpatient and outpatient services. He has had 3 inpatient psychiatric hospitalizations prior to this ICU admission with the last 1 ending 19 days ago. An excerpt of that discharge summary is included below for context and the fact that there have been no substantive changes. He presents reporting that he had a significant conflict with his girlfriend which led to help with drinking and ultimately behaving in a self-destructive and self-injurious way. He endorses that his brother found him elevated they called the EMS. He reports that he does not want to and did not want to then just identified that it is part of his self-injurious patterns and suggested that he might be able to go home and just see his psychiatrist on Friday and his therapist on . We discussed with his history of suicide attempt and need for psychiatric care and evaluation of the neuropsychiatric unit was necessary prior to his discharge. We discussed that he would be able to be transferred over once he was medically cleared. He denied any needed desire for his medication to be changed and we discussed the risks, benefits and alternatives about reaching out to his outpatient team and getting their take on his situation as we try to make a decision about length of stay etc. and he understood and agreed to proceed as is documented in this note. Per his 04/13/2025 [facility] inpatient psychiatric discharge summary: Discharge Diagnosis 1. Suicidal ideation: 2. Alcohol intoxication: 3. Major depressive disorder, recurrent: 4. PTSD (post-traumatic stress disorder) : 5. Alcohol use disorder: 6. Generalized anxiety disorder: Reason for Visit Reason for Visit: SI ATTEMPT, BILATERAL WRIST LACS Brief History: History of Present Illness Darell Devlin is a 29 year old male with a history of alcohol dependence, borderline personality disorder and major depressive disorder who was admitted after being brought in by EMS having cut his wrists bilaterally with a sharp kn rekha requiring several stitches. The patient in the emergency department had been increasingly agitated and had been given intramuscular ketamine. Patient on interview today reports that he had been more depressed over the past few weeks with complaints of anhedonia, low energy and, low motivation, increased tearfulness, and states that he had recently split up from his partner of 7 years and stated that he needed to see the blood as he reported that the presence of blood had alleviated some of his emotional distress. He has reported no history of psychosis. He denies any manic symptoms. He reports having difficulties with concentration and states that he was not feeling suicidal. Patient had a blood alcohol level of 401. He reports a history of significant consumption of alcohol and stated that he ran out of his naltrexone earlier last month but stated that it had been helpful for reducing his craving for alcohol. He reports daily alcohol use and reports a history of shakes and denied any history of delirium tremens. He denied any other drug use at this time. He reports having problems with maintaining control of his worry as he describes that he has been worrying excessively and states that his worry has been out of control. He had reported a recent change in Cymbalta to a maximum dose of 120 mg a few months ago without any improvement in mood. He had reported that he had been recently started on Seroquel but stated that 200 mg at night had been excessively sedating to him. The patient reported no recent treatment for any substance abuse. He had denied any illicit drug use but reports daily alcohol use. He had reported no significant changes since his last hospitalization 5 months ago. He reports no recent psychiatric hospitalizations since his last hospitalization in October 2024 here. He reports that he is currently now living in [facility] with his mother and his brother. Current medications: Gabapentin 800 mg 3 times a day, Cymbalta 120 mg a day, BuSpar 20 mg twice a day Augmentin 875/125 twice a day, Seroquel 100 mg at night Excerpt from Discharge Summary from 10/19/24 Discharge Diagnosis (1) Suicidal ideation: Status: Resolved (2) Alcohol intoxication: Status: Resolved Qualifiers: Complication of substance-induced condition: uncomplicated Qualified Code(s): F10.920 - Alcohol use, unspecified with intoxication, uncomplicated (3) PTSD (post-traumatic stress disorder ): Status: Acute (4) Major depressive disorder, recurrent : Status: Acute (5) Alcohol use disorder: Status: Acute (6) Generalized anxiety disorder: Status: Acute (7) Adjustment disorder with mixed distu rbance of emotions and conduct: Status: Acute Reason for Visit ETOH, SI, Poss 96 Brief History: History of Present Illness Darell Devlin is a 29 year old male who presented to the emergency department with the following report: Chief Complaint: Psychiatric Symptoms Stated Complaint: ETOH, SI, Poss 96 Time Seen by Provider: 10/14/24 20:27 History of Present Illness: 29-year-old man with a history of depres chuyita, suicidal ideations, alcohol abuse who presents emergency room after a traffic stop or he was found to be intoxicated. Report of a blood alcohol level over 300. He does appear intoxicated but is able to walk and talk. Police report that he hit his head on the back of the car seat and had told them multiple times that he was suicidal. He has superficial cuts/self-mutilation's on his arms. He is currently denying that he said any of this, however he is intoxicated and the police have reported otherwise. He was admitted to the neuropsychiatric unit for definitive treatment of those issues. He is known to the [facility] psychiatric community through inpatient psychiatric services. An excerpt of his discharge from August of last year is included below for context and the fact that there have been no substantive changes. He presents today with a BAL of 314 and a negative UDS reporting that when he left the hospital in August things went well for a few weeks and he was sober but then he started to drink again which started slow but then he reports that he is gotten to the poin that he was not drinking most days of the week. He reports that a couple nights ago before he came in here he was pulled over and given a DUI. He reports that during the situation/traffic stop he was resistant and ultimately went and got booked but they brought him here afterwards. He reports that he was just frustrated because he wanted to not have his mom have her car impounded and they would not let him call her to have her come pick her car up versus and pounding it. He reports that he does not recall doing or saying anything that would make them bring him here. However in the affidavit he reports that he did say that he wanted to kill himself after they let him go. He reports that he had been taking his medication before they ran out a few days ago and we discussed the risks, benefits and alternatives of restarting these medications/continuing them and he understood and agreed to proceed as is documented in this note. He reports that due to this he is already lost a job that he has been working hard to get. 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 Per his 08/31/2024 [facility] inpatient psychiatric discharge summary: Discharge Diagnosis (1) Suicidal ideation: Status: Acu te (2) Alcohol intoxication: Status: Acute Qualifiers: Complication of substance-induced condition: uncomplicated Qualified Code(s): F10.920 - Alcohol use, unspecified with intoxication, uncomplicated (3) PTSD (post-traumatic stress disorder ): Status: Acute (4) Major depressive disorder, recurrent : Status: Acute (5) Alcohol use disorder: Status: Acute (6) Generalized anxiety disorder: Status: Acute Reason for Visit Reason for Visit: SI Brief History: History of Present Illness Darell Devlin is a 29 year old male who presented to the emergency department with the following report: Chief Complaint: Psychiatric Symptoms Stated Complaint: SI Time Seen by Provider: 08/24/24 23:49 History of Present Illness: Presents to the ER with suicidal ideation. Plan on hanging himself tonight. He is brought in by his mother. He has been drinking. He did fall down and strike the right side of his face to be a superficial abrasions to that area but he says it does not hurt. Patient says he does not want help. Patient does admit to being cutter. He does see a psychiatrist at [facility] in [place] has not seen him since March. Chief complaint Suicidal ideation following alcohol relapse. History of the present complaint The patient, born on October 30, 1994, reports currently taking psychiatric medications including olanzapine (Zyprexa) and is in the process of weaning off gabapentin. They have been taking Prozac and Zyprexa for about six weeks and have been on lamotrigine for a longer period. The patient was admitted to the hospital due to drinking and having thoughts of self-harm. They express a desire to stop drinking, acknowledging a relapse after being sober for five to six months. The patient has a history of psychiatric hospitalizations, with this being their third admission. Previous admissions occurred when they were 21 years old and earlier in June 2023 at [facility]. The patient has been receiving outpatient care at [facility], attending appointments approximately once a month. They have a history of vaping since 2015 and report excessive alcohol consumption starting in 2015, which worsened in 2022. The last drink was consumed the night before the consultation. The patient occasionally uses marijuana and reported using cocaine about two months ago. 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 The patient has a history of legal issues related to possession but avoided longterm time by cooperating as a confidential informant. The patient began experiencing depression and anxiety symptoms around 2013 or 16 while in high school, which have progressively worsened. They report feelings of helplessness, hopelessness, worthlessness, low mood, and sleep problems. The patient describes having a passive wish, with thoughts of not caring if they do not wake up. They have experienced suicidal thoughts but have been too scared to act on them. The patient attempted suicide the night before the consultation by trying to hang themselves. They have a history of self-injurious behavior, starting in 2014, with the most recent incident occurring three days prior to the consultation. Anxiety symptoms include overwhelming worry and a sense of impending doom, even without specific triggers. The patient reports a family history of mental health issues, with both parents having struggled with alcoholism. The patient's mother has a history of depression and has been hospitalized for it. The patient's brother attempted suicide in 2019. 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 They also had a stroke in 2018, attributed to cocaine use and Xanax withdrawal. The patient identifies as homosexual and has been in a complicated relationship for six years. They have never been or had biological children. The patient attempted to join the [place] but was discharged due to self-harm history. 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 Currently, they live with their mother and have several pets. The patient has spent nights in longterm on three occasions but has not served time for any felony charges. Mental health history Diagnosed with depression and anxiety around [id number] during high school, with symptoms progressively worsening. History of passive wishes and suicidal thoughts without a plan, but attempted suicide on 08/24/2024 by attempting to hang self. History of self-injurious behavior (cutting) since 2014, with the most recent episode occurring three days prior to the encounter (08/22/2024). Reports feelings of helplessness, hopelessness, worthlessness, low mood, and sleep disturbances. Experiences anxiety with physical symptoms such as heart racing and feelings of doom, even without specific triggers. No history of paranoia or hallucinations. Admitted to a psychiatric hospital three times: at age 21 (2015), in June 2024 at [facility] in [place], and currently. Currently taking Prozac (20 mg), Zyprexa (5 mg), and lamotrigine, and weaning off gabapentin. Prozac and Zyprexa were initiated approximately six weeks ago (late June 2024). Previous outpatient psychiatric care at [facility], attending monthly appointments. Family history of depression (mother) and suicide attempt (brother in 2019). Social history Lives with mother and has recently moved back home after a relapse. Previously lived in [place]. Has five cats, four dogs, and a Chihuahua. Vapes since 2016 and has been drinking since 2016, with increased consumption in 2022. Last drink was the night before the encounter. Previously sober for five to six months before relapsing. Occasional cannabis use and used cocaine two months ago. Was addicted to methamphetamine in [id number]. No history of foster care or skilled nursing living. Longest job held was as a rn building for three years at [employer], but was fired. Identifies as heterosexual. Longest relationship lasted six years, currently complicated. No biological children. Attempted to join the [employer] but was discharged due to self-harm history. Describes self as Roman Catholic. Hospital Course Hospital Course He slowly acclimated to the individual, group and milieu therapies provided. He presented with significant issues related to the fact that he had a DUI the other day and made comments to police that they found concerning. Once here he identified that this was drunk frustration that they would not let him just get his mom car instead of him pounding it and costing her additional money. We restarted his medication and tried to work with him to get over his ambivalence about active treatment as he continues to feel he has less of a problem than appears to be. Fact that he was intoxicated and on his way to work soon when he was pulled over he did not ever seem to appreciate the significance of that behavior. He worked with the social work team to get outpatient appointments and other resources. He had significant improvement during the stay and he was able to contract for safety outside the hospital prior to discharge. During the hospitalization, patient had routine laboratory studies which were within normal limits except for few outliers. Additionally there was a general medical eval uation which was also within normal limits and revealed no new acute processes. Discharge Summary: At the time of discharge, he denied symptoms of psychosis or lethality. Mood and anxiety were well managed. Patient endorsed a plan to avoid all drugs of abuse and follow-up with the aftercare recommendations of the treatment team. Patient was evaluated and deemed to be absent credible lethality, and had achieved significant benefit from an inpatient hospitalization, so was discharged Hospital Course The patient had reported limited improvement in regards to anxiety on buspirone and this medication was not restarted during his hospital stay and discontinued. Otherwise, the patient was restarted on his medications on an outpatient basis. Seroquel was replaced by Seroquel XR at 150 mg at 7 PM to aid for treating depression. He reported no excess sedation on this dosing. Furthermore the patient was given naltrexone intramuscularly to aid with continuous daily alcohol use with a plan for the patient to resume this medication on a monthly basis on an outpatient basis within 28 days. During the hospitalization, the patient had routine laboratory studies which were within normal limits except for a few outliers. Additionally, there was a general medical evaluation which was also within normal limits and revealed no new acute processes. At the time of discharge, lethality was denied and psychosis was resolving. Mood and anxiety were well managed. The patient endorsed a plan to avoid all drugs of abuse and follow up with the aftercare recommendations of the treatment team. The patient was evaluated and deemed to be absent credible lethality and had achieved the maximum benefit from an inpatient hospitalization, and so was discharged. He had planned to move back to [place] where he would resume outpatient services through the [facility] at [place]. Hospital Course Hospital Course The patient was initially placed in the intensive care unit and once stabilized after his overdose, he was moved to the neuropsychiatric unit. He eventually was restarted on Cymbalta as previously prescribed at 120mg daily. He had initially refused inpatient substance abuse treatment but eventually agreed to outpatient intensive services targeting both depression and his alcohol use. He had acknowledged that his issues with impulsive overdose and other periods of intense self injury leading to hospitalization had occurred under the influence of alcohol. He was agreeable to continuing vivitrol IM 380mg monthly as well to reduce cravings for alcohol. During the hospitalization, the patient had routine laboratory studies which were within normal limits except for a few outliers.? Additionally, there was a general medical evaluation which was also within normal limits and revealed no new acute processes.? At the time of discharge, lethality was denied and psychosis was absent.? Mood and anxiety were well managed.? The patient endorsed a plan to avoid all drugs of abuse and follow up with the aftercare recommendations of the treatment team.? The patient was evaluated and deemed to be absent credible lethality and had achieved the maximum benefit from an inpatient hospitalization, and so was discharged. ? Involuntary Hold Information Hold Status: Legal Status: 21 Day Hold Date/Time Hold Expires: 05/31/2025 96 Hour Hold: 96 Hour Involuntary Admission: Yes Other Hold: Hold End Date: 10/20/24 Mental Status Exam MSE Comments: This is a well-nourished well-developed white male in hospital scrubs with limited grooming and eye contact. There were multiple tattoes on arms and neck. No abnormal movements except for psychomotor retardation. He was cooperative with exam in mild to moderate distress. Speech was normal in rate and normal in volume. Mood described as good. His affect was brighter today. Thought process was linear and organized. Thought contact: patient denies suicidal or homicidal ideation, there were no delusions reported or noted. He denied auditory or visual hallucinations. Attention and concentration appeared intact and memory appeared unreliable but none were formally tested. Patient is alert and oriented times person, and place. Insight was poor. judgment and impulse control are improving. Discharge Data Studies Completed and Pending: Completed Studies During Hospitalization Category Date Time Status CT head wo con* [id number] Stat Cat Scan 04/29/25 06:24 Completed XR KUB portable 7 [id number] Stat Exams 04/29/25 07:43 Completed XR chest 1V laine ble [id number] Stat Exams 04/29/25 06:24 Completed CV. echo complete * [id number] Routine Ultrasound 05/04/25 14:30 Completed Radiology Impressions Chest X-Ray 04/29/25 06:24 IMPRESSION: No acute findings. Head CT 04/29/25 06:24 IMPRESSION: No acute intracranial abnormality. KUB X-Ray 04/29/25 07:43 Impression: Oral gastric tube probably ends in the fundus of the stomach. Laboratory Results WBC 8.17 10^3/uL (3.2 9-11.43) 05/04/25 07:35 RBC 3.96 10^6/uL (3.8 5-5.65) 05/04/25 07:35 Hgb 10.90 g/dL (11.27 -16.99) L 05/04/25 07:35 Hct 34.9 % (37-53) L 05/04/25 07:35 MCV 88.1 fl (82-101) 05/04/25 07:35 MCH 27.5 pg (27-33) 05/04/25 07:35 MCHC 31.2 g/dL (30-55) 05/04/25 07:35 RDW 15.6 % (12.1-15.1 ) H 05/04/25 07:35 Plt Count 283 10^3/cmm (157 -399) 05/04/25 07:35 MPV 10.3 fL (7.4-10.4 ) 05/04/25 07:35 Neut % (Auto) 55.6 % 05/04/25 07:35 Lymph % (Auto) 17.6 % 05/04/25 07:35 [place] % (Auto) 20.1 % 05/04/25 07:35 Eos % (Auto) 4.4 % 05/04/25 07:35 Baso % (Auto) 0.7 % 05/04/25 07:35 Neut # (Auto) 4.54 10^3/uL (1.8 -7.7) 05/04/25 07:35 Lymph # (Auto) 1.4 10^3/uL (0.8- 4.8) 05/04/25 07:35 [place] # (Auto) 1.6 10^3/uL (0.2- 0.9) H 05/04/25 07:35 Eos # (Auto) 0.4 10^3/uL (0.0- 0.8) 05/04/25 07:35 Baso # (Auto) 0.1 10^3/uL (0.0- 0.1) 05/04/25 07:35 Nucleated RBC % (a uto) 0 % 05/04/25 07:35 Nucleated RBCs # 0.0 /100WBC 05/04/25 07:35 Specimen Type Arterial 04/30/25 13:48 Sample Site Radial, left 04/30/25 13:48 ABG pH 7.47 (7.35-7.45) H 04/30/25 13:48 ABG pCO2 28.0 mmHg (35-45) L 04/30/25 13:48 ABG pO2 79.8 mmHg (80.0-1 00.0) L 04/30/25 13:48 ABG PO2/FiO2 Ratio 266 04/30/25 13:48 ABG HCO3 20.4 mmol/L (22-2 6) L 04/30/25 13:48 ABG O2 Saturation 97.2 04/30/25 13:48 ABG Base Excess -2.4 mmol/L (-2.0 -2.0) L 04/30/25 13:48 [place] Test Pos 04/30/25 13:48 A-a O2 Gradient 12.8 mmHg (5-10) H 04/30/25 13:48 Hematocrit 31.5 % (42-52) L 04/30/25 13:48 Hgb O2 Saturation 96.1 % (95-100) 04/30/25 13:48 Carboxyhemoglobin 1.0 %THgb (0.4-20 .1) 04/30/25 13:48 Methemoglobin 0.1 % (0.4-1.5) L 04/30/25 13:48 Total Hemoglobin 10.3 g/dL (14-18) L 04/30/25 13:48 Sodium 144.0 mmol/L (131 -143) H 04/30/25 13:48 Potassium 3.8 mmol/L (3.5-5 .0) 04/30/25 13:48 Glucose 104.0 mg/dL (70-1 15) 04/30/25 13:48 Ionized Calcium 1.1 mmol/L (1.1-1 .4) 04/30/25 13:48 O2 Delivery Device Vent 04/30/25 13:48 FiO2 30.0 % 04/30/25 13:48 Tidal Volume 0.55 04/30/25 13:48 PEEP 8.0 cmH20 04/30/25 13:48 Box Sealing Machine Feeder ID [id number] 04/30/25 13:48 Sodium 141 mmol/L (136-1 45) 05/04/25 07:35 Potassium 4.0 mmol/L (3.5-5 .1) 05/04/25 07:35 Chloride 108 mmol/L (98-10 7) H 05/04/25 07:35 Carbon Dioxide 23 mmol/L (22-29) 05/04/25 07:35 Anion Gap 14.0 (5-19) 05/04/25 07:35 BUN 3 mg/dL (6-20) L 05/04/25 07:35 Creatinine 0.7 mg/dL (0.7-1. 2) 05/04/25 07:35 GFR Calculation 134.3 mL/min (90- 130) H 05/04/25 07:35 Glucose 100 mg/dL (65-115 ) 05/04/25 07:35 Calculated Osmolal ity 289 mOsm/kg (285- 295) 05/04/25 07:35 Lactic Acid 8.3 mmol/L (0.5-2 .2) H* 04/29/25 07:16 Lactic Acid (Sepsi s) 7.5 mmol/L (0.5-2 .2) H* 04/29/25 10:03 Lactate 2.0 mmol/L (0.5-2 .2) 05/03/25 09:49 Calcium 8.4 mg/dL (8.5-10 .5) L 05/04/25 07:35 Phosphorus 2.2 mg/dL (2.5-4. 5) L 05/01/25 03:52 Magnesium 2.1 mg/dL (1.7-2. 3) 05/01/25 03:52 Total Bilirubin 0.3 mg/dL (0.15-1 .2) 05/04/25 07:35 AST 36 U/L (0-40) 05/04/25 07:35 ALT 40 U/L (0-41) 05/04/25 07:35 Alkaline Phosphata se 105 U/L (40-130) 05/04/25 07:35 Ammonia 26 umol/L (16-60) 04/29/25 08:45 Creatine Kinase 200 U/L (39-308) 04/29/25 06:49 Troponin T Baselin e 7 ng/L (0-15) 04/29/25 06:49 Troponin T 120 Min aleisha 8.15 ng/L (0-15) 04/29/25 08:45 Delta Troponin T 1.15 ABS# (0-10) 04/29/25 08:45 Troponin T Hi Sens 6Hr 14.13 ng/L (0-15) 04/29/25 12:22 Troponin T Hi Sens 6Hr Delta 7.13 ng/L (0-12) 04/29/25 12:22 Total Protein 6.0 g/dL (6.6-8.7 ) L 05/04/25 07:35 Albumin 3.0 g/dL (3.5-5.2 ) L 05/04/25 07:35 Globulin 3.0 g/dL (1.3-4.6 ) 05/04/25 07:35 Lipase 20 U/L (13-60) 04/29/25 06:49 TSH 0.57 uIU/mL (0.27 -4.20) 04/29/25 08:05 Urine Color Yellow (Yellow) 04/29/25 06:20 Urine Appearance Clear (CLEAR) 04/29/25 06:20 Urine pH 5.5 (5-7) 04/29/25 06:20 Ur Specific Gravit y 1.008 (1.005-1.0 30) 04/29/25 06:20 Urine Protein Negative (Negati ve) 04/29/25 06:20 Urine Glucose (UA) Negative (Normal ) 04/29/25 06:20 Urine Ketones Negative (Negati ve) 04/29/25 06:20 Urine Blood Negative (Negati ve) 04/29/25 06:20 Urine Nitrate Negative (Negati ve) 04/29/25 06:20 Urine Bilirubin Negative (Negati ve) 04/29/25 06:20 Urine Urobilinogen 0.2 mg/dL (Negati ve) 04/29/25 06:20 Ur Leukocyte Corinna ase Negative (Negati ve) 04/29/25 06:20 Amorphous Sediment Not Reportable 04/29/25 06:20 Salicylates < 0.3 mg/dL (3-10 ) L 04/29/25 06:49 Urine Opiates Scre en Negative ng/mL (N egative) 04/29/25 06:20 Acetaminophen < 5.0 ug/mL (10-3 0) L 04/29/25 06:49 Ur Barbiturates Sc reen Negative ng/mL (N egative) 04/29/25 06:20 Ur Phencyclidine S crn Negative ng/mL (N egative) 04/29/25 06:20 Ur Amphetamines Sc reen Negative ng/mL (N egative) 04/29/25 06:20 U Benzodiazepines Scrn Negative ng/mL (N egative) 04/29/25 06:20 Urine Cocaine Scre en Negative ng/mL (N egative) 04/29/25 06:20 U Marijuana (THC) Screen Negative ng/mL (N egative) 04/29/25 06:20 Ethyl Alcohol 265 mg/dL (0-10) H 04/29/25 06:49 Influenza A (PCR) Negative (Negati ve) 04/29/25 07:16 Influenza Type B ( PCR) Negative (Negati ve) 04/29/25 07:16 RSV (PCR) Negative (Negati ve) 04/29/25 07:16 SARS-CoV-2 (PCR) Negative (Negati ve) 04/29/25 07:16 Vitals: Last Vital Signs Temp 99.0 F 05/11/25 15:11 Pulse 91 05/11/25 15:11 Resp 16 05/11/25 15:11 BP 113/65 05/11/25 15:11 Pulse Ox 96 05/11/25 15:11 O2 Del Method Room Air 05/11/25 14:00 O2 Flow Rate 2 05/02/25 08:20 FiO2 21 05/01/25 13:05 Discharge Plan Discharge Patient Disposition: Home Condition: Stable Prescriptions: New metoprolol tartrate 25 mg Tablet 12.5 mg PO BID@0900,2100 Qty: 30 1RF Continued gabapentin 800 mg tablet 800 mg PO TID 30 Days Qty: 90 0RF neomycin-polymyxin B-dexameth [Maxitrol] 3.5mg/mL-10,000 unit/mL-0.1 % drops,suspension 1 drp ophthalmic (eye) Q8H Qty: 5 0RF mupirocin [Centany] 2 % ointment 1 applic topical BID Qty: 22 0RF naltrexone microspheres 380 mg suspension,extended rel recon 380 mg IM .once every 28 days Qty: 1 2RF Rx Instructions: One injection IM every 30 days, [facility] at [facility], next dose due 05/12/25 quetiapine 150 mg tablet extended release 24 hr 150 mg PO 1900 30 Days Qty: 30 1RF folic acid 1 mg Tablet 1 mg PO DAILY 30 Days Qty: 30 1RF thiamine mononitrate (vit B1) [Vitamin B-1 (mononitrate)] 100 mg Tablet 100 mg PO DAILY 30 Days Qty: 30 1RF duloxetine 60 mg capsule,delayed release(DR/EC) 120 mg PO DAILY 30 Days Qty: 60 1RF Discontinued amoxicillin-pot clavulanate 875-125 mg tablet 1 tab PO BID 10 Days Qty: 20 0RF Discharge Order = DC NOW: Discharge Order (Routine); Ordered 05/11/25 Ordered By: Otf Lyles Referrals: Ofe Marie APRN [Nurse Practitioner, Nurse Practitioner Psych/MH] - 05/19/25 2:15 pm Janelle Pool LPC [Therapist, Psychology] - 05/18/25 11:45 am Discharge Diet: Usual diet Discharge Activity: Resume usual activity Patient Instructions: Metoprolol (By mouth) (Lopressor, Toprol XL), Depression (DC), PTSD (Post Traumatic Stress Disorder) (DC), Anxiety (DC), Alcohol Use Disorder (DC), Suicide Prevention (DC), Opioid Safety, Patient Portal & [employer] Instructions Discharge Attestations NPU Time Spent in Discharge Care*: less than 30 min Specific Discharge Activities: Specific discharge activities: educating patient, discussing with case sealer/social workers/dc planners and documenting/other paperwork Coding Level of Care Code Acute Code for Chg Fwd Diagnoses Major depressive disorder, recurrent F33.9 Suicidal ideation R45.851 PTSD (post-traumatic stress disorder) F43.10 Alcohol use disorder F10.90 Generalized anxiety disorder F41.1
== END 2025-05-11 15:44 | disposition home or self-care (01) | DRG 917 ==
LOC: ER 07:12 → ICU 09:23 → NP 05-03 15:21
PROVIDERS: Internal Medicine; Student in an Organized Health Care Education/Training Program; Admitting Provider Internal Medicine; Emergency Provider Family Medicine; Visit Provider Psychiatry & Neurology Psychiatry
DX: T51.0X2A Toxic effect of ethanol, intentional self-harm, initial encounter (principal); A41.9 Sepsis, unspecified organism; G93.41 Metabolic encephalopathy; J69.0 Pneumonitis due to inhalation of food and vomit; J96.01 Acute respiratory failure with hypoxia; R65.20 Severe sepsis without septic shock; F33.9 Major depressive disorder, recurrent, unspecified; E87.20 Acidosis, unspecified; I47.10 Supraventricular tachycardia, unspecified; R56.9 Unspecified convulsions; F43.10 Post-traumatic stress disorder, unspecified; F41.1 Generalized anxiety disorder; Z91.51 Personal history of suicidal behavior; F17.200 Nicotine dependence, unspecified, uncomplicated; I10 Essential (primary) hypertension; Z90.79 Acquired absence of other genital organ(s); Z81.8 Family history of other mental and behavioral disorders; Y90.8 Blood alcohol level of 240 mg/100 ml or more; F19.10 Other psychoactive substance abuse, uncomplicated; F10.220 Alcohol dependence with intoxication, uncomplicated; R68.0 Hypothermia, not associated with low environmental temperature; Z63.9 Problem related to primary support group, unspecified; Z01.84 Encounter for antibody response examination; Z85.47 Personal history of malignant neoplasm of testis; Z86.73 Personal history of transient ischemic attack (TIA), and cerebral infarction without residual deficits; Z81.3 Family history of other psychoactive substance abuse and dependence; F60.3 Borderline personality disorder
CPT/HCPCS: 36415; 36600; 70450; 71045; 74018; 80048; 80051; 80053; 80306; 80307; 81003; 82140; 82330; 82550; 82803; 82805; 83605; 83690; 83735; 84100; 84443; 84484; 85025; 87040; 87070; 87205; 87637; 92507; 92523; 92610; 93005; 93306; 94002; 94003; 94664; 94799; 96365; 96366; 96367; 96372; 97150; 97165; 99291; A4570; J0360; J0456; J0696; J1200; J1650; J1953; J2060; J2250; J2470; J2560; J3010; J3411; J3475; J3490; J7030; J7050; J7120; J9999

== ENCOUNTER → 2025-06-22 14:39 | Outpatient (BNVA) | payer OTHER, SELFPAY ==
[2024-11-19 10:42] VITALS: BP 129/93; BMI 24.8
== END ==
PROVIDERS: Visit Provider Nurse Practitioner Psychiatric/Mental Health
DX: F43.25 Adjustment disorder with mixed disturbance of emotions and conduct (principal); F10.20 Alcohol dependence, uncomplicated; F41.1 Generalized anxiety disorder; F33.2 Major depressive disorder, recurrent severe without psychotic features; Z79.899 Other long term (current) drug therapy
CPT/HCPCS: 80061; 83036

== ENCOUNTER → 2025-08-26 13:22 | Outpatient (BNVA) | payer OTHER, SELFPAY ==
[2025-06-24 14:17] VITALS: BP 142/94; BMI 25.4
== END ==
PROVIDERS: Visit Provider Nurse Practitioner Psychiatric/Mental Health
DX: Z03.89 Encounter for observation for other suspected diseases and conditions ruled out (principal)
CPT/HCPCS: 80307